=== PATIENT | female | born 1950 | race Caucasian/White ===

== ENCOUNTER 2017-10-24 12:36 | Day surgery (SDC) | payer MEDICARE, OTHER ==
[~2017-10-24 12:36] MED LIST: Buffered Lidocaine 0.9% SYRIN* 5 ML/SYR SYRINGE INTRADERM ONE
[2017-10-24] MEDS ORDERED: Midazolam* 1 MG/ML 2 ML VIAL (2 MG) ONE ×3 (13:27→14:01)
[2017-10-24] MEDS ORDERED: fentaNYL* 50 MCG/ML 2 ML VIAL (100 MCG VIAL) ONE ×2 (13:27→14:01)
[2017-10-24] MEDS ORDERED: Ketorolac INJ* 30 MG/ML 1 ML VIAL ONE (13:40)
[2017-10-24] MEDS ORDERED: Naloxone* 0.4 MG/ML 1 ML VIAL IV PRN (14:04)
[2017-10-24 15:09] VITALS: BP 138/84
[2017-10-24] MEDS ORDERED: Tetracaine 0.5% OPTH.SOL 4 ML* 1 DROP BTL ONE (15:12)
[2017-10-24] MEDS ORDERED: Tropicamide 1% OPTH.SOL* BTL ONE (15:12)
[2017-10-24] MEDS ORDERED: Cyclopentolate 1% OPTH.SOL* 2 ML BTL ONE (15:12)
[2017-10-24] MEDS ORDERED: Phenylephrine 2.5% OPTH.SOL* 2 ML BTL ONE (15:12)
[2017-10-24] MEDS ORDERED: Neomycin/Polymy/Dex OPHTH.OIN* 3.5 GM ONE (15:12)
[2017-10-24] MEDS ORDERED: Ketorolac 0.5% OPHTH (NF) 0.5 % 5 ML BTL ONE (15:12)
[2017-10-24] MEDS ORDERED: Lidocaine 1%* 5 ML VIAL ONE (15:12)
--- NOTE | 2017-10-24 22:24 | OP ---
OPERATIVE REPORT: DATE OF OPERATION: 10/24/17 - [facility] DATE OF : 46 SURGEON: Dr. Dillan Amanda. RESPIRATORY PRACTITIONER: None. ANESTHESIA: Topical with intravenous sedation. PRE-OP DIAGNOSIS: Cataract, right eye. POST-OP DIAGNOSIS: Cataract, right eye. OPERATIVE PROCEDURE: Phacoemulsification and cataract extraction with posterior chamber intraocular lens implant, right eye. COMPLICATIONS: None. BLOOD LOSS: None. OPERATIVE FINDINGS: The patient was brought to the operating room and received a small amount of intravenous sedation. A drop of tetracaine was placed in her right eye. She was prepped and draped in the usual sterile fashion for ophthalmic surgery and attention was directed to the right eye where a speculum was placed. A paracentesis was created at the 11 o'clock position and 0.1 cc of 1 percent preservative-free lidocaine was injected into the anterior chamber followed by DisCoVisc. The eye was digitally stabilized while a 2.75 mm keratome was used to create a triplanar clear corneal incision at the 9 o'clock position. A continuous curvilinear capsulorrhexis was created with a cystotome and Utrata forceps. BSS on a cannula was used to hydrodissect the lens from the capsule. Phacoemulsification was performed in a gfytji-[id number] technique to create four fragments which were removed. Residual cortical material was removed with irrigation and aspiration. DisCoVisc was used to inflate the capsular bag and an AUOOTO 15.5 diopter lens was folded and inserted into the capsular bag. DisCoVisc was removed using irrigation and aspiration. BSS on a cannula was used to hydrate the corneal stroma and seal the wound. At the end of the case the pupil was round and the lens was centered. The eye was of normal pressure and the wound was water tight. The speculum was removed and topical Maxitrol ointment was placed on the surface of the eye. The eye was closed, patched and shielded and the patient was sent to the recovery room in stable condition with post operative instructions and follow-up appointment given. [id number]/CPS #: [id number] DIAMOND
== END 2017-10-24 14:26 | disposition home or self-care (01) ==
LOC: OREAST 12:36
PROVIDERS: ATTEND Ophthalmology
DX: H25.11 Age-related nuclear cataract, right eye (principal); I10 Essential (primary) hypertension; F41.1 Generalized anxiety disorder; K21.9 Gastro-esophageal reflux disease without esophagitis; M54.5 Low back pain; K58.0 Irritable bowel syndrome with diarrhea
CPT/HCPCS: A9270-GY; J1885; J2250; J3010; V2632

== ENCOUNTER 2018-11-24 09:22 | Emergency (ER) | payer MEDICARE ==
--- OUTSIDE RECORDS SUMMARY | 2018-11-24 09:28 | XMS REPORT | Continuity of Care Document ---
:1950 External Reference #:[id number] Author Care Team Providers Name Role Phone Uday Morris MD - Family Medicine Care Team Information Marriage And Family Counselor Problems Description No Information Available Social History Type Date Description Comments Sex Unknown Tobacco Use Start: Unknown Patient has never smoked Smoking Status Reviewed: 10/30/18 Patient has never smoked Allergies, Adverse Reactions, Alerts Active Allergies Reaction Severity Comments Date Hydrochlorothiazide leg cramps 09/19/2018 Levofloxacin 09/19/2018 Sulfa Antibiotics 10/22/2018 Penicillin 10/22/2018 Fluoxetine 10/30/2018 Medications Active Medications SIG Qnty Indications Ordering Provider Date Omeprazole take 1 capsule by 30caps Jaclyn 10/30/2018 20mg mouth daily. take MD Abbea Capsules DR 30-60 minutes before a meal. Suprep Bowel Prep Kit as directed 1units Jaclyn 10/30/2018 MD Abeba 17.5-3.13-1.6GM/177ML Solution Ondansetron take one tablet 30tabs R13.19 Uday Morris, 06/07/2018 4mg Tablets by mouth four MD Dispers times a day as needed for nausea Lorazepam 1 twice a day as 60tabs Uday Morris, 12/19/2017 0.5mg Tablets needed anxiety dt MD Loaiza XT take 1 capsule 90caps Uday Morris, 09/11/2014 180mg Caps ER daily MD 24HR Hydrocodone-Acetamino 1 by mouth four 60tabs M25.559 Uday Morris, 04/24 phen times a day as MD 5-325mg Tablets needed pain Ambien 1 by mouth every 30tabs Cha Barkley, 08/22/2005 10mg Tablets night at bedtime MD as needed sleep Lisinopril 1 by mouth every 90tabs I10 ArturoUday, 08/26/2004 40mg Tablets day MD History Medications Nitrofurantoin Monohyd 1 by mouth twice a 14caps N39.0 ArturoUday Amarilis, 11/2018 - Macro day x 7 days for MD 10/30/2018 100mg Capsules urinary tract Fluoxetine HCL 1 by mouth every 30caps F32.9 ArturoValeriowilton Olmos, 09/11/2018 - 20mg day For Depression 10/30/2018 Capsules Immunizations Description No Information Available Vital Signs Date Vital Result Comment 10/30/2018 10:20am Height 69 inches 5'9" Weight 166.00 lb BP Systolic 164 mmHg BP Diastolic 98 mmHg Heart Rate 117 /min BMI (Body Mass Index) 24.5 kg/m2 Results Test Date Facility Test Result H/L Range Note Lab Results 09/18/2018 N2N/CCD Import Gamma gt <pending> 5-85 Lab Results 09/11/2018 N2N/CCD Import Appearance clear Color brown Glucose, Urine (Fma/CMC/CTX) 100mg High Bilirubin Icto neg Ketones 15mg SP Grav 1.025 1 Blood trace-lysed PH 5.5 1 Protein Ssa 1+ Urobil 1.0 1 Nitrite negative Leukocytes (Fma/CMC/Centrex) negative Hyaline 4-6 /Lpf Granular - /Lpf WBC (Fma,Centrex) 3-5 RBC 0-1 Mucus (Fma/CBC/Centrex) sm amt /Lpf Epith few /Lpf Bacteria 1+ /Hpf Amorphous (Fma/CMC/Centrex) - /Lpf Crystals, Fluid (Fma/CMC/CTX) - Z#Comments yeast Comprehensive Metabolic Prof 09/11/2018 N2N/CCD Import Sodium 138 mEq/L 134-149 Potassium 3.8 mEq/L 3.6-5.5 Chloride 99 mEq/L 94-112 Carbon Dioxide 27 mEq/L 21-32 Glucose 113 mg/dL High 70-105 1 BUN 9 mg/dL 6-26 Creatinine 0.9 mg/dL 0.6-1.4 BUN/Creat Ratio 10.0 CALC 8-36 Calcium 9.3 mg/dL 8.6-10.2 Total Protein 8.6 g/dL High 6.4-8.3 2 Albumin 4.4 g/dL 3.8-5.5 Globulin 4.2 g/dL 2-4.8 A/G Ratio 1.0 CALC 0.6-2.3 Alk. Phosphatase 179 U/L High 30-110 Alt (SGPT) 31 U/L 7-35 Ast (Sgot) 52 U/L High 5-34 Total Bilirubin 3.3 mg/dL High 0.2-1.3 GFR Non- >60 ml/min/1.73m^ GFR >60 ml/min/1.73m^ Lab Results 09/11/2018 N2N/CCD Import WBC 5.6 10^3/uL 4-10 RBC 3.70 10^6/uL Low 3.93-6 3 HGB 12.6 g/dL 12-17 HCT 38 % 35-50 MCV 102.2 fL High 80-95 4 MCH 34.1 pg High 25.6-32.2 5 MCHC 33.3 g/dL 32.2-36 RDW-CV 14.0 % 11.6-14.4 PLT 243 10^3/uL 163-400 MPV 9.8 fL 9.4-12.4 Rob# 2.77 10^3/uL 1.56-6.13 Lymph# 2.23 10^3/uL 1.18-3.74 [place]# 0.43 10^3/uL 0.24-0.82 Eos # 0.1 10^3/uL 0-0.5 Baso # 0.01 10^3/uL 0.01-0.08 Rob% 49.9 % 34-70 Lymph % 40.2 % 20-52 [place]% 7.7 % 5-12 Eos% 2.0 % 0.7-7 Baso% 0.2 % 0.1-1.2 Total Bilirubin 3.3 mg/dL High 0.2-1.3 Direct Bilirubn 1.0 mg/dL High 0-0.6 Indirect Bilirubin 2.30 mg/dL High 0.1-1 Lab Results 09/11/2018 N2N/CCD Import Total Bilirubin 3.3 mg/dL High 0.2- 1.3 Direct Bilirubn 1.0 mg/dL High 0-0.6 Indirect Bilirubin 2.30 mg/dL High 0.1-1 Lab Results 09/11/2018 N2N/CCD Import C-Reactive <1 mg/L 0-10 6, 7 Protein, Quant Lab Results 08/19/2018 N2N/CCD Import Cologuard Cancelled - Orde 8 <See Note> 1 RESULTS VERIFIED BY REPEAT ANALYSIS 2 RESULTS VERIFIED BY REPEAT ANALYSIS 3 consistent w/ previous results 4 RESULTS VERIFIED BY REPEAT ANALYSIS 5 consistent w/ previous results 6 1 gold top sst tube sent 7 Please note reference interval change 8 Cancelled - Order This order has because it has exceeded 365 days from the initial order. Please contact the laboratory to reorder this test if clinically indicated. Test Type: Composite algorithmic analysis of stool DNA-biomarkers with hemoglobin immunoassay. Quantitative values of individual biomarkers are not reportable and are not associated with individual biomarker result reference ranges. Precautions and Limitations: Cologuard is intended for colorectal cancer screening of adults of either sex, 50 years or older, who are at typical average-risk for colorectal cancer. A negative C ologuard test result does not guarantee the absence of colorectal cancer or advanced adenoma (pre-cancer). Patients with a negative Cologuard test result should be advised to continue participating in a colorectal cancer screening program. Cologuard may produce a positive result , even though a colonoscopy may not find colorectal cancer or precancerous polyps. The performance of Cologuard has been esta blished in a cross sectional study (i.e., single point in time). Performance has not been evaluated in adults who have been previously tested with Cologuard or in patients less than 50 years of age. Col oguard has been approved for use by the [place] FDA. Cologuard performance data in a 10,000 patient pivotal study using colonoscopy as the reference method can be accessed at the following location: [email or web address]. Additional description of the Cologuard test process, warnings and precautions can be found at www.cologuardtest.com. Rx Only. Procedures Description No Information Available Medical Devices Description No Information Available Encounters Description No Information Available Assessments Date Code Description Provider 10/30/2018 R19.4 Change in bowel habit Jaclyn Us MD 10/30/2018 R10.9 Unspecified abdominal pain Jaclyn Us MD 10/30/2018 R13.10 Dysphagia, unspecified Jaclyn Us MD 10/30/2018 R11.0 Nausea Jaclyn Us MD 10/30/2018 R63.4 Abnormal weight loss Jaclyn Us MD 10/30/2018 R94.5 Abnormal results of liver function studies Jaclyn Booker MD 10/30/2018 R93.3 Abnormal findings on diagnostic imaging of Jaclyn Booker MD other parts of digestive tract Plan of Treatment Future Appointment(s):11/29/2018 12:00 pm - [facility] at [facility]/30/2018 - Jaclyn Us, MDR19.4 Change in bowel xusriU98.9 Unspecified abdominal painR13.10 Dysphagia, krvlyxgcjzqM61.0 UonjwiB69.4 Abnormal weight lossR94.5 Abnormal results of liver function kadnqviE35.3 Abnormal findings on diagnostic imaging of other parts of digestive tract Functional Status Description No Information Available Mental Status Description No Information Available Referrals Description No Information Available
--- OUTSIDE RECORDS SUMMARY | 2018-11-24 09:28 | XMS REPORT | Continuity of Care Document ---
:1950 External Reference #:[id number] Author Name Jaclyn Us MD Address [address] [place] [address] Care Team Providers Name Role Phone Uday Morris MD - Family Medicine Care Team Information Internal Wholesaler [phone] Problems Description No Information Available Social History [...] Provider Date Omeprazole take 1 capsule by 30capkaylene Anaya 10/30/2018 20mg mouth daily. take MD Abeba Capsules DR 30-60 minutes before a meal. [...] pain Ambien 1 by mouth every 30tabs FilippoCha, 08/22/2005 10mg Tablets night at bedtime as needed sleep Lisinopril 1 by mouth every 90tabs I10 Uday Morris, 08/26/2004 40mg Tablets day MD History Medications Nitrofurantoin Monohyd 1 by mouth twice a 14caps N39.0 Uday Morris, 11/2018 - Macro day x 7 days for MD 10/30/2018 100mg Capsules urinary tract Fluoxetine HCL 1 by mouth every 30caps F32.9 Uday Morris, 09/11/2018 - 20mg day For Depression 10/30/2018 [...] 2.77 10^3/uL 1.56-6.13 Lymph# 2.23 10^3/uL 1.18-3.74 [place]# 0.43 10^3/uL 0.24-0.82 Eos # 0.1 10^3/uL 0-0.5 Baso # 0.01 10^3/uL 0.01-0.08 Rob% 49.9 % 34-70 Lymph % 40.2 % 20-52 [place]% 7.7 % 5-12 Eos% 2.0 % 0.7-7 [...] can be accessed at the following location: [email or web address]/results. Additional description of the Cologuard test process, [...] 12:00 pm - [facility] - Jaclyn Us, MDR19.4 Change in bowel bmifhN93.9 Unspecified abdominal painR13.10 Dysphagia, eseohnlqkhsL25.0 GxpuzyY11.4 Abnormal weight lossR94.5 Abnormal results of liver function zpgpgjxJ82.3 Abnormal findings on diagnostic imaging of other parts of digestive tract Functional Status Description No Information Available Mental Status Description No Information Available Referrals Description No Information Available
[2018-11-24 10:02] VITALS: BP 156/85
--- NOTE | 2018-11-24 10:32 | UC ---
Upper Extremity HPI - HPI Summary HPI Summary: Patient is a 68yo female presenting with right shoulder and scapula pain x5 days. Rates pain 4-5/10. Describes it as a dull ache until certain movements cause sharp pains. Patient is somewhat poor historian, having trouble recalling details of the event and of her own personal health problems. Patient states she took 2 valium on Monday before her 9am MRI for a bowel issue and then went home where she had a drink to relieve stress. She states she fell between the bed and a table that day around 5pm. She does not recall how she fell exactly. She needed help from two people to get up because her legs were too weak. Says she also bruised her coccyx and her head. She denies any headache, n/v, burred vision, numbness, or tingling. She denies neck pain or decreased ROM of neck. Denies any anticoagulant therapy. Patient says falling, leg weakness, her tremor , and trouble remembering are all normal things for her. She is concerned today mostly for her arm because it is the only thing that has not started to feel better. She has been taking ibuprofen throughout the week without much pain relief. - History of Current Complaint Chief Complaint: UCTrauma Stated Complaint: R ARM INJ Time Seen by Provider: 11/24/18 09:28 Hx Obtained From: Patient Onset/Duration: Sudden Onset, Lasting Days Severity Initially: Moderate Severity Currently: Moderate Pain Intensity: 4 Pain Scale Used: 0-10 Numeric Character: Sharp, Dull Aggravating Factor(s): Movement, Lifting, Abduction Alleviating Factor(s): Rest Associated Signs And Symptoms: Positive: Bruising, Weakness. Negative: Numbness /Tingling Related History: Dominant Hand Right - Allergies/Home Medications Allergies/Adverse Reactions: Allergies Allergy/AdvReac Type Severity Reaction Status Date / Time Penicillins Allergy Rash Verified 11/24/18 09:56 SULFA DRUGS Allergy Rash Uncoded 11/24/18 09:56 PMH/Surg Hx/FS Hx/Imm Hx - Surgical History Surgical History: Yes Surgery Procedure, Year, and Place: 1966-tonsillectomy. gallbladder removed 1996[place] [place] 2 YEARS AGO- LEFT EYE CATARACT REMOVED, NOW FATOU AND Rt EYE MACULAR HOLE FILLED WITH GAS BUBBLE - Family History Known Family History: Positive: Unknown, Non-Contributory - Social History Alcohol Use: Weekly Alcohol Amount: 2-3 DRINKS Substance Use Type: None Smoking Status (MU): Never Smoked Tobacco Have You Smoked in the Last Year: No Review of Systems All Other Systems Reviewed And Are Negative: No Constitutional: Positive: Negative Skin: Positive: Bruising - right posterior shoulder and back. left side of head. Eyes: Negative: Blurred Vision, Diplopia, Photophobia Respiratory: Negative: Shortness Of Breath Cardiovascular: Positive: Negative. Negative: Chest Pain Gastrointestinal: Positive: Negative Motor: Positive: Decreased ROM Neurovascular: Negative: Decreased Sensation Musculoskeletal: Positive: Decreased ROM, Myalgia Neurological: Negative: Headache, Paresthesia, Numbness Physical Exam Triage Information Reviewed: Yes Appearance: Well-Appearing, Well-Nourished, Other: - Patient appears frail overall. Vital Signs: Initial Vital Signs Temp 99.3 F 11/24/18 09:56 Pulse 96 11/24/18 09:56 Resp 18 11/24/18 09:56 BP 156/85 11/24/18 09:56 Pulse Ox 97 11/24/18 09:56 Vital Signs Reviewed: Yes Eye Exam: Normal - PERRLA Eyes: Positive: Conjunctiva Clear ENT: Negative: Nasal drainage Neck: Positive: Supple, No Lymphadenopathy, Tenderness @ - midline to palpation Cardiovascular: Positive: Pulses Normal, Brisk Capillary Refill Musculoskeletal: Positive: Strength Intact, No Edema, ROM Limited @ - abduction and overhead arm raise Neurological: Positive: Alert, Other: - sensation of RUE intact Skin: Positive: Other - areas of ecchymosis along right mid/upper back that appear to be healing. area of ecchymosis on back left side of head that also appear to be healing. Diagnostics - Radiology right shoulder Radiology Interpretation Completed By: Radiologist Summary of Radiographic Findings: IMPRESSION: NO EVIDENCE FOR FRACTURE. right scapula Radiology Interpretation Completed By: Radiologist Summary of Radiographic Findings: IMPRESSION: NO EVIDENCE FOR FRACTURE. cervical spine Radiology Interpretation Completed By: Radiologist Summary of Radiographic Findings: FINDINGS: C1-C7 are visualized. There is straightening of the cervical spine with loss of the normal cervical lordosis. No prevertebral soft tissue swelling or fracture is seen. There is moderate to severe degenerative disc disease at the C3-C4, C4-C5, C5-C6 and C6-C7 levels. IMPRESSION: 1. LIMITED STUDY, NO FRACTURE IS SEEN. 2. 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 Upper Extremity Course/Dx - Course Course Of Treatment: Patient was also seen and examined by Dr. Briggs. There is low concern for any brain bleed, including a subdural. Discussed normal neuro findings with patient who also has little concern. Negative shoulder, scapula, and cervial spine xrays also discussed with the patient. She was directed to wear sling, rest, and use ice and heat for treatment of shoulder sprain. She may continue to take ibuprofen as directed for pain relief. Light exercises were discussed and outlined in the packet provided to her to prevent shoulder from stiffening. Patient instructed to follow up with her orthopedic doctor if pain persists or worsens. Patient also instructed to go to the emergency room if she experiences severe headache, nausea, vomiting, or vision changes. Patient voiced understanding and agreed with treatment plan. - Differential Dx/Diagnosis Provider Diagnosis: Shoulder sprain, Contusion of head Discharge ED - Sign-Out/Discharge Documenting (check all that apply): Patient Departure All imaging exams completed and their final reports reviewed: Yes - Discharge Plan Condition: Stable Disposition: HOME Patient Education Materials: Shoulder Sprain (ED), Scalp Contusion in Adults ( ED), Early Postoperative or Post Injury Shoulder Exercises (ED) Referrals: Uday Morris MD [Primary Care Provider] - Ana M Dorman MD [Medical Doctor] - Additional Instructions: Wear sling, rest, ice, heat for treatment of your shoulder sprain. You may continue to take ibuprofen as directed for pain relief. Be sure to do light exercises as discussed and outlined in the packet provided to you. Follow up with your orthopedic doctor as listed below if pain persists or worsens. The over the counter pain medications should help the pain from the bruise on your head as well. Go to the emergency room if you experience severe headache, nausea , vomiting, or vision changes. - Billing Disposition and Condition Condition: STABLE Disposition: Home
== END 2018-11-24 11:40 | disposition home or self-care (01) ==
LOC: UCEAST 09:22
DX: S43.401A Unspecified sprain of right shoulder joint, initial encounter (principal); S00.93XA Contusion of unspecified part of head, initial encounter; W18.30XA Fall on same level, unspecified, initial encounter; Y92.013 Bedroom of single-family (private) house as the place of occurrence of the external cause; Z88.2 Allergy status to sulfonamides
CPT/HCPCS: 72050; 99212; G0463

== ENCOUNTER 2019-04-01 09:05 | Inpatient (IN) | payer MEDICARE ==
[2019-04-01] MEDS ORDERED: NS 0.9% 1000 ML** 1,000 ML IV ONE ×2 (09:12→10:14)
[2019-04-01] MEDS ORDERED: Piperacillin/Tazobac ADVAN(*) 3.375 GM in NS 0.9% 100 ML* 100 ML IVPB ONE ×2 (09:21→15:18)
--- NOTE | 2019-04-01 09:21 | ED ---
Complex/Multi-Sys Presentation - HPI Summary HPI Summary: This patient is a 69 year old F brought to ED via EMS with a chief complaint of bilateral subscapular pain, AMS, urinary frequency since [employer]. Patient was found on the toilet and stated she felt cold. She had a fever at 101.2 F. Patient reports shakiness, shortness of breath, sneezing, general body aches, intermittent headache and nausea. Patient denies difficulty urinating, chest pain, abdominal pain, vomiting, and diarrhea. She last ate on 03/28/18 and she denies any recent trauma or falls. The patient rates the pain 7/10 in severity. Symptoms aggravated by nothing. Symptoms alleviated by nothing. - History Of Current Complaint Time Seen by Provider: 04/01/19 09:11 Hx Obtained From: Patient Onset/Duration: Gradual Onset, Still Present Timing: Constant Severity Currently: Moderate Severity Initially: Moderate Location: Pain At: - Subscapular Aggravating Factor(s): Nothing Alleviating Factor(s): Nothing Associated Signs And Symptoms: Positive: Headache, SOB, Nausea, Back Pain, Fever. Negative: Chest Pain, Vomiting, Diarrhea, Abdominal Pain, Recent Trauma - Allergies/Home Medications Allergies/Adverse Reactions: Allergies Allergy/AdvReac Type Severity Reaction Status Date / Time Penicillins Allergy Rash Verified 04/01/19 09:19 SULFA DRUGS Allergy Rash Uncoded 11/24/18 09:56 Home Medications: Home Medications ARIPiprazole TAB* [Abilify 2 MG TAB*] 2 - 4 mg PO BEDTIME 04/01/19 [History Confirmed 04/01/19] Bupropion XL* [Wellbutrin XL *] 150 - 300 mg PO DAILY 04/01/19 [History Confirmed 04/01/19] Ondansetron TAB* [Zofran 4 MG Tab*] 4 mg PO QID PRN 04/01/19 [History Confirmed 04/01/19] PMH/Surg Hx/FS Hx/Imm Hx Endocrine/Hematology History: Denies: Hx Diabetes Cardiovascular History: Reports: Hx Hypertension - ON MEDICATION FOR Denies: Hx Congestive Heart Failure, Hx Pacemaker/ICD, Other Cardiovascular Problems/Disorders GI History: Reports: Hx Gastroesophageal Reflux Disease - PRN MEDICATION FOR, Hx Hiatal Hernia, Hx Irritable Bowel - NOT DIAGNOSED-CHRONIC DIARRHEA AND CONSTIPATION Comment Only: Other GI Disorders - hiatal hernia History: Reports: Hx Kidney Stones - ONE TIME 2002, Other Problems/ Disorders - kidney stone Denies: Hx Dialysis, Hx Renal Disease Musculoskeletal History: Reports: Hx Arthritis - LOWER BACK, Other Musculoskeletal History - OCC RIGHT HIP PAIN THAT RADIATED TO THE RIGHT KNEE Sensory History: Reports: Hx Cataracts - FATOU, Hx Contacts or Glasses - GLASSES Denies: Hx Hearing Aid Opthamlomology History: Reports: Hx Cataracts - FATOU, Hx Contacts or Glasses - GLASSES Psychiatric History: Reports: Hx Anxiety - HX OF, Hx Depression - HX OF Denies: Hx Panic Disorder - Surgical History Surgery Procedure, Year, and Place: 1966-tonsillectomy. gallbladder removed 1996-[facility] [place]. 2 YEARS AGO- LEFT EYE CATARACT REMOVED, NOW FATOU AND Rt EYE MACULAR HOLE FILLED WITH GAS BUBBLE Hx Anesthesia Reactions: No - Family History Known Family History: Negative: Hypertension, Diabetes - Social History Alcohol Use: Weekly Alcohol Amount: 2-3 DRINKS Hx Substance Use: No Substance Use Type: Reports: None Hx Tobacco Use: No Smoking Status (MU): Never Smoked Tobacco Have You Smoked in the Last Year: No Review of Systems Positive: Fever, Chills Negative: Chest Pain Respiratory: Other - Sneezing Positive: Shortness Of Breath Positive: Nausea. Negative: Abdominal Pain, Vomiting, Diarrhea Positive: frequency Musculoskeletal: Negative - General body aches, Other - Bilateral subscapular pain Neurological: Other - AMS, shakiness Positive: Headache All Other Systems Reviewed And Are Negative: Yes Physical Exam - Summary Physical Exam Summary: Constitutional: Well-developed, Well-nourished, Alert. (-) Distressed Skin: Mottled. HENT: Normocephalic; Atraumatic Eyes: Conjunctiva normal Neck: Musculoskeletal ROM normal neck. (-) JVD, (-) Stridor, (-) Tracheal deviation Cardio: Tachycardic, no murmurs. Pulmonary/Chest wall: Effort normal. (-) Respiratory distress, (-) Wheezes, (-) Rales Abd: Soft, (-) tenderness, (-) Distension, (-) Guarding, (-) Rebound Musculoskeletal: (-) Edema Lymph: (-) Cervical adenopathy Neuro: Alert, Oriented x3, No focal deficits. Psych: Mood and affect Normal Triage Information Reviewed: Yes Vital Signs On Initial Exam: Initial Vitals Temp Pulse Resp BP Pulse Ox 101.2 F 154 25 143/97 0 04/01/19 09:06 04/01/19 09:06 04/01/19 09:06 04/01/19 09:06 04/01/19 09:06 Vital Signs Reviewed: Yes Procedures - Sedation Patient Received Moderate/Deep Sedation with Procedure: No Diagnostics - Laboratory Result Diagrams: 04/01/19 09:34 04/01/19 09:34 Lab Statement: Any lab studies that have been ordered have been reviewed, and results considered in the medical decision making process. - Radiology CXR Radiology Interpretation Completed By: Radiologist Summary of Radiographic Findings: HIATAL HERNIA. NO ACTIVE CARDIOPULMONARY DISEASE. Dr. Vargas has reviewed this radiology report. - CT C/A/P CT Interpretation Completed By: Radiologist Summary of CT Findings: 1. AGAIN NOTED IS BILIARY DILATATION EXTENDING TO THE LEVEL OF THE AMPULLA, SLIGHTLY PROGRESSED COMPARED TO SEPTEMBER 14, 2018. 2. HIATAL HERNIA. 3. ATHEROSCLEROSIS. 4. TRACE RIGHT PLEURAL EFFUSION. Dr. Vargas has reviewed this radiology report. - EKG 920 Cardiac Rate: Tachycardia - 138 BPM EKG Rhythm: Sinus Tachycardia Summary of EKG Findings: An EKG at 920 revealed sinus tachycardia at 138 BPM, no ischemic changes. Dr. Vargas has reviewed and interpreted this EKG. Re-Evaluation - Re-Evaluation First Eval Re-Evaluation Time: 11:33 Comment: Patient reports upper and lower back pain upon attempting to get up to use the commode. Patient reports falling on 03/28/19. She denies abdominal pain. Second Eval Re-Evaluation Time: 13:08 Comment: Discussed results with patient. Patient will be admitted to [facility] with dx of febrile illness, SIRS, and fall. Patient understands and agrees with this plan. Complex Multi-Symp Course/Dx Course Of Treatment: This patient is a 69 year old F brought to ED via EMS with a chief complaint of bilateral subscapular pain, AMS, urinary frequency since [employer]. In the ED course, patient received fluids, Zosyn, and Tylenol. An EKG at 920 revealed sinus tachycardia at 138 BPM, no ischemic changes. CXR revealed: HIATAL HERNIA. NO ACTIVE CARDIOPULMONARY DISEASE. Blood work revealed RBC 3.11, Hgb 10.6, Hct 31, MCV 200, MCH 34, lymphocytes 0.6, sodium 132, chloride 98, anion gap 12, BUN 27, creatinine 1.42, lactic acid 2.9, total bilirubin 1.60, albumin 3.1, globulin 4.7, albumin/globulin ratio 0.7. Influenza A/B both negative. UA revealed 1+ protein, 1+ blood, 2+ WBC, 1+ bacteria, present squamous epithelial cells, present hyaline casts. CT C/A/P revealed: 1. AGAIN NOTED IS BILIARY DILATATION EXTENDING TO THE LEVEL OF THE AMPULLA, SLIGHTLY PROGRESSED COMPARED TO SEPTEMBER 14, 2018. 2. HIATAL HERNIA. 3. ATHEROSCLEROSIS. 4. TRACE RIGHT PLEURAL EFFUSION. Discussed results with patient. Patient will be admitted to [facility] with dx of febrile illness, SIRS, and fall. Patient understands and agrees with this plan. Discussed patient case with Dr. Adams, hospitalist, who accepted the patient for admission to [facility]. - Diagnoses Provider Diagnoses: SIRS (systemic inflammatory response syndrome), Febrile illness, Fall - Physician Notifications Discussed Care Of Patient With: Radha Adams Time Discussed With Above Provider: 13:12 Instructed by Provider To: Admit As Observation - Discussed patient case with Dr. Adams, hospitalist, who accepted the patient for admission to [facility]. Discharge ED - Sign-Out/Discharge Documenting (check all that apply): Patient Departure - Admit - Discharge Plan Condition: Fair Disposition: ADMITTED TO [facility] - Billing Disposition and Condition Condition: FAIR Disposition: Admitted to [facility] - Attestation Statements Document Initiated by Dominick: Yes Documenting Scribe: Shay Lang Provider For Whom Scribe is Documenting (Include Credential): Curt Vargas DO Scribe Attestation: IShay scribed for Curt Vargas DO on 04/01/19 at 1902. Scribe Documentation Reviewed: Yes Provider Attestation: The documentation as recorded by the Shay milner accurately reflects the service I personally performed and the decisions made by me, Curt Vargas DO Status of Scribabigail Document: Viewed
[2019-04-01] MEDS ORDERED: Acetaminophen ADULT LIQ* 650 MG/20.3 ML UDC PO ONE (09:41)
[2019-04-01 09:51] LABS: Hematocrit 31 % (35-47); Hemoglobin 10.6 g/dL (12.0-16.0); Mean Corpuscular HGB Conc 34 g/dL (31-36); Mean Corpuscular Hemoglobin 34 pg (27-31); Mean Corpuscular Volume 100 fL (80-97); Mean Platelet Volume 8.5 fL (7.4-10.4); Platelet Count 176 10^3/uL (150-450); Red Blood Count 3.11 10^6 /uL (3.70-4.87); Red Cell Distribution Width 15 % (10-15); White Blood Count 7.2 10^3/uL (3.5-10.8)
[2019-04-01 09:54] LABS: ABS Lymphocytes 0.6 10^3/ul (1.0-4.8); ABS Monocytes 0.2 10^3/ul (0-0.8); ABS Neutrophils 6.3 10^3/ul (1.5-7.7); Eosinophil % 0.4 %; Lymphocyte % 8.9 %; Nucleated Red Blood Cells % 0.1
[2019-04-01 10:05] LABS: Troponin I 0.02 ng/mL (<0.03)
[2019-04-01 10:06] LABS: Activated Partial Thrombo Time 26.7 seconds (26.0-38.0)
[2019-04-01 10:08] LABS: Influenza A Molecular NEGATIVE (Negative); Influenza B Molecular NEGATIVE (Negative)
[2019-04-01 10:10] LABS: Albumin 3.1 g/dL (3.2-5.2); Albumin/Globulin Ratio 0.7 (1-3); Calcium 9.3 mg/dL (8.6-10.3); EGFR African American 44.1 (>60); EGFR Non-African American 36.5 (>60); Globulin 4.7 g/dL (2-4); Potassium 3.7 mmol/L (3.5-5.0); Total Bilirubin 1.6 mg/dL (0.2-1.0); Total Protein 7.8 g/dL (6.4-8.9)
[2019-04-01] MEDS ORDERED: Iodixanol* (CONTRAST) 320 MG/ML 100 ML SDV IV ONE (12:02)
[2019-04-01 12:19] LABS: Urine Appearance Cloudy; Urine Bilirubin Negative (Negative); Urine Blood 1+ (Negative); Urine Color Amber; Urine Glucose Negative (Negative); Urine Ketones Negative (Negative); Urine Nitrite Negative (Negative); Urine Protein 1+(30 mg/dL) (Negative); Urine Specific Gravity 1.025 (1.010-1.030); Urine Urobilinogen Negative (Negative)
[2019-04-01 12:37] LABS: Urine Bacteria 1+ (Absent); Urine Red Blood Cell Absent (Absent); Urine Squamous Epithelial Cell Present (Absent); Urine White Blood Cell 2+(11-20/hpf) (Absent)
[2019-04-01 14:32] LABS: Troponin I 0.04 ng/mL (<0.03)
[2019-04-01] MEDS ORDERED: Ondansetron INJ* 2 MG/ML VIAL IV PRN (14:52)
[2019-04-01] MEDS ORDERED: Enoxaparin(*) 40 MG/0.4 ML SYR SUBCUT SCH (15:00)
[2019-04-01] MEDS: ZOSYN 3.375 GM Q8H per EXTENDED INFUSION IVPB SCH ×2 (15:44)
[2019-04-01] MEDS: NS 0.9% 1000 ML** 1,000 ML IV SCH (15:51)
[2019-04-01] MEDS ORDERED: Zosyn per Pharmacy* NOTE FOLLOW UP SCH (16:00)
[2019-04-01 16:35] LABS: Troponin I 0.03 ng/mL (<0.03)
--- NOTE | 2019-04-01 17:51 | PN ---
Hospitalist Progress Note Date of Service: 04/01/19 HOSPITALIST ADDENDUM Prelim blood cultures show Strep x 2 BC. She's also c/o left knee pain now. Left knee xray ordered, as well as ID and Ortho consults. Check echocardiogram. Continue Zosyn.
[2019-04-01] MEDS: HYDROcodone/ACETAMIN 5-325 MG* 1 TAB PO PRN ×2 (17:54→21:46)
[2019-04-01] MEDS ORDERED: Thiamine INJ* 100 MG/ML 2 ML VIAL IM ONE (18:08)
[2019-04-01 18:11] LABS: C Reactive Protein 399.08 mg/L (<8.01)
--- NOTE | 2019-04-01 18:15 | ADMNOTE ---
Subjective Date of Service: 04/01/19 Interval History: This is an admission H+P for , a 69yo F w/ PMHx significant for HTN, anxiety, OA. She was brought in this morning to the ED with c/o bilateral scapular pain, urinary frequency, and AMS. She states that she has not been feeling well since last Monday after she went out shopping. She is unaware if she has been around any ill persons. She states she came home and felt like she was having "flu-like" symptoms which she describes as constant shaking. Monday morning she woke up and "couldn't move" d/t pain which she seems to be having a great difficulty describing quality and location, continues to say that she was "constantly shaking". In addition to this she was feeling feverish and having generalized body aches. She does admit to falling last Monday, states that she tripped over a bucket in her hallway. And that she was not able to get up on her own but needed help from her roommate to get up due to weakness. She denies hitting her head or losing consciousness but this fall was not witnessed. She does however admit to multiple falls over the past few months to which she states she has hit her head in the past and also sometimes "blacks out" soon after she begins to fall. States that she has not eaten since 03/28/19 but has been able to take in water and gatorade. Denies any N/V/D. Denies any SOB or CP at this time. Denies any pain at this time including back/scapular pain. C/o general weakness. During her time in the ED she received 2L of IVF, one dose of zosyn, and one dose of tylenol. She has been consistently tachycardic, febrile on arrival, and leukocytosis is noted. Home Medications: lisinopril 40mg PO QAM diltiazem HCl 180mg PO DAILY Hydrocodone/Acetaminophen 5/325mg 1 tab PO QID PRN Lorazepam 0.5mg PO BID PRN Zolpidem 10mg tab PO BEDTIME PRN Ondansetron 4mg tab PO QID PRN Aripiprazole 2-4mg PO BEDTIME - pt states she has not taken since last Buproprion XL 150mg PO DAILY - pt states she only takes 1 tab Family History: Findings - Father - at age 80, hx "triple bypass", COPD. Mother - at age 85, hx of pancreatic cancer. Brother - in his 50s, hx of [place] Social History: Findings - Daily etoh. Not a tobacco smoker. No illicit drug use. Lives at home with a roommate. Past Medical History: Findings - HTN, GERD, hiatal hernia, IBS, kidney stones in 2002, lower back arthritis, DDD, cataracts, anxiety, depression. Past surgical hx: tonsillectomy in 1966, gallbladder removal in 1996, L eye cataract removal 2 years ago Review of Systems - Measurements Intake and Output: Intake and Output Last 24 Hours 03/30/19 03/31/19 04/01/19 04/02/19 06:59 06:59 06:59 06:59 Intake Total 1100 Balance 1100 Weight 170 lb 4.8 oz Intake: IV Fluids 1100 - Review of Systems Constitutional Symptoms: Positive: Weakness, Fever - chills, see HPI HEENT: Positive: Normal Eyes: Negative: Change in Vision Pulmonary: Positive: Normal Cardiology: Positive: Normal Gastroenterology: Positive: Normal Genital - Urinary: Positive: Other - urinary frequency Musculoskeletal: Positive: Other - see HPI Neurology: Positive: Normal Objective Active Medications: Acetaminophen (Tylenol Tab*) 650 mg PO Q4H PRN PRN Reason: PAIN - MILD Hydrocodone Bitart/Acetaminophen (Lane 5-325 Tab*) 1 tab PO QID PRN PRN Reason: PAIN - MILD Last Admin: 04/01/19 17:54 Dose: 1 tab Diltiazem HCl (Cardizem Cd Cap*) 180 mg PO DAILY [facility] Enoxaparin Sodium (Lovenox(*)) 40 mg SUBCUT Q24H [facility] Last Admin: 04/01/19 15:44 Dose: 40 mg Sodium Chloride (Ns 0.9% 1000 Ml) 1,000 mls @ 75 mls/hr IV PER RATE [facility] Last Admin: 04/01/19 15:51 Dose: 75 mls/hr Piperacillin Sod/Tazobactam (Sod 3.375 gm/ Sodium Chloride) 100 mls @ 25 mls/ hr IVPB Q8H [facility] Last Admin: 04/01/19 15:44 Dose: 25 mls/hr Melatonin (Melatonin) 6 mg PO BEDTIME PRN PRN Reason: SLEEP Ondansetron HCl (Zofran Inj*) 4 mg IV Q4H PRN PRN Reason: NAUSEA/VOMITING Pharmacy Consult (Zosyn Per Pharmacy*) 1 note FOLLOW UP .ZOSYN PER PHARMACY [facility] Vital Signs - 8 hr 04/01/19 04/01/19 04/01/19 10:00 11:00 11:28 Temperature 98.2 F Pulse Rate 130 116 Respiratory 22 23 Rate Blood Pressure (mmHg) O2 Sat by Pulse 96 92 Oximetry 04/01/19 04/01/19 04/01/19 12:01 12:11 12:41 Temperature Pulse Rate 115 112 106 Respiratory 24 17 Rate Blood Pressure 112/73 103/66 (mmHg) O2 Sat by Pulse 62 93 93 Oximetry 04/01/19 04/01/19 04/01/19 13:00 13:11 13:41 Temperature Pulse Rate 110 105 104 Respiratory 17 18 19 Rate Blood Pressure 108/73 119/78 (mmHg) O2 Sat by Pulse 94 95 90 Oximetry 04/01/19 04/01/19 04/01/19 14:00 14:11 14:41 Temperature Pulse Rate Respiratory 27 23 19 Rate Blood Pressure 118/79 121/78 (mmHg) O2 Sat by Pulse Oximetry 04/01/19 04/01/19 04/01/19 15:04 15:22 17:54 Temperature 99.2 F 98.2 F Pulse Rate 109 108 Respiratory 19 20 20 Rate Blood Pressure 121/78 119/72 (mmHg) O2 Sat by Pulse 95 99 Oximetry Oxygen Devices in Use Now: None Appearance: Appears to be in NAD, able to comfortably lay in bed during exam Eyes: PERRLA Neck: NL Appearance and Movements; NL JVP Respiratory: Symmetrical Chest Expansion and Respiratory Effort, Clear to Auscultation Cardiovascular: - - Tachycardic, S1 S2 present, no murmur Abdominal: - - BS hypoactive X4, tympanic sounds heard with percussion, soft but mildly distended, no pain with deep palpation, no organomegaly Extremities: - - ROM and strength WNL and equal to BUE. ROM and strength to WNL RLE. LLE exhibits weakness, slight limit of ROM to L knee, very mild swelling to L knee, no erythema. Skin: No Rash or Ulcers Neurological: Alert and Oriented x 3 - responses are slightly delayed at times. Speech is normal. Affect is flat. Seems hard for her to focus and answer questions concisely. Result Diagrams: 04/02/19 06:34 04/02/19 06:34 Additional Lab and Data: Troponin 0.02 @ 0934, 0.04 @ 1313, and 0.03 @ 1605 Laboratory Tests 04/01/19 04/01/19 04/01/19 09:34 09:34 09:34 WBC 7.2 RBC 3.11 L Hgb 10.6 L Hct 31 L MCV 100 H MCH 34 H INR (Anticoag Therapy) 1.00 APTT 26.7 Sodium 132 L Potassium 3.7 Chloride 98 L Carbon Dioxide 22 Anion Gap 12 H BUN 27 H Creatinine 1.42 H Glucose 99 Lactic Acid Calcium 9.3 Total Bilirubin 1.60 H C-Reactive Protein 399.08 H Albumin 3.1 L Globulin 4.7 H Albumin/Globulin Ratio 0.7 L Urine Color Urine Appearance Urine pH Ur Specific [place] Urine Protein Urine Ketones Urine Blood Urine Nitrate Urine Bilirubin Urine Urobilinogen Ur Leukocyte Esterase Urine WBC (Auto) Urine RBC (Auto) Ur Squamous Epith Cells Urine Bacteria Hyaline Casts Urine Glucose 04/01/19 04/01/19 09:34 12:05 WBC RBC Hgb Hct MCV MCH INR (Anticoag Therapy) APTT Sodium Potassium Chloride Carbon Dioxide Anion Gap BUN Creatinine Glucose Lactic Acid 2.9 H* Calcium Total Bilirubin C-Reactive Protein Albumin Globulin Albumin/Globulin Ratio Urine Color Janna Urine Appearance Cloudy Urine pH 5.0 Ur Specific [place] 1.025 Urine Protein 1+(30 mg/dl) A Urine Ketones Negative Urine Blood 1+ A Urine Nitrate Negative Urine Bilirubin Negative Urine Urobilinogen Negative Ur Leukocyte Esterase Negative Urine WBC (Auto) 2+(11-20/hpf) A Urine RBC (Auto) Absent Ur Squamous Epith Cells Present A Urine Bacteria 1+ A Hyaline Casts Present A Urine Glucose Negative Microbiology and Other Data: Microbiology 04/01/19 09:37 Aerobic Blood Culture - Preliminary Blood Venous Anaerobic Blood Culture - Preliminary Diagnostic Imaging: CT of chest/abdomen/pelvis shows biliary dilitation extending to the area of the ampulla, which is slightly progressed from a study done in September 2018. Findings also include hiatal hernia and artherosclerosis. As well as a trace R pleural effusion. Chest XRay shows hiatal hernia but no active cardiopulmonary disease. L knee XRay shows no fracture. Small joint effusion noted. Mild nonfocal soft tissue edema. EKG Data: Original EKG from this morning shows sinus tachycardia with a rate of 138. A second EKG due to an increased troponin level done at 1608 shows sinus tachycardia as well with a rate of 104. Assess/Plan/Problems-Billing Assessment: is a 69 yo female who presents today with c/o fever, shaking, chills , and reports of AMS. PMHx significant for HTN, anxiety, OA. She is meeting sepsis criteria, infection source of unknown origin at this time. Her labs reveal macrocytic anemia, hyponatremia, and KARLA. She did admit to nursing staff that she is an alcohol drinker of approximately 6+oz of bourbon daily. - Patient Problems (1) Sepsis Comment: Pt met sepsis criteria on admission with tachycardia, fever, and leukocytosis. CRP of 399.08. She received antibiotics and 2L of IV fluid while in the ED, she will continue to receive zosyn and IVF while on the floor. At this time the origin of her infection is not yet known. Blood cultures have returned positive for gram positive cocci resembling strep which zosyn should provide adequate coverage for. A TTE has also been ordered to assess for any abnormalities which may be contributing to sepsis. There was a trace R pleural effusion noted on CT scan. No active cardiopulmonary disease noted on chest XRay. She had been noted to have significant L knee pain per nursing staff after admission to the floor, an XRay was ordered and orthopedic surgeon was consulted as this may be a potential contributing source of infection. ID has also been consulted. Differential dx at this time includes sepsis secondary to; endocarditis, infectious arthritis, or other unspecified source. (2) Altered mental status Current Visit: Yes Status: Acute Code(s): R41.82 - ALTERED MENTAL STATUS, UNSPECIFIED SNOMED Code(s): 588366024 Comment: - Presented with AMS - Likely multifactorial: septic encephalopathy, alcohol withdrawal - Will check head CT d/t recent fall and bacteremia (3) KARLA (acute kidney injury) Current Visit: Yes Status: Acute Code(s): N17.9 - ACUTE KIDNEY FAILURE, UNSPECIFIED SNOMED Code(s): 77280387 Comment: - Creatinine elevated on admission, now trending down - Secondary to sepsis - Continue IVF (4) Alcohol abuse Current Visit: Yes Status: Acute Code(s): F10.10 - ALCOHOL ABUSE, UNCOMPLICATED SNOMED Code(s): 46447149 Comment: - WAM per protocol (5) Hyponatremia Current Visit: Yes Status: Acute Code(s): E87.1 - HYPO-OSMOLALITY AND HYPONATREMIA SNOMED Code(s): 39270206 Comment: continue IVF (6) Essential (primary) hypertension Current Visit: Yes Status: Acute Code(s): I10 - ESSENTIAL (PRIMARY) HYPERTENSION SNOMED Code(s): 80046131 Comment: - Mildly hypertensive - Continue diltiazem (7) DVT prophylaxis Current Visit: Yes Status: Acute Code(s): Z29.9 - ENCOUNTER FOR PROPHYLACTIC MEASURES, UNSPECIFIED SNOMED Code(s): 682261431 Comment: Lovenox daily (8) Full code status Current Visit: Yes Status: Acute Code(s): Z78.9 - OTHER SPECIFIED HEALTH STATUS SNOMED Code(s): 264608963 Comment: Status and Disposition: Transferred to Med/Telemetry unit. Stable for transfer. Points of Discussion: Approximately 90 minutes was spent on the admission of this patient, more than half of that was face to face with the patient. Attending: Radha Adams
--- NOTE | 2019-04-01 18:34 | HP ---
CC: Dr. Morris * HISTORY AND PHYSICAL: DATE OF ADMISSION: 04/01/19 ADDENDUM: The patient was seen and evaluated at bedside and the case was discussed with Iris Huerta NP and Janene Felix NP. Mrs. Cartagena is a 69-year-old female with a past medical history of hypertension, hiatal hernia, nephrolithiasis, who presents to the emergency room with complaints of weakness and fever. The patient is a poor historian and needs to be redirected multiple times during the interview. She states that she was in her usual state of health until 04/03/18 when she started to feel weak, described shaking chills, sneezing, coughing. At that time, she felt, she was coming down with the flu. This was followed by body aches and more weakness. She came to the emergency room for further evaluation. On physical examination, she had an initial temperature of 101.2 and met sepsis criteria with tachycardia and fever. It is unclear what the source of the infection is at this time. She appears to have a viral process. The influenza A and B were negative. Urinalysis showed 1+ blood, 2+ wbc's, but nitrite and LE were negative. Her creatinine is elevated, but I believe this is likely prerenal in the setting of poor oral intake. The patient will be admitted for further evaluation and management. At this time, we will continue IV fluids and she was started on Zosyn empirically. Blood cultures were sent and we will follow results to see if we can pinpoint the source of infection. Another concern is that the patient has had multiple falls at home at least since November 2018 as per her friend at the bedside. We will check further workup including sed rate, CRP, and CPK to see if there is any other inflammatory diseases that could be causing her symptoms. The patient will be admitted to the medical floor, should be continued on Zosyn and we will continue to monitor. As described above, the patient was seen and examined by myself, and the case was reviewed and discussed with Iris Huerta NP and Janene Felix NP. [id number]/CPS #: [id number] MTDD
--- NOTE | 2019-04-01 21:37 | CONS ---
ORTHOPEDIC CONSULTATION NOTE: DATE OF CONSULT: 04/01/19 Thank you for this orthopedic consultation. CHIEF COMPLAINT: Left knee pain. HISTORY OF PRESENT ILLNESS: Ms. Cartagena is a 69-year-old female who was brought to the emergency room this morning with mental status changes, weakness , fatigue and shaking. She initially described flu like symptoms that have been going on for 4 days since last . She reports at the same time, she developed severe left knee pain, 10/10 severe pain in the left knee. Any weightbearing on the left knee made it difficult for her to ambulate and increased her pain. She also has had recent falls. She has had difficulty taking in water and food. The patient was admitted and blood cultures have grown strep initially. She met sepsis criteria on admission with fevers and tachycardia with leukocytosis. I am consulted to evaluate the left knee for sepsis as aseptic joint. PAST MEDICAL HISTORY: Hypertension, GERD, hiatal hernia, IBS, nephrolithiasis, lumbar spine arthritis, degenerative disk disease, cataracts, anxiety, depression. PAST SURGICAL HISTORY: Tonsillectomy, cholecystectomy, cataract excision. HOME MEDICATIONS: 1. [place] 5/325 one tab p.o. q.6 hours p.r.n. for pain. 2. Cardizem 180 mg p.o. daily. 3. Lovenox 40 mg subcutaneous daily. ALLERGIES: PENICILLIN. FAMILY HISTORY: Paternal, heart disease, COPD. Maternal, cancer. SOCIAL HISTORY: The patient lives at home with a roommate. Daily alcohol. No tobacco. No recreational drugs. REVIEW OF SYSTEMS: Positive for left knee pain, recent fevers, chills, fatigue , dizziness, recent falls, generalized body aches, anorexia, or loss of appetite. The patient denies chest pain, shortness of breath, nausea, vomiting. Otherwise the patient reports review of systems is negative or not relevant. PHYSICAL EXAMINATION: Vitals: Temperature 98.4, pulse of 117, blood pressure 129/70. General: The patient is a well-nourished female, in no apparent distress, alert and oriented x3, pleasant mood, appropriate affect. HEENT: Atraumatic, normocephalic. Pupils equal and reactive to light. Chest: Unlabored breathing. Left lower extremity: The patient's skin is intact. No abrasions or open wounds. Large effusion at the knee joint. Tender in the entire region of the knee. 5 to 90 degrees of flexion with severe knee pain. No erythema. Some mild warmth. Distally neurovascularly intact with 5/5 ankle dorsiflexion and plantar flexion strength. Full sensation to light touch in all nerve distributions and 2+ palpable DP pulse. DIAGNOSTIC STUDIES/LAB DATA: Labs show white blood cells 7.2, hematocrit 31, platelets 176. INR 1, PTT 26.7. Troponin mildly elevated at 0.04 and 0.03. Lactic acid 2.9 and now at 0.8. Sodium 132, potassium 3.7, chloride 98, BUN and creatinine 27 and 1.42. Left knee x-ray shows some arthritic changes and a small joint effusion. Chest, abdomen and pelvis CT shows biliary dilatation, hiatal hernia, atherosclerosis and trace right pleural effusion. Chest x-ray shows hiatal hernia, no active cardiopulmonary disease. ASSESSMENT AND PLAN: Ms. Cartagena is a 69-year-old female admitted at [facility], meeting sepsis criteria. She now has likely strep growing in her blood. There is no obvious source of infection. The patient's left knee is swollen and she has been having difficulty weightbearing since her symptoms started. The patient and I discussed that we need to exclude infection in his left knee. We discussed the risks and benefits of aspiration and she agrees to proceed. PROCEDURE NOTE: The patient's nurse, nurse's aide, and I agreed on a preprocedure time-out for left knee aspiration. The patient signs the consent. Preop time-out was taken to correctly identify the patient's side and site. The left knee was sterilely prepped with Betadine. An 18-gauge needle was used to sterilely aspirate 20 cc of cloudy yellow joint fluid from the left knee. I personally walked the knee fluid to the laboratory. I ordered cell count, gram stain, crystals, Lyme, microbiology with aerobic and anaerobic mycobacterial and fungal cultures. We will await results from the left knee joint fluid. She is currently on IV Zosyn. Orthopedics to follow the culture results. The patient and I did discuss that if she has any indication of infection, we will plan to perform I and D of the left knee tomorrow likely orthoscopically. [id number]/[facility] #: [id number] [facility]
[2019-04-01] MEDS: Melatonin 3 MG TAB PO PRN (21:47)
[2019-04-02] MEDS: LORazepam TAB(*) 1 MG PO SCH ×3 (00:15→09:46)
[2019-04-02] MEDS: ZOSYN 3.375 GM Q8H per EXTENDED INFUSION IVPB SCH ×4 (00:21→09:50)
[2019-04-02] MEDS ORDERED: Diazepam TAB(*) 5 MG PO ONE (04:10)
[2019-04-02] MEDS: NS 0.9% 1000 ML** 1,000 ML IV SCH ×3 (04:31→22:00)
[2019-04-02] MEDS ORDERED: Morphine 4 MG/ML VIAL (1 ml) 4 MG/ML VIAL IV ONE (05:39)
[2019-04-02] MEDS ORDERED: Morphine INJ* 4 MG/ML 1 ML SYRINGE (NEW SYRINGE VERSION) IV ONE (06:00)
[2019-04-02] MEDS ORDERED: LORazepam TAB(*) 1 MG PO ONE (06:00)
[2019-04-02] MEDS ORDERED: Morphine INJ* 2 MG/ML 1 ML SYRINGE (TWO MG - NEW SYRINGE VERSION) IV ONE (06:00)
--- NOTE | 2019-04-02 06:10 | PN ---
Hospitalist Progress Note Date of Service: 04/02/19 ON-CALL MD NOTE: Patient having withdrawal, is screaming. Came to assess the patient, she is protecting her airway, is confused having tremors, and agitation. one dose of valium was given I had initially ordered morphine X one dose- as RN thought perhaps pain related - Later d/c'ed. will continue the [facility] protocol.
[2019-04-02 07:00] LABS: Hematocrit 29 % (35-47); Hemoglobin 9.9 g/dL (12.0-16.0); Mean Corpuscular HGB Conc 35 g/dL (31-36); Mean Corpuscular Hemoglobin 35 pg (27-31); Mean Corpuscular Volume 100 fL (80-97); Mean Platelet Volume 8.7 fL (7.4-10.4); Platelet Count 203 10^3/uL (150-450); Red Blood Count 2.84 10^6 /uL (3.70-4.87); Red Cell Distribution Width 15 % (10-15)
[2019-04-02 07:10] LABS: BUN/Creatinine Ratio 21.4 (8-20); C Reactive Protein 410.57 mg/L (<8.01); Calcium 8.7 mg/dL (8.6-10.3); EGFR African American 63.9 (>60); EGFR Non-African American 52.8 (>60)
[2019-04-02] MEDS ORDERED: Potassium Chlor TAB* 20 MEQ TAB.ER PO ONE (07:25)
[2019-04-02 08:35] LABS: ABS Eosinophils 0.1 10^3/ul (0-0.6); ABS Lymphocytes 0.7 10^3/ul (1.0-4.8); ABS Monocytes 0.8 10^3/ul (0-0.8); ABS Neutrophils 8.3 10^3/ul (1.5-7.7); Eosinophil % 1.2 %; Lymphocyte % 6.8 %; Nucleated Red Blood Cells % 0.1
--- NOTE | 2019-04-02 09:19 | ECHO ---
*[facility]* [place] [address] Fax #: [phone] Transthoracic Echocardiogram Patient: Jennifer Cartagena : 1950 Study Date: 04/02/2019 Age: 69 Gender: F HR: 122 bpm Height: 65 in /165.1 cm BSA: 1.85 m^2 Weight: 169.6 lb /77.1 kg BMI: 28.3 kg/m^2 *Gas Compressor Operator: * Yakelin Wilder *Referring Physician: * Radha KrishnaReading Physician: * Omero Martinez MD Indications: Bacteremia. History: Dementia Fever. Risk factors: Hypertension. Conclusions Summary: - Left ventricle: Systolic function is normal. The estimated ejection fraction is 55-60%. Wall motion is normal; there are no regional wall motion abnormalities. - Mitral valve: There is no significant regurgitation. - Aortic valve: There is no evidence of stenosis. - Pulmonary arteries: Systolic pressure can not be accurately estimated. - Study data: No prior study is available for comparison. Study data: Transthoracic echocardiogram. Procedure: Transthoracic echocardiography was performed. Image quality was good. Complete 2D, spectral Doppler, and color flow Doppler. Location: Bedside. Patient status: Inpatient. Patient room number: 450-2. No prior study is available for comparison. Findings Left ventricle: The cavity size is normal. Wall thickness is at the upper limits of normal. Systolic function is normal. The estimated ejection fraction is 55-60%. Wall motion is normal; there are no regional wall motion abnormalities. Left ventricular diastolic function parameters are normal. Right ventricle: The cavity size is normal. Systolic function is normal. Left atrium: The atrium is normal in size. Atrial septum: No defect or patent foramen ovale is identified. Mitral valve: The valve is structurally normal. There is no evidence of stenosis. There is no significant regurgitation. Aortic valve: The valve is trileaflet. The leaflets are normal thickness. There is no evidence of stenosis. There is no significant regurgitation. Tricuspid valve: The valve is structurally normal. There is no evidence of stenosis. There is no significant regurgitation. Pulmonic valve: The valve is structurally normal. There is no evidence of stenosis. There is trace regurgitation. Aorta: The aortic root appears normal. The aortic arch appears normal. Pericardium: There is no significant pericardial effusion. Pulmonary arteries: Systolic pressure can not be accurately estimated. Systemic veins: Inferior vena cava: The vessel is normal in size. There is (>= 50%) respiratory change in the IVC dimension. Pulmonary veins: The Pulmonary veins appear normal. Measurements Left ventricle Value Ref Right atrium Value Ref ISABEL, LAX 3.8 cm 3.8 - SI dim, ES 5.3 cm 3.4 - 5.3 5.2 ML dim, ES, A4C 2.8 cm 2.6 - 4.4 ESD, LAX 2.8 cm 2.2 - SI dim, ES, A4C 5.3 cm 3.4 - 5.3 3.5 FS, LAX 27 % 27 - 45 Aortic valve Value Ref PW, ED, LAX (H) 1.2 cm 0.6 - Peak v, S 1.85 m/sec --------- 0.9 VTI, S 27.3 cm --------- FS 27 % 27 - 45 Mean grad, S 6.0 mm Hg --------- Mid-wall FS 10 % -------- Peak grad, S 14.0 mm Hg --------- PW, ED (H) 1.2 cm 0.6 - JOE, VTI 2.73 cm^2 --------- 0.9 JOE, Vmax 1.85 cm^2 --------- PW/ID, ED 0.3 -------- Qs 4 L/min -------- Mitral valve Value Ref E', lat juancarlos, TDI 12.1 cm/sec >=10.0 Peak E 0.96 m/sec --- ------ E/e', lat juancarlos, TDI 8 -------- Peak A 1.36 m/sec ------ --- E', med juancarlos, TDI 11.1 cm/sec >=7.0 Decel time 81 ms --- ------ E/e', med juancarlos, TDI 9 -------- Peak grad, D 3.7 mm Hg ------ --- E', avg, TDI 11.6 cm/sec -------- Peak E/A ratio 0.7 ------ --- E/e', avg, TDI 8 <=14 Pulmonic valve Value Ref LVOT Value Ref Peak v, S 0.69 m/sec --------- Diam, S 2.00 cm -------- Peak grad, S 2.0 mm Hg --------- Area 3.1 cm^2 -------- Peak katerine, S 1.09 m/sec -------- Aortic root Value Ref Mean grad, S 3 mm Hg -------- Root diam 3.5 cm <4.0 SV 74 ml -------- Ascending aorta Value Ref Ventricular septum Value Ref AAo AP diam, S 3.5 cm --------- IVS, ED (H) 1.1 cm 0.6 - 0.9 Aortic arch Value Ref Arch diam 3.3 cm --------- Right ventricle Value Ref ISABEL, LAX 2.4 cm -------- Decending aorta Value Ref ISABEL minor ax, A4C 3.2 cm 1.9 - [place] katerine 0.82 m/sec --------- mid 3.5 Inferior vena cava Value Ref Left atrium Value Ref Diam 2.3 cm --------- ML dim, A4C 3.9 cm -------- SI dim, A4C 5.6 cm -------- Vol/bsa, ES, 1-p 38 ml/m^2 11 - 40 A4C Vol/bsa, ES, A/L 31 ml/m^2 16 - 34 Legend: (L) and (H) torri values outside specified reference range. Prepared and electronically signed by Omero Martinez MD 04/02/2019 09:18
[2019-04-02] MEDS: Diltiazem CD CAP* 180 MG PO SCH (09:47)
[2019-04-02] MEDS: HYDROcodone/ACETAMIN 5-325 MG* 1 TAB PO PRN (09:48)
[2019-04-02 09:51] LABS: Erythrocyte Sed Rate 113 mm/Hr (0-29)
[2019-04-02 09:52] LABS: Body Fluid Source Synovial Fluid
[2019-04-02 09:54] LABS: Body Fluid Mono 15 %; Body Fluid Other Cells 2
[2019-04-02] MEDS: Folic Acid TAB* 1 MG PO SCH (09:59)
[2019-04-02] MEDS: Thiamine TAB* 100 MG TAB PO SCH (09:59)
[2019-04-02] MEDS: Multivitamins/Minerals TAB PO SCH (09:59)
--- NOTE | 2019-04-02 13:04 | PN ---
Progress Note - Progress Note Date of Service: 04/02/19 SOAP: Subjective: []Patient seen and examined at bedside. She does not communicate with me today but groans and pulls away from exam. Objective: []Gen: very drowsy, abusable to spoken voice, mildly combative to exam LLE: knee edematous, no erythema, pulls away from exam, groans in pain with any flexion Assessment: [] septic left knee Plan: []Plan for L knee I&D in OR today with Dr Dorman
[2019-04-02] MEDS: KCL 20 MEQ/100 ML IVPREMIX* 20 MEQ/100 ML BAG IV SCH ×2 (13:24→20:41)
[2019-04-02] MEDS ORDERED: Famotidine IV* 10 MG/ML 2 ML (20 mg) IV ONE (13:24)
--- NOTE | 2019-04-02 13:35 | CONS ---
CONSULTATION REPORT: DATE OF CONSULT: 04/02/19 PRIMARY CARE PROVIDER: Dr. Uday Morris. PROVIDER REQUESTING CONSULTATION: Dr. Radha Paul. CONSULTING SERVICE: Infectious Disease. PROVIDER: Naheed Lockwood NP. ATTENDING PROVIDER: Dr. Cain Tariq* (DICTATED BY NAHEED LOCKWOOD NP). REASON FOR CONSULT: Group B strep bacteremia. IMPRESSION: 1. Group B strep bacteremia. Four out of four blood culture bottles positive on admission. Suspect this is secondary to a left septic knee. She has been receiving Zosyn. Last temperature was 101.2 this morning. No leukocytosis. ESR , CRP significantly elevated. Urine culture with no growth. The patient has no vegetation seen on transthoracic echocardiogram. Per her friend at bedside, she doesn't have any prosthetic material such as artificial joints or pacemaker present. 2. Left septic [place] knee. S/P aspiration. Cell count from aspiration with white blood cell count 82,678. Pt with group B strep bacteremia, suspect this is the pathogen. Febrile this AM, temperature was 101.2. No leukocytosis. There is edema and an effusion noted to the left knee. 3. Encephalopathy. Differential diagnosis includes: meningitis, brain abscess , metabolic, infection, and alcohol withdrawal. The patient is on the [facility] protocol for alcohol withdraw. 4. Acute kidney injury. This was present on admission. Her creatinine is improving with fluids. RECOMMENDATIONS/PLAN: Discontinue Zosyn. Start Ceftriaxone 2 mg IV daily. The patient will need to have a washout of her infected knee per orthopedic surgery , planned for later today. The patient will need a prolonged course of antibiotics in the setting of a [place] septic knee. Recommend obtaining a brain CT as strep can cause meningitis and brain abscesses. If she continues to have concern for possible meningitis, will need to have a lumbar puncture. Will need to obtain a transesophageal echogardiogram during her stay. HISTORY OF PRESENT ILLNESS: Ms. Cartagena is a 69-year-old female with past medical history significant for hypertension, hiatal hernia, nephrolithiasis, anxiety, degenerative disk disease, IBS, chronic low back pain, who is difficult to obtain thorough history from due to her confusion, but she states that she developed right shoulder pain approximately 2 days prior to her admission. Additionally, she has been having some flu-like symptoms described as constant shaking. She was having general body aches and feeling feverish. She had a fall last Monday. Her roommate needed to help get her up due to weakness. She reportedly had not been eating or drinking well. She denied any known trauma to the right leg. Due to her continued symptoms, she presented to the emergency room for further evaluation. While in the emergency room, she received IV fluids, Zosyn. She was noted to be tachycardic and febrile with a fever of 101.2 on arrival. She had no leukocytosis. She was noted to have a significantly elevated CRP of 399.08 and noted to have an acute kidney injury. She had blood cultures drawn. Urinalysis positive for blood, negative for nitrites, negative for leukocyte esterase, squamous epithelial cells present, bacteria present. She was referred to the hospitalist for admission. During her hospitalization, she has continued to have no leukocytosis. Her CRP has trended up slightly overnight. She is noted to be hypokalemic this morning. She has orders for potassium replacement. She had a chest, abdomen and pelvis CT while in the emergency room due to complaints of abdominal bloating for at least a day per her roommate at bedside. She is noted to have biliary dilation, atherosclerosis, trace right pleural effusion. She had a right knee x-ray showing a small joint effusion, nonfocal soft tissue edema. She was seen in consultation by Dr. Dorman, who performed joint aspiration. Fluid white blood cell count 82,678. Her blood cultures returned this morning with 4/4 bottles positive for group B strep. She had a transthoracic echocardiogram showing no significant findings, no vegetation. The patient continues to be confused. There has been a concern for alcohol withdrawal. The patient reports pain in her right shoulder x2 days, She describes this as scapular pain. PAST MEDICAL HISTORY: 1. Hypertension. 2. Hiatal hernia. 3. Nephrolithiasis. 4. Anxiety. 5. Degenerative disk disease. 6. IBS. 7. Chronic low back pain. PAST SURGICAL HISTORY: 1. Status post tonsillectomy. 2. Status post cholecystectomy. 3. Status post left cataract extraction. MEDICATIONS: Home medications: 1. Lisinopril 40 mg by mouth daily. 2. [place] 5/325 one tablet by mouth 4 times daily as needed for pain. 3. Diltiazem 180 mg by mouth daily. 4. Lorazepam 0.5 mg by mouth twice daily as needed for anxiety. 5. Zofran 4 mg by mouth 4 times daily as needed for nausea. 6. Ambien 10 mg by mouth daily at bedtime as needed for sleep. 7. Abilify 2 to 4 mg by mouth at bedtime. 8. Wellbutrin XL 150 to 300 mg by mouth daily. Hospital medications: 1. Acetaminophen 650 mg by mouth every 4 hours as needed for fever or pain. 2. Diltiazem 180 mg by mouth daily. 3. Lovenox 40 mg subcutaneous daily. 4. Folic acid 1 mg by mouth daily. 5. [place] 5/325 one tablet by mouth 4 times daily as needed for pain. 6. Lorazepam per [facility] protocol. 7. Melatonin 6 mg by mouth at bedtime as needed for sleep. 8. Multivitamin 1 tablet by mouth daily. 9. Zofran 4 mg IV every 4 hours as needed for nausea. 10. Zosyn 3.375 g IV every 8 hours. 11. Normal saline at 75 mL intravenously an hour. 12. Thiamine 100 mg by mouth daily. ALLERGIES: PENICILLIN, SULFA caused rash. FAMILY HISTORY: Denies family history of recurrent or resistant infections. Father passed at 80 with a history of COPD. Brother passed at age 50 from an [place]. No family history of diabetes. Mother passed at age 85 from pancreatic cancer. SOCIAL HISTORY: She drinks alcohol daily. Denies tobacco or recreational drug use. REVIEW OF SYSTEMS: I performed a 10-point review of systems. All the pertinent positives and negatives are mentioned in the history of present illness. The remaining review of systems are negative. She denies any recent travel. PHYSICAL EXAM: Vital Signs: Temperature 99.6, heart rate 129, respiratory rate 20, O2 sat 97% on room air, blood pressure 150/83. General Appearance: The patient is drowsy, appears to be in no acute distress, lying in bed. Head: Normocephalic, atraumatic. EENT: Extraocular movements are intact. No subconjunctival hemorrhage. Mucous membranes are dry. Neck: Supple. No lymphadenopathy. No nuchal rigidity. Neurological: She is alert and oriented to person and place. Cardiovascular: Regular rate and rhythm. S1 and S2 present. No murmurs, rubs, or gallops heard. Respiratory: No accessory muscle use. The lungs are clear to auscultation. Abdomen: Bowel sounds are present. Abdomen is soft, nontender, slightly distended. Extremities: No lower extremity edema with the exception of edema to the left knee. Musculoskeletal: No clubbing or cyanosis noted. The patient has weakness to the left lower extremity, she is unable to pick this up off the bed, but is able to slightly bend the left knee. She is able to move the right lower extremity without difficulty. There is edema to the left knee, no pain with palpation, and effusion noted. Able to move left knee with passive range of motion with some pain. Negative log roll bilateral hips. No effusion or edema to the right knee. Right shoulder with slightly limited range of motion due to pain. There is no effusion noted, no pain with palpation, or effusion noted in the right shoulder. Left shoulder is benign. No tenderness with palpation of the neck, back, or spine. Psychological: Calm and cooperative. Skin: No rashes or abnormalities seen. DIAGNOSTIC STUDIES/LAB DATA: Sodium 134, potassium 3.0, chloride 103, CO2 21, BUN 22, creatinine 1.03, glucose 67. White blood cell count 10, hemoglobin 9.9 , hematocrit 29, platelet count 203. ESR 113, CRP 399.08. Influenza A and B negative. Please see impression and recommendations outlined above. Recommendations have been discussed with ROSIE Bell and Mickie Tobar NP. Thank you for asking us to see Ms. Cartagena in consultation. The case has been reviewed with my attending Dr. Cain Tariq, who agrees with the plan of care. Reviewed by NAHEED LOCKWOOD, NATALY 04/04/19 [id number]/[facility] #: [id number] [facility]
--- NOTE | 2019-04-02 13:43 | PN ---
Subjective Date of Service: 04/02/19 Interval History: Ms. Cartagena is not feeling well today. She is very confused and on exam, her main concern is getting out of bed and leaving the hospital. Knee pain is only present with movement and not significant tender to the touch. Denies CP or SOB. Nursing reports restlessness and consistently scoring on WAM. Family History: Unchanged from Admission Social History: Unchanged from Admission Past Medical History: Unchanged from Admission Objective Active Medications: Acetaminophen (Tylenol Tab*) 650 mg PO Q4H PRN PAIN - MILD Hydrocodone Bitart/Acetaminophen ([place] 5-325 Tab*) 1 tab PO QID PRN PAIN - MILD Diltiazem HCl (Cardizem Cd Cap*) 180 mg PO DAILY [facility] Enoxaparin Sodium (Lovenox(*)) 40 mg SUBCUT Q24H [facility] Folic Acid (Folvite Tab*) 1 mg PO DAILY [facility] Sodium Chloride (Ns 0.9% 1000 Ml) 1,000 mls @ 75 mls/hr IV PER RATE [facility] Ceftriaxone Sodium 2 gm/ (Sodium Chloride) 100 mls @ 200 mls/hr IVPB Q24H [facility] Lorazepam (Ativan Tab(*)) 0 - 6 mg PO .PER [facility] PROTOCOL EFREM; Protocol Melatonin (Melatonin) 6 mg PO BEDTIME PRN SLEEP Multivitamins/Minerals (Theragran/Minerals Tab*) 1 tab PO DAILY [facility] Ondansetron HCl (Zofran Inj*) 4 mg IV Q4H PRN NAUSEA/VOMITING Thiamine HCl (Vitamin B-1 Tab*) 100 mg PO DAILY [facility] Vital Signs - 8 hr 04/02/19 04/02/19 04/02/19 06:06 06:34 07:14 Temperature 101.2 F Pulse Rate 125 Respiratory 20 20 20 Rate Blood Pressure 154/85 (mmHg) O2 Sat by Pulse 99 Oximetry 04/02/19 04/02/19 04/02/19 09:16 09:46 09:47 Temperature 99.6 F Pulse Rate 129 Respiratory 20 20 20 Rate Blood Pressure 150/83 (mmHg) O2 Sat by Pulse 97 Oximetry Oxygen Devices in Use Now: None Appearance: Elderly female sitting in bed in NAD Ears/Nose/Mouth/Throat: Mucous Membranes Moist Neck: NL Appearance and Movements; NL JVP, Trachea Midline Respiratory: Symmetrical Chest Expansion and Respiratory Effort, Clear to Auscultation Cardiovascular: NL Sounds; No Murmurs; No JVD, RRR Abdominal: NL Sounds; No Tenderness; No Distention Neurological: - - Oriented to self and place, restless Lines/Tubes/Other Access: Clean, Dry and Intact Peripheral IV Result Diagrams: 04/02/19 06:34 04/02/19 06:34 Assess/Plan/Problems-Billing Assessment: is a 69 yo F with PMH of HTN, anxiety, IBS, chronic back pain; who presented to the ED with c/o fever, shaking, chills, and reports of AMS, found to be meeting sepsis criteria with source later determined to be bacteremia - Patient Problems (1) Bacteremia Code(s): R78.81 - BACTEREMIA Comment: - Meeting sepsis criteria on admission - 06/14 BC bottles growing group B Strep - TTE unremarkable for vegetations - Appreciate ID consult; recommends ceftriaxone and joint washout per Ortho - Continue ceftriaxone per ID (2) Septic joint of left knee joint Code(s): M00.9 - PYOGENIC ARTHRITIS, UNSPECIFIED Comment: - Reported left knee pain on admission - Xray showing small joint effusion, no evidence of fracture - 20mL of cloudy fluid aspirated from joint yesterday; elevated WBC with cultures pending, but presumed to be Strep - Appreciate Ortho consult; plan for washout today - Continue ceftriaxone (3) Altered mental status Code(s): R41.82 - ALTERED MENTAL STATUS, UNSPECIFIED Comment: - Presented with AMS - Likely multifactorial: septic encephalopathy, alcohol withdrawal - Will check head CT d/t recent fall and bacteremia (4) Severe sepsis Code(s): A41.9 - SEPSIS, UNSPECIFIED ORGANISM; R65.20 - SEVERE SEPSIS WITHOUT SEPTIC SHOCK Comment: - Met criteria on admission with lactic acidosis, fever, tachycardia, tachypnea ; source is bacteremia - No hypotension - Plan as above (5) Alcohol abuse Code(s): F10.10 - ALCOHOL ABUSE, UNCOMPLICATED Comment: - WAM per protocol (6) KARLA (acute kidney injury) Code(s): N17.9 - ACUTE KIDNEY FAILURE, UNSPECIFIED Comment: - Creatinine elevated on admission, now trending down - Secondary to sepsis - Continue IVF (7) Elevated troponin Code(s): R79.89 - OTHER SPECIFIED ABNORMAL FINDINGS OF BLOOD CHEMISTRY Comment : - Peaked at 0.04 - No EKG changes or c/o CP - Suspect demand ischemia secondary to sepsis (8) Essential (primary) hypertension Code(s): I10 - ESSENTIAL (PRIMARY) HYPERTENSION Comment: - Mildly hypertensive - Continue diltiazem (9) Chronic back pain Code(s): M54.9 - DORSALGIA, UNSPECIFIED; G89.29 - OTHER CHRONIC PAIN Comment: - Continue [place] (10) Depression Code(s): F32.9 - MAJOR DEPRESSIVE DISORDER, SINGLE EPISODE, UNSPECIFIED Comment: - Hold Abilify and bupropion (11) DVT prophylaxis Code(s): Z29.9 - ENCOUNTER FOR PROPHYLACTIC MEASURES, UNSPECIFIED Comment: - Hold Lovenox pending washout today (12) Full code status Code(s): Z78.9 - OTHER SPECIFIED HEALTH STATUS Comment: Status and Disposition: Inpatient. Anticipate d/c home vs [facility] when medically stable, timeframe TBD by clinical course. Attending: Beto Goodrich
[2019-04-02] MEDS ORDERED: cefTRIAXone(*) 2 GM in NS 0.9% 100 ML* 100 ML IVPB SCH (16:00)
[2019-04-02] MEDS ORDERED: methylPREDNISolone ACETATE 80* 80 MG/ML 1 ML VIAL ONE (16:44)
[2019-04-02] MEDS ORDERED: EPINEPHRINE 1 MG/ML 1 ML VIAL ONE (16:44)
[2019-04-02] MEDS ORDERED: Bupivacaine 0.5%* 50 ML MDV VIAL ONE (16:45)
[2019-04-02] MEDS ORDERED: KETAMINE HCL* 50 MG/ML 10 ML VIAL ONE (16:48)
[2019-04-02] MEDS ORDERED: Midazolam* 1 MG/ML 5 ML VIAL (5 MG) ONE (16:48)
[2019-04-02] MEDS ORDERED: cefTRIAXone(*) 2 GM ADDV.VIAL IVPB ONE (16:52)
[2019-04-02 17:12] LABS: Activated Partial Thrombo Time 24.1 seconds (26.0-38.0); INR 1.04 (0.82-1.09)
[2019-04-02 17:16] LABS: Albumin 2.5 g/dL (3.2-5.2); Albumin/Globulin Ratio 0.7 (1-3); BUN/Creatinine Ratio 22.7 (8-20); Calcium 8.5 mg/dL (8.6-10.3); EGFR African American 76.6 (>60); EGFR Non-African American 63.3 (>60); Globulin 3.5 g/dL (2-4); Potassium 3.9 mmol/L (3.5-5.0); Total Bilirubin 0.9 mg/dL (0.2-1.0)
[2019-04-02] MEDS ORDERED: Morphine INJ* 2 MG/ML 1 ML SYRINGE (TWO MG - NEW SYRINGE VERSION) IV PRN (17:36)
[2019-04-02] MEDS ORDERED: oxyCODONE TAB* 5 MG TAB PO PRN (17:36)
[2019-04-02 18:18] LABS: Body Fluid Source Cerebral Spinal
[2019-04-02] MEDS ORDERED: Naloxone* 0.4 MG/ML 1 ML VIAL IV PRN (18:27)
[2019-04-02] MEDS ORDERED: fentaNYL* 50 MCG/ML 2 ML VIAL (100 MCG VIAL) ONE (18:34)
[2019-04-02] MEDS: fentaNYL* 50 MCG/ML 2 ML VIAL (100 MCG VIAL) IV PRN ×2 (18:35→18:57)
[2019-04-02 18:43] LABS: CSF Glucose 36 mg/dL (40-70)
[2019-04-02 19:29] LABS: Body Fluid Mono 50 %
--- NOTE | 2019-04-02 23:54 | OP ---
DATE OF OPERATION: 04/02/19 - ROOM #435 DATE OF : 46 ATTENDING SURGEON: Ana M Dorman MD ANESTHESIOLOGIST: Dr. Murray. ANESTHESIA: Spinal. PRE-OP DIAGNOSIS: Septic arthritis to the left knee. POST-OP DIAGNOSIS: Septic arthritis to the left knee. OPERATIVE PROCEDURE: Left knee arthroscopic irrigation and debridement, presumed infection with partial lateral meniscectomy. COMPLICATIONS: None. ESTIMATED BLOOD LOSS: Less than 25 cc. SPECIMEN: Significant amount of joint fluid was collected and multiple cultures swabs for microbiology cultures. BRIEF HISTORY/INDICATIONS: Ms. Cartagena is a 69-year-old female, who has developed 4 days of fevers, chills, fatigue, and malaise where she presented to [facility] with the presentation of sepsis on 04/01/19. Her blood cultures did grow strep and she began to have experiencing left knee pain. I was consulted on 04/01/19 to evaluate her left knee. I did aspirate the knee and did feel due to the white blood cell count of 80,000 indicates the knee was severely infected. I discussed the cell count and clinical findings suggesting infection with the patient and her healthcare proxy. They both wished to proceed with an arthroscopic irrigation and debridement of the left knee joint and this was my best medical recommendation. Informed consent was obtained from the patient and her healthcare proxy. They understood the risks of surgery included but were not limited bleeding, continued infection, need for further surgery, need for further washout, failure of bacteria to grow, intraoperative complications, anesthesia, stroke, heart attack, blood clot, and . She wished to proceed. Her healthcare proxy wished to proceed. INTRAOPERATIVE FINDINGS: Intraoperatively, there was cloudy yellow joint fluid. There was a large displaced parrot beak type tear of the lateral meniscus. There was significant amount of chronic appearing arthritic changes in the lateral compartment. DESCRIPTION OF PROCEDURE: Ms. Cartagena was identified in the preanesthesia unit. Her left lower extremity was marked as the correct operative site. The patient was confused and her healthcare proxy signed the consent form. The patient was brought to the operating room and placed under anesthesia. Left lower extremity was prepped and draped in the usual sterile fashion. Preop timeout was made to correctly identify the patient, side, and site. Appropriate perioperative antibiotics were held until cultures were obtained. A standard anterolateral portal incision was made with a 10 blade and carried down to the capsule. Immediately, there was cloudy yellow joint fluid. This was collected with culture swabs. The antibiotic was then given. Trocar was introduced. As soon as the light and water sources were turned on, there was immediate visualization of the suprapatellar pouch. There was some grade 2 and 3 Outerbridge cartilage changes in the patellofemoral compartment. The joint fluid was cloudy, but no gross purulence. Medial gutter had no loose body or plica. Medial compartment had some inflammatory tissue along the anterior joint line. No obvious meniscal tear, minimal degenerative changes to it. ACL and PCL appeared to be intact. The knee was placed in a [id number]-el-[id number] position. There was a large parrot-beak type tear of the lateral meniscus involving the white-red zone. There were grade 3 and 4 Outerbridge cartilage changes along the lateral joint line. Lateral gutter had no loose body or plica. Under direct visualization, a medial portal incision was made. Shaver and radiofrequency ablation wand was used to irrigate the joints further and as well as debride some anterior inflammatory tissue. There was no obvious purulence or necrotic tissue. No acute appearing cartilage damage. The knee was placed in a [id number] position. The displaced parrot-beak type tear in the lateral meniscus was carefully excised using a shaver and straight biter. The joint was copiously irrigated with 9 L of sterile saline. All instruments were removed. Incisions were closed with 3-0 nylon. Sterile Xeroform, 4x4s, and Webril were used to cover the incision. OG wrap and cold pack were placed over this. The patient's anesthesia was reversed without difficulty. She was taken to the PACU in stable condition. Intended weightbearing will be weightbearing as tolerated. Intended DVT prophylaxis will be per hospitalist wishes. I will follow the patient. She may require further wash out. We will continue to monitor the culture for correct antibiotic treatment. [id number]/[facility] #: [id number] [facility] HOSPITALSabas
[2019-04-03] MEDS: LORazepam TAB(*) 1 MG PO SCH ×3 (04:26→19:06)
[2019-04-03] MEDS: Folic Acid TAB* 1 MG PO SCH (08:07)
[2019-04-03] MEDS: Thiamine TAB* 100 MG TAB PO SCH (08:07)
[2019-04-03] MEDS: Multivitamins/Minerals TAB PO SCH (08:07)
[2019-04-03] MEDS: Diltiazem CD CAP* 180 MG PO SCH (08:07)
[2019-04-03 08:22] LABS: Hematocrit 26 % (35-47); Hemoglobin 9.1 g/dL (12.0-16.0); Mean Corpuscular HGB Conc 34 g/dL (31-36); Mean Corpuscular Hemoglobin 34 pg (27-31); Mean Corpuscular Volume 99 fL (80-97); Mean Platelet Volume 8.2 fL (7.4-10.4); Platelet Count 284 10^3/uL (150-450); Red Blood Count 2.66 10^6 /uL (3.70-4.87); Red Cell Distribution Width 15 % (10-15); White Blood Count 11.7 10^3/uL (3.5-10.8)
[2019-04-03 08:38] LABS: BUN/Creatinine Ratio 16.7 (8-20); Calcium 8.9 mg/dL (8.6-10.3); EGFR African American 88.1 (>60); EGFR Non-African American 72.8 (>60); Potassium 3.2 mmol/L (3.5-5.0)
[2019-04-03 08:51] LABS: ABS Lymphocytes 1.2 10^3/ul (1.0-4.8); ABS Monocytes 0.9 10^3/ul (0-0.8); ABS Neutrophils 9.6 10^3/ul (1.5-7.7); Eosinophil % 0.3 %
[2019-04-03] MEDS ORDERED: Potassium Chlor TAB* 20 MEQ TAB.ER PO ONE (09:06)
[2019-04-03] MEDS ORDERED: KCL 20 MEQ/100 ML IVPREMIX* 20 MEQ/100 ML BAG IV ONE (09:06)
--- NOTE | 2019-04-03 09:28 | PN ---
Subjective Date of Service: 04/03/19 Interval History: Ms. Cartagena is awake on my arrival. She reports feeling poor. She feels disoriented and is not sure what is going on and why she is in the hospital. She admits to neck pain. Unable to put chin to chest. Endorses photophobia. Denies CP or SOB. No concerns from nursing. Family History: Unchanged from Admission Social History: Unchanged from Admission Past Medical History: Unchanged from Admission Objective Active Medications: Acetaminophen (Tylenol Tab*) 650 mg PO Q4H PRN PAIN - MILD Hydrocodone Bitart/Acetaminophen ([place] 5-325 Tab*) 1 tab PO QID PRN PAIN - MODERATE Diltiazem HCl (Cardizem Cd Cap*) 180 mg PO DAILY [facility] Enoxaparin Sodium (Lovenox(*)) 40 mg SUBCUT DAILY [facility] Folic Acid (Folvite Tab*) 1 mg PO DAILY [facility] Sodium Chloride (Ns 0.9% 1000 Ml) 1,000 mls @ 75 mls/hr IV PER RATE [facility] Ceftriaxone Sodium 2 gm/ (Sodium Chloride) 100 mls @ 200 mls/hr IVPB Q12H [facility] Potassium Chloride (Potassium Chloride 20 Meq/100 Ml Ivpremix*) 20 meq in 100 mls @ 50 mls/hr IV ONCE ONE Lorazepam (Ativan Tab(*)) 0 - 6 mg PO .PER [facility] PROTOCOL [facility]; Protocol Melatonin (Melatonin) 6 mg PO BEDTIME PRN SLEEP Morphine Sulfate (Morphine Inj (Syringe))*) 1 mg IV Q4H PRN PAIN - MILD Multivitamins/Minerals (Theragran/Minerals Tab*) 1 tab PO DAILY [facility] Ondansetron HCl (Zofran Inj*) 4 mg IV Q4H PRN NAUSEA/VOMITING Oxycodone HCl (Roxycodone Tab*) 5 mg PO Q6H PRN PAIN - SEVERE Thiamine HCl (Vitamin B-1 Tab*) 100 mg PO DAILY [facility] Vital Signs - 8 hr 04/03/19 04/03/19 04/03/19 02:00 04:00 04:26 Temperature 100 F 100 F Pulse Rate 112 111 Respiratory 16 20 20 Rate Blood Pressure 161/85 161/83 (mmHg) O2 Sat by Pulse 99 98 Oximetry 04/03/19 04/03/19 04/03/19 06:00 06:53 07:49 Temperature 100 F Pulse Rate 103 Respiratory 18 18 17 Rate Blood Pressure 159/88 (mmHg) O2 Sat by Pulse 98 Oximetry Oxygen Devices in Use Now: None Appearance: Elderly female lying in bed in NAD Neck: NL Appearance and Movements; NL JVP, Trachea Midline Respiratory: Symmetrical Chest Expansion and Respiratory Effort, Clear to Auscultation Cardiovascular: NL Sounds; No Murmurs; No JVD, RRR Abdominal: - - Soft, diffusely tender Extremities: No Edema Neurological: NL Sensation, - - Oriented to self and place; + Brudzinski sign Lines/Tubes/Other Access: Clean, Dry and Intact Peripheral IV Nutrition: Taking PO's Result Diagrams: 04/03/19 08:15 04/03/19 08:15 Assess/Plan/Problems-Billing Assessment: is a 69 yo F with PMH of HTN, anxiety, IBS, chronic back pain; who presented to the ED with c/o fever, shaking, chills, and reports of AMS, found to be meeting sepsis criteria with source later determined to be bacteremia - Patient Problems (1) Bacteremia Code(s): R78.81 - BACTEREMIA Comment: - Meeting sepsis criteria on admission - 06/14 BC bottles growing group B Strep - TTE unremarkable for vegetations; PHYLLIS today - Appreciate ID consult; recommends ceftriaxone and joint washout per Ortho - Continue ceftriaxone (2) Septic joint of left knee joint Code(s): M00.9 - PYOGENIC ARTHRITIS, UNSPECIFIED Comment: - Reported left knee pain on admission - Xray showing small joint effusion, no evidence of fracture - 20mL of cloudy fluid aspirated from joint yesterday; elevated WBC with cultures pending, but presumed to be Strep - Appreciate Ortho consult; washout 04/02 - Appreciate ID consult; will need at least 4 weeks IV abx for joint infection - Continue ceftriaxone (3) Bacterial meningitis Code(s): G00.9 - BACTERIAL MENINGITIS, UNSPECIFIED Comment: - Suspected; CSF protein and glucose support bacterial meningitis, but there is no white count or growth on culture as of this time - Possible that culture will be negative as she has been on abx for 2 days, but if there is/was meningitis, it would be d/t Strep - No need for isolation - Continue ceftriaxone (change to 2gm q12h for meningitis coverage) (4) Altered mental status Code(s): R41.82 - ALTERED MENTAL STATUS, UNSPECIFIED Comment: - Presented with AMS - Likely multifactorial: septic encephalopathy, alcohol withdrawal, ?meningitis - Will check head CT d/t recent fall and bacteremia (5) Severe sepsis Code(s): A41.9 - SEPSIS, UNSPECIFIED ORGANISM; R65.20 - SEVERE SEPSIS WITHOUT SEPTIC SHOCK Comment: - Met criteria on admission with lactic acidosis, fever, tachycardia, tachypnea ; source is bacteremia - No hypotension - Plan as above (6) Alcohol abuse Code(s): F10.10 - ALCOHOL ABUSE, UNCOMPLICATED Comment: - WAM per protocol (7) KARLA (acute kidney injury) Code(s): N17.9 - ACUTE KIDNEY FAILURE, UNSPECIFIED Comment: - Resolved - Secondary to sepsis (8) Elevated troponin Code(s): R79.89 - OTHER SPECIFIED ABNORMAL FINDINGS OF BLOOD CHEMISTRY Comment : - Peaked at 0.04 - No EKG changes or c/o CP - Suspect demand ischemia secondary to sepsis (9) Essential (primary) hypertension Code(s): I10 - ESSENTIAL (PRIMARY) HYPERTENSION Comment: - Mildly hypertensive - Continue diltiazem (10) Chronic back pain Code(s): M54.9 - DORSALGIA, UNSPECIFIED; G89.29 - OTHER CHRONIC PAIN Comment: - Continue [place] (11) Depression Code(s): F32.9 - MAJOR DEPRESSIVE DISORDER, SINGLE EPISODE, UNSPECIFIED Comment: - Hold Abilify and bupropion (12) DVT prophylaxis Code(s): Z29.9 - ENCOUNTER FOR PROPHYLACTIC MEASURES, UNSPECIFIED Comment: - Lovenox (13) Full code status Code(s): Z78.9 - OTHER SPECIFIED HEALTH STATUS Comment: Status and Disposition: Inpatient. Anticipate d/c home vs [facility] when medically stable, timeframe TBD by clinical course. Attending: Fiorella Santos
--- NOTE | 2019-04-03 09:48 | PN ---
Progress Note - Progress Note Date of Service: 04/03/19 SOAP: Subjective: CC: Left knee infection HPI: Ms. Cartagena is a 69 yo female with PMH significant for HTN, hiatal hernia , nephrolithiasis, anxiety, degenerative disc disease, IBS, and chronic low back pain; presented to the emergency room with flu like symptoms and was found to have a left knee infection. S/P I+D of the left knee last night. Her mentation has improved overnight. She states that she isn't feeling well, but isn't really able to state what doesn't feel well. Denies fever, chills, chest pain, shortness of breath, nausea, vomiting, or diarrhea. She states that she is not passing flatus and is unsure of her last BM. She reports pain in the left leg when touched. She reports neck pain. Objective: Vital Signs 04/03/19 04/03/19 04/03/19 06:00 06:53 07:49 Temperature 100 F Pulse Rate 103 Respiratory 18 18 17 Rate Blood Pressure 159/88 (mmHg) O2 Sat by Pulse 98 Oximetry Physical Exam: General: NAD, laying in bed Neurological: Alert and Oriented to person and place, mild confusion. Positive brudzinskis sign HEENT: Moist MM, no thrush Cardiovascular: Heart rate regular, no murmur Respiratory: Lung sounds clear bilateral Abdominal: Bowel sounds present; ABD soft, slight distended, and non tender MSK: No tenderness with palpation of the neck, back or spine. She is able to turn head left and right, she is unable to tuck her chin to the chest. No tenderness with palpation of the left knee, she has limited ROM of the left due to pain. Full ROM of the right hip and knee Skin: No rash. Surgical dressing to left knee; clean, dry and intact Laboratory Results - last 24 hr 04/01/19 04/01/19 04/02/19 20:30 20:30 06:34 ESR 113 H Fluid Source Synovial fluid Fluid Volume 20.0 Fluid Color Yellow Fluid Appearance Cloudy Fluid WBC 50019 Fluid RBC 4609 Fluid Tot Cell Count 100 Fluid Neutrophils 80 Fluid Lymphocytes 5 Fluid Monocytes 15 Fluid Other Cells 2 Fluid Cell Count Rvw By Fluid Crystals None seen 04/02/19 04/02/19 04/02/19 16:35 16:36 17:41 Sodium 137 Potassium 3.9 Chloride 107 Carbon Dioxide 20 L Anion Gap 10 BUN 20 Creatinine 0.88 Est GFR ( Amer) 76.6 Est GFR (Non-Af Amer) 63.3 BUN/Creatinine Ratio 22.7 H Glucose 91 POC Glucose (mg/dL) 87 Calcium 8.5 L Total Bilirubin 0.90 AST 30 ALT 20 Alkaline Phosphatase 107 H Total Protein 6.0 L Albumin 2.5 L Globulin 3.5 Albumin/Globulin Ratio 0.7 L Fluid Source Cerebral spinal Fluid Volume 3 Fluid Color Yellow Fluid Appearance Clear Fluid WBC 9 Fluid RBC 41 Fluid Tot Cell Count 100 Fluid Neutrophils 42 Fluid Lymphocytes 8 Fluid Monocytes 50 Fluid Other Cells Fluid Cell Count Rvw By Fluid Crystals CSF Cell Count Tube # 4 CSF Glucose CSF Total Protein 04/02/19 04/02/19 04/03/19 17:41 18:27 08:15 WBC 11.7 H RBC 2.66 L Hgb 9.1 L Hct 26 L MCV 99 H MCH 34 H MCHC 34 RDW 15 Plt Count 284 MPV 8.2 Neut % (Auto) 81.7 Lymph % (Auto) 10.0 [place] % (Auto) 7.8 Eos % (Auto) 0.3 Baso % (Auto) 0.2 Absolute Neuts (auto) 9.6 H Absolute Lymphs (auto) 1.2 Absolute Monos (auto) 0.9 H Absolute Eos (auto) 0.0 Absolute Basos (auto) 0.0 Absolute Nucleated RBC 0.0 Nucleated RBC % 0.0 POC Glucose (mg/dL) 64 L CSF Glucose 36 L CSF Total Protein 315 H 04/03/19 08:15 Sodium 138 Potassium 3.2 L Chloride 108 Carbon Dioxide 23 Anion Gap 7 BUN 13 Creatinine 0.78 Est GFR ( Amer) 88.1 Est GFR (Non-Af Amer) 72.8 BUN/Creatinine Ratio 16.7 Glucose 104 H Calcium 8.9 Microbiology 04/01/19 09:37 Aerobic Blood Culture - Final Blood Venous Strep Agalactiae - (Group B) Anaerobic Blood Culture - Final Strep Agalactiae - (Group B) 04/01/19 09:37 Aerobic Blood Culture - Final Blood Venous Strep Agalactiae - (Group B) Anaerobic Blood Culture - Final Strep Agalactiae - (Group B) 04/02/19 17:47 Skin and Soft Tissue MRSA/MSSA (PCR - Final Leg Left Mrsa Negative S.aureus Negative Gram Stain - Final 04/02/19 17:41 CSF Gram Stain (Tube 3) - Final Cerebral Spinal Fluid 04/01/19 20:30 Gram Stain - Final Joint Fluid(Synovial) - Knee Left Body Fluid Culture - Preliminary No Growth Day 1 Skin and Soft Tissue MRSA/MSSA (PCR - Final Mrsa Negative S.aureus Negative 04/01/19 20:30 Anaerobic Culture - Preliminary Body Fluid No Growth Day 1 04/01/19 20:30 Acid Fast Bacilli Smear - Final Body Fluid - Knee Left 04/01/19 12:05 Urine Culture - Final Urine No Growth (<1,000 CFU/mL) Assessment: 1. Group B strep bacteremia. Present in 4/4 bottles at the time of admission. TTE without signs of endocarditis. She denies presence of prosthetic materials. Urine culture with no growth. Low grade fevers, and mild leukocytosis. She does have a septic knee. 2. Septic arthritis of the left saxman knee. S/P washout, POD #1. Preliminary culture results with no growth. low grade fevers and mild leukocytosis. 3. Bacterial meningitis, suspected. S/P LP last night. Glucose low, protein elevated - this supports diagnosis but WBC count is 9. Positive brudzinskis sign , and unable to tuck chin to chest. Preliminary gram stain with no organisms. 4. Encephalopathy. Improving. Plan: Continue Ceftriaxone 2 gm, increase to q12H dosing. Obtain a PHYLLIS to rule out endocarditis. Will repeat blood cultures in the morning. No need for isolation in the setting of possible meningitis. <Ciera Gomes - Last Filed: 04/04/19 08:15> - Progress Note SOAP: Seen and examine with Sarbjit Lockwood NP, agree with full note. Isolation not needed for meningitis due to this organism. <Marciano W[place],Cain Spicer - Last Filed: 04/04/19 10:04>
[2019-04-03] MEDS: cefTRIAXone(*) 2 GM in NS 0.9% 100 ML* 100 ML IVPB SCH ×2 (11:20→22:20)
[2019-04-03] MEDS: Enoxaparin(*) 40 MG/0.4 ML SYR SUBCUT SCH (11:20)
[2019-04-03] MEDS ORDERED: Midazolam* 1 MG/ML 5 ML VIAL (5 MG) ONE (14:08)
[2019-04-03] MEDS ORDERED: Naloxone* 0.4 MG/ML 1 ML VIAL ONE (14:09)
[2019-04-03] MEDS ORDERED: Flumazenil* 0.1 MG/ML 5 ML MDV ONE (14:09)
[2019-04-03] MEDS ORDERED: fentaNYL* 50 MCG/ML 2 ML VIAL (100 MCG VIAL) ONE (14:09)
[2019-04-03] MEDS ORDERED: Lidocaine 2% VISCOUS* 15 ML UDC ONE (14:09)
--- NOTE | 2019-04-03 14:12 | PN ---
Progress Note - Progress Note Date of Service: 04/03/19 SOAP: Subjective: []Pt seen at bedside. She has appropriate conversation with me today. Knee is painful with any movement, she has no other complaints. Objective: []Gen: NAD, laying comfortably in bed LLE: Left knee dressing CDI, thigh soft, minimal PROM at the knee with yelling out in pain. df/pf intact, dp2+, sensation intact to light touch distally. + brudzinskis, - kernigs Assessment: [] Septic arthritis of the left [place] knee. Bacterial meningitis, suspected. Plan: WBAT LLE Appropriate DVT prophy per medicine, currently on lovenox 40 sq qd Continue Ceftriaxone 2 gm, increase to q12H dosing. Obtain a PHYLLIS to rule out endocarditis. Vital Signs Temp 100.1 F 04/03/19 11:35 Pulse 107 04/03/19 11:35 Resp 20 04/03/19 11:35 BP 156/80 04/03/19 11:35 Pulse Ox 97 04/03/19 11:35 Intake & Output 04/02/19 04/03/19 04/03/19 18:59 06:59 18:59 Intake Total 500 1333 0 Output Total 300 200 Balance 500 1033 -200 Intake: IV Fluids 500 1033 D5 LR 500 LR 500 NS (0.9%) 533 Oral 300 0 Output: Urine 300 200 Other: Estimated Void Medium # Voids 3 2 Laboratory Last Values WBC 11.7 10^3/uL (3.5-10.8) H 04/03/19 08:15 RBC 2.66 10^6 /uL (3.70-4.87) L 04/03/19 08:15 Hgb 9.1 g/dL (12.0-16.0) L 04/03/19 08:15 Hct 26 % (35-47) L 04/03/19 08:15 MCV 99 fL (80-97) H 04/03/19 08:15 MCH 34 pg (27-31) H 04/03/19 08:15 MCHC 34 g/dL (31-36) 04/03/19 08:15 RDW 15 % (10-15) 04/03/19 08:15 Plt Count 284 10^3/uL (150-450) 04/03/19 08:15 MPV 8.2 fL (7.4-10.4) 04/03/19 08:15 Neut % (Auto) 81.7 % 04/03/19 08:15 Lymph % (Auto) 10.0 % 04/03/19 08:15 Ogle % (Auto) 7.8 % 04/03/19 08:15 Eos % (Auto) 0.3 % 04/03/19 08:15 Baso % (Auto) 0.2 % 04/03/19 08:15 Absolute Neuts (auto) 9.6 10^3/ul (1.5-7.7) H 04/03/19 08:15 Absolute Lymphs (auto) 1.2 10^3/ul (1.0-4.8) 04/03/19 08:15 Absolute Monos (auto) 0.9 10^3/ul (0-0.8) H 04/03/19 08:15 Absolute Eos (auto) 0.0 10^3/ul (0-0.6) 04/03/19 08:15 Absolute Basos (auto) 0.0 10^3/ul (0-0.2) 04/03/19 08:15 Absolute Nucleated RBC 0.0 10^3/ul 04/03/19 08:15 Nucleated RBC % 0.0 04/03/19 08:15 ESR 113 mm/Hr (0-29) H 04/02/19 06:34 INR (Anticoag Therapy) 1.04 (0.82-1.09) 04/02/19 16:35 APTT 24.1 seconds (26.0-38.0) L 04/02/19 16:35 Sodium 138 mmol/L (135-145) 04/03/19 08:15 Potassium 3.2 mmol/L (3.5-5.0) L 04/03/19 08:15 Chloride 108 mmol/L (101-111) 04/03/19 08:15 Carbon Dioxide 23 mmol/L (22-32) 04/03/19 08:15 Anion Gap 7 mmol/L (2-11) 04/03/19 08:15 BUN 13 mg/dL (6-24) 04/03/19 08:15 Creatinine 0.78 mg/dL (0.51-0.95) 04/03/19 08:15 Est GFR ( Amer) 88.1 (>60) 04/03/19 08:15 Est GFR (Non-Af Amer) 72.8 (>60) 04/03/19 08:15 BUN/Creatinine Ratio 16.7 (8-20) 04/03/19 08:15 Glucose 104 mg/dL (70-100) H 04/03/19 08:15 POC Glucose (mg/dL) 64 mg/dL (70-100) L 04/02/19 18:27 Lactic Acid 0.4 mmol/L (0.5-2.0) L 04/02/19 16:35 Calcium 8.9 mg/dL (8.6-10.3) 04/03/19 08:15 Total Bilirubin 0.90 mg/dL (0.2-1.0) 04/02/19 16:35 AST 30 U/L (13-39) 04/02/19 16:35 ALT 20 U/L (7-52) 04/02/19 16:35 Alkaline Phosphatase 107 U/L (34-104) H 04/02/19 16:35 Total Creatine Kinase 179 U/L (10-223) 04/02/19 06:34 Troponin I 0.03 ng/mL (<0.03) H* 04/01/19 16:05 C-Reactive Protein 410.57 mg/L (<8.01) H 04/02/19 06:34 Total Protein 6.0 g/dL (6.4-8.9) L 04/02/19 16:35 Albumin 2.5 g/dL (3.2-5.2) L 04/02/19 16:35 Globulin 3.5 g/dL (2-4) 04/02/19 16:35 Albumin/Globulin Ratio 0.7 (1-3) L 04/02/19 16:35 Lipase 16 U/L (11.0-82.0) 04/01/19 13:13 Urine Color Janna 04/01/19 12:05 Urine Appearance Cloudy 04/01/19 12:05 Urine pH 5.0 (5-9) 04/01/19 12:05 Ur Specific [place] 1.025 (1.010-1.030) 04/01/19 12:05 Urine Protein 1+(30 mg/dl) (Negative) A 04/01/19 12:05 Urine Ketones Negative (Negative) 04/01/19 12:05 Urine Blood 1+ (Negative) A 04/01/19 12:05 Urine Nitrate Negative (Negative) 04/01/19 12:05 Urine Bilirubin Negative (Negative) 04/01/19 12:05 Urine Urobilinogen Negative (Negative) 04/01/19 12:05 Ur Leukocyte Esterase Negative (Negative) 04/01/19 12:05 Urine WBC (Auto) 2+(11-20/hpf) (Absent) A 04/01/19 12:05 Urine RBC (Auto) Absent (Absent) 04/01/19 12:05 Ur Squamous Epith Cells Present (Absent) A 04/01/19 12:05 Urine Bacteria 1+ (Absent) A 04/01/19 12:05 Hyaline Casts Present (Absent) A 04/01/19 12:05 Urine Glucose Negative (Negative) 04/01/19 12:05 Fluid Source Cerebral spinal 04/02/19 17:41 Fluid Volume 3 mL 04/02/19 17:41 Fluid Color Yellow 04/02/19 17:41 Fluid Appearance Clear 04/02/19 17:41 Fluid WBC 9 /mcL 04/02/19 17:41 Fluid RBC 41 /mcL 04/02/19 17:41 Fluid Tot Cell Count 100 04/02/19 17:41 Fluid Neutrophils 42 % 04/02/19 17:41 Fluid Lymphocytes 8 % 04/02/19 17:41 Fluid Monocytes 50 % 04/02/19 17:41 Fluid Other Cells 2 04/01/19 20:30 Fluid Cell Count Rvw By 04/02/19 17:41 Fluid Crystals None seen (None Seen) 04/01/19 20:30 CSF Cell Count Tube # 4 04/02/19 17:41 CSF Glucose 36 mg/dL (40-70) L 04/02/19 17:41 CSF Total Protein 315 mg/dL (15-45) H 04/02/19 17:41 Influenza A (Rapid) Negative (Negative) 04/01/19 09:21 Influenza B (Rapid) Negative (Negative) 04/01/19 09:21 Microbiology 04/02/19 17:47 Anaerobic Culture - Preliminary Wound No Growth Day 1 04/02/19 17:47 Skin and Soft Tissue MRSA/MSSA (PCR - Final Leg Left Mrsa Negative S.aureus Negative Gram Stain - Final Wound Culture - Preliminary No Growth Day 1 04/02/19 17:41 CSF Gram Stain (Tube 3) - Final Cerebral Spinal Fluid CSF Culture - Preliminary No Growth Day 1 04/01/19 20:30 Gram Stain - Final Joint Fluid(Synovial) - Knee Left Body Fluid Culture - Preliminary No Growth Day 2 Skin and Soft Tissue MRSA/MSSA (PCR - Final Mrsa Negative S.aureus Negative 04/01/19 20:30 Anaerobic Culture - Preliminary Body Fluid No Growth Day 2 04/01/19 09:37 Aerobic Blood Culture - Final Blood Venous Strep Agalactiae - (Group B) Anaerobic Blood Culture - Final Strep Agalactiae - (Group B) 04/01/19 09:37 Aerobic Blood Culture - Final Blood Venous Strep Agalactiae - (Group B) Anaerobic Blood Culture - Final Strep Agalactiae - (Group B) 04/01/19 20:30 Acid Fast Bacilli Smear - Final Body Fluid - Knee Left 04/01/19 12:05 Urine Culture - Final Urine No Growth (<1,000 CFU/mL)
--- NOTE | 2019-04-03 15:08 | OP ---
Operative Report - Blank - Operative Report Date of Operation: 04/03/19 - r/o endocarditis. Note: PHYLLIS: No vegetations, full note to follow. ventricular function is hyperdyanamic.
[2019-04-03] MEDS: NS 0.9% 1000 ML** 1,000 ML IV SCH (16:53)
--- NOTE | 2019-04-03 19:12 | TEE ---
*[facility]* [place] [address] Fax #: [phone] Transesophageal Echocardiogram Patient: Jennifer Cartagena : 1950 Study Date: 04/03/2019 Age: 69 Gender: F HR: 105 bpm Height: 25.6 in /65 cm BSA: 1.32 m^2 Weight: 170 lb /77.3 kg BMI: 182.9 kg/m^2 *Instrument Assembler: * Yakelin Wilder *Referring Physician: * Mickie Tobar *Reading Physician: * Prema Vidales MD Indications: Bacteremia. History: Fever. Bacteremia. Risk factors: Hypertension. Conclusions Summary: - Left ventricle: Systolic function is hyperdynamic. The estimated ejection fraction is 60-65%. Systolic function is improved from the study of 04/01/2019. - Right ventricle: Systolic function is normal. - Atrial septum: The atrial septum appears aneurysmal. There is no evidence of a bxiyn-xy-vudb atrial level shunt based on color Doppler evaluation. - Mitral valve: There is no evidence c/w a vegetation. Small structure on image 9 on the anterior leaflet prolapsing into atria c/w focal prolapse. There is trace regurgitation. - Aortic valve: The valve is structurally normal. The valve is trileaflet. - No vegetations noted on aortic, tricuspid or pulmonic valves. Study data: Diagnostic Transesophageal Echocardiogram Consent: The risks and benefits of the procedure, including alternatives were discussed with the patient and/or their health care surgical device sales representative and written informed consent was obtained. Procedure: Initial setup: The patient was brought to the laboratory in the fasting state.Intravenous access was obtained. Surface ECG leads, heart rate, heart rhythm, blood pressure measurements, pulse oximetric signals, and mainstream end-tidal CO2 tracings were monitored throughout the procedure. Supplemental oxygen. Oxygen was administered by nasal cannula throughout the procedure. Sedation. Moderate sedation was administered by nursing staff. History and physical as well as labs were reviewed. An oral bite block was inserted for protection of oral dentition. The patient was placed in the left lateral decubitus position for endocarditis evaluation. Topical anesthesia was obtained using viscous lidocaine. A transesophageal probe was inserted by the attending sugar cane farm manager. without difficultyTransesophageal echocardiography was performed, The study was technically difficult,as a result of poor patient compliance. image quality was good, and all standard views were attempted within the limitations of patient tolerance and safety. Multiple 2D, color flow Doppler and spectral Doppler images were obtained. The transesophageal probe was removed. Location: Procedure room. Patient status: Inpatient. Patient room number: 435-01. Study completion: The patient tolerated the procedure well. There were no complications. Administered medications: Midazolam. Fentanyl, 75mcg. Findings Left ventricle: The cavity size is normal. Systolic function is hyperdynamic. The estimated ejection fraction is 60-65%. Systolic function is improved from the study of 04/01/2019. Right ventricle: The cavity size is normal. Systolic function is normal. Ventricular septum: The ventricular septum is normal. Left atrium: The atrium is normal in size. The appendage is of normal size. Emptying velocity is normal. There is no evidence of a thrombus in the atrial cavity or appendage. No spontaneous echo contrast is observed. Right atrium: The atrium is normal in size. There is no evidence of a thrombus in the atrial cavity or appendage. Atrial septum: The atrial septum appears aneurysmal. There is no evidence of a lshxj-bt-fqzv atrial level shunt based on color Doppler evaluation, unable to do a bubble study due to IV issues. Mitral valve: The valve is structurally normal. There is no evidence c/w a vegetation. Small structure on image 9 on the anterior leaflet prolapsing into atria c/w focal prolapse. There is no evidence of stenosis. There is trace regurgitation. Aortic valve: The valve is structurally normal. The valve is trileaflet. Cusp separation is normal. There is no evidence of a vegetation. There is no evidence of stenosis. There is no significant regurgitation. Tricuspid valve: The valve is structurally normal. There is no evidence of a vegetation. There is no significant regurgitation. Pulmonic valve: The valve appears structurally normal. There is no evidence of a vegetation. There is no regurgitation. Aorta: The aortic root appears normal. The aortic arch appears normal. The ascending aorta appears normal. Pericardium: There is no significant pericardial effusion. Pulmonary arteries: The main pulmonary artery is normal-sized. Pulmonary veins: The Pulmonary veins appear normal. Measurements Ascending aorta Value AAo prox diam 39.8 cm AAo prox diam/bsa 30.3 cm/m^2 Mid-AAo AP diam, ED 4.0 cm Legend: (L) and (H) torri values outside specified reference range. Prepared and electronically signed by Prema Vidales MD 04/03/2019 19:11
[2019-04-03] MEDS ORDERED: NS 0.9% 250 ML* 250 ML IV ONE (19:59)
[2019-04-03] MEDS ORDERED: Senna TAB 8.6 mg* TAB PO PRN (19:59)
[2019-04-03] MEDS ORDERED: Polyethylene Glycol 3350* 17 GM PACKET PO PRN (19:59)
--- NOTE | 2019-04-03 19:59 | PN ---
Hospitalist Progress Note Date of Service: 04/03/19 ON-CALL MD NOTE: 8:14 PM, 04/03/19 Was called by the RN because she was concerned about patient's overall condition. Came to evaluate patient at bedside. She was resting, lying in bed, asleep, not in distress Arousable, following some commands Abdomen: normoactive bowel sounds, abdomen is distended, non-tender- no rigidity or guarding. She is admitted here for sepsis, on antibiotics, and she is on the alcohol withdrawal protocol. Vital Signs Temp Pulse Resp BP Pulse Ox 101.3 F 107 28 156/83 100 04/03/19 19:32 04/03/19 19:32 04/03/19 19:41 04/03/19 19:32 04/03/19 19:41 Impression/plan: She is tachycardic, having fever, and tachypneic, multifactorial- due to sepsis and alcohol withdrawal. Continue antibiotics: Rocephin Continue ativan PRN withdrawal. Abdominal distention: unknown when last BM was- per RN no documented BM since admission, will start bowel regimen, no signs/features of acute abdomen, if distention continues to worsen- RN to inform us and at that time we can consider imaging Fever/tachycardia: will give small bolus. 3:13AM: no Bowel movement yet, has abdominal distention, but no findings suggestive of acute abdomen. Will order an abdominal xray.
[2019-04-03] MEDS: Magnesium Hydroxide LIQ* 30 ML UDC PO SCH (23:44)
[2019-04-03] MEDS: Docusate CAP* 100 MG PO SCH (23:44)
[2019-04-04] MEDS: Acetaminophen TAB* 325 MG PO PRN ×3 (00:28→19:55)
[2019-04-04] MEDS: LORazepam TAB(*) 1 MG PO SCH ×2 (01:27→03:26)
[2019-04-04] MEDS: NS 0.9% 1000 ML** 1,000 ML IV SCH (04:49)
[2019-04-04 05:46] LABS: ABS Lymphocytes 1.4 10^3/ul (1.0-4.8); ABS Monocytes 1.1 10^3/ul (0-0.8); ABS Neutrophils 8.8 10^3/ul (1.5-7.7); Eosinophil % 0.3 %; Hematocrit 27 % (35-47); Hemoglobin 8.9 g/dL (12.0-16.0); Lymphocyte % 12.3 %; Mean Corpuscular HGB Conc 34 g/dL (31-36); Mean Corpuscular Hemoglobin 33 pg (27-31); Mean Corpuscular Volume 100 fL (80-97); Mean Platelet Volume 8.1 fL (7.4-10.4); Nucleated Red Blood Cells % 0.1; Platelet Count 348 10^3/uL (150-450); Red Blood Count 2.68 10^6 /uL (3.70-4.87); Red Cell Distribution Width 15 % (10-15); White Blood Count 11.4 10^3/uL (3.5-10.8)
[2019-04-04 06:05] LABS: Anion Gap 9 mmol/L (2-11); BUN/Creatinine Ratio 14.7 (8-20); Blood Urea Nitrogen 11 mg/dL (6-24); CO2 Carbon Dioxide 23 mmol/L (22-32); Calcium 8.7 mg/dL (8.6-10.3); Chloride 109 mmol/L (101-111); EGFR African American 92.2 (>60); EGFR Non-African American 76.2 (>60); Glucose 95 mg/dL (70-100); Magnesium 1.5 mg/dL (1.9-2.7); Phosphorus 3.5 mg/dL (2.5-5.0); Potassium 3.2 mmol/L (3.5-5.0); Sodium 141 mmol/L (135-145)
[2019-04-04] MEDS ORDERED: Magnesium Sulfate 2 GM IV* 2 GM/50 ML BAG IVPB ONE (06:55)
[2019-04-04] MEDS ORDERED: Potassium Chlor TAB* 20 MEQ TAB.ER PO ONE (06:55)
[2019-04-04] MEDS: Diltiazem CD CAP* 180 MG PO SCH (09:42)
[2019-04-04] MEDS: Thiamine TAB* 100 MG TAB PO SCH (09:42)
[2019-04-04] MEDS: KCL 20 MEQ/100 ML IVPREMIX* 20 MEQ/100 ML BAG IV SCH ×2 (09:42→12:15)
[2019-04-04] MEDS: Multivitamins/Minerals TAB PO SCH (09:42)
[2019-04-04] MEDS: Docusate CAP* 100 MG PO SCH ×2 (09:43→19:56)
[2019-04-04] MEDS: Folic Acid TAB* 1 MG PO SCH (09:43)
[2019-04-04] MEDS: Magnesium Hydroxide LIQ* 30 ML UDC PO SCH ×2 (09:43→19:56)
[2019-04-04] MEDS: cefTRIAXone(*) 2 GM in NS 0.9% 100 ML* 100 ML IVPB SCH ×2 (09:48→20:12)
--- NOTE | 2019-04-04 10:44 | PN ---
Subjective Date of Service: 04/04/19 Interval History: Ms. Cartagena is feeling poor today. She is seen speaking on the phone on my arrival, asking for someone to bring her clothes. She c/o pain in bilat fingers , but she still has active ROM. No neck, back, abdominal pain. Denies CP, SOB, headache. No concerns from nursing. Family History: Unchanged from Admission Social History: Unchanged from Admission Past Medical History: Unchanged from Admission Objective Active Medications: Acetaminophen (Tylenol Tab*) 650 mg PO Q4H PRN PAIN - MILD Hydrocodone Bitart/Acetaminophen (Delphi 5-325 Tab*) 1 tab PO QID PRN PAIN - MODERATE Diltiazem HCl (Cardizem Cd Cap*) 180 mg PO DAILY EFREM Docusate Sodium (Colace Cap*) 100 mg PO BID EFREM Enoxaparin Sodium (Lovenox(*)) 40 mg SUBCUT DAILY EFREM Folic Acid (Folvite Tab*) 1 mg PO DAILY EFREM Sodium Chloride (Ns 0.9% 1000 Ml) 1,000 mls @ 75 mls/hr IV PER RATE EFREM Ceftriaxone Sodium 2 gm/ (Sodium Chloride) 100 mls @ 200 mls/hr IVPB Q12H EFREM Potassium Chloride (Potassium Chloride 20 Meq/100 Ml Ivpremix*) 20 meq in 100 mls @ 50 mls/hr IV Q2H EFREM Magnesium Sulfate (Magnesium Sulf 4 Gm/100 Ml Iv*) 4,000 mg in 100 mls @ 33.333 mls/hr IVPB ONCE ONE Lorazepam (Ativan Tab(*)) 0 - 6 mg PO .PER [facility] PROTOCOL EFREM; Protocol Magnesium Hydroxide (Milk Of Avni Liq*) 30 ml PO BID EFREM Melatonin (Melatonin) 6 mg PO BEDTIME PRN SLEEP Morphine Sulfate (Morphine Inj (Syringe))*) 1 mg IV Q4H PRN PAIN - MILD Multivitamins/Minerals (Theragran/Minerals Tab*) 1 tab PO DAILY EFREM Ondansetron HCl (Zofran Inj*) 4 mg IV Q4H PRN NAUSEA/VOMITING Oxycodone HCl (Roxycodone Tab*) 5 mg PO Q6H PRN PAIN - SEVERE Polyethylene Glycol/Electrolytes (Miralax*) 17 gm PO DAILY PRN CONSTIPATION Senna (Senokot 8.6 Mg Tab*) 1 tab PO BEDTIME PRN CONSTIPATION Thiamine HCl (Vitamin B-1 Tab*) 100 mg PO DAILY EFREM Vital Signs - 8 hr 04/04/19 04/04/19 04/04/19 03:13 03:23 03:26 Temperature 98.9 F Pulse Rate 93 Respiratory 18 24 20 Rate Blood Pressure 151/79 (mmHg) O2 Sat by Pulse 98 Oximetry 04/04/19 04/04/19 04/04/19 05:23 08:00 09:00 Temperature 98.2 F 98.5 F Pulse Rate 84 87 Respiratory 18 24 Rate Blood Pressure 155/87 148/84 (mmHg) O2 Sat by Pulse 97 99 99 Oximetry Oxygen Devices in Use Now: None Appearance: Elderly female sitting in chair in NAD Ears/Nose/Mouth/Throat: Mucous Membranes Moist Neck: NL Appearance and Movements; NL JVP, Trachea Midline Respiratory: Symmetrical Chest Expansion and Respiratory Effort, Clear to Auscultation Cardiovascular: NL Sounds; No Murmurs; No JVD, RRR Abdominal: - - Nontender, mildly distended, +BS Extremities: No Edema Neurological: - - Oriented to self and place Lines/Tubes/Other Access: Clean, Dry and Intact Peripheral IV Nutrition: Taking PO's Result Diagrams: 04/04/19 05:28 04/04/19 05:28 Assess/Plan/Problems-Billing Assessment: is a 69 yo F with PMH of HTN, anxiety, IBS, chronic back pain; who presented to the ED with c/o fever, shaking, chills, and reports of AMS, found to be meeting sepsis criteria with source later determined to be bacteremia - Patient Problems (1) Bacteremia Code(s): R78.81 - BACTEREMIA Comment: - Meeting sepsis criteria on admission - 06/14 BC bottles growing group B Strep - PHYLLIS unremarkable for vegetations - Appreciate ID consult; recommends ceftriaxone and joint washout per Ortho - Continue ceftriaxone (2) Septic joint of left knee joint Code(s): M00.9 - PYOGENIC ARTHRITIS, UNSPECIFIED Comment: - Reported left knee pain on admission - Xray showing small joint effusion, no evidence of fracture - 20mL of cloudy fluid aspirated from joint; elevated WBC with cultures pending , but presumed to be Strep - Appreciate Ortho consult; washout 04/02 - Appreciate ID consult; will need at least 4 weeks IV abx for joint infection - Continue ceftriaxone (3) Bacterial meningitis Code(s): G00.9 - BACTERIAL MENINGITIS, UNSPECIFIED Comment: - Suspected; CSF protein and glucose support bacterial meningitis, but there is no white count or growth on culture as of this time - Possible that culture will be negative as she has been on abx for 2 days, but if there is/was meningitis, it would be d/t Strep - No need for isolation - Continue ceftriaxone (meningitis dosing) (4) Altered mental status Code(s): R41.82 - ALTERED MENTAL STATUS, UNSPECIFIED Comment: - Presented with AMS - Likely multifactorial: septic encephalopathy, alcohol withdrawal, ?meningitis - Will check head CT d/t recent fall and bacteremia (5) Abdominal distension Code(s): R14.0 - ABDOMINAL DISTENSION (GASEOUS) Comment: - Questionable distension with intermittent tenderness to palpation - BM this morning and tolerating PO intake - Xray this morning showing air-fluid levels consistent with paralytic ileus - Spoke with Surgery who recommends downgrading to clears and monitoring for symptoms - Clear liquids and will advance as tolerated (6) Anemia Code(s): D64.9 - ANEMIA, UNSPECIFIED Comment: - Macrocytic; some of this is certainly attributable to dilution - Normal B12 and folate - Stool occult pending (7) Severe sepsis Code(s): A41.9 - SEPSIS, UNSPECIFIED ORGANISM; R65.20 - SEVERE SEPSIS WITHOUT SEPTIC SHOCK Comment: - Resolved - Met criteria on admission with lactic acidosis, fever, tachycardia, tachypnea ; source is bacteremia - No hypotension (8) Alcohol abuse Code(s): F10.10 - ALCOHOL ABUSE, UNCOMPLICATED Comment: - WAM per protocol (9) KARLA (acute kidney injury) Code(s): N17.9 - ACUTE KIDNEY FAILURE, UNSPECIFIED Comment: - Resolved - Secondary to sepsis (10) Elevated troponin Code(s): R79.89 - OTHER SPECIFIED ABNORMAL FINDINGS OF BLOOD CHEMISTRY Comment : - Peaked at 0.04 - No EKG changes or c/o CP - Suspect demand ischemia secondary to sepsis (11) Essential (primary) hypertension Code(s): I10 - ESSENTIAL (PRIMARY) HYPERTENSION Comment: - Mildly hypertensive - Continue diltiazem (12) Chronic back pain Code(s): M54.9 - DORSALGIA, UNSPECIFIED; G89.29 - OTHER CHRONIC PAIN Comment: - Continue Delphi (13) Depression Code(s): F32.9 - MAJOR DEPRESSIVE DISORDER, SINGLE EPISODE, UNSPECIFIED Comment: - Hold Abilify and bupropion (14) DVT prophylaxis Code(s): Z29.9 - ENCOUNTER FOR PROPHYLACTIC MEASURES, UNSPECIFIED Comment: - Lovenox (15) Full code status Code(s): Z78.9 - OTHER SPECIFIED HEALTH STATUS Comment: Status and Disposition: Inpatient. Anticipate d/c home vs [facility] when medically stable, timeframe TBD by clinical course. Attending: Luc Romeo
[2019-04-04] MEDS: Enoxaparin(*) 40 MG/0.4 ML SYR SUBCUT SCH (10:51)
--- NOTE | 2019-04-04 10:57 | PN ---
Progress Note - Progress Note Date of Service: 04/04/19 SOAP: Subjective: CC: bacteremia HPI: 69 year old woman with encephalopathy and bacteremia, septic arthritis left knee s/p I&D, bacterial meningitis. Feels more alert and less confused. Appetite decreased. No fever, rash, or diarrhea. Objective: Vital Signs Temp 36.9 C 04/04/19 09:00 Pulse 87 04/04/19 09:00 Resp 24 04/04/19 09:00 BP 148/84 04/04/19 09:00 Pulse Ox 99 04/04/19 09:00 Intake & Output 04/03/19 04/04/19 04/04/19 18:59 06:59 18:59 Intake Total 1150 0 120 Output Total 200 0 Balance 950 0 120 Intake: IV Fluids 1150 NS (0.9%) 1000 Oral 0 0 120 Output: Urine 200 0 Other: # Bowel Movements 1 Estimated Stool Amount Medium # Voids 2 Gen:awake, no distress Neuro: Ox3, slow speech, strength 5/5 bi/tri/wf/we quad/ta/gastroc BL Neck: no rigidity HEENT: no thrush Heart:RRR no murmur Lungs:CTA BL Abd:+BS NTND soft Skin: no rash MSK: no spine tenderness Laboratory Results - last 24 hr 04/02/19 04/04/19 04/04/19 17:41 05:28 05:28 WBC 11.4 H RBC 2.68 L Hgb 8.9 L Hct 27 L MCV 100 H MCH 33 H MCHC 34 RDW 15 Plt Count 348 MPV 8.1 Neut % (Auto) 77.5 Lymph % (Auto) 12.3 [place] % (Auto) 9.5 Eos % (Auto) 0.3 Baso % (Auto) 0.4 Absolute Neuts (auto) 8.8 H Absolute Lymphs (auto) 1.4 Absolute Monos (auto) 1.1 H Absolute Eos (auto) 0.0 Absolute Basos (auto) 0.0 Absolute Nucleated RBC 0.0 Nucleated RBC % 0.1 Sodium 141 Potassium 3.2 L Chloride 109 Carbon Dioxide 23 Anion Gap 9 BUN 11 Creatinine 0.75 Est GFR ( Amer) 92.2 Est GFR (Non-Af Amer) 76.2 BUN/Creatinine Ratio 14.7 Glucose 95 Calcium 8.7 Phosphorus 3.5 Magnesium 1.5 L Fluid Cell Count Rvw By Assessment: 1. Grp B Strep bacteremia, septic arthritis left knee, meningitis 2. abnormal PHYLLIS< focal mitral regurg ?infectious endocarditis 3. ETOH abuse 4. PCN allergy Plan: 1. continue Ceftriaxone 2 gm IV Q12hrs, will discuss PHYLLIS findings with Dr Vidales 25 minutes floor time >25% face to face in counseling regarding treatment and prognosis with patient and partner
[2019-04-04] MEDS ORDERED: Magnesium Sulf 4 GM/100 ML IV* 4,000 MG/100 ML BAG IVPB ONE (11:00)
[2019-04-04 12:00] LABS: Folate > 20.00 ng/mL (>3.99)
--- NOTE | 2019-04-04 13:38 | PN ---
Progress Note - Progress Note Date of Service: 04/04/19 SOAP: Subjective: [] Pt seen and examined at bedside. She got out of bed with staff and tolerated some weight bearing on left knee. Able to tolerate sitting in a chair. Denies feeling of fever or chills. Knee pain is improving Objective: []Gen: NAD, laying comfortably in bed. Communicating appropriately with me today LLE: Left knee dressing changed, incision is CDI, thigh soft, 5-45 PROM at the knee, endpoints limited by pain. df/pf intact, dp2+, sensation intact to light touch distally. Assessment: [] Septic arthritis of the left [place] knee. Bacterial meningitis, suspected. Plan: WBAT LLE Appropriate DVT prophy per medicine, currently on lovenox 40 sq qd Continue Iv abx per ID - ceftriaxone Vital Signs Temp 97.6 F 04/04/19 11:00 Pulse 93 04/04/19 11:00 Resp 19 04/04/19 11:00 BP 153/92 04/04/19 11:00 Pulse Ox 100 04/04/19 11:00 Intake & Output 04/03/19 04/04/19 04/04/19 18:59 06:59 18:59 Intake Total 1150 0 120 Output Total 200 0 Balance 950 0 120 Intake: IV Fluids 1150 NS (0.9%) 1000 Oral 0 0 120 Output: Urine 200 0 Other: # Bowel Movements 1 Estimated Stool Amount Large # Voids 2 Laboratory Last Values WBC 11.4 10^3/uL (3.5-10.8) H 04/04/19 05:28 RBC 2.68 10^6 /uL (3.70-4.87) L 04/04/19 05:28 Hgb 8.9 g/dL (12.0-16.0) L 04/04/19 05:28 Hct 27 % (35-47) L 04/04/19 05:28 MCV 100 fL (80-97) H 04/04/19 05:28 MCH 33 pg (27-31) H 04/04/19 05:28 MCHC 34 g/dL (31-36) 04/04/19 05:28 RDW 15 % (10-15) 04/04/19 05:28 Plt Count 348 10^3/uL (150-450) 04/04/19 05:28 MPV 8.1 fL (7.4-10.4) 04/04/19 05:28 Neut % (Auto) 77.5 % 04/04/19 05:28 Lymph % (Auto) 12.3 % 04/04/19 05:28 [place] % (Auto) 9.5 % 04/04/19 05:28 Eos % (Auto) 0.3 % 04/04/19 05:28 Baso % (Auto) 0.4 % 04/04/19 05:28 Absolute Neuts (auto) 8.8 10^3/ul (1.5-7.7) H 04/04/19 05:28 Absolute Lymphs (auto) 1.4 10^3/ul (1.0-4.8) 04/04/19 05:28 Absolute Monos (auto) 1.1 10^3/ul (0-0.8) H 04/04/19 05:28 Absolute Eos (auto) 0.0 10^3/ul (0-0.6) 04/04/19 05:28 Absolute Basos (auto) 0.0 10^3/ul (0-0.2) 04/04/19 05:28 Absolute Nucleated RBC 0.0 10^3/ul 04/04/19 05:28 Nucleated RBC % 0.1 04/04/19 05:28 ESR 113 mm/Hr (0-29) H 04/02/19 06:34 INR (Anticoag Therapy) 1.04 (0.82-1.09) 04/02/19 16:35 APTT 24.1 seconds (26.0-38.0) L 04/02/19 16:35 Sodium 141 mmol/L (135-145) 04/04/19 05:28 Potassium 3.2 mmol/L (3.5-5.0) L 04/04/19 05:28 Chloride 109 mmol/L (101-111) 04/04/19 05:28 Carbon Dioxide 23 mmol/L (22-32) 04/04/19 05:28 Anion Gap 9 mmol/L (2-11) 04/04/19 05:28 BUN 11 mg/dL (6-24) 04/04/19 05:28 Creatinine 0.75 mg/dL (0.51-0.95) 04/04/19 05:28 Est GFR ( Amer) 92.2 (>60) 04/04/19 05:28 Est GFR (Non-Af Amer) 76.2 (>60) 04/04/19 05:28 BUN/Creatinine Ratio 14.7 (8-20) 04/04/19 05:28 Glucose 95 mg/dL (70-100) 04/04/19 05:28 POC Glucose (mg/dL) 64 mg/dL (70-100) L 04/02/19 18:27 Lactic Acid 0.4 mmol/L (0.5-2.0) L 04/02/19 16:35 Calcium 8.7 mg/dL (8.6-10.3) 04/04/19 05:28 Phosphorus 3.5 mg/dL (2.5-5.0) 04/04/19 05:28 Magnesium 1.5 mg/dL (1.9-2.7) L 04/04/19 05:28 Total Bilirubin 0.90 mg/dL (0.2-1.0) 04/02/19 16:35 AST 30 U/L (13-39) 04/02/19 16:35 ALT 20 U/L (7-52) 04/02/19 16:35 Alkaline Phosphatase 107 U/L (34-104) H 04/02/19 16:35 Total Creatine Kinase 179 U/L (10-223) 04/02/19 06:34 Troponin I 0.03 ng/mL (<0.03) H* 04/01/19 16:05 C-Reactive Protein 410.57 mg/L (<8.01) H 04/02/19 06:34 Total Protein 6.0 g/dL (6.4-8.9) L 04/02/19 16:35 Albumin 2.5 g/dL (3.2-5.2) L 04/02/19 16:35 Globulin 3.5 g/dL (2-4) 04/02/19 16:35 Albumin/Globulin Ratio 0.7 (1-3) L 04/02/19 16:35 Lipase 16 U/L (11.0-82.0) 04/01/19 13:13 Vitamin B12 584 pg/mL (180-914) 04/04/19 05:28 Folate > 20.00 ng/mL (>3.99) 04/04/19 05:28 Urine Color Janna 04/01/19 12:05 Urine Appearance Cloudy 04/01/19 12:05 Urine pH 5.0 (5-9) 04/01/19 12:05 Ur Specific [place] 1.025 (1.010-1.030) 04/01/19 12:05 Urine Protein 1+(30 mg/dl) (Negative) A 04/01/19 12:05 Urine Ketones Negative (Negative) 04/01/19 12:05 Urine Blood 1+ (Negative) A 04/01/19 12:05 Urine Nitrate Negative (Negative) 04/01/19 12:05 Urine Bilirubin Negative (Negative) 04/01/19 12:05 Urine Urobilinogen Negative (Negative) 04/01/19 12:05 Ur Leukocyte Esterase Negative (Negative) 04/01/19 12:05 Urine WBC (Auto) 2+(11-20/hpf) (Absent) A 04/01/19 12:05 Urine RBC (Auto) Absent (Absent) 04/01/19 12:05 Ur Squamous Epith Cells Present (Absent) A 04/01/19 12:05 Urine Bacteria 1+ (Absent) A 04/01/19 12:05 Hyaline Casts Present (Absent) A 04/01/19 12:05 Urine Glucose Negative (Negative) 04/01/19 12:05 Fluid Source Cerebral spinal 04/02/19 17:41 Fluid Volume 3 mL 04/02/19 17:41 Fluid Color Yellow 04/02/19 17:41 Fluid Appearance Clear 04/02/19 17:41 Fluid WBC 9 /mcL 04/02/19 17:41 Fluid RBC 41 /mcL 04/02/19 17:41 Fluid Tot Cell Count 100 04/02/19 17:41 Fluid Neutrophils 42 % 04/02/19 17:41 Fluid Lymphocytes 8 % 04/02/19 17:41 Fluid Monocytes 50 % 04/02/19 17:41 Fluid Other Cells 2 04/01/19 20:30 Fluid Cell Count Rvw By 04/02/19 17:41 Fluid Crystals None seen (None Seen) 04/01/19 20:30 CSF Cell Count Tube # 4 04/02/19 17:41 CSF Glucose 36 mg/dL (40-70) L 04/02/19 17:41 CSF Total Protein 315 mg/dL (15-45) H 04/02/19 17:41 Influenza A (Rapid) Negative (Negative) 04/01/19 09:21 Influenza B (Rapid) Negative (Negative) 04/01/19 09:21
[2019-04-04 17:25] LABS: HSV 1 PCR, CSF Negative (Negative); HSV 2 PCR, CSF Negative (Negative)
[2019-04-04 22:48] LABS: B. garinii/B. afzellii PCR Negative (Negative); Lyme Disease Source SYNOVIAL FLUID
[2019-04-05] MEDS: Acetaminophen TAB* 325 MG PO PRN (00:46)
[2019-04-05] MEDS: Melatonin 3 MG TAB PO PRN (00:47)
[2019-04-05] MEDS: LORazepam TAB(*) 1 MG PO SCH ×3 (01:16→07:54)
[2019-04-05 05:56] LABS: ABS Eosinophils 0.1 10^3/ul (0-0.6); ABS Lymphocytes 1.3 10^3/ul (1.0-4.8); ABS Monocytes 0.8 10^3/ul (0-0.8); ABS Neutrophils 8.7 10^3/ul (1.5-7.7); Hematocrit 27 % (35-47); Hemoglobin 8.9 g/dL (12.0-16.0); Lymphocyte % 11.6 %; Mean Corpuscular HGB Conc 33 g/dL (31-36); Mean Corpuscular Hemoglobin 34 pg (27-31); Mean Corpuscular Volume 102 fL (80-97); Mean Platelet Volume 7.9 fL (7.4-10.4); Platelet Count 473 10^3/uL (150-450); Red Blood Count 2.63 10^6 /uL (3.70-4.87); Red Cell Distribution Width 15 % (10-15); White Blood Count 10.8 10^3/uL (3.5-10.8)
[2019-04-05 06:13] LABS: BUN/Creatinine Ratio 15.4 (8-20); Calcium 8.7 mg/dL (8.6-10.3); EGFR African American 108.7 (>60); EGFR Non-African American 89.9 (>60); Potassium 3.8 mmol/L (3.5-5.0)
[2019-04-05 08:33] LABS: TSH (Thyroid Stimulating Horm) 0.74 mcIU/mL (0.34-5.60)
--- NOTE | 2019-04-05 09:35 | PN ---
Subjective Date of Service: 04/05/19 Interval History: Patient tells me this morning she is feeling poorly. She is tearful and explains she feels unwell because "They put me in the basement when I first got here because that's where the only private rooms are." She additionally goes on to tell me there are multiple shacks around the hospital which are "nice chicken coops." Her partner is at bedside with concerns about her ability to go home. Family History: Unchanged from Admission Social History: Unchanged from Admission Past Medical History: Unchanged from Admission Objective Active Medications: Acetaminophen (Tylenol Tab*) 650 mg PO Q4H PRN PRN Reason: PAIN - MILD Last Admin: 04/05/19 00:46 Dose: 650 mg Aripiprazole (Abilify Tab*) 2 mg PO BEDTIME [facility] Bupropion HCl (Bupropion Xl*) 300 mg PO DAILY [facility] Diltiazem HCl (Cardizem Cd Cap*) 180 mg PO DAILY [facility] Last Admin: 04/04/19 09:42 Dose: 180 mg Docusate Sodium (Colace Cap*) 100 mg PO BID [facility] Last Admin: 04/04/19 19:56 Dose: Not Given Enoxaparin Sodium (Lovenox(*)) 40 mg SUBCUT DAILY [facility] Last Admin: 04/04/19 10:51 Dose: 40 mg Folic Acid (Folvite Tab*) 1 mg PO DAILY [facility] Last Admin: 04/04/19 09:43 Dose: 1 mg Ceftriaxone Sodium 2 gm/ (Sodium Chloride) 100 mls @ 200 mls/hr IVPB Q12H [facility] Last Admin: 04/04/19 20:12 Dose: 200 mls/hr Ketorolac Tromethamine (Toradol Inj*) 30 mg IV PUSH Q6H PRN PRN Reason: PAIN - MODERATE Stop: 04/10/19 07:47 Lisinopril (Prinivil Tab*) 40 mg PO QAM [facility] Magnesium Hydroxide (Milk Of Magnesia Liq*) 30 ml PO BID [facility] Last Admin: 04/04/19 19:56 Dose: Not Given Melatonin (Melatonin) 6 mg PO BEDTIME PRN PRN Reason: SLEEP Last Admin: 04/05/19 00:47 Dose: 6 mg Multivitamins/Minerals (Theragran/Minerals Tab*) 1 tab PO DAILY [facility] Last Admin: 04/04/19 09:42 Dose: 1 tab Ondansetron HCl (Zofran Inj*) 4 mg IV Q4H PRN PRN Reason: NAUSEA/VOMITING Polyethylene Glycol/Electrolytes (Miralax*) 17 gm PO DAILY PRN PRN Reason: CONSTIPATION Senna (Senokot 8.6 Mg Tab*) 1 tab PO BEDTIME PRN PRN Reason: CONSTIPATION Thiamine HCl (Vitamin B-1 Tab*) 100 mg PO DAILY [facility] Last Admin: 04/04/19 09:42 Dose: 100 mg Vital Signs - 8 hr 04/05/19 04/05/19 04/05/19 02:03 03:16 03:43 Temperature 98.3 F Pulse Rate 86 Respiratory 20 18 Rate Blood Pressure 151/88 146/79 (mmHg) O2 Sat by Pulse 99 Oximetry 04/05/19 04/05/19 04/05/19 04:17 05:06 06:58 Temperature 97.9 F 97.9 F Pulse Rate 57 96 Respiratory 20 18 16 Rate Blood Pressure 148/83 165/87 (mmHg) O2 Sat by Pulse 97 97 Oximetry 04/05/19 04/05/19 07:00 07:54 Temperature Pulse Rate Respiratory 16 20 Rate Blood Pressure (mmHg) O2 Sat by Pulse Oximetry Oxygen Devices in Use Now: None Appearance: Elderly white female, sitting in chair, appearing comfortable and in NAD Eyes: No Scleral Icterus, - - PERRL Ears/Nose/Mouth/Throat: Mucous Membranes Moist Neck: Trachea Midline Respiratory: Symmetrical Chest Expansion and Respiratory Effort, Clear to Auscultation Cardiovascular: NL Sounds; No Murmurs; No JVD, RRR Abdominal: - - abd soft, nontender, nondistended Extremities: No Edema, No Clubbing, Cyanosis, - - left knee in OG wrap without surrounding edema or erythema Skin: No Rash or Ulcers Neurological: NL Muscle Strength and Tone, - - patient is alert and oriented to self and time but not location Result Diagrams: 04/05/19 05:22 04/05/19 05:22 Additional Lab and Data: Troponin 0.02 @ 0934, 0.04 @ 1313, and 0.03 @ 1605 Laboratory Tests 04/01/19 04/01/19 04/01/19 09:34 09:34 09:34 WBC 7.2 RBC 3.11 L Hgb 10.6 L Hct 31 L MCV 100 H MCH 34 H INR (Anticoag Therapy) 1.00 APTT 26.7 Sodium 132 L Potassium 3.7 Chloride 98 L Carbon Dioxide 22 Anion Gap 12 H BUN 27 H Creatinine 1.42 H Glucose 99 Lactic Acid Calcium 9.3 Total Bilirubin 1.60 H C-Reactive Protein 399.08 H Albumin 3.1 L Globulin 4.7 H Albumin/Globulin Ratio 0.7 L Urine Color Urine Appearance Urine pH Ur Specific [place] Urine Protein Urine Ketones Urine Blood Urine Nitrate Urine Bilirubin Urine Urobilinogen Ur Leukocyte Esterase Urine WBC (Auto) Urine RBC (Auto) Ur Squamous Epith Cells Urine Bacteria Hyaline Casts Urine Glucose 04/01/19 04/01/19 09:34 12:05 WBC RBC Hgb Hct MCV MCH INR (Anticoag Therapy) APTT Sodium Potassium Chloride Carbon Dioxide Anion Gap BUN Creatinine Glucose Lactic Acid 2.9 H* Calcium Total Bilirubin C-Reactive Protein Albumin Globulin Albumin/Globulin Ratio Urine Color Janna Urine Appearance Cloudy Urine pH 5.0 Ur Specific [place] 1.025 Urine Protein 1+(30 mg/dl) A Urine Ketones Negative Urine Blood 1+ A Urine Nitrate Negative Urine Bilirubin Negative Urine Urobilinogen Negative Ur Leukocyte Esterase Negative Urine WBC (Auto) 2+(11-20/hpf) A Urine RBC (Auto) Absent Ur Squamous Epith Cells Present A Urine Bacteria 1+ A Hyaline Casts Present A Urine Glucose Negative Microbiology and Other Data: Microbiology 04/01/19 09:37 Aerobic Blood Culture - Preliminary Blood Venous Anaerobic Blood Culture - Preliminary Diagnostic Imaging: CT of chest/abdomen/pelvis shows biliary dilitation extending to the area of the ampulla, which is slightly progressed from a study done in September 2018. Findings also include hiatal hernia and artherosclerosis. As well as a trace R pleural effusion. Chest XRay shows hiatal hernia but no active cardiopulmonary disease. L knee XRay shows no fracture. Small joint effusion noted. Mild nonfocal soft tissue edema. EKG Data: Original EKG from this morning shows sinus tachycardia with a rate of 138. A second EKG due to an increased troponin level done at 1608 shows sinus tachycardia as well with a rate of 104. Assess/Plan/Problems-Billing Assessment: is a 69 yo F with PMH of HTN, anxiety, IBS, chronic back pain; who presented to the ED with c/o fever, shaking, chills, and reports of AMS, admitted for sepsis. Later found to have bacteremia with source of left knee infection s/p washout 04/02/19. - Patient Problems (1) Bacteremia Current Visit: Yes Status: Acute Code(s): R78.81 - BACTEREMIA SNOMED Code( s): 6952506 Comment: - Meeting sepsis criteria on admission - 06/14 BC bottles growing group B Strep - Appreciate ID consult - Continue ceftriaxone - Source is likely septic left knee - PHYLLIS reviewed by Dr. Vidales and Dr. Tariq who do not believe there is evidence of active vegetation (2) Septic joint of left knee joint Current Visit: Yes Status: Acute Code(s): M00.9 - PYOGENIC ARTHRITIS, UNSPECIFIED SNOMED Code(s): 075716752 Comment: - Reported left knee pain on admission - Xray showing small joint effusion, no evidence of fracture - 20mL of cloudy fluid aspirated from joint; elevated WBC with cultures without growth to date, but presumed to be Strep - Appreciate Ortho consult; s/p washout 04/02 - Appreciate ID consult; will need at least 4 weeks IV abx for joint infection - Continue ceftriaxone (3) Bacterial meningitis Current Visit: Yes Status: Acute Code(s): G00.9 - BACTERIAL MENINGITIS, UNSPECIFIED SNOMED Code(s): 51747168 Comment: - Suspected due to AMS not improving - LP with high CSF protein and low glucose support bacterial meningitis, but there is no white count or growth on culture as of this time - Possible that culture without growth as she had been on abx for 2 days at time of LP - Concern for GBS meningitis specifically - No need for isolation - Continue ceftriaxone (meningitis dosing) (4) Altered mental status Current Visit: Yes Status: Acute Code(s): R41.82 - ALTERED MENTAL STATUS, UNSPECIFIED SNOMED Code(s): 265533850 Comment: - Presented with AMS. Still with delusions today - Likely multifactorial: septic encephalopathy, alcohol withdrawal, possible bacterial meningitis - I suspect there is also a component due to discontinuation of her abilify which is used as a mood stabilizer. Restarting today - At this point the patient has not had an alcoholic drink in >5 days and I will d/c [place] protocol - CT brain without acute abnormality (5) Anemia Current Visit: Yes Status: Acute Code(s): D64.9 - ANEMIA, UNSPECIFIED SNOMED Code(s): 973535038 Comment: - Macrocytic - Likely 2/2 alcohol use - Normal B12 and folate - Stool occult negative (6) Depression Current Visit: Yes Status: Acute Code(s): F32.9 - MAJOR DEPRESSIVE DISORDER , SINGLE EPISODE, UNSPECIFIED SNOMED Code(s): 11942130 Comment: -Restart home Abilify and bupropion (7) Essential (primary) hypertension Current Visit: Yes Status: Acute Code(s): I10 - ESSENTIAL (PRIMARY) HYPERTENSION SNOMED Code(s): 79882782 Comment: - Hypertensive with SBP in 170s - Continue diltiazem - Restart home lisinopril (8) Chronic back pain Current Visit: Yes Status: Acute Code(s): M54.9 - DORSALGIA, UNSPECIFIED; G89.29 - OTHER CHRONIC PAIN SNOMED Code(s): 391570158 Comment: - Continue [place] (9) DVT prophylaxis Current Visit: Yes Status: Acute Code(s): Z29.9 - ENCOUNTER FOR PROPHYLACTIC MEASURES, UNSPECIFIED SNOMED Code(s): 832239210 Comment: - Lovenox (10) Full code status Current Visit: Yes Status: Acute Code(s): Z78.9 - OTHER SPECIFIED HEALTH STATUS SNOMED Code(s): 836643809 Comment: Status and Disposition: Inpatient. Anticipate d/c home vs [facility] when medically stable, timeframe TBD by clinical course.
[2019-04-05] MEDS ORDERED: LORazepam TAB(*) 0.5 MG PO PRN (09:38)
[2019-04-05] MEDS: Ketorolac INJ* 30 MG/ML 1 ML VIAL IV PUSH PRN (09:51)
[2019-04-05] MEDS: cefTRIAXone(*) 2 GM in NS 0.9% 100 ML* 100 ML IVPB SCH ×2 (09:52→20:17)
[2019-04-05] MEDS: Diltiazem CD CAP* 180 MG PO SCH ×2 (09:57→10:06)
[2019-04-05] MEDS: Folic Acid TAB* 1 MG PO SCH ×2 (09:57→10:06)
[2019-04-05] MEDS: Enoxaparin(*) 40 MG/0.4 ML SYR SUBCUT SCH ×2 (09:57→10:07)
[2019-04-05] MEDS: BuPROPion XL* 300 MG TAB.XL PO SCH ×2 (09:57→10:06)
[2019-04-05] MEDS: Multivitamins/Minerals TAB PO SCH ×2 (09:57→10:06)
[2019-04-05] MEDS: Lisinopril TAB* 10 MG PO SCH ×2 (09:57→10:06)
[2019-04-05] MEDS: Thiamine TAB* 100 MG TAB PO SCH ×2 (09:57→10:06)
[2019-04-05] MEDS: Magnesium Hydroxide LIQ* 30 ML UDC PO SCH ×2 (09:58→20:16)
[2019-04-05] MEDS: Docusate CAP* 100 MG PO SCH ×2 (09:58→20:27)
--- NOTE | 2019-04-05 11:01 | PN ---
Progress Note - Progress Note Date of Service: 04/05/19 SOAP: Subjective: CC: Left knee infection HPI: Ms. Cartagena is a 69 yo female with PMH significant for HTN, hiatal hernia , nephrolithiasis, anxiety, degenerative disc disease (lumbar), IBS, and chronic low back pain; presented to the emergency room with flu like symptoms and was found to have a left knee infection, meningitis, and possible endocarditis. S/P I+D of the left knee. Her mentation continues to improve. She states that she isn't feeling well, but isn't really able to further elaborate on this. Denies fever, chills, chest pain, shortness of breath, nausea, vomiting , or diarrhea. She states that she is not passing flatus and is unsure of her last BM. She reports pain in the left leg when touched. She reports neck pain, but states that she has had neck pain for awhile and this is unchanged from her baseline. Reports back pain and thinks that she is in the hospital for back surgery, she states that the pain is the same as it has been for 30 years. Objective: Vital Signs 04/05/19 04/05/19 04/05/19 07:54 09:00 10:06 Temperature 97.7 F Pulse Rate 97 Respiratory 20 20 22 Rate Blood Pressure 153/88 (mmHg) O2 Sat by Pulse 99 Oximetry Physical Exam: General: NAD, laying in bed Neurological: Alert and Oriented x3, mild confusion. Speech is slow but able to hold a conversation HEENT: Moist MM. No nuchal rigidity Cardiovascular: Heart rate regular, no murmur Respiratory: Lung sounds clear bilateral Abdominal: Bowel sounds present; ABD soft, slight distended, and non tender MSK: No tenderness with palpation of the neck, back or spine. She is able to turn head left and right, able to tuck her chin to the chest. No tenderness with palpation of the left knee, full PROM of the left. Full ROM of the right hip and knee and left hip Skin: No rash. Surgical dressing to left knee; clean, dry and intact; no surrounding erythema Laboratory Results - last 24 hr 04/01/19 04/02/19 04/04/19 20:30 17:41 05:28 Vitamin B12 584 Folate > 20.00 B. burgdorferi (PCR) Negative B. mayonii (PCR) Negative B.garinii/B.afzelii PCR Negative CSF HSV I (PCR) Negative CSF Herpes II DNA (PCR) Negative Lyme Specimen Source Synovial fluid 04/05/19 04/05/19 05:22 05:22 WBC 10.8 RBC 2.63 L Hgb 8.9 L Hct 27 L MCV 102 H MCH 34 H MCHC 33 RDW 15 Plt Count 473 H D MPV 7.9 Neut % (Auto) 80.2 Lymph % (Auto) 11.6 [place] % (Auto) 7.0 Eos % (Auto) 1.0 Baso % (Auto) 0.2 Absolute Neuts (auto) 8.7 H Absolute Lymphs (auto) 1.3 Absolute Monos (auto) 0.8 Absolute Eos (auto) 0.1 Absolute Basos (auto) 0.0 Absolute Nucleated RBC 0.0 Nucleated RBC % 0.0 Sodium 140 Potassium 3.8 Chloride 109 Carbon Dioxide 23 Anion Gap 8 BUN 10 Creatinine 0.65 Est GFR ( Amer) 108.7 Est GFR (Non-Af Amer) 89.9 BUN/Creatinine Ratio 15.4 Glucose 108 H Calcium 8.7 TSH 0.74 Microbiology 04/01/19 20:30 Gram Stain - Final Joint Fluid(Synovial) - Knee Left Body Fluid Culture - Final No Growth Day 4 Skin and Soft Tissue MRSA/MSSA (PCR - Final Mrsa Negative S.aureus Negative 04/02/19 17:47 Anaerobic Culture - Preliminary Wound No Growth Day 3 04/02/19 17:47 Skin and Soft Tissue MRSA/MSSA (PCR - Final Leg Left Mrsa Negative S.aureus Negative Gram Stain - Final Wound Culture - Preliminary No Growth Day 3 04/02/19 17:41 CSF Gram Stain (Tube 3) - Final Cerebral Spinal Fluid CSF Culture - Preliminary No Growth Day 3 04/01/19 20:30 Anaerobic Culture - Final Body Fluid No Growth Day 4 04/03/19 20:32 Aerobic Blood Culture - Preliminary Blood Venous No Growth Day 1 Anaerobic Blood Culture - Preliminary No Growth Day 1 04/03/19 17:27 Aerobic Blood Culture - Preliminary Blood Venous No Growth Day 1 Anaerobic Blood Culture - Preliminary No Growth Day 1 04/04/19 12:05 Stool Occult Blood (GHADA) - Final Stool 04/01/19 09:37 Aerobic Blood Culture - Final Blood Venous Strep Agalactiae - (Group B) Anaerobic Blood Culture - Final Strep Agalactiae - (Group B) 04/01/19 09:37 Aerobic Blood Culture - Final Blood Venous Strep Agalactiae - (Group B) Anaerobic Blood Culture - Final Strep Agalactiae - (Group B) 04/01/19 20:30 Acid Fast Bacilli Smear - Final Body Fluid - Knee Left 04/01/19 12:05 Urine Culture - Final Urine No Growth (<1,000 CFU/mL) Assessment: 1. Group B strep bacteremia. Present in 4/4 bottles at the time of admission. TTE without signs of endocarditis. She denies presence of prosthetic materials. Urine culture with no growth. Afebrile and leukocytosis resolved. Noted to have thrombocytosis (this usually lags behind the improvement of infection). She does have a septic knee and meningitis. Repeat blood cultures with no growth on day 1. PHYLLIS abnormal with focal mitral regurg, discussed with Dr. Vidales and she feels this the mitral valve seen on PHYLLIS is not a vegetation. 2. Septic arthritis of the left [place] knee. S/P washout, POD #2. Cultures with no growth. Afebrile and no leukocytosis. Pain in the knee is improving. 3. Bacterial meningitis. S/P LP, glucose low, protein elevated - this supports diagnosis but WBC count is 9. CSF gram stain with no organisms. HSV negative. Lyme PCR negative. 4. Encephalopathy. Improving. 5. PCN allergy. Plan: Continue Ceftriaxone 2 gm IV q12H dosing. She will need an extended course of IV ABX, likely 4 weeks. No need for isolation in the setting of bacterial meningitis. 25 minutes floor time; > 50% spent with the patient discussing her diagnosis and treatment plan.
--- NOTE | 2019-04-05 12:49 | PN ---
Progress Note - Progress Note Date of Service: 04/05/19 SOAP: Subjective: [Pt seen and examined at bedside. Able to tolerate sitting in a chair. Denies feeling of fever or chills. Knee pain is improving Objective: []Gen: NAD, laying comfortably in bed. LLE: Left knee dressing changed, incision is CDI, thigh soft, 5-90 PROM at the knee, endpoints limited by pain. df/pf intact, dp2+, sensation intact to light touch distally. Vital Signs Temp 97.8 F 04/05/19 11:00 Pulse 95 04/05/19 11:00 Resp 20 04/05/19 11:00 BP 155/86 04/05/19 11:00 Pulse Ox 100 04/05/19 11:00 Intake & Output 04/04/19 04/05/19 04/05/19 18:59 06:59 18:59 Intake Total 751 346 Output Total 200 0 Balance 551 346 Intake: IV Fluids 237 ABX - CEFTRIAXONE 25 Potassium Chloride 20 meq 212 IVPB 271 109 ABX - CEFTRIAXONE 100 109 Magnesium sulfate 27 Potassium Chloride 20 meq 144 Oral 480 0 Output: Urine 200 0 Other: # Bowel Movements 1 Estimated Stool Amount Large # Voids 1 Assessment: [] Septic arthritis of the left lower [place] knee. Plan: WBAT LLE Appropriate DVT prophy per medicine, currently on lovenox 40 sq qd Continue Iv abx per ID Will continue to follow
[2019-04-05] MEDS: ARIPiprazole TAB* 2 MG PO SCH (20:17)
[2019-04-05] MEDS: hydrALAZINE IV* 20 MG/ML VIAL IV SLOW PU PRN (20:59)
[2019-04-06] MEDS: Ketorolac INJ* 30 MG/ML 1 ML VIAL IV PUSH PRN (00:56)
[2019-04-06] MEDS: Lisinopril TAB* 10 MG PO SCH (07:47)
[2019-04-06] MEDS: Enoxaparin(*) 40 MG/0.4 ML SYR SUBCUT SCH (07:48)
[2019-04-06] MEDS: Folic Acid TAB* 1 MG PO SCH (07:48)
[2019-04-06] MEDS: Diltiazem CD CAP* 180 MG PO SCH (07:48)
[2019-04-06] MEDS: BuPROPion XL* 300 MG TAB.XL PO SCH (07:48)
[2019-04-06] MEDS: Magnesium Hydroxide LIQ* 30 ML UDC PO SCH ×2 (07:48→20:38)
[2019-04-06] MEDS: Docusate CAP* 100 MG PO SCH ×3 (07:48→20:38)
[2019-04-06] MEDS: Thiamine TAB* 100 MG TAB PO SCH (07:48)
[2019-04-06] MEDS: Multivitamins/Minerals TAB PO SCH (07:48)
[2019-04-06] MEDS: cefTRIAXone(*) 2 GM in NS 0.9% 100 ML* 100 ML IVPB SCH ×2 (08:21→20:19)
[2019-04-06 09:48] LABS: ABS Eosinophils 0.1 10^3/ul (0-0.6); ABS Lymphocytes 1.6 10^3/ul (1.0-4.8); ABS Monocytes 0.7 10^3/ul (0-0.8); ABS Neutrophils 9.1 10^3/ul (1.5-7.7); Eosinophil % 0.7 %; Hematocrit 26 % (35-47); Hemoglobin 8.9 g/dL (12.0-16.0); Mean Corpuscular HGB Conc 34 g/dL (31-36); Mean Corpuscular Hemoglobin 33 pg (27-31); Mean Corpuscular Volume 99 fL (80-97); Mean Platelet Volume 7.6 fL (7.4-10.4); Platelet Count 591 10^3/uL (150-450); Red Blood Count 2.65 10^6 /uL (3.70-4.87); Red Cell Distribution Width 15 % (10-15); White Blood Count 11.5 10^3/uL (3.5-10.8)
--- NOTE | 2019-04-06 12:03 | PN ---
Subjective Date of Service: 04/06/19 Interval History: Patient does mention something bizarre along the lines of "the big dogs are trying to make their money today" without further explanation. She otherwise has little complaints aside from left knee pain. She is overall comfortable. She answers questions more appropriately today. Is able to give me detailed history about her previous eye surgeries, when and where they occurred. She denies chest pain, difficulty breathing, abd pain, symptomatic fever/chills. Family History: Unchanged from Admission Social History: Unchanged from Admission Past Medical History: Unchanged from Admission Objective Active Medications: Acetaminophen (Tylenol Tab*) 650 mg PO Q4H PRN PRN Reason: PAIN - MILD Last Admin: 04/05/19 00:46 Dose: 650 mg Aripiprazole (Abilify Tab*) 2 mg PO BEDTIME [facility] Last Admin: 04/05/19 20:17 Dose: 2 mg Bupropion HCl (Bupropion Xl*) 300 mg PO DAILY [facility] Last Admin: 04/06/19 07:48 Dose: 300 mg Diltiazem HCl (Cardizem Cd Cap*) 180 mg PO DAILY [facility] Last Admin: 04/06/19 07:48 Dose: 180 mg Docusate Sodium (Colace Cap*) 100 mg PO BID [facility] Last Admin: 04/06/19 07:51 Dose: Not Given Enoxaparin Sodium (Lovenox(*)) 40 mg SUBCUT DAILY [facility] Last Admin: 04/06/19 07:48 Dose: 40 mg Folic Acid (Folvite Tab*) 1 mg PO DAILY [facility] Last Admin: 04/06/19 07:48 Dose: 1 mg Heparin Sodium (Porcine) (Heparin Flush Picc/Ml/Cvc(*)) 1 - 3 ml FLUSH 0600, 1800 [facility]; Protocol Last Admin: 04/06/19 05:15 Dose: 1 ml Hydralazine HCl (Apresoline Iv*) 5 mg IV SLOW PU Q6H PRN PRN Reason: SYSTOLIC BP GREATER THAN: Last Admin: 04/05/19 20:59 Dose: 5 mg Ceftriaxone Sodium 2 gm/ (Sodium Chloride) 100 mls @ 200 mls/hr IVPB Q12H [facility] Last Admin: 04/06/19 08:21 Dose: 200 mls/hr Ketorolac Tromethamine (Toradol Inj*) 30 mg IV PUSH Q6H PRN PRN Reason: PAIN - MODERATE Stop: 04/10/19 07:47 Last Admin: 04/06/19 00:56 Dose: 30 mg Lisinopril (Prinivil Tab*) 40 mg PO QAM [facility] Last Admin: 04/06/19 07:47 Dose: 40 mg Lorazepam (Ativan Tab(*)) 0.5 mg PO Q4H PRN PRN Reason: Anxiety/agitation Last Admin: 04/05/19 12:57 Dose: 0.5 mg Magnesium Hydroxide (Milk Of Magnesia Liq*) 30 ml PO BID [facility] Last Admin: 04/06/19 07:48 Dose: 30 ml Melatonin (Melatonin) 6 mg PO BEDTIME PRN PRN Reason: SLEEP Last Admin: 04/05/19 00:47 Dose: 6 mg Multivitamins/Minerals (Theragran/Minerals Tab*) 1 tab PO DAILY [facility] Last Admin: 04/06/19 07:48 Dose: 1 tab Ondansetron HCl (Zofran Inj*) 4 mg IV Q4H PRN PRN Reason: NAUSEA/VOMITING Polyethylene Glycol/Electrolytes (Miralax*) 17 gm PO DAILY PRN PRN Reason: CONSTIPATION Senna (Senokot 8.6 Mg Tab*) 1 tab PO BEDTIME PRN PRN Reason: CONSTIPATION Thiamine HCl (Vitamin B-1 Tab*) 100 mg PO DAILY [facility] Last Admin: 04/06/19 07:48 Dose: 100 mg Vital Signs - 8 hr 04/06/19 04/06/19 04/06/19 05:00 07:54 08:00 Temperature 98.2 F 99.2 F Pulse Rate 117 110 Respiratory 18 20 20 Rate Blood Pressure 160/92 160/95 (mmHg) O2 Sat by Pulse 100 100 100 Oximetry 04/06/19 11:53 Temperature 98.6 F Pulse Rate 110 Respiratory 16 Rate Blood Pressure 158/88 (mmHg) O2 Sat by Pulse 97 Oximetry Oxygen Devices in Use Now: None Appearance: Elderly white female, laying in bed, appearing comfortable and in NAD Eyes: No Scleral Icterus, - - PERRL, no nystagmus Ears/Nose/Mouth/Throat: Mucous Membranes Moist Neck: Trachea Midline Respiratory: Symmetrical Chest Expansion and Respiratory Effort, Clear to Auscultation Cardiovascular: NL Sounds; No Murmurs; No JVD, RRR Abdominal: - - abd Extremities: No Edema, No Clubbing, Cyanosis, - - left knee in brace which is clean and dry, no streaking or surrounding erythema Skin: No Rash or Ulcers Neurological: Alert and Oriented x 3, NL Muscle Strength and Tone, - - negative straight leg raise bilaterally Result Diagrams: 04/06/19 09:24 04/05/19 05:22 Additional Lab and Data: Troponin 0.02 @ 0934, 0.04 @ 1313, and 0.03 @ 1605 Laboratory Tests 04/01/19 04/01/19 04/01/19 09:34 09:34 09:34 WBC 7.2 RBC 3.11 L Hgb 10.6 L Hct 31 L MCV 100 H MCH 34 H INR (Anticoag Therapy) 1.00 APTT 26.7 Sodium 132 L Potassium 3.7 Chloride 98 L Carbon Dioxide 22 Anion Gap 12 H BUN 27 H Creatinine 1.42 H Glucose 99 Lactic Acid Calcium 9.3 Total Bilirubin 1.60 H C-Reactive Protein 399.08 H Albumin 3.1 L Globulin 4.7 H Albumin/Globulin Ratio 0.7 L Urine Color Urine Appearance Urine pH Ur Specific [place] Urine Protein Urine Ketones Urine Blood Urine Nitrate Urine Bilirubin Urine Urobilinogen Ur Leukocyte Esterase Urine WBC (Auto) Urine RBC (Auto) Ur Squamous Epith Cells Urine Bacteria Hyaline Casts Urine Glucose 04/01/19 04/01/19 09:34 12:05 WBC RBC Hgb Hct MCV MCH INR (Anticoag Therapy) APTT Sodium Potassium Chloride Carbon Dioxide Anion Gap BUN Creatinine Glucose Lactic Acid 2.9 H* Calcium Total Bilirubin C-Reactive Protein Albumin Globulin Albumin/Globulin Ratio Urine Color Janna Urine Appearance Cloudy Urine pH 5.0 Ur Specific [place] 1.025 Urine Protein 1+(30 mg/dl) A Urine Ketones Negative Urine Blood 1+ A Urine Nitrate Negative Urine Bilirubin Negative Urine Urobilinogen Negative Ur Leukocyte Esterase Negative Urine WBC (Auto) 2+(11-20/hpf) A Urine RBC (Auto) Absent Ur Squamous Epith Cells Present A Urine Bacteria 1+ A Hyaline Casts Present A Urine Glucose Negative Microbiology and Other Data: Microbiology 04/01/19 09:37 Aerobic Blood Culture - Preliminary Blood Venous Anaerobic Blood Culture - Preliminary Diagnostic Imaging: CT of chest/abdomen/pelvis shows biliary dilitation extending to the area of the ampulla, which is slightly progressed from a study done in September 2018. Findings also include hiatal hernia and artherosclerosis. As well as a trace R pleural effusion. Chest XRay shows hiatal hernia but no active cardiopulmonary disease. L knee XRay shows no fracture. Small joint effusion noted. Mild nonfocal soft tissue edema. EKG Data: Original EKG from this morning shows sinus tachycardia with a rate of 138. A second EKG due to an increased troponin level done at 1608 shows sinus tachycardia as well with a rate of 104. Assess/Plan/Problems-Billing Assessment: is a 69 yo F with PMH of HTN, anxiety, IBS, chronic back pain; who presented to the ED with c/o fever, shaking, chills, and reports of AMS, admitted for sepsis. Later found to have bacteremia with source of left knee infection s/p washout 04/02/19. - Patient Problems (1) Bacteremia Current Visit: Yes Status: Acute Code(s): R78.81 - BACTEREMIA SNOMED Code( s): 8272046 Comment: - Meeting sepsis criteria on admission - 06/14 BC bottles growing group B Strep - Appreciate ID consult - Continue ceftriaxone - Source is likely septic left knee - PHYLLIS reviewed by Dr. Vidales and Dr. Tariq who do not believe there is evidence of active vegetation (2) Septic joint of left knee joint Current Visit: Yes Status: Acute Code(s): M00.9 - PYOGENIC ARTHRITIS, UNSPECIFIED SNOMED Code(s): 151019578 Comment: - Reported left knee pain on admission - Xray showing small joint effusion, no evidence of fracture - 20mL of cloudy fluid aspirated from joint; elevated WBC with cultures without growth to date, but presumed to be Strep - Appreciate Ortho consult; s/p washout 04/02 - Appreciate ID consult; will need at least 4 weeks IV abx for joint infection - Continue ceftriaxone (3) Bacterial meningitis Current Visit: Yes Status: Acute Code(s): G00.9 - BACTERIAL MENINGITIS, UNSPECIFIED SNOMED Code(s): 41558416 Comment: - Suspected due to AMS not improving - LP with high CSF protein and low glucose support bacterial meningitis, but there is no white count or growth on culture as of this time - Possible that culture without growth as she had been on abx for 2 days at time of LP - Concern for GBS meningitis specifically - No need for isolation - Continue ceftriaxone (meningitis dosing) (4) Altered mental status Current Visit: Yes Status: Acute Code(s): R41.82 - ALTERED MENTAL STATUS, UNSPECIFIED SNOMED Code(s): 481128647 Comment: - Presented with AMS. Still with delusions today - CT brain without acute abnormality - Likely multifactorial: septic encephalopathy, alcohol withdrawal, possible bacterial meningitis - I suspect there is also a component due to discontinuation of her abilify which is used as a mood stabilizer, which has since been restarted - At this point the patient has not had an alcoholic drink in >5 days and I will d/c [facility] protocol - Do have some concern about possible wernicke's, will treat empirically with IV thiamine - Mental status does appear to be improved today compared to yesterday; patient is more coherent and answering questions more appropriately, but still with bizarre comments (5) Anemia Current Visit: Yes Status: Acute Code(s): D64.9 - ANEMIA, UNSPECIFIED SNOMED Code(s): 793043764 Comment: - Macrocytic - Likely 2/2 alcohol use - Normal B12 and folate - Stool occult negative (6) Depression Current Visit: Yes Status: Acute Code(s): F32.9 - MAJOR DEPRESSIVE DISORDER , SINGLE EPISODE, UNSPECIFIED SNOMED Code(s): 95792267 Comment: -continue home Abilify and bupropion (7) Essential (primary) hypertension Current Visit: Yes Status: Acute Code(s): I10 - ESSENTIAL (PRIMARY) HYPERTENSION SNOMED Code(s): 19797283 Comment: - Hypertensive with SBP in 170s - Continue diltiazem - Restart home lisinopril - prn hydralazine (8) Chronic back pain Current Visit: Yes Status: Acute Code(s): M54.9 - DORSALGIA, UNSPECIFIED; G89.29 - OTHER CHRONIC PAIN SNOMED Code(s): 296386357 Comment: - Continue [place] (9) DVT prophylaxis Current Visit: Yes Status: Acute Code(s): Z29.9 - ENCOUNTER FOR PROPHYLACTIC MEASURES, UNSPECIFIED SNOMED Code(s): 147114451 Comment: - Lovenox (10) Full code status Current Visit: Yes Status: Acute Code(s): Z78.9 - OTHER SPECIFIED HEALTH STATUS SNOMED Code(s): 599043190 Comment: Status and Disposition: Inpatient. Anticipate d/c to [facility] when medically stable, timeframe TBD by clinical course.
[2019-04-06] MEDS: Acetaminophen TAB* 325 MG PO PRN (13:09)
[2019-04-06] MEDS: Thiamine INJ* 500 MG in NS 0.9% 250 ML* 250 ML IV SCH ×2 (13:35→22:20)
[2019-04-06] MEDS: ARIPiprazole TAB* 2 MG PO SCH (20:24)
[2019-04-06] MEDS ORDERED: NS 0.9% 250 ML* 250 ML ONE (22:15)
[2019-04-07] MEDS: Ketorolac INJ* 30 MG/ML 1 ML VIAL IV PUSH PRN (00:40)
[2019-04-07] MEDS: Melatonin 3 MG TAB PO PRN ×2 (01:02→22:02)
[2019-04-07] MEDS: Docusate CAP* 100 MG PO SCH ×2 (07:46→22:05)
[2019-04-07] MEDS: Enoxaparin(*) 40 MG/0.4 ML SYR SUBCUT SCH (07:46)
[2019-04-07] MEDS: Diltiazem CD CAP* 180 MG PO SCH (07:46)
[2019-04-07] MEDS: Multivitamins/Minerals TAB PO SCH (07:46)
[2019-04-07] MEDS: Lisinopril TAB* 10 MG PO SCH (07:46)
[2019-04-07] MEDS: cefTRIAXone(*) 2 GM in NS 0.9% 100 ML* 100 ML IVPB SCH ×2 (07:46→22:04)
[2019-04-07] MEDS: Magnesium Hydroxide LIQ* 30 ML UDC PO SCH ×2 (07:46→22:05)
[2019-04-07] MEDS: Folic Acid TAB* 1 MG PO SCH (07:46)
[2019-04-07] MEDS: BuPROPion XL* 300 MG TAB.XL PO SCH (07:49)
[2019-04-07] MEDS: Thiamine INJ* 500 MG in NS 0.9% 250 ML* 250 ML IV SCH ×3 (08:56→22:10)
--- NOTE | 2019-04-07 09:06 | PN ---
Progress Note - Progress Note Date of Service: 04/07/19 SOAP: Subjective: POD #5 Left knee arthroscopic I&D. Doing well. States that she is unable to bear weight on left leg due to pain, but able to move with less pain. Denies recent f/c. Denies CP/SOB or calf pain. Objective: Vital Signs: Temp Pulse Resp BP Pulse Ox 97.9 F 102 16 151/81 100 04/07/19 07:45 04/07/19 07:45 04/07/19 07:45 04/07/19 07:45 04/07/19 08:00 Gen: A&Ox3, NAD at rest laying in bed LLE: Incisions C/D/I with sutures in place. No erythema or warmth, no drainage. Mild joint effusion but no TTP. Able to passively flex knee to 90 deg and fully extend with no pain. +f/e at ankle and MTPs. N/V intact. Labs: Laboratory Results - last 24 hr 04/06/19 09:24 WBC 11.5 H RBC 2.65 L Hgb 8.9 L Hct 26 L MCV 99 H MCH 33 H MCHC 34 RDW 15 Plt Count 591 H D MPV 7.6 Neut % (Auto) 78.9 Lymph % (Auto) 14.0 [place] % (Auto) 6.2 Eos % (Auto) 0.7 Baso % (Auto) 0.2 Absolute Neuts (auto) 9.1 H Absolute Lymphs (auto) 1.6 Absolute Monos (auto) 0.7 Absolute Eos (auto) 0.1 Absolute Basos (auto) 0.0 Absolute Nucleated RBC 0.0 Nucleated RBC % 0.0 Assessment: POD #5 Left knee arthroscopic I&D, improving Plan: Cont PT, WBAT Cont IV abx per ID Ortho to continue to follow
[2019-04-07] MEDS: Acetaminophen TAB* 325 MG PO PRN ×2 (10:02→22:02)
[2019-04-07] MEDS ORDERED: Diltiazem TAB* 60 MG PO ONE (10:56)
--- NOTE | 2019-04-07 10:57 | PN ---
Subjective Date of Service: 04/07/19 Interval History: Pt feels very weak and tired. Has had tremors for over a year. Also c/o chronic LBP for which she was told that she cannot have surgery Family History: Unchanged from Admission Social History: Unchanged from Admission Past Medical History: Unchanged from Admission Objective Active Medications: Acetaminophen (Tylenol Tab*) 650 mg PO Q4H PRN PRN Reason: PAIN - MILD Last Admin: 04/07/19 10:02 Dose: 650 mg Aripiprazole (Abilify Tab*) 2 mg PO BEDTIME [facility] Last Admin: 04/06/19 20:24 Dose: 2 mg Bupropion HCl (Bupropion Xl*) 300 mg PO DAILY [facility] Last Admin: 04/07/19 07:49 Dose: 300 mg Diltiazem HCl (Cardizem Cd Cap*) 180 mg PO DAILY [facility] Last Admin: 04/07/19 07:46 Dose: 180 mg Docusate Sodium (Colace Cap*) 100 mg PO BID [facility] Last Admin: 04/07/19 07:46 Dose: Not Given Enoxaparin Sodium (Lovenox(*)) 40 mg SUBCUT DAILY [facility] Last Admin: 04/07/19 07:46 Dose: 40 mg Folic Acid (Folvite Tab*) 1 mg PO DAILY [facility] Last Admin: 04/07/19 07:46 Dose: 1 mg Heparin Sodium (Porcine) (Heparin Flush Picc/Ml/Cvc(*)) 1 - 3 ml FLUSH 0600, 1800 [facility]; Protocol Last Admin: 04/07/19 05:52 Dose: 1 ml Hydralazine HCl (Apresoline Iv*) 5 mg IV SLOW PU Q6H PRN PRN Reason: SYSTOLIC BP GREATER THAN: Last Admin: 04/05/19 20:59 Dose: 5 mg Ceftriaxone Sodium 2 gm/ (Sodium Chloride) 100 mls @ 200 mls/hr IVPB Q12H [facility] Last Admin: 04/07/19 07:46 Dose: 200 mls/hr Thiamine HCl 500 mg/ Sodium (Chloride) 255 mls @ 255 mls/hr IV TID [facility] Last Admin: 04/07/19 08:56 Dose: 255 mls/hr Ketorolac Tromethamine (Toradol Inj*) 30 mg IV PUSH Q6H PRN PRN Reason: PAIN - MODERATE Stop: 04/10/19 07:47 Last Admin: 04/07/19 00:40 Dose: 30 mg Lisinopril (Prinivil Tab*) 40 mg PO QAM [facility] Last Admin: 04/07/19 07:46 Dose: 40 mg Lorazepam (Ativan Tab(*)) 0.5 mg PO Q4H PRN PRN Reason: Anxiety/agitation Last Admin: 04/05/19 12:57 Dose: 0.5 mg Magnesium Hydroxide (Milk Of Magnesia Liq*) 30 ml PO BID [facility] Last Admin: 04/07/19 07:46 Dose: 30 ml Melatonin (Melatonin) 6 mg PO BEDTIME PRN PRN Reason: SLEEP Last Admin: 04/07/19 01:02 Dose: 6 mg Multivitamins/Minerals (Theragran/Minerals Tab*) 1 tab PO DAILY [facility] Last Admin: 04/07/19 07:46 Dose: 1 tab Ondansetron HCl (Zofran Inj*) 4 mg IV Q4H PRN PRN Reason: NAUSEA/VOMITING Polyethylene Glycol/Electrolytes (Miralax*) 17 gm PO DAILY PRN PRN Reason: CONSTIPATION Senna (Senokot 8.6 Mg Tab*) 1 tab PO BEDTIME PRN PRN Reason: CONSTIPATION Vital Signs - 8 hr 04/07/19 04/07/19 04/07/19 03:32 07:00 07:45 Temperature 97.8 F 98.2 F 97.9 F Pulse Rate 100 102 102 Respiratory 20 16 16 Rate Blood Pressure 146/66 151/81 151/81 (mmHg) O2 Sat by Pulse 99 100 100 Oximetry 04/07/19 08:00 Temperature Pulse Rate Respiratory 16 Rate Blood Pressure (mmHg) O2 Sat by Pulse 100 Oximetry Oxygen Devices in Use Now: None Appearance: 69 yo F in nAD, aAOx3 Eyes: No Scleral Icterus, PERRLA Ears/Nose/Mouth/Throat: NL Teeth, Lips, Gums, Mucous Membranes Moist Neck: NL Appearance and Movements; NL JVP, Trachea Midline Respiratory: Symmetrical Chest Expansion and Respiratory Effort, Clear to Auscultation Cardiovascular: NL Sounds; No Murmurs; No JVD, RRR Abdominal: NL Sounds; No Tenderness; No Distention Lymphatic: No Cervical Adenopathy Extremities: No Edema, No Clubbing, Cyanosis Skin: No Rash or Ulcers, No Nodules or Sclerosis Neurological: Alert and Oriented x 3, - - intentional tremor in b/l UE's Result Diagrams: 04/06/19 09:24 04/05/19 05:22 Additional Lab and Data: Troponin 0.02 @ 0934, 0.04 @ 1313, and 0.03 @ 1605 Laboratory Tests 04/01/19 04/01/19 04/01/19 09:34 09:34 09:34 WBC 7.2 RBC 3.11 L Hgb 10.6 L Hct 31 L MCV 100 H MCH 34 H INR (Anticoag Therapy) 1.00 APTT 26.7 Sodium 132 L Potassium 3.7 Chloride 98 L Carbon Dioxide 22 Anion Gap 12 H BUN 27 H Creatinine 1.42 H Glucose 99 Lactic Acid Calcium 9.3 Total Bilirubin 1.60 H C-Reactive Protein 399.08 H Albumin 3.1 L Globulin 4.7 H Albumin/Globulin Ratio 0.7 L Urine Color Urine Appearance Urine pH Ur Specific [place] Urine Protein Urine Ketones Urine Blood Urine Nitrate Urine Bilirubin Urine Urobilinogen Ur Leukocyte Esterase Urine WBC (Auto) Urine RBC (Auto) Ur Squamous Epith Cells Urine Bacteria Hyaline Casts Urine Glucose 04/01/19 04/01/19 09:34 12:05 WBC RBC Hgb Hct MCV MCH INR (Anticoag Therapy) APTT Sodium Potassium Chloride Carbon Dioxide Anion Gap BUN Creatinine Glucose Lactic Acid 2.9 H* Calcium Total Bilirubin C-Reactive Protein Albumin Globulin Albumin/Globulin Ratio Urine Color Janna Urine Appearance Cloudy Urine pH 5.0 Ur Specific [place] 1.025 Urine Protein 1+(30 mg/dl) A Urine Ketones Negative Urine Blood 1+ A Urine Nitrate Negative Urine Bilirubin Negative Urine Urobilinogen Negative Ur Leukocyte Esterase Negative Urine WBC (Auto) 2+(11-20/hpf) A Urine RBC (Auto) Absent Ur Squamous Epith Cells Present A Urine Bacteria 1+ A Hyaline Casts Present A Urine Glucose Negative Microbiology and Other Data: Microbiology 04/01/19 09:37 Aerobic Blood Culture - Preliminary Blood Venous Anaerobic Blood Culture - Preliminary Diagnostic Imaging: CT of chest/abdomen/pelvis shows biliary dilitation extending to the area of the ampulla, which is slightly progressed from a study done in September 2018. Findings also include hiatal hernia and artherosclerosis. As well as a trace R pleural effusion. Chest XRay shows hiatal hernia but no active cardiopulmonary disease. L knee XRay shows no fracture. Small joint effusion noted. Mild nonfocal soft tissue edema. EKG Data: Original EKG from this morning shows sinus tachycardia with a rate of 138. A second EKG due to an increased troponin level done at 1608 shows sinus tachycardia as well with a rate of 104. Assess/Plan/Problems-Billing Assessment: is a 69 yo F with PMH of HTN, anxiety, IBS, chronic back pain; who presented to the ED with c/o fever, shaking, chills, and reports of AMS, admitted for sepsis. Later found to have bacteremia with source of left knee infection s/p washout 04/02/19. - Patient Problems (1) Bacteremia Comment: - Was septic at admission - 06/14 BC bottles growing group B Strep - Appreciate ID consult - Continue ceftriaxone - Source is likely septic left knee - PHYLLIS reviewed by Dr. Vidales and Dr. Tariq who do not believe there is evidence of active vegetation (2) Altered mental status Comment: - Presented with AMS with delusions that resolved today - CT brain without acute abnormality - Likely multifactorial: septic encephalopathy, alcohol withdrawal, possible bacterial meningitis - I suspect there is also a component due to discontinuation of her abilify which is used as a mood stabilizer, which has since been restarted - At this point the patient has not had an alcoholic drink in >5 days and [facility] protocol was discontinued 04/06 - possible wernicke's- cont to treat empirically with IV thiamine - Mental status does appear to be improved today compared to yesterday (3) Anemia Comment: - Macrocytic - Likely 2/2 alcohol use - Normal B12 and folate - Stool occult negative (4) Bacterial meningitis Comment: - Suspected due to AMS not improving - LP with high CSF protein and low glucose support bacterial meningitis, but there is no white count or growth on culture as of this time - Possible that culture without growth as she had been on abx for 2 days at time of LP - Concern for GBS meningitis specifically - No need for isolation - Continue ceftriaxone (meningitis dosing) (5) Chronic back pain Current Visit: Yes Status: Acute Comment: - Continue [place] (6) Depression Comment: -continue home Abilify and bupropion (7) Essential (primary) hypertension Comment: - Hypertensive with SBP in 170s - Continue diltiazem-increasing dose to 240 mg - Restart home lisinopril - prn hydralazine (8) Septic joint of left knee joint Comment: - Reported left knee pain on admission - Xray showed small joint effusion, no evidence of fracture - 20mL of cloudy fluid aspirated from joint; elevated WBC with cultures without growth to date, but presumed to be Strep - Appreciate Ortho consult; s/p washout 04/02 - Appreciate ID consult; will need at least 4 weeks IV abx for joint infection - Continue ceftriaxone (9) DVT prophylaxis Comment: - Lovenox Status and Disposition: Inpatient. Anticipate d/c to [facility] when medically stable, timeframe TBD by clinical course.
[2019-04-07] MEDS: ARIPiprazole TAB* 2 MG PO SCH (22:10)
[2019-04-08] MEDS: hydrALAZINE IV* 20 MG/ML VIAL IV SLOW PU PRN (04:56)
[2019-04-08] MEDS: Acetaminophen TAB* 325 MG PO PRN ×3 (04:57→23:36)
[2019-04-08 07:49] LABS: ABS Basophils 0.1 10^3/ul (0-0.2); ABS Eosinophils 0.1 10^3/ul (0-0.6); ABS Lymphocytes 1.6 10^3/ul (1.0-4.8); ABS Monocytes 0.6 10^3/ul (0-0.8); ABS Neutrophils 8.2 10^3/ul (1.5-7.7); Eosinophil % 0.6 %; Hematocrit 27 % (35-47); Hemoglobin 9.5 g/dL (12.0-16.0); Lymphocyte % 14.8 %; Mean Corpuscular HGB Conc 35 g/dL (31-36); Mean Corpuscular Hemoglobin 34 pg (27-31); Mean Corpuscular Volume 97 fL (80-97); Mean Platelet Volume 7.3 fL (7.4-10.4); Platelet Count 748 10^3/uL (150-450); Red Blood Count 2.79 10^6 /uL (3.70-4.87); Red Cell Distribution Width 15 % (10-15); White Blood Count 10.5 10^3/uL (3.5-10.8)
[2019-04-08 08:02] LABS: BUN/Creatinine Ratio 9.2 (8-20); Calcium 8.4 mg/dL (8.6-10.3); EGFR African American 90.8 (>60); Magnesium 1.7 mg/dL (1.9-2.7); Potassium 3.7 mmol/L (3.5-5.0)
[2019-04-08] MEDS ORDERED: LORazepam INJ* 2 MG/ML 1 ML VIAL ONE (08:37)
[2019-04-08] MEDS ORDERED: Lorazepam PYXIS KEY PRN (09:08)
[2019-04-08] MEDS ORDERED: LORazepam INJ* 2 MG/ML 1 ML VIAL IV PUSH PRN (09:08)
[2019-04-08] MEDS ORDERED: Magnesium Sulfate 1 GM IV* 1 GM/100 ML BAG IV ONE (09:11)
[2019-04-08] MEDS ORDERED: levETIRAcetam 1000MG IVPREMIX* 1,000 MG/100 ML BAG IVPB ONE (09:30)
[2019-04-08] MEDS: Diltiazem CD CAP* 240 MG PO SCH (09:33)
[2019-04-08] MEDS: BuPROPion XL* 300 MG TAB.XL PO SCH (09:33)
[2019-04-08] MEDS: Docusate CAP* 100 MG PO SCH ×2 (09:33→22:29)
[2019-04-08] MEDS: Multivitamins/Minerals TAB PO SCH (09:33)
[2019-04-08] MEDS: Magnesium Hydroxide LIQ* 30 ML UDC PO SCH ×2 (09:33→22:29)
[2019-04-08] MEDS: Magnesium Oxide TAB* 400 MG PO SCH (09:33)
[2019-04-08] MEDS: Folic Acid TAB* 1 MG PO SCH (09:33)
[2019-04-08] MEDS: Lisinopril TAB* 10 MG PO SCH (09:33)
--- NOTE | 2019-04-08 09:34 | PN ---
Subjective Date of Service: 04/08/19 Interval History: When I walked to pt's room she stated that she feels better, but looked tremulous, within seconds she started having generalized tonic clonic seizure. eyes rolled back.. stopped after approx 30- sec, then appeared to tense back in and 2 mg IV Ativan was administered. CAT was called. Pt is being transferred to ICU. she appeared to have possibly aspirated on her own sputum and developed mild hypoxemia moved all extremities after the seizure, but still nonverbal Family History: Unchanged from Admission Social History: Unchanged from Admission Past Medical History: Unchanged from Admission Objective Active Medications: Acetaminophen (Tylenol Tab*) 650 mg PO Q4H PRN PRN Reason: PAIN - MILD Last Admin: 04/08/19 04:57 Dose: 650 mg Aripiprazole (Abilify Tab*) 2 mg PO BEDTIME [facility] Last Admin: 04/07/19 22:10 Dose: 2 mg Bupropion HCl (Bupropion Xl*) 300 mg PO DAILY [facility] Last Admin: 04/07/19 07:49 Dose: 300 mg Diltiazem HCl (Cardizem Cd Cap*) 240 mg PO DAILY [facility] Docusate Sodium (Colace Cap*) 100 mg PO BID [facility] Last Admin: 04/07/19 22:05 Dose: Not Given Enoxaparin Sodium (Lovenox(*)) 40 mg SUBCUT DAILY [facility] Last Admin: 04/07/19 07:46 Dose: 40 mg Folic Acid (Folvite Tab*) 1 mg PO DAILY [facility] Last Admin: 04/07/19 07:46 Dose: 1 mg Heparin Sodium (Porcine) (Heparin Flush Picc/Ml/Cvc(*)) 1 - 3 ml FLUSH 0600, 1800 [facility]; Protocol Last Admin: 04/08/19 07:30 Dose: 1 ml Hydralazine HCl (Apresoline Iv*) 5 mg IV SLOW PU Q6H PRN PRN Reason: SYSTOLIC BP GREATER THAN: Last Admin: 04/08/19 04:56 Dose: 5 mg Ceftriaxone Sodium 2 gm/ (Sodium Chloride) 100 mls @ 200 mls/hr IVPB Q12H [facility] Last Admin: 04/07/19 22:04 Dose: 200 mls/hr Thiamine HCl 500 mg/ Sodium (Chloride) 255 mls @ 255 mls/hr IV TID [facility] Last Admin: 04/07/19 22:10 Dose: 255 mls/hr Levetiracetam (Keppra Iv Premix*) 1,000 mg in 100 mls @ 400 mls/hr IVPB Q12H [facility] Stop: 04/08/19 21:44 Magnesium Sulfate/Dextrose (Magnesium Sulfate 1 Gm Iv*) 1 gm in 100 mls @ 200 mls/hr IV ONCE ONE Stop: 04/08/19 09:40 Lisinopril (Prinivil Tab*) 40 mg PO QAM [facility] Last Admin: 04/07/19 07:46 Dose: 40 mg Lorazepam (Ativan Inj*) 1 mg IV PUSH Q1H PRN PRN Reason: seizure Magnesium Hydroxide (Milk Of Magnsusan Liq*) 30 ml PO BID [facility] Last Admin: 04/07/19 22:05 Dose: Not Given Magnesium Oxide (Magox 400 Tab*) 800 mg PO DAILY [facility] Miscellaneous (Ativan Pyxis [place]) 1 ea N/A .ATIVAN IV [place] PRN PRN Reason: PYXIS [place] Multivitamins/Minerals (Theragran/Minerals Tab*) 1 tab PO DAILY [facility] Last Admin: 04/07/19 07:46 Dose: 1 tab Ondansetron HCl (Zofran Inj*) 4 mg IV Q4H PRN PRN Reason: NAUSEA/VOMITING Polyethylene Glycol/Electrolytes (Miralax*) 17 gm PO DAILY PRN PRN Reason: CONSTIPATION Senna (Senokot 8.6 Mg Tab*) 1 tab PO BEDTIME PRN PRN Reason: CONSTIPATION Vital Signs - 8 hr 04/08/19 04/08/19 04/08/19 04:20 04:30 07:57 Temperature 99.4 F 99.3 F Pulse Rate 105 116 Respiratory 19 20 Rate Blood Pressure 172/71 168/78 162/98 (mmHg) O2 Sat by Pulse 95 97 Oximetry 04/08/19 04/08/19 04/08/19 08:32 08:33 08:43 Temperature Pulse Rate 130 Respiratory Rate Blood Pressure 164/100 192/112 225/131 (mmHg) O2 Sat by Pulse 97 Oximetry 04/08/19 08:46 Temperature Pulse Rate Respiratory 24 Rate Blood Pressure (mmHg) O2 Sat by Pulse Oximetry Oxygen Devices in Use Now: None Appearance: 69 yo F, postictal, noverbal Eyes: No Scleral Icterus, PERRLA Ears/Nose/Mouth/Throat: NL Teeth, Lips, Gums, Mucous Membranes Moist Neck: NL Appearance and Movements; NL JVP, Trachea Midline Respiratory: - - rhonchi b/l upper lungs Cardiovascular: NL Sounds; No Murmurs; No JVD, RRR Abdominal: NL Sounds; No Tenderness; No Distention, No Hepatosplenomegaly Lymphatic: No Cervical Adenopathy Extremities: No Edema, No Clubbing, Cyanosis, - - left knee in post op dressings Skin: No Nodules or Sclerosis Neurological: NL Muscle Strength and Tone, - - nonverbal, postictal Result Diagrams: 04/08/19 07:26 04/08/19 07:26 Additional Lab and Data: Troponin 0.02 @ 0934, 0.04 @ 1313, and 0.03 @ 1605 Laboratory Tests 04/01/19 04/01/19 04/01/19 09:34 09:34 09:34 WBC 7.2 RBC 3.11 L Hgb 10.6 L Hct 31 L MCV 100 H MCH 34 H INR (Anticoag Therapy) 1.00 APTT 26.7 Sodium 132 L Potassium 3.7 Chloride 98 L Carbon Dioxide 22 Anion Gap 12 H BUN 27 H Creatinine 1.42 H Glucose 99 Lactic Acid Calcium 9.3 Total Bilirubin 1.60 H C-Reactive Protein 399.08 H Albumin 3.1 L Globulin 4.7 H Albumin/Globulin Ratio 0.7 L Urine Color Urine Appearance Urine pH Ur Specific [place] Urine Protein Urine Ketones Urine Blood Urine Nitrate Urine Bilirubin Urine Urobilinogen Ur Leukocyte Esterase Urine WBC (Auto) Urine RBC (Auto) Ur Squamous Epith Cells Urine Bacteria Hyaline Casts Urine Glucose 04/01/19 04/01/19 09:34 12:05 WBC RBC Hgb Hct MCV MCH INR (Anticoag Therapy) APTT Sodium Potassium Chloride Carbon Dioxide Anion Gap BUN Creatinine Glucose Lactic Acid 2.9 H* Calcium Total Bilirubin C-Reactive Protein Albumin Globulin Albumin/Globulin Ratio Urine Color Janna Urine Appearance Cloudy Urine pH 5.0 Ur Specific [place] 1.025 Urine Protein 1+(30 mg/dl) A Urine Ketones Negative Urine Blood 1+ A Urine Nitrate Negative Urine Bilirubin Negative Urine Urobilinogen Negative Ur Leukocyte Esterase Negative Urine WBC (Auto) 2+(11-20/hpf) A Urine RBC (Auto) Absent Ur Squamous Epith Cells Present A Urine Bacteria 1+ A Hyaline Casts Present A Urine Glucose Negative Microbiology and Other Data: Microbiology 04/01/19 09:37 Aerobic Blood Culture - Preliminary Blood Venous Anaerobic Blood Culture - Preliminary EKG Data: Original EKG from this morning shows sinus tachycardia with a rate of 138. A second EKG due to an increased troponin level done at 1608 shows sinus tachycardia as well with a rate of 104. Assess/Plan/Problems-Billing Assessment: is a 69 yo F with PMH of HTN, anxiety, IBS, chronic back pain; who presented to the ED with c/o fever, shaking, chills, and reports of AMS, admitted for sepsis. Later found to have bacteremia with source of left knee infection s/p washout 04/02/19. - Patient Problems (1) Seizure Comment: New onset today. D/w Dr. Osborn who will see pt in consult Transfer to ICU, EEG, CT brain pending. Will tx with Keppra 2000 mg once as d/w . Likely mulifactorial: it appears that although pt was placed on Ativan prn, she may have not been asking for it and has not gotten any since 04/05/19. I suspect she had used it at home on a BID basis. Also pt has h/o ETOH abuse and new dx of meningitis (2) Bacteremia Comment: - Was septic at admission - 06/14 BC bottles growing group B Strep - Appreciate ID consult - Continue ceftriaxone - Source is likely septic left knee - PHYLLIS reviewed by Dr. Vidales and Dr. Tariq who do not believe there is evidence of active vegetation -has had back pain in the past 2 days-d/w ID, possily will need MRI L spine (3) Altered mental status Comment: - Presented with AMS with delusions that resolved 04/07/19 - CT brain without acute abnormality - Likely multifactorial: septic encephalopathy, alcohol withdrawal, possible bacterial meningitis - I suspect there is also a component due to discontinuation of her abilify which is used as a mood stabilizer, which has since been restarted - At this point the patient has not had an alcoholic drink in >5 days and WAM protocol was discontinued 04/06 - possible wernicke's- cont to treat empirically with IV thiamine (4) Anemia Comment: - Macrocytic - Likely 2/2 alcohol use - Normal B12 and folate - Stool occult negative (5) Bacterial meningitis Comment: - Suspected due to AMS not improving - LP with high CSF protein and low glucose support bacterial meningitis, but there is no white count or growth on culture as of this time - Possible that culture without growth as she had been on abx for 2 days at time of LP - Concern for GBS meningitis specifically - No need for isolation - Continue ceftriaxone (meningitis dosing) (6) Chronic back pain Comment: - Continue [place], ? need for MRI to r/o infection (7) Depression Comment: -continue home Abilify and bupropion (8) Essential (primary) hypertension Comment: - Hypertensive post seizure - Continue diltiazem-increased dose to 240 mg - lisinopril - prn hydralazine (9) Septic joint of left knee joint Comment: - Reported left knee pain on admission - Xray showed small joint effusion, no evidence of fracture - 20mL of cloudy fluid aspirated from joint; elevated WBC with cultures without growth to date, but presumed to be Strep - Appreciate Ortho consult; s/p washout 04/02 - Appreciate ID consult; will need at least 4 weeks IV abx for joint infection - Continue ceftriaxone (10) DVT prophylaxis Comment: - Lovenox Status and Disposition: Inpatient. transfer to ICU for new onset seizure
[2019-04-08] MEDS: levETIRAcetam 1000MG IVPREMIX* 1,000 MG/100 ML BAG IVPB SCH ×2 (09:38→22:32)
[2019-04-08] MEDS: cefTRIAXone(*) 2 GM in NS 0.9% 100 ML* 100 ML IVPB SCH ×2 (09:42→22:29)
[2019-04-08] MEDS: Thiamine INJ* 500 MG in NS 0.9% 250 ML* 250 ML IV SCH ×3 (10:24→22:29)
[2019-04-08] MEDS: Enoxaparin(*) 40 MG/0.4 ML SYR SUBCUT SCH (11:08)
--- NOTE | 2019-04-08 11:28 | PN ---
Progress Note - Progress Note Date of Service: 04/08/19 Note: S: Went to patient room this morning today, she had a likely seizure this morning and was transferred to the ICU. I saw her again this afternoon and she reports feeling comfortable with improved knee pain. No CP, SOB, dizziness, nausea O: L knee dressing CDI, able to f/e knee actively 0-30, passively 0-90 without any pain. NVI distally. A: POD #6 Left knee arthroscopic I&D, improving P: Cont PT, WBAT Cont IV abx per ID Ortho to continue to follow while in house, change dressing every other day Vital Signs Temp 98.2 F 04/08/19 12:00 Pulse 108 04/08/19 13:30 Resp 25 04/08/19 13:30 BP 160/99 04/08/19 13:30 Pulse Ox 98 04/08/19 13:30 Intake & Output 04/07/19 04/08/19 04/08/19 18:59 06:59 18:59 Intake Total 1210 505.4 0 Output Total 0 Balance 1210 505.4 0 Intake: IV Fluids 260 45.4 ABX - CEFTRIAXONE 15 NS (0.9%) 15.4 Thiamine 260 15 IVPB 25 460 ABX - CEFTRIAXONE 205 Thiamine 25 255 Oral 925 0 0 Output: Urine 0 Other: Estimated Void Large Date of Last Bowel 1 Movement # Bowel Movements 2 Estimated Stool Amount Small Medium # Voids 2 1 Laboratory Last Values WBC 10.5 10^3/uL (3.5-10.8) 04/08/19 07:26 RBC 2.79 10^6 /uL (3.70-4.87) L 04/08/19 07:26 Hgb 9.5 g/dL (12.0-16.0) L 04/08/19 07:26 Hct 27 % (35-47) L 04/08/19 07:26 MCV 97 fL (80-97) 04/08/19 07:26 MCH 34 pg (27-31) H 04/08/19 07:26 MCHC 35 g/dL (31-36) 04/08/19 07:26 RDW 15 % (10-15) 04/08/19 07:26 Plt Count 748 10^3/uL (150-450) H D 04/08/19 07:26 MPV 7.3 fL (7.4-10.4) L 04/08/19 07:26 Neut % (Auto) 78.0 % 04/08/19 07:26 Lymph % (Auto) 14.8 % 04/08/19 07:26 [place] % (Auto) 5.9 % 04/08/19 07:26 Eos % (Auto) 0.6 % 04/08/19 07:26 Baso % (Auto) 0.7 % 04/08/19 07:26 Absolute Neuts (auto) 8.2 10^3/ul (1.5-7.7) H 04/08/19 07:26 Absolute Lymphs (auto) 1.6 10^3/ul (1.0-4.8) 04/08/19 07:26 Absolute Monos (auto) 0.6 10^3/ul (0-0.8) 04/08/19 07: Absolute Eos (auto) 0.1 10^3/ul (0-0.6) 04/08/19 07: Absolute Basos (auto) 0.1 10^3/ul (0-0.2) 04/08/19 07:26 Absolute Nucleated RBC 0.0 10^3/ul 04/08/19 07: Nucleated RBC % 0.0 04/08/19 07:26 ESR 113 mm/Hr (0-29) H 04/02/19 06:34 INR (Anticoag Therapy) 1.04 (0.82-1.09) 04/02/19 16:35 APTT 24.1 seconds (26.0-38.0) L 04/02/19 16:35 Sodium 138 mmol/L (135-145) 04/08/19 07:26 Potassium 3.7 mmol/L (3.5-5.0) 04/08/19 07:26 Chloride 104 mmol/L (101-111) 04/08/19 07:26 Carbon Dioxide 25 mmol/L (22-32) 04/08/19 07:26 Anion Gap 9 mmol/L (2-11) 04/08/19 07:26 BUN 7 mg/dL (6-24) 04/08/19 07:26 Creatinine 0.76 mg/dL (0.51-0.95) 04/08/19 07:26 Est GFR ( Amer) 90.8 (>60) 04/08/19 07:26 Est GFR (Non-Af Amer) 75.0 (>60) 04/08/19 07:26 BUN/Creatinine Ratio 9.2 (8-20) 04/08/19 07:26 Glucose 97 mg/dL (70-100) 04/08/19 07:26 POC Glucose (mg/dL) 64 mg/dL (70-100) L 04/02/19 18:27 Lactic Acid 0.4 mmol/L (0.5-2.0) L 04/02/19 16:35 Calcium 8.4 mg/dL (8.6-10.3) L 04/08/19 07:26 Phosphorus 3.5 mg/dL (2.5-5.0) 04/04/19 05:28 Magnesium 1.7 mg/dL (1.9-2.7) L 04/08/19 07:26 Total Bilirubin 0.90 mg/dL (0.2-1.0) 04/02/19 16:35 AST 30 U/L (13-39) 04/02/19 16:35 ALT 20 U/L (7-52) 04/02/19 16:35 Alkaline Phosphatase 107 U/L (34-104) H 04/02/19 16:35 Total Creatine Kinase 179 U/L (10-223) 04/02/19 06:34 Troponin I 0.03 ng/mL (<0.03) H* 04/01/19 16:05 C-Reactive Protein 410.57 mg/L (<8.01) H 04/02/19 06:34 Total Protein 6.0 g/dL (6.4-8.9) L 04/02/19 16:35 Albumin 2.5 g/dL (3.2-5.2) L 04/02/19 16:35 Globulin 3.5 g/dL (2-4) 04/02/19 16:35 Albumin/Globulin Ratio 0.7 (1-3) L 04/02/19 16:35 Lipase 16 U/L (11.0-82.0) 04/01/19 13:13 Vitamin B12 584 pg/mL (180-914) 04/04/19 05:28 Folate > 20.00 ng/mL (>3.99) 04/04/19 05:28 TSH 0.74 mcIU/mL (0.34-5.60) 04/05/19 05:22 Urine Color Janna 04/01/19 12:05 Urine Appearance Cloudy 04/01/19 12:05 Urine pH 5.0 (5-9) 04/01/19 12:05 Ur Specific [place] 1.025 (1.010-1.030) 04/01/19 12:05 Urine Protein 1+(30 mg/dl) (Negative) A 04/01/19 12:05 Urine Ketones Negative (Negative) 04/01/19 12:05 Urine Blood 1+ (Negative) A 04/01/19 12:05 Urine Nitrate Negative (Negative) 04/01/19 12:05 Urine Bilirubin Negative (Negative) 04/01/19 12:05 Urine Urobilinogen Negative (Negative) 04/01/19 12:05 Ur Leukocyte Esterase Negative (Negative) 04/01/19 12:05 Urine WBC (Auto) 2+(11-20/hpf) (Absent) A 04/01/19 12:05 Urine RBC (Auto) Absent (Absent) 04/01/19 12:05 Ur Squamous Epith Cells Present (Absent) A 04/01/19 12:05 Urine Bacteria 1+ (Absent) A 04/01/19 12:05 Hyaline Casts Present (Absent) A 04/01/19 12:05 Urine Glucose Negative (Negative) 04/01/19 12:05 Fluid Source Cerebral spinal 04/02/19 17:41 Fluid Volume 3 mL 04/02/19 17:41 Fluid Color Yellow 04/02/19 17:41 Fluid Appearance Clear 04/02/19 17:41 Fluid WBC 9 /mcL 04/02/19 17:41 Fluid RBC 41 /mcL 04/02/19 17:41 Fluid Tot Cell Count 100 04/02/19 17:41 Fluid Neutrophils 42 % 04/02/19 17:41 Fluid Lymphocytes 8 % 04/02/19 17:41 Fluid Monocytes 50 % 04/02/19 17:41 Fluid Other Cells 2 04/01/19 20:30 Fluid Cell Count Rvw By 04/02/19 17:41 Fluid Crystals None seen (None Seen) 04/01/19 20:30 B. burgdorferi (PCR) Negative (Negative) 04/01/19 20:30 B. mayonii (PCR) Negative (Negative) 04/01/19 20:30 B.garinii/B.afzelii PCR Negative (Negative) 04/01/19 20:30 CSF Cell Count Tube # 4 04/02/19 17:41 CSF Glucose 36 mg/dL (40-70) L 04/02/19 17:41 CSF Total Protein 315 mg/dL (15-45) H 04/02/19 17:41 CSF HSV I (PCR) Negative (Negative) 04/02/19 17:41 CSF Herpes II DNA (PCR) Negative (Negative) 04/02/19 17:41 Lyme Specimen Source Synovial fluid 04/01/19 20:30 Influenza A (Rapid) Negative (Negative) 04/01/19 09:21 Influenza B (Rapid) Negative (Negative) 04/01/19 09:21
--- NOTE | 2019-04-08 13:57 | PN ---
Progress Note - Progress Note Date of Service: 04/08/19 SOAP: Subjective: CC: Left knee infection HPI: Ms. Cartagena is a 69 yo female with PMH significant for HTN, hiatal hernia , nephrolithiasis, anxiety, degenerative disc disease (lumbar), IBS, and chronic low back pain; presented to the emergency room with flu like symptoms and was found to have a left knee infection, and meningitis. S/P I+D of the left knee. Her mentation continues to improve, she had a seizure this morning. Denies fever, chills, chest pain, shortness of breath, nausea, vomiting, or diarrhea. Pain in the left leg continues to improve. She reports neck pain, but states that she has had neck pain for awhile and this is unchanged from her baseline. Reports back pain, she states that the pain is the same as it has been for 30 years. When asked where the back pain is located she says her low back pain, but points to her sacrum. Objective: Vital Signs - 8 hr 04/08/19 04/08/19 04/08/19 12:00 12:15 12:30 Temperature 98.2 F Pulse Rate 106 109 106 Respiratory 27 29 23 Rate Blood Pressure 144/89 152/100 144/107 (mmHg) O2 Sat by Pulse 100 99 100 Oximetry 04/08/19 13:30 Temperature Pulse Rate 108 Respiratory 25 Rate Blood Pressure 160/99 (mmHg) O2 Sat by Pulse 98 Oximetry Physical Exam: General: NAD, laying in bed Neurological: Alert and Oriented to person; confused HEENT: Moist MM Cardiovascular: Heart rate regular Respiratory: Lung sounds clear Abdominal: Bowel sounds present; ABD soft, non tender and slightly distended MSK: No tenderness with palpation of neck, back and spine. Able to flex and extend the left knee, reports some discomfort with full flexion. No edema or effusion to the left knee. Skin: No rash. DSG to the left knee clean, dry and intact Laboratory Results - last 24 hr 04/08/19 04/08/19 07:26 07:26 WBC 10.5 RBC 2.79 L Hgb 9.5 L Hct 27 L MCV 97 MCH 34 H MCHC 35 RDW 15 Plt Count 748 H D MPV 7.3 L Neut % (Auto) 78.0 Lymph % (Auto) 14.8 [place] % (Auto) 5.9 Eos % (Auto) 0.6 Baso % (Auto) 0.7 Absolute Neuts (auto) 8.2 H Absolute Lymphs (auto) 1.6 Absolute Monos (auto) 0.6 Absolute Eos (auto) 0.1 Absolute Basos (auto) 0.1 Absolute Nucleated RBC 0.0 Nucleated RBC % 0.0 Sodium 138 Potassium 3.7 Chloride 104 Carbon Dioxide 25 Anion Gap 9 BUN 7 Creatinine 0.76 Est GFR ( Amer) 90.8 Est GFR (Non-Af Amer) 75.0 BUN/Creatinine Ratio 9.2 Glucose 97 Calcium 8.4 L Magnesium 1.7 L Microbiology 04/01/19 20:30 Fungal Culture - Preliminary Misc Source (See Comment) - Knee Left No Growth Week 1 04/03/19 20:32 Aerobic Blood Culture - Preliminary Blood Venous No Growth Day 4 Anaerobic Blood Culture - Preliminary No Growth Day 4 04/03/19 17:27 Aerobic Blood Culture - Preliminary Blood Venous No Growth Day 4 Anaerobic Blood Culture - Preliminary No Growth Day 4 04/02/19 17:47 Anaerobic Culture - Final Wound No Growth Day 4 04/02/19 17:47 Skin and Soft Tissue MRSA/MSSA (PCR - Final Leg Left Mrsa Negative S.aureus Negative Gram Stain - Final Wound Culture - Final No Growth Day 4 04/02/19 17:41 CSF Gram Stain (Tube 3) - Final Cerebral Spinal Fluid CSF Culture - Final No Growth Day 4 04/01/19 20:30 Gram Stain - Final Joint Fluid(Synovial) - Knee Left Body Fluid Culture - Final No Growth Day 4 Skin and Soft Tissue MRSA/MSSA (PCR - Final Mrsa Negative S.aureus Negative 04/01/19 20:30 Anaerobic Culture - Final Body Fluid No Growth Day 4 04/04/19 12:05 Stool Occult Blood (GHADA) - Final Stool 04/01/19 09:37 Aerobic Blood Culture - Final Blood Venous Strep Agalactiae - (Group B) Anaerobic Blood Culture - Final Strep Agalactiae - (Group B) 04/01/19 09:37 Aerobic Blood Culture - Final Blood Venous Strep Agalactiae - (Group B) Anaerobic Blood Culture - Final Strep Agalactiae - (Group B) 04/01/19 20:30 Acid Fast Bacilli Smear - Final Body Fluid - Knee Left 04/01/19 12:05 Urine Culture - Final Urine No Growth (<1,000 CFU/mL) Assessment: 1. Group B strep bacteremia. Present in 4/4 bottles at the time of admission. TTE/PHYLLIS without signs of endocarditis. She denies presence of prosthetic materials. Urine culture with no growth. Afebrile and leukocytosis resolved. Noted to have thrombocytosis (this usually lags behind the improvement of infection). She does have a septic knee and meningitis. Repeat blood cultures with no growth on day 4. 2. Septic arthritis of the left nikolai knee. S/P washout, POD #5. Cultures with no growth. Afebrile and no leukocytosis. Pain in the knee is improving. 3. Bacterial meningitis. S/P LP; glucose low, protein elevated - this supports diagnosis but WBC count is 9. CSF gram stain with no organisms. HSV negative. Lyme PCR negative. 4. Seizure. With a witnessed tonic-clonic seizure this AM. Differential DX: ETOH withdrawal, benzo withdrawal, brain infection, medication, or combination 5. Back pain. Pt states that this is at her baseline. No tenderness with palpation. No neurological deficits. Differential DX: Chronic DDD, epidural abscess, osteodisitis. 6. Encephalopathy. Improving. 7. PCN allergy. Tolerating Ceftriaxone without difficulty. Plan: Continue Ceftriaxone 2 gm IV q12H dosing. She will need an extended course of IV ABX, day 09/07. No need for isolation in the setting of bacterial meningitis. Will get brain MRI with and without contrast, thoracic and lumbar spine and pelvis. Will check CRP in the AM with other routine labs. Discussed with Dr. Fernandez and Mary Lou Bowen, HANH.
[2019-04-08] MEDS ORDERED: NS 0.9% 1000 ML** 1,000 ML IV SCH (15:00)
[2019-04-08] MEDS ORDERED: LORazepam TAB(*) 0.5 MG PO ONE (15:00)
--- NOTE | 2019-04-08 15:11 | PN ---
Progress Note - Progress Note Date of Service: 04/08/19 Note: 69F with known medical history of HTN and depression, although history is limited, presents initially on 04/01/19 feeling unwell, weak. She was diagnosed with a septic left knee and bacterial meningitis. She underwent an I&D of her left knee. Prior to that, an LP was done that showed low glucose and increased protein. WBC and RBC WNL. She was and continues to be on ceftriaxone for meningitis. On 04/08/19, during a physical assessment, she was experiencing her baseline tremors but then suddenly started having a generalized seizure. This lasted ~30 seconds. She was given Ativan. SBP in 200[address] seizure[address] CT brain completed and negative for acute changes. She was admitted to ICU. Upon assessment, patient is post-ictal, words are incomprehensible, she is unable to track and unable to follow commands. Moves all extremities spontaneously. She was loaded with Keppra and started 1G BID. EEG ordered. Upon review of chart, patient was on abilify, wellbutrin, and ativan at home and the first 2 had been held for 5 days and restarted on 04/06. She was also treated for alcohol withdrawal. We will control BP with labetalol PRN since she is NPO at this time. Nursing notes some right upper extremity weakness and garbled speech, will r/o stroke as well. MRI brain with and without is pending.
[2019-04-08] MEDS: ARIPiprazole TAB* 2 MG PO SCH (22:29)
--- NOTE | 2019-04-08 22:53 | EEG ---
ELECTROENCEPHALOGRAPHY: DATE OF STUDY: 04/08/19 - ROOM #ICU-07 REFERRING PROVIDER: Dr. Fernandez. LOCATION: She is an outpatient in the intensive care unit. CLINICAL PROBLEM: The patient with a new onset seizures on day of this recording. The patient was being treated for sepsis, initially and subsequently alcohol withdrawal. Current medications consist of Toradol, hydralazine, lorazepam, lisinopril, folic acid, bupropion, Diltiazem, Keppra, ceftriaxone, Abilify, heparin. REPORT: This 19-channel EEG is remarkable for background rhythms consisting of a fairly disorganized mixed theta and beta rhythms. There may be a very low abundant alpha rhythm in the occipital derivations at perhaps 8 cycles per second. There is fairly abundant beta activity. The patient has "full body tremor" at one point without appreciable change in background rhythms. The patient reaches for items in the air at other points of recording again without appreciable change in background rhythms. The patient picks at the bed and tries to take her oxygen off. There are no sleep stages. There are no focal or epileptiform discharges. CLINICAL IMPRESSION: Abnormal EEG due to slowing and disorganization of background rhythms as well as increased beta activity. The study is compatible with diffuse cerebral dysfunction as well as possible benzodiazepine drug effect. There are no focal or epileptiform discharges including during what appeared to be visual hallucinations and whole body tremors. [id number]/CPS #: [id number] MTDD
[2019-04-09 04:44] LABS: ABS Basophils 0.1 10^3/ul (0-0.2); ABS Eosinophils 0.1 10^3/ul (0-0.6); ABS Lymphocytes 1.5 10^3/ul (1.0-4.8); ABS Monocytes 0.7 10^3/ul (0-0.8); ABS Neutrophils 7.7 10^3/ul (1.5-7.7); Hematocrit 25 % (35-47); Hemoglobin 8.2 g/dL (12.0-16.0); Lymphocyte % 14.9 %; Mean Corpuscular HGB Conc 33 g/dL (31-36); Mean Corpuscular Hemoglobin 33 pg (27-31); Mean Corpuscular Volume 100 fL (80-97); Mean Platelet Volume 7.2 fL (7.4-10.4); Platelet Count 653 10^3/uL (150-450); Red Blood Count 2.46 10^6 /uL (3.70-4.87); Red Cell Distribution Width 15 % (10-15); White Blood Count 10.2 10^3/uL (3.5-10.8)
[2019-04-09 05:00] LABS: BUN/Creatinine Ratio 7.4 (8-20); C Reactive Protein 104.69 mg/L (<8.01); Calcium 8.2 mg/dL (8.6-10.3); EGFR African American 103.2 (>60); EGFR Non-African American 85.3 (>60); Potassium 3.6 mmol/L (3.5-5.0)
[2019-04-09] MEDS: cefTRIAXone(*) 2 GM in NS 0.9% 100 ML* 100 ML IVPB SCH (08:37)
[2019-04-09] MEDS: Magnesium Hydroxide LIQ* 30 ML UDC PO SCH (09:13)
[2019-04-09] MEDS: Enoxaparin(*) 40 MG/0.4 ML SYR SUBCUT SCH (09:13)
[2019-04-09] MEDS: Diltiazem CD CAP* 240 MG PO SCH (09:13)
[2019-04-09] MEDS: Magnesium Oxide TAB* 400 MG PO SCH (09:13)
[2019-04-09] MEDS: Lisinopril TAB* 10 MG PO SCH (09:14)
[2019-04-09] MEDS: Multivitamins/Minerals TAB PO SCH (09:14)
[2019-04-09] MEDS: Folic Acid TAB* 1 MG PO SCH (09:14)
[2019-04-09] MEDS: Docusate CAP* 100 MG PO SCH ×2 (09:14→20:55)
[2019-04-09] MEDS: Thiamine INJ* 500 MG in NS 0.9% 250 ML* 250 ML IV SCH ×3 (09:27→20:59)
[2019-04-09] MEDS ORDERED: LORazepam TAB(*) 0.5 MG PO STA (09:33)
[2019-04-09] MEDS: levETIRAcetam TAB* 500 MG PO SCH ×2 (09:39→20:55)
--- NOTE | 2019-04-09 10:08 | PN ---
Progress Note - Progress Note Date of Service: 04/09/19 SOAP: Subjective: []Pt seen at bedside. She reports no fever, chills. Right knee pain is improving. Yesterday MRI revealed epidural abscess, discitis. Objective: []Gen: NAD, nontoxic appearing LLE: L knee dressing CDI, able to f/e knee actively 0-30, passively 0-90 without any pain. NVI distally. Calves supple and nontender No erythema or tendnerness and able to f/e bl mtps, ankles, knees, hips, mcps, wrists, elbows and shoulders Assessment: []POD #7 Left knee arthroscopic I&D, improving Plan: []Cont PT, WBAT Cont IV abx per ID Ortho to continue to follow while in house, change dressing every other day Neurosurg will see in consult. Will have MRI w contrast today Vital Signs Temp 100.9 F 04/09/19 07:50 Pulse 115 04/09/19 09:44 Resp 28 04/09/19 09:44 BP 162/95 04/09/19 09:44 Pulse Ox 100 04/09/19 09:44 Intake & Output 04/08/19 04/09/19 04/09/19 18:59 06:59 18:59 Intake Total 660 647 Output Total 335 Balance 660 312 Weight 178 lb 12.718 oz Intake: IV Fluids 113 110 NS (0.9%) 113 110 IVPB 547 537 ABX - CEFTRIAXONE 95 Magnesium sulfate 105 NS (0.9%) 107 Thiamine 442 335 Oral 0 Output: Urine 335 Horton 0 Other: Estimated Void Medium Large Date of Last Bowel 1 04/09/2019 Movement # Bowel Movements 1 1 Estimated Stool Amount Small Small # Voids 1 1 Laboratory Last Values WBC 10.2 10^3/uL (3.5-10.8) 04/09/19 04:35 RBC 2.46 10^6 /uL (3.70-4.87) L 04/09/19 04:35 Hgb 8.2 g/dL (12.0-16.0) L 04/09/19 04:35 Hct 25 % (35-47) L 04/09/19 04:35 MCV 100 fL (80-97) H 04/09/19 04:35 MCH 33 pg (27-31) H 04/09/19 04:35 MCHC 33 g/dL (31-36) 04/09/19 04:35 RDW 15 % (10-15) 04/09/19 04:35 Plt Count 653 10^3/uL (150-450) H D 04/09/19 04:35 MPV 7.2 fL (7.4-10.4) L 04/09/19 04:35 Neut % (Auto) 76.2 % 04/09/19 04:35 Lymph % (Auto) 14.9 % 04/09/19 04:35 Traverse % (Auto) 6.9 % 04/09/19 04:35 Eos % (Auto) 1.0 % 04/09/19 04:35 Baso % (Auto) 1.0 % 04/09/19 04:35 Absolute Neuts (auto) 7.7 10^3/ul (1.5-7.7) 04/09/19 04:35 Absolute Lymphs (auto) 1.5 10^3/ul (1.0-4.8) 04/09/19 04:35 Absolute Monos (auto) 0.7 10^3/ul (0-0.8) 04/09/19 04:35 Absolute Eos (auto) 0.1 10^3/ul (0-0.6) 04/09/19 04:35 Absolute Basos (auto) 0.1 10^3/ul (0-0.2) 04/09/19 04:35 Absolute Nucleated RBC 0.0 10^3/ul 04/09/19 04:35 Nucleated RBC % 0.0 04/09/19 04:35 ESR 113 mm/Hr (0-29) H 04/02/19 06:34 INR (Anticoag Therapy) 1.04 (0.82-1.09) 04/02/19 16:35 APTT 24.1 seconds (26.0-38.0) L 04/02/19 16:35 Sodium 137 mmol/L (135-145) 04/09/19 04:35 Potassium 3.6 mmol/L (3.5-5.0) 04/09/19 04:35 Chloride 104 mmol/L (101-111) 04/09/19 04:35 Carbon Dioxide 24 mmol/L (22-32) 04/09/19 04:35 Anion Gap 9 mmol/L (2-11) 04/09/19 04:35 BUN 5 mg/dL (6-24) L 04/09/19 04:35 Creatinine 0.68 mg/dL (0.51-0.95) 04/09/19 04:35 Est GFR ( Amer) 103.2 (>60) 04/09/19 04:35 Est GFR (Non-Af Amer) 85.3 (>60) 04/09/19 04:35 BUN/Creatinine Ratio 7.4 (8-20) L 04/09/19 04:35 Glucose 71 mg/dL (70-100) 04/09/19 04:35 POC Glucose (mg/dL) 64 mg/dL (70-100) L 04/02/19 18:27 Lactic Acid 0.4 mmol/L (0.5-2.0) L 04/02/19 16:35 Calcium 8.2 mg/dL (8.6-10.3) L 04/09/19 04:35 Phosphorus 3.5 mg/dL (2.5-5.0) 04/04/19 05:28 Magnesium 1.7 mg/dL (1.9-2.7) L 04/08/19 07:26 Total Bilirubin 0.90 mg/dL (0.2-1.0) 04/02/19 16:35 AST 30 U/L (13-39) 04/02/19 16:35 ALT 20 U/L (7-52) 04/02/19 16:35 Alkaline Phosphatase 107 U/L (34-104) H 04/02/19 16:35 Total Creatine Kinase 179 U/L (10-223) 04/02/19 06:34 Troponin I 0.03 ng/mL (<0.03) H* 04/01/19 16:05 C-Reactive Protein 104.69 mg/L (<8.01) H 04/09/19 04:35 Total Protein 6.0 g/dL (6.4-8.9) L 04/02/19 16:35 Albumin 2.5 g/dL (3.2-5.2) L 04/02/19 16:35 Globulin 3.5 g/dL (2-4) 04/02/19 16:35 Albumin/Globulin Ratio 0.7 (1-3) L 04/02/19 16:35 Lipase 16 U/L (11.0-82.0) 04/01/19 13:13 Vitamin B12 584 pg/mL (180-914) 04/04/19 05:28 Folate > 20.00 ng/mL (>3.99) 04/04/19 05:28 TSH 0.74 mcIU/mL (0.34-5.60) 04/05/19 05:22 Urine Color Janna 04/01/19 12:05 Urine Appearance Cloudy 04/01/19 12:05 Urine pH 5.0 (5-9) 04/01/19 12:05 Ur Specific [place] 1.025 (1.010-1.030) 04/01/19 12:05 Urine Protein 1+(30 mg/dl) (Negative) A 04/01/19 12:05 Urine Ketones Negative (Negative) 04/01/19 12:05 Urine Blood 1+ (Negative) A 04/01/19 12:05 Urine Nitrate Negative (Negative) 04/01/19 12:05 Urine Bilirubin Negative (Negative) 04/01/19 12:05 Urine Urobilinogen Negative (Negative) 04/01/19 12:05 Ur Leukocyte Esterase Negative (Negative) 04/01/19 12:05 Urine WBC (Auto) 2+(11-20/hpf) (Absent) A 04/01/19 12:05 Urine RBC (Auto) Absent (Absent) 04/01/19 12:05 Ur Squamous Epith Cells Present (Absent) A 04/01/19 12:05 Urine Bacteria 1+ (Absent) A 04/01/19 12:05 Hyaline Casts Present (Absent) A 04/01/19 12:05 Urine Glucose Negative (Negative) 04/01/19 12:05 Fluid Source Cerebral spinal 04/02/19 17:41 Fluid Volume 3 mL 04/02/19 17:41 Fluid Color Yellow 04/02/19 17:41 Fluid Appearance Clear 04/02/19 17:41 Fluid WBC 9 /mcL 04/02/19 17:41 Fluid RBC 41 /mcL 04/02/19 17:41 Fluid Tot Cell Count 100 04/02/19 17:41 Fluid Neutrophils 42 % 04/02/19 17:41 Fluid Lymphocytes 8 % 04/02/19 17:41 Fluid Monocytes 50 % 04/02/19 17:41 Fluid Other Cells 2 04/01/19 20:30 Fluid Cell Count Rvw By 04/02/19 17:41 Fluid Crystals None seen (None Seen) 04/01/19 20:30 B. burgdorferi (PCR) Negative (Negative) 04/01/19 20:30 B. mayonii (PCR) Negative (Negative) 04/01/19 20:30 B.garinii/B.afzelii PCR Negative (Negative) 04/01/19 20:30 CSF Cell Count Tube # 4 04/02/19 17:41 CSF Glucose 36 mg/dL (40-70) L 04/02/19 17:41 CSF Total Protein 315 mg/dL (15-45) H 04/02/19 17:41 CSF HSV I (PCR) Negative (Negative) 04/02/19 17:41 CSF Herpes II DNA (PCR) Negative (Negative) 04/02/19 17:41 Lyme Specimen Source Synovial fluid 04/01/19 20:30 Influenza A (Rapid) Negative (Negative) 04/01/19 09:21 Influenza B (Rapid) Negative (Negative) 04/01/19 09:21
--- NOTE | 2019-04-09 10:47 | PN ---
Progress Note - Progress Note Date of Service: 04/09/19 SOAP: Subjective: CC: Left knee infection HPI: Ms. Cartagena is a 69 yo female with PMH significant for HTN, hiatal hernia , nephrolithiasis, anxiety, degenerative disc disease (lumbar), IBS, and chronic low back pain; presented to the emergency room with flu like symptoms and was found to have a left knee infection, and meningitis. S/P I+D of the left knee. Her mentation continues to improve, no further seizure activity. Denies fever, chills, chest pain, shortness of breath, nausea, vomiting, or diarrhea. Pain in the left leg continues to improve. She reports neck pain, but states that she has had neck pain for awhile and this is unchanged from her baseline. Reports back pain, she states that the pain is at baseline except near the sacral area that is new. Objective: Vital Signs 04/09/19 04/09/19 04/09/19 07:00 07:01 07:50 Temperature 100.9 F Pulse Rate 117 Respiratory 27 25 Rate Blood Pressure 167/134 (mmHg) O2 Sat by Pulse 97 Oximetry 04/09/19 04/09/19 09:44 10:00 Temperature Pulse Rate 115 Respiratory 28 23 Rate Blood Pressure 162/95 171/102 (mmHg) O2 Sat by Pulse 100 Oximetry Physical Exam: General: NAD, laying in bed Neurological: Alert and Oriented to person; confused HEENT: Moist MM Cardiovascular: Heart rate regular Respiratory: Lung sounds clear Abdominal: Bowel sounds present; ABD soft, non tender and slightly distended MSK: No tenderness with palpation of neck, back and spine. Able to flex and extend the left knee, reports some discomfort with full flexion. No edema or effusion to the left knee. Skin: No rash. DSG to the left knee clean, dry and intact Laboratory Results - last 24 hr 04/09/19 04/09/19 04:35 04:35 WBC 10.2 RBC 2.46 L Hgb 8.2 L Hct 25 L MCV 100 H MCH 33 H MCHC 33 RDW 15 Plt Count 653 H D MPV 7.2 L Neut % (Auto) 76.2 Lymph % (Auto) 14.9 Frontier % (Auto) 6.9 Eos % (Auto) 1.0 Baso % (Auto) 1.0 Absolute Neuts (auto) 7.7 Absolute Lymphs (auto) 1.5 Absolute Monos (auto) 0.7 Absolute Eos (auto) 0.1 Absolute Basos (auto) 0.1 Absolute Nucleated RBC 0.0 Nucleated RBC % 0.0 Sodium 137 Potassium 3.6 Chloride 104 Carbon Dioxide 24 Anion Gap 9 BUN 5 L Creatinine 0.68 Est GFR ( Amer) 103.2 Est GFR (Non-Af Amer) 85.3 BUN/Creatinine Ratio 7.4 L Glucose 71 Calcium 8.2 L C-Reactive Protein 104.69 H Microbiology 04/03/19 20:32 Aerobic Blood Culture - Final Blood Venous No Growth Day 5 Anaerobic Blood Culture - Final No Growth Day 5 04/03/19 17:27 Aerobic Blood Culture - Final Blood Venous No Growth Day 5 Anaerobic Blood Culture - Final No Growth Day 5 04/01/19 20:30 Fungal Culture - Preliminary Misc Source (See Comment) - Knee Left No Growth Week 1 04/02/19 17:47 Anaerobic Culture - Final Wound No Growth Day 4 04/02/19 17:47 Skin and Soft Tissue MRSA/MSSA (PCR - Final Leg Left Mrsa Negative S.aureus Negative Gram Stain - Final Wound Culture - Final No Growth Day 4 04/02/19 17:41 CSF Gram Stain (Tube 3) - Final Cerebral Spinal Fluid CSF Culture - Final No Growth Day 4 04/01/19 20:30 Gram Stain - Final Joint Fluid(Synovial) - Knee Left Body Fluid Culture - Final No Growth Day 4 Skin and Soft Tissue MRSA/MSSA (PCR - Final Mrsa Negative S.aureus Negative 04/01/19 20:30 Anaerobic Culture - Final Body Fluid No Growth Day 4 04/04/19 12:05 Stool Occult Blood (GHADA) - Final Stool 04/01/19 09:37 Aerobic Blood Culture - Final Blood Venous Strep Agalactiae - (Group B) Anaerobic Blood Culture - Final Strep Agalactiae - (Group B) 04/01/19 09:37 Aerobic Blood Culture - Final Blood Venous Strep Agalactiae - (Group B) Anaerobic Blood Culture - Final Strep Agalactiae - (Group B) 04/01/19 20:30 Acid Fast Bacilli Smear - Final Body Fluid - Knee Left 04/01/19 12:05 Urine Culture - Final Urine No Growth (<1,000 CFU/mL) Assessment: 1. Group B strep bacteremia. Present in 4/4 bottles at the time of admission. TTE/PHYLLIS without signs of endocarditis. She denies presence of prosthetic materials. Urine culture with no growth. Afebrile and leukocytosis resolved. Noted to have thrombocytosis. She does have a septic knee, bacterial meningitis , and lumbar osteodiskitis. Repeat blood cultures with no growth on day 4. 2. Septic arthritis of the left [place] knee. S/P washout, POD #5. Cultures with no growth. Afebrile and no leukocytosis. Pain in the knee is improving. 3. Bacterial meningitis. S/P LP; glucose low, protein elevated - this supports diagnosis but WBC count is 9. CSF gram stain with no organisms. HSV negative. Lyme PCR negative. 4. Seizure. With a witnessed tonic-clonic seizure this AM. Differential DX: ETOH withdrawal, benzo withdrawal, brain infection, medication, or combination 5. Back pain. Pt states that this is at her baseline. No tenderness with palpation. No neurological deficits. Differential DX: Chronic DDD, epidural abscess, osteodiskitis. Non contrast MRI with signs of possible epidural phlegmon vs abscess and osteodiskitis. There is also an incidental finding of a sacral fracture. Contrast MRIs pending this morning. 6. Encephalopathy. Improving. 7. PCN allergy. Tolerating Ceftriaxone without difficulty. Plan: Continue Ceftriaxone 2 gm IV, will decrease dosing to daily. She will need an extended course of IV ABX, day in the setting of osteodiskitis. No need for isolation in the setting of bacterial meningitis. Recommend discussing case with Dr. Nolan. Discussed with Dr. Garcia and Mary Lou Bowen, HANH.
[2019-04-09] MEDS ORDERED: Gadoteridol* (CONTRAST) 279.3 MG/ML 10 ML IV ONE (12:13)
--- NOTE | 2019-04-09 12:32 | CONS ---
CC: Dr. Verna Fernandez * NEUROLOGY CONSULTATION: DATE OF CONSULT: 04/09/19 MANAGER REGULATORY: Dr. Miriam Garcia. LOCATION: She is an inpatient, ICU bed 7. CHIEF COMPLAINT: Seizure. HISTORY OF PRESENT ILLNESS: Jennifer Cartagena is a 69-year-old woman who presented to the hospital on 04/01/19 with fever and mental status changes. She was found to have an infected left knee. She had a lumbar puncture, which was abnormal with low glucose, high protein, and 9 white blood cells which were 52% neutrophils and 50% monocytes. She grew group B strep out of multiple blood cultures. Yesterday, she was being evaluated by Dr. Fernandez at the bedside and complained of feeling somewhat better. She then had observed generalized seizure with upward gaze deviation and tonic-clonic generalized movements. This lasted about 30 seconds and she was given 2 mg of lorazepam intravenously. She was transferred to the intensive care unit. I spoke with Dr. Fernandez and recommended giving 2000 mg of levetiracetam, which was done. The patient has not had a seizure since. The patient is a regular alcohol drinker, drinking a couple of vodkas and a couple of glasses of wine per day she says. She was on a p.r.n. lorazepam protocol but had not received any doses apparently for at least a day or 2 prior. She is also on bupropion chronically. PAST MEDICAL HISTORY: Notable for chronic back pain, history of depression, hypertension, nephrolithiasis, irritable bowel syndrome. She has had cataracts out and has a macular hole that was attempted to be repaired. MEDICATIONS: At home consisted of: 1. Wellbutrin XL 300 mg daily. 2. Abilify 2 mg q.h.s. 3. Ambien 10 mg q.h.s. p.r.n. insomnia. 4. Zofran 4 mg p.r.n. nausea. 5. Lorazepam 0.5 mg p.o. b.i.d. p.r.n. anxiety. 6. Pearblossom, which she says she uses very infrequently. 7. Lisinopril 40 mg p.o. daily. Current medications in the hospital include: 1. Ceftriaxone 2 g IV q.12 hours. 2. Abilify 2 mg p.o. q.h.s. 3. Diltiazem XR 240 mg p.o. daily. 4. Lovenox. 5. Folic acid 1 mg p.o. daily. 6. Lorazepam 1 mg IV q.1 hour as needed for seizure. 7. Lisinopril 40 mg p.o. daily. 8. Thiamine 500 mg IV t.i.d. ALLERGIES: She is allergic to SULFA DRUGS and PENICILLIN. REVIEW OF SYSTEMS: Negative or double vision, headaches, numbness, or burning in her feet. She feels her balance is reasonably good. She had 1 head injury about a year ago when she fell in her garage. She thinks she might have been briefly unconscious and she had a head laceration. There is no prior history of seizures. There is no prior history of meningitis. There is no history of heart disease or significant pulmonary disease. PHYSICAL EXAMINATION: She is a slightly overweight woman, lying in her ICU bed. Most recent temperature 100.9 temporally, blood pressure 170/100, heart rate is about 100 and regular. I do not hear any murmurs. Lungs are clear. There are no cervical bruits. Oral mucosa is moist and atraumatic. She has a bandage in left knee. Neurological exam: Pupils react equally from 4 down to 2.5 mm. Funduscopic exam is normal on the left but reveals some hazy margins in the right disc inferonasally. I do not see any hemorrhages or other abnormalities. Eye movements are full without nystagmus. Visual alonzo are full to confrontation. Facial musculature and sensation are symmetric. Speech is notable for very mild lingual dysarthria. On motor exam, she has antigravity and resistive strength in all limbs. She is tremulous with a high-frequency sustention tremor in the hands. There is no asterixis or myoclonus. [id number] maneuver is tremulous. Reflexes are hypoactive in the upper extremities but present, also grade 1 at the right knee and grade 1 at both ankles. Plantar responses are flexor bilaterally. She has poor attention and concentration. She is able to provide reasonably good long-term memory but her short-term memory seems impaired. Language is fluent other than her impaired attention and concentration. DIAGNOSTIC STUDIES/LAB DATA: Laboratory data includes an EEG from yesterday, which reveals generalized slowing but no epileptiform discharges. MRI of the brain revealed some nonspecific white matter changes consistent with small vessel chronic ischemic disease. Other laboratory data is notable for spinal fluid as mentioned in the history of present illness. Chemistry profile today is unremarkable. C-reactive protein today is markedly elevated at 105. CBC today is normal for a white blood cell count down to 10.2, hemoglobin is low at 8.2, MCV is elevated at 100 , platelet count is elevated at 653,000. On 04/04/19, she had a normal vitamin B12 level of 584 and folate greater than 20. IMPRESSION AND PLAN: Impression is that of a seizure, which is probably multifactorial and due to withdrawal from alcohol, withdrawal from benzodiazepines, possibly contribution from bupropion, possibly contribution from meningitis which appears to be coming under control. She was given 2000 mg of Keppra, but I do not think she probably is going to need any long-term anticonvulsant therapy. For now, we will taper her off over the course of a week or so and put a maintenance dose 500 mg twice per day for today. I would anticipate that after a week we could probably stop anticonvulsants unless she has further issues suggestive of recurrent seizures. With her unremarkable EEG and MRI scan, I think she probably is not at long- term risk for seizures. I advised her accordingly. [id number]/[facility] #: [id number] [facility]
--- NOTE | 2019-04-09 14:13 | PN ---
Progress Note - Progress Note Date of Service: 04/09/19 Note: Progress Note -- Critical Care 24 hour events/significant events: ROS: negative except for pertinent positives mentioned above; ROS unable to be obtained secondary to intubated/sedated/unresponsive/respiratory distress/ dementia/mental status change Tele: sinus tachycardia Vitals: Vital Signs 04/08/19 04/08/19 04/08/19 14:00 14:15 14:31 Temperature Pulse Rate Respiratory 29 23 23 Rate Blood Pressure 143/106 163/136 158/94 (mmHg) O2 Sat by Pulse Oximetry 04/08/19 04/08/19 04/08/19 14:45 15:00 15:15 Temperature Pulse Rate 108 109 118 Respiratory 24 26 26 Rate Blood Pressure 162/99 161/108 153/99 (mmHg) O2 Sat by Pulse 100 100 100 Oximetry 04/08/19 04/08/19 04/08/19 15:31 15:46 16:00 Temperature 98.4 F Pulse Rate 109 118 111 Respiratory 26 29 29 Rate Blood Pressure 155/88 171/126 159/90 (mmHg) O2 Sat by Pulse 100 100 100 Oximetry 04/08/19 04/08/19 04/08/19 16:04 16:15 17:00 Temperature Pulse Rate 107 Respiratory 24 30 25 Rate Blood Pressure 154/88 (mmHg) O2 Sat by Pulse 97 Oximetry 04/08/19 04/08/19 04/08/19 18:52 19:00 19:15 Temperature Pulse Rate 118 117 122 Respiratory 27 15 22 Rate Blood Pressure 167/104 152/97 137/123 (mmHg) O2 Sat by Pulse 99 98 100 Oximetry 04/08/19 04/08/19 04/08/19 19:30 19:41 19:45 Temperature 99.3 F Pulse Rate 121 115 Respiratory 22 19 Rate Blood Pressure 169/107 165/92 (mmHg) O2 Sat by Pulse 95 98 Oximetry 04/08/19 04/08/19 04/08/19 20:00 20:15 20:31 Temperature Pulse Rate 114 114 115 Respiratory 28 27 23 Rate Blood Pressure 150/107 149/100 162/93 (mmHg) O2 Sat by Pulse 100 98 95 Oximetry 04/08/19 04/08/19 04/08/19 20:46 21:00 21:30 Temperature Pulse Rate 116 124 112 Respiratory 17 18 26 Rate Blood Pressure 141/74 162/102 157/97 (mmHg) O2 Sat by Pulse 100 96 100 Oximetry 04/08/19 04/08/19 04/08/19 21:46 22:00 22:15 Temperature Pulse Rate 114 110 114 Respiratory 28 21 19 Rate Blood Pressure 178/148 139/92 149/82 (mmHg) O2 Sat by Pulse 100 100 100 Oximetry 04/08/19 04/08/19 04/08/19 22:30 22:45 23:00 Temperature Pulse Rate 117 106 107 Respiratory 18 22 21 Rate Blood Pressure 164/89 150/89 155/97 (mmHg) O2 Sat by Pulse 100 98 100 Oximetry 04/08/19 04/08/19 04/08/19 23:15 23:30 23:36 Temperature 99.8 F Pulse Rate 108 111 Respiratory 26 28 Rate Blood Pressure 155/95 139/93 (mmHg) O2 Sat by Pulse 89 98 Oximetry 04/08/19 04/09/19 04/09/19 23:45 00:00 01:00 Temperature Pulse Rate 112 108 108 Respiratory 21 28 24 Rate Blood Pressure 158/98 142/79 147/87 (mmHg) O2 Sat by Pulse 97 95 96 Oximetry 04/09/19 04/09/19 04/09/19 01:13 02:00 02:46 Temperature 99.3 F Pulse Rate 108 110 Respiratory 30 19 Rate Blood Pressure 158/89 (mmHg) O2 Sat by Pulse 100 100 Oximetry 04/09/19 04/09/19 04/09/19 03:00 04:00 04:01 Temperature Pulse Rate 103 117 Respiratory 32 18 18 Rate Blood Pressure 161/94 158/111 (mmHg) O2 Sat by Pulse 97 92 Oximetry 04/09/19 04/09/19 04/09/19 05:00 05:01 06:00 Temperature Pulse Rate 130 117 Respiratory 21 21 27 Rate Blood Pressure 142/103 177/100 (mmHg) O2 Sat by Pulse 98 97 Oximetry 04/09/19 04/09/19 04/09/19 07:00 07:01 07:50 Temperature 100.9 F Pulse Rate 117 Respiratory 27 25 Rate Blood Pressure 167/134 (mmHg) O2 Sat by Pulse 97 Oximetry 04/09/19 04/09/19 04/09/19 08:00 09:00 09:40 Temperature Pulse Rate 112 124 Respiratory 25 24 30 Rate Blood Pressure 163/93 182/104 (mmHg) O2 Sat by Pulse 97 100 Oximetry 04/09/19 04/09/19 04/09/19 09:44 10:00 12:00 Temperature Pulse Rate 115 Respiratory 28 23 30 Rate Blood Pressure 162/95 171/102 (mmHg) O2 Sat by Pulse 100 Oximetry 04/09/19 04/09/19 04/09/19 12:43 12:46 13:00 Temperature Pulse Rate 108 109 Respiratory 28 30 22 Rate Blood Pressure 136/87 136/87 130/92 (mmHg) O2 Sat by Pulse 100 100 Oximetry Intake and Output Last 24 Hours 04/07/19 04/08/19 04/09/19 04/10/19 06:59 06:59 06:59 06:59 Intake Total 891 1715.4 1307 Output Total 100 0 335 400 Balance 791 1715.4 972 -400 Weight 178 lb 12.718 oz 178 lb 12.718 oz Intake: IV Fluids 100 305.4 223 ABX - CEFTRIAXONE 20 15 NS (0.9%) 15.4 223 Thiamine 80 275 IVPB 477 126 6313 ABX - CEFTRIAXONE 100 205 95 Magnesium sulfate 105 NS (0.9%) 107 Thiamine 266 280 777 Oral 425 925 0 Output: Urine 100 0 335 Horton 0 Liquid Stool 400 Other: Estimated Void Medium Large Date of Last Bowel 04/09/2019 04/09/19 Movement # Bowel Movements 1 2 1 1 Estimated Stool Amount Medium Small Small Medium # Voids 0 2 1 O2: 2L NC Infusions: NS @ 50 Medications: Acetaminophen (Tylenol Tab*) 650 mg PO Q4H PRN PRN Reason: PAIN - MILD Last Admin: 04/08/19 23:36 Dose: 650 mg Aripiprazole (Abilify Tab*) 2 mg PO BEDTIME [facility] Last Admin: 04/08/19 22:29 Dose: 2 mg Diltiazem HCl (Cardizem Cd Cap*) 240 mg PO DAILY [facility] Last Admin: 04/09/19 09:13 Dose: 240 mg Docusate Sodium (Colace Cap*) 100 mg PO BID [facility] Last Admin: 04/09/19 09:14 Dose: 100 mg Enoxaparin Sodium (Lovenox(*)) 40 mg SUBCUT DAILY [facility] Last Admin: 04/09/19 09:13 Dose: 40 mg Folic Acid (Folvite Tab*) 1 mg PO DAILY [facility] Last Admin: 04/09/19 09:14 Dose: 1 mg Heparin Sodium (Porcine) (Heparin Flush Picc/Ml/Cvc(*)) 1 - 3 ml FLUSH 0600, 1800 [facility]; Protocol Last Admin: 04/09/19 05:30 Dose: Not Given Thiamine HCl 500 mg/ Sodium (Chloride) 255 mls @ 255 mls/hr IV TID [facility] Last Admin: 04/09/19 09:27 Dose: 255 mls/hr Ceftriaxone Sodium 2 gm/ (Sodium Chloride) 100 mls @ 200 mls/hr IVPB DAILY [facility] Levetiracetam (Keppra Tab*) 500 mg PO BID [facility] Last Admin: 04/09/19 09:39 Dose: 500 mg Lisinopril (Prinivil Tab*) 40 mg PO QAM [facility] Last Admin: 04/09/19 09:14 Dose: 40 mg Lorazepam (Ativan Inj*) 1 mg IV PUSH Q1H PRN PRN Reason: seizure Magnesium Hydroxide (Milk Of Magnsusan Liq*) 30 ml PO BID [facility] Last Admin: 04/09/19 09:13 Dose: 30 ml Magnesium Oxide (Magox 400 Tab*) 800 mg PO DAILY [facility] Last Admin: 04/09/19 09:13 Dose: 800 mg Megestrol Acetate (Megace Tab*) 80 mg PO QID [facility] Melatonin (Melatonin) 6 mg PO BEDTIME PRN PRN Reason: SLEEP Miscellaneous (Ativan Pyxis Dunham) 1 ea N/A .ATIVAN IV DUNHAM PRN PRN Reason: PYXIS DUNHAM Multivitamins/Minerals (Theragran/Minerals Tab*) 1 tab PO DAILY [facility] Last Admin: 04/09/19 09:14 Dose: 1 tab Ondansetron HCl (Zofran Inj*) 4 mg IV Q4H PRN PRN Reason: NAUSEA/VOMITING Polyethylene Glycol/Electrolytes (Miralax*) 17 gm PO DAILY PRN PRN Reason: CONSTIPATION Senna (Senokot 8.6 Mg Tab*) 1 tab PO BEDTIME PRN PRN Reason: CONSTIPATION Physical Exam: Constitutional: awake, alert, no distress, no diaphoresis. speech is pressured at times Head: normocephalic, atraumatic Eyes: no pallor, no icterus ENT: moist mucous membranes Neck: soft, supple CVS: normal rate, tachycardic at times, regular, no murmur Chest/Resp: bilateral air entry, no rhales, no wheeze, no rhonchi, no acc muscle use Abdomen/GI: soft, nontender, nondistended, BS+ Ext/Msk: warm, pulses+, does have some edema to the LLE, below the knee, nonpitting. Yovani wrap intact to left knee Skin: intact, warm Neuro: awake, alert, orientedx3, moving all extremities, no gross focal deficit Psych: normal affect Labs: Laboratory Results - last 24 hr 04/09/19 04/09/19 04:35 04:35 WBC 10.2 RBC 2.46 L Hgb 8.2 L Hct 25 L MCV 100 H MCH 33 H MCHC 33 RDW 15 Plt Count 653 H D MPV 7.2 L Neut % (Auto) 76.2 Lymph % (Auto) 14.9 [place] % (Auto) 6.9 Eos % (Auto) 1.0 Baso % (Auto) 1.0 Absolute Neuts (auto) 7.7 Absolute Lymphs (auto) 1.5 Absolute Monos (auto) 0.7 Absolute Eos (auto) 0.1 Absolute Basos (auto) 0.1 Absolute Nucleated RBC 0.0 Nucleated RBC % 0.0 Sodium 137 Potassium 3.6 Chloride 104 Carbon Dioxide 24 Anion Gap 9 BUN 5 L Creatinine 0.68 Est GFR ( Amer) 103.2 Est GFR (Non-Af Amer) 85.3 BUN/Creatinine Ratio 7.4 L Glucose 71 Calcium 8.2 L C-Reactive Protein 104.69 H Imaging: See MRI reports from 04/08/19. MRI cervical, thoracic, and lumbar spine with contrast are pending for this AM Assessment: 69F originally presents on 04/01/19 with weakness and fever. Found to have septic left knee joint s/p I&D, as well as bacterial meningitis. Noted to have a generalized seizure on 04/08 that lasted 30 seconds. She was transferred to ICU. She was post ictal for quite some time afterwards. 04/09 she has recovered and is back to baseline neurologically. She underwent MRI of brain , thoracic and lumbar spine and pelvis. These were all completed without contrast. -Bacterial meningitis - Septic left knee - Possible lumbar osteomyelitis and cannot r/o epidural abscess on MRI. - New onset seizures - Loss of appetite - HTN Plan: Neuro- - Seizures: new onset. Could be multi-focal. Benzo withdrawal, etoh withdrawal, usage and abrupt stoppage of abilify and wellbutrin, as well as bacterial meningitis. - EEG was negative for seizure activity - Keppra was reduced to 500mgBID - MRI brain was only completed without contrast and was negative for stroke and negative for obvious brain mass. Would recommend a brain MRI with contrast in the near future to r/o brain mass, even though there is a low suspicion. -Delirium prec; avoid BDZ CVS- - MAP are elevated: 97-120, but SBP 137-267. No medication changes were made. Monitor for hypertension. -Maintain MAP>65 as long as SBP<150 Resp- - Currently on 2LNC and will most likely be able to be weaned off today -Wean Fio2 to keep sat>92% -Aspiration prec, Pulmonary Toilet, IS ID- - Tmax 99.8 over 24hrs - Continue ceftriaxone per ID. They remain on board - MRI of thoracic and lumbar spine completed 04/08. T8-T9 showed possible osetomyelitis. L3-L5 possible osteomyelitis and right anterior epidural collection at L3, L4, concerning for abscess. Obtaining MRI cervical, thoracic, and lumbar spine with contrast to rule these out. Will consult neurosurgery if indicated GI- - According to patient's partner, she does not eat very much at home and that has been going on for a long time. Patient is also not interested in eating here in the hospital since admission. Still start megace 80mg q6hr and reassess appetite. -Nutrition: Encourage PO -GI prophylaxis Renal- -Monitor I/O, replete to keep K>4, Mg>2 -Voiding with some episodes of incontinence Heme- - Lovenox for DVT prophylaxis. Endo-Maintain BG<200, insulin protocol as needed Musculsk- pressure ulcer prophylaxis.OOB. PT Wounds- Surgical incisions left knee, wrapped with yovani wrap Nutrition- Encourage regular diet, added megace DVT prophylaxis: Lovenox GI prophylaxis: not currently indicated Disposition: Patient requires Critical Care/ICU for respiratory status monitoring after MRI. After patient wakes from Ativan, will transfer to floor Patient clinical status: Stable Code Status: Full Total Critical Care time is 30minutes
[2019-04-09] MEDS: Megestrol TAB* 40 MG PO SCH ×3 (14:52→20:56)
[2019-04-09] MEDS ORDERED: Magnesium Hydroxide LIQ* 30 ML UDC PO PRN (16:00)
--- NOTE | 2019-04-09 19:45 | CONS ---
CONSULTATION NOTE: DATE OF CONSULT: 04/09/19 HISTORY OF PRESENT ILLNESS: The patient is a very pleasant 69-year-old female who has a past medical history significant for hypertension, hiatal hernia, nephrolithiasis, anxiety, degenerative disk disease, IBS, and chronic low back pain, who presented to the emergency room with flu-like symptoms and was diagnosed with a left knee infection, septic arthritis, and bacterial meningitis. The patient had positive cultures for group B streptococcus bacteremia. She had left knee irrigation and debridement by Dr. Dorman and she had a witnessed tonic-clonic seizure. The patient had an MRI of her thoracic and lumbar spine revealing increased STIR signal change at T8-T9, L3-4 and L4-5 with possible suspicion for epidural phlegmon or abscess. The patient was scheduled for repeat MRI of the lumbar spine and thoracic spine with contrast as well as cervical spine with and without contrast. Requested to see the patient by the ICU team. The patient's history was obtained from the patient as well as the patient's chart. The patient is a poor historian. She reports that she has no neck pain, no back pain other than her baseline pain that has been there for many years. She reports that she has weakness of the right shoulder and she reports that this has been going on for 4 months. She had mainly weakness through gross muscle strength as she reports and physical therapy helped her significantly, but now the weakness has recurred. The patient reports that she has some weakness on the left lower extremity that happened after her irrigation and debridement and possibly is antalgic. The patient is not able to ambulate. She was able to ambulate prior to admission as she reports. The patient was reported to be able to stand and pivot per ICU nurse. The patient denies any urinary or GI incontinence. The patient is living with her long-term female partner of the last 40 years. She used to work as an architectural moid middle school teacher. She has no children. PAST MEDICAL HISTORY: Hypertension, GERD, hiatal hernia, IBS, nephrolithiasis, lumbar spine arthritis, degenerative disk disease, cataracts, anxiety, depression. PAST SURGICAL HISTORY: Tonsillectomy, cholecystectomy, cataract excision, and recent left knee I and D. HOME MEDICATIONS: The patient was on: 1. Maskell. 2. Cardizem. 3. Lovenox. ALLERGIES: PENICILLIN. FAMILY HISTORY: Heart disease, COPD, cancer. SOCIAL HISTORY: Tobacco, negative. Alcohol, positive daily. No recreational drugs. PHYSICAL EXAM: The patient is not in acute distress. She is awake, alert, and oriented x2 to 3. Her pupils are equal and reactive. Cranial nerves II through XII are grossly intact. Motor 4-5/5 in all extremities with exception of the right deltoid, which is 1-2/5 and this is chronic as the patient reports. The patient does have some antalgic weakness on the left lower extremity 4/5. Sensory grossly intact to light touch. Position intact. Deep tendon reflexes +1 bilaterally. No clonus. No Babinski. Florinda's negative. Straight leg raise negative in the supine position. The patient has no tenderness to palpation of the thoracic or lumbar spine. She has free range of motion in the cervical spine. DIAGNOSTIC STUDIES: The patient had an MRI of the brain that did not reveal any acute intracranial abnormality. The patient had an MRI of the cervical spine revealing degenerative disk disease with C4-5 increased STIR signal changes suspicious for either chronic degenerative disk disease with endplate changes versus diskitis/osteomyelitis. No evidence of abscess. There is evidence of stenosis at the C4-5 level. Unfortunately, imaging is very degraded by motion artifact. The patient had an MRI of the thoracic spine with and without contrast revealing again increased STIR signal changes at T8 and T9 at the anterior endplate possibly reflecting degenerative disk disease versus suspicion for diskitis/osteomyelitis. The patient had also MRI of the lumbar spine revealing degenerative disk disease with L3-4 and L4-5 increased disk signal changes with what seems to be anterior epidural enhancement that may represent venous encroachment versus epidural phlegmon. There is moderate stenosis at L3-4 and L4-5. Unfortunately , again imaging is degraded by motion artifact. The patient also has increased signal at the sacrum suspicious for sacral fracture. ASSESSMENT: The patient is a very pleasant 69-year-old female with history of alcohol use, depression, hypertension, nephrolithiasis, irritable bowel syndrome , who was admitted with septic left knee arthritis, status post I and D and bacterial meningitis, who is on Rocephin. PLAN: The patient at this point has multiple medical issues. Based on the MRI , the suspicion for diskitis/osteomyelitis in several levels versus degenerative disk disease. At this point, there is no clear evidence of epidural abscess or spinal cord compression. There is no evidence of destruction of the vertebral bodies or severe stenosis. I think that given her comorbidities, conservative treatment will be the best option. We would recommend a cervical [place] J collar and TLSO brace for comfort and continuation of antibiotics. If needed, a CT-guided biopsy may be helpful in confirming the diagnosis. We discussed with the patient also regarding her imaging findings and the possible need for surgical intervention in the future in terms of decompressive laminectomy versus an arthrodesis if she develops spinal instability. The patient at this point would not like to consider surgical intervention even if it is an option. We will recommend obtaining CT scan of the cervical, thoracic and lumbar spine as a baseline and repeating MRI imaging in 2 days with consideration for conscious sedation in order to avoid any motion artifact and to obtain a better quality image. Thank you for allowing us to participate in the care of this patient. Please do not hesitate to contact our office in case if you have any further questions or concerns regarding the care of this patient. [id number]/CPS #: [id number] DIAMOND
[2019-04-09] MEDS: Acetaminophen TAB* 325 MG PO PRN (20:55)
[2019-04-09] MEDS: Zolpidem TAB* 5 MG PO PRN (20:56)
[2019-04-09] MEDS: ARIPiprazole TAB* 2 MG PO SCH (20:56)
[2019-04-09] MEDS ORDERED: Melatonin 3 MG TAB PO PRN (21:00)
[2019-04-09] MEDS ORDERED: LORazepam INJ* 2 MG/ML 1 ML VIAL IV PUSH ONE (23:15)
[2019-04-10] MEDS ORDERED: Haloperidol INJ IV/IM* 5 MG/ML AMP IV SLOW PU ONE (02:05)
[2019-04-10] MEDS: cefTRIAXone(*) 2 GM in NS 0.9% 100 ML* 100 ML IVPB SCH (08:55)
[2019-04-10] MEDS: Lisinopril TAB* 10 MG PO SCH (08:55)
[2019-04-10] MEDS: Diltiazem CD CAP* 240 MG PO SCH (08:55)
[2019-04-10] MEDS: Multivitamins/Minerals TAB PO SCH (08:55)
[2019-04-10] MEDS: Magnesium Oxide TAB* 400 MG PO SCH (08:58)
[2019-04-10] MEDS: levETIRAcetam TAB* 500 MG PO SCH ×2 (08:58→22:07)
[2019-04-10] MEDS: Docusate CAP* 100 MG PO SCH ×2 (08:59→22:08)
[2019-04-10] MEDS: Folic Acid TAB* 1 MG PO SCH (08:59)
[2019-04-10] MEDS: Megestrol TAB* 40 MG PO SCH ×4 (09:00→22:07)
[2019-04-10] MEDS: Enoxaparin(*) 40 MG/0.4 ML SYR SUBCUT SCH (09:00)
[2019-04-10] MEDS: Thiamine INJ* 500 MG in NS 0.9% 250 ML* 250 ML IV SCH (10:35)
--- NOTE | 2019-04-10 10:46 | PN ---
Progress Note - Progress Note Date of Service: 04/10/19 SOAP: Subjective: CC: Left knee infection HPI: Ms. Cartagena is a 69 yo female with PMH significant for HTN, hiatal hernia , nephrolithiasis, anxiety, degenerative disc disease (lumbar), IBS, and chronic low back pain; presented to the emergency room with flu like symptoms and was found to have a left knee infection, and meningitis. S/P I+D of the left knee. Reporting back pain and was found to have osteodiskitis. Her mentation continues to improve, no further seizure activity. Denies fever, chills, chest pain, shortness of breath, nausea, vomiting, or diarrhea. Pain in the left leg continues to improve. Objective: Vital Signs - 8 hr 04/10/19 04/10/19 07:53 08:00 Temperature 98.8 F Pulse Rate 115 Respiratory 18 22 Rate Blood Pressure 131/84 (mmHg) O2 Sat by Pulse 97 Oximetry Physical Exam: General: NAD, laying in bed Neurological: Alert and Oriented to person; confused HEENT: Moist MM Cardiovascular: Heart rate regular Respiratory: Lung sounds clear Abdominal: Bowel sounds present; ABD soft, non tender and slightly distended MSK: No tenderness with palpation of neck, back and spine. Able to flex and extend the left knee, reports some discomfort with full flexion. No edema or effusion to the left knee. Skin: No rash. 2 small incisions to the left knee well approximated with small amount of surrounding eythema Laboratory Last Values WBC 10.2 10^3/uL (3.5-10.8) 04/09/19 04:35 RBC 2.46 10^6 /uL (3.70-4.87) L 04/09/19 04:35 Hgb 8.2 g/dL (12.0-16.0) L 04/09/19 04:35 Hct 25 % (35-47) L 04/09/19 04:35 MCV 100 fL (80-97) H 04/09/19 04:35 MCH 33 pg (27-31) H 04/09/19 04:35 MCHC 33 g/dL (31-36) 04/09/19 04:35 RDW 15 % (10-15) 04/09/19 04:35 Plt Count 653 10^3/uL (150-450) H D 04/09/19 04:35 MPV 7.2 fL (7.4-10.4) L 04/09/19 04:35 Neut % (Auto) 76.2 % 04/09/19 04:35 Lymph % (Auto) 14.9 % 04/09/19 04:35 [place] % (Auto) 6.9 % 04/09/19 04:35 Eos % (Auto) 1.0 % 04/09/19 04:35 Baso % (Auto) 1.0 % 04/09/19 04:35 Absolute Neuts (auto) 7.7 10^3/ul (1.5-7.7) 04/09/19 04:35 Absolute Lymphs (auto) 1.5 10^3/ul (1.0-4.8) 04/09/19 04:35 Absolute Monos (auto) 0.7 10^3/ul (0-0.8) 04/09/19 04:35 Absolute Eos (auto) 0.1 10^3/ul (0-0.6) 04/09/19 04:35 Absolute Basos (auto) 0.1 10^3/ul (0-0.2) 04/09/19 04:35 Absolute Nucleated RBC 0.0 10^3/ul 04/09/19 04:35 Nucleated RBC % 0.0 04/09/19 04:35 ESR 113 mm/Hr (0-29) H 04/02/19 06:34 INR (Anticoag Therapy) 1.04 (0.82-1.09) 04/02/19 16:35 APTT 24.1 seconds (26.0-38.0) L 04/02/19 16:35 Sodium 137 mmol/L (135-145) 04/09/19 04:35 Potassium 3.6 mmol/L (3.5-5.0) 04/09/19 04:35 Chloride 104 mmol/L (101-111) 04/09/19 04:35 Carbon Dioxide 24 mmol/L (22-32) 04/09/19 04:35 Anion Gap 9 mmol/L (2-11) 04/09/19 04:35 BUN 5 mg/dL (6-24) L 04/09/19 04:35 Creatinine 0.68 mg/dL (0.51-0.95) 04/09/19 04:35 Est GFR ( Amer) 103.2 (>60) 04/09/19 04:35 Est GFR (Non-Af Amer) 85.3 (>60) 04/09/19 04:35 BUN/Creatinine Ratio 7.4 (8-20) L 04/09/19 04:35 Glucose 71 mg/dL (70-100) 04/09/19 04:35 POC Glucose (mg/dL) 64 mg/dL (70-100) L 04/02/19 18:27 Lactic Acid 0.4 mmol/L (0.5-2.0) L 04/02/19 16:35 Calcium 8.2 mg/dL (8.6-10.3) L 04/09/19 04:35 Phosphorus 3.5 mg/dL (2.5-5.0) 04/04/19 05:28 Magnesium 1.7 mg/dL (1.9-2.7) L 04/08/19 07:26 Total Bilirubin 0.90 mg/dL (0.2-1.0) 04/02/19 16:35 AST 30 U/L (13-39) 04/02/19 16:35 ALT 20 U/L (7-52) 04/02/19 16:35 Alkaline Phosphatase 107 U/L (34-104) H 04/02/19 16:35 Total Creatine Kinase 179 U/L (10-223) 04/02/19 06:34 Troponin I 0.03 ng/mL (<0.03) H* 04/01/19 16:05 C-Reactive Protein 104.69 mg/L (<8.01) H 04/09/19 04:35 Total Protein 6.0 g/dL (6.4-8.9) L 04/02/19 16:35 Albumin 2.5 g/dL (3.2-5.2) L 04/02/19 16:35 Globulin 3.5 g/dL (2-4) 04/02/19 16:35 Albumin/Globulin Ratio 0.7 (1-3) L 04/02/19 16:35 Lipase 16 U/L (11.0-82.0) 04/01/19 13:13 Vitamin B12 584 pg/mL (180-914) 04/04/19 05:28 Folate > 20.00 ng/mL (>3.99) 04/04/19 05:28 TSH 0.74 mcIU/mL (0.34-5.60) 04/05/19 05:22 Urine Color Janna 04/01/19 12:05 Urine Appearance Cloudy 04/01/19 12:05 Urine pH 5.0 (5-9) 04/01/19 12:05 Ur Specific [place] 1.025 (1.010-1.030) 04/01/19 12:05 Urine Protein 1+(30 mg/dl) (Negative) A 04/01/19 12:05 Urine Ketones Negative (Negative) 04/01/19 12:05 Urine Blood 1+ (Negative) A 04/01/19 12:05 Urine Nitrate Negative (Negative) 04/01/19 12:05 Urine Bilirubin Negative (Negative) 04/01/19 12:05 Urine Urobilinogen Negative (Negative) 04/01/19 12:05 Ur Leukocyte Esterase Negative (Negative) 04/01/19 12:05 Urine WBC (Auto) 2+(11-20/hpf) (Absent) A 04/01/19 12:05 Urine RBC (Auto) Absent (Absent) 04/01/19 12:05 Ur Squamous Epith Cells Present (Absent) A 04/01/19 12:05 Urine Bacteria 1+ (Absent) A 04/01/19 12:05 Hyaline Casts Present (Absent) A 04/01/19 12:05 Urine Glucose Negative (Negative) 04/01/19 12:05 Fluid Source Cerebral spinal 04/02/19 17:41 Fluid Volume 3 mL 04/02/19 17:41 Fluid Color Yellow 04/02/19 17:41 Fluid Appearance Clear 04/02/19 17:41 Fluid WBC 9 /mcL 04/02/19 17:41 Fluid RBC 41 /mcL 04/02/19 17:41 Fluid Tot Cell Count 100 04/02/19 17:41 Fluid Neutrophils 42 % 04/02/19 17:41 Fluid Lymphocytes 8 % 04/02/19 17:41 Fluid Monocytes 50 % 04/02/19 17:41 Fluid Other Cells 2 04/01/19 20:30 Fluid Cell Count Rvw By 04/02/19 17:41 Fluid Crystals None seen (None Seen) 04/01/19 20:30 B. burgdorferi (PCR) Negative (Negative) 04/01/19 20:30 B. mayonii (PCR) Negative (Negative) 04/01/19 20:30 B.garinii/B.afzelii PCR Negative (Negative) 04/01/19 20:30 CSF Cell Count Tube # 4 04/02/19 17:41 CSF Glucose 36 mg/dL (40-70) L 04/02/19 17:41 CSF Total Protein 315 mg/dL (15-45) H 04/02/19 17:41 CSF HSV I (PCR) Negative (Negative) 04/02/19 17:41 CSF Herpes II DNA (PCR) Negative (Negative) 04/02/19 17:41 Lyme Specimen Source Synovial fluid 04/01/19 20:30 Influenza A (Rapid) Negative (Negative) 04/01/19 09:21 Influenza B (Rapid) Negative (Negative) 04/01/19 09:21 Microbiology 04/03/19 20:32 Aerobic Blood Culture - Final Blood Venous No Growth Day 5 Anaerobic Blood Culture - Final No Growth Day 5 04/03/19 17:27 Aerobic Blood Culture - Final Blood Venous No Growth Day 5 Anaerobic Blood Culture - Final No Growth Day 5 04/01/19 20:30 Fungal Culture - Preliminary Misc Source (See Comment) - Knee Left No Growth Week 1 04/02/19 17:47 Anaerobic Culture - Final Wound No Growth Day 4 04/02/19 17:47 Skin and Soft Tissue MRSA/MSSA (PCR - Final Leg Left Mrsa Negative S.aureus Negative Gram Stain - Final Wound Culture - Final No Growth Day 4 04/02/19 17:41 CSF Gram Stain (Tube 3) - Final Cerebral Spinal Fluid CSF Culture - Final No Growth Day 4 04/01/19 20:30 Gram Stain - Final Joint Fluid(Synovial) - Knee Left Body Fluid Culture - Final No Growth Day 4 Skin and Soft Tissue MRSA/MSSA (PCR - Final Mrsa Negative S.aureus Negative 04/01/19 20:30 Anaerobic Culture - Final Body Fluid No Growth Day 4 04/04/19 12:05 Stool Occult Blood (GHADA) - Final Stool 04/01/19 09:37 Aerobic Blood Culture - Final Blood Venous Strep Agalactiae - (Group B) Anaerobic Blood Culture - Final Strep Agalactiae - (Group B) 04/01/19 09:37 Aerobic Blood Culture - Final Blood Venous Strep Agalactiae - (Group B) Anaerobic Blood Culture - Final Strep Agalactiae - (Group B) 04/01/19 20:30 Acid Fast Bacilli Smear - Final Body Fluid - Knee Left 04/01/19 12:05 Urine Culture - Final Urine No Growth (<1,000 CFU/mL) Assessment: 1. Septic arthritis of the left [place] knee. S/P washout, POD #6. Cultures with no growth. Afebrile and no leukocytosis. Pain in the knee continues to improve. She is able to ambulate with a walker. 2. Lumbar (L3-5) osteodiskitis. No tenderness with palpation. No neurological deficits. Non contrast MRI - abnormally increased T2 signal in the intervertebral discs with adjacent endplate edema at the L3-L4 and L4-L5 level. Contrast MRI with nonspecific vertebral body enhancement centered at L3-4 and L4 -5 and ventral epidural enhancement extending from L2-3 and L5-S1, could represent venous engorgement or phlegmon. 3. Group B strep bacteremia. Present in 4/4 bottles at the time of admission. TTE/PHYLLIS without signs of endocarditis. She denies presence of prosthetic materials. Urine culture with no growth. She does have a septic knee, bacterial meningitis, and lumbar osteodiskitis. Repeat blood cultures with no growth on day 4. 4. Bacterial meningitis. S/P LP; glucose low, protein elevated - this supports diagnosis but WBC count is 9. CSF gram stain with no organisms. HSV negative. Lyme PCR negative. 5. Seizure. With a witnessed tonic-clonic seizure 2 days ago. Differential DX: ETOH withdrawal, benzo withdrawal, brain infection, medication, or combination. No further seizures 6. Encephalopathy. Improving. Suspect multifactorial - Infection, menigitis and ETOH withdrawal. 7. PCN allergy. Tolerating Ceftriaxone without difficulty. Plan: Continue Ceftriaxone 2 gm IV daily, day 7/42-56. Has a PICC line in place. Weekly labs while on IV ABX: CBC, CMP, and CRP. Followup with ID outpatient. Discussed with Dr. Fernandez.
--- NOTE | 2019-04-10 11:07 | PN ---
Subjective Date of Service: 04/10/19 Interval History: pt feels much better. apparently was uncooperative and confused at night, but now AAOx3 talking freely with her partner. Refused to wear c spine collar. Now is interested in TLSO brace Diana note that pt's foot was twitching when pt fell asleep-reassure that it's likely benign. pt c/o NO back pain right now, but gets lumbar pain when moving Family History: Unchanged from Admission Social History: Unchanged from Admission Past Medical History: Unchanged from Admission Objective Active Medications: Acetaminophen (Tylenol Tab*) 650 mg PO Q4H PRN PRN Reason: PAIN - MILD Last Admin: 04/09/19 20:55 Dose: 650 mg Aripiprazole (Abilify Tab*) 2 mg PO BEDTIME [facility] Last Admin: 04/09/19 20:56 Dose: 2 mg Diltiazem HCl (Cardizem Cd Cap*) 240 mg PO DAILY [facility] Last Admin: 04/10/19 08:55 Dose: 240 mg Docusate Sodium (Colace Cap*) 100 mg PO BID [facility] Last Admin: 04/10/19 08:59 Dose: Not Given Enoxaparin Sodium (Lovenox(*)) 40 mg SUBCUT DAILY [facility] Last Admin: 04/10/19 09:00 Dose: 40 mg Folic Acid (Folvite Tab*) 1 mg PO DAILY [facility] Last Admin: 04/10/19 08:59 Dose: 1 mg Heparin Sodium (Porcine) (Heparin Flush Picc/Ml/Cvc(*)) 1 - 3 ml FLUSH 0600, 1800 [facility]; Protocol Last Admin: 04/10/19 07:00 Dose: Not Given Ceftriaxone Sodium 2 gm/ (Sodium Chloride) 100 mls @ 200 mls/hr IVPB DAILY [facility] Last Admin: 04/10/19 08:55 Dose: 200 mls/hr Levetiracetam (Keppra Tab*) 500 mg PO BID [facility] Last Admin: 04/10/19 08:58 Dose: 500 mg Lisinopril (Prinivil Tab*) 40 mg PO QAM [facility] Last Admin: 04/10/19 08:55 Dose: 40 mg Lorazepam (Ativan Inj*) 1 mg IV PUSH Q1H PRN PRN Reason: seizure Magnesium Hydroxide (Milk Of Magnesia Liq*) 30 ml PO BID PRN PRN Reason: CONSTIPATION Magnesium Oxide (Magox 400 Tab*) 800 mg PO DAILY [facility] Last Admin: 04/10/19 08:58 Dose: 800 mg Megestrol Acetate (Megace Tab*) 80 mg PO QID [facility] Last Admin: 04/10/19 09:00 Dose: Not Given Melatonin (Melatonin) 6 mg PO BEDTIME PRN PRN Reason: SLEEP Miscellaneous (Ativan Pyxis [place]) 1 ea N/A .ATIVAN IV DUNHAM PRN PRN Reason: PYXIS DUNHAM Multivitamins/Minerals (Theragran/Minerals Tab*) 1 tab PO DAILY [facility] Last Admin: 04/10/19 08:55 Dose: 1 tab Ondansetron HCl (Zofran Inj*) 4 mg IV Q4H PRN PRN Reason: NAUSEA/VOMITING Polyethylene Glycol/Electrolytes (Miralax*) 17 gm PO DAILY PRN PRN Reason: CONSTIPATION Senna (Senokot 8.6 Mg Tab*) 1 tab PO BEDTIME PRN PRN Reason: CONSTIPATION Thiamine HCl (Vitamin B-1 Tab*) 100 mg PO DAILY [facility] Zolpidem Tartrate (Ambien Tab*) 5 mg PO BEDTIME PRN PRN Reason: INSOMNIA Last Admin: 04/09/19 20:56 Dose: 5 mg Vital Signs - 8 hr 04/10/19 04/10/19 07:53 08:00 Temperature 98.8 F Pulse Rate 115 Respiratory 18 22 Rate Blood Pressure 131/84 (mmHg) O2 Sat by Pulse 97 Oximetry Oxygen Devices in Use Now: None Appearance: 69 yo f in nAD, aAOx3 Eyes: No Scleral Icterus, PERRLA Ears/Nose/Mouth/Throat: NL Teeth, Lips, Gums, Mucous Membranes Moist Neck: NL Appearance and Movements; NL JVP, Trachea Midline Respiratory: Symmetrical Chest Expansion and Respiratory Effort, Clear to Auscultation Cardiovascular: NL Sounds; No Murmurs; No JVD, RRR Abdominal: NL Sounds; No Tenderness; No Distention, No Hepatosplenomegaly Lymphatic: No Cervical Adenopathy Extremities: - - mild left knee edema-post op incisions sutured, no dehiscence Skin: No Nodules or Sclerosis, - - ghanshyam on chest from tele stickers Neurological: Alert and Oriented x 3, NL Muscle Strength and Tone, - - mildly limited ROM in post op knee Result Diagrams: 04/09/19 04:35 04/09/19 04:35 Additional Lab and Data: Troponin 0.02 @ 0934, 0.04 @ 1313, and 0.03 @ 1605 Laboratory Tests 04/01/19 04/01/19 04/01/19 09:34 09:34 09:34 WBC 7.2 RBC 3.11 L Hgb 10.6 L Hct 31 L MCV 100 H MCH 34 H INR (Anticoag Therapy) 1.00 APTT 26.7 Sodium 132 L Potassium 3.7 Chloride 98 L Carbon Dioxide 22 Anion Gap 12 H BUN 27 H Creatinine 1.42 H Glucose 99 Lactic Acid Calcium 9.3 Total Bilirubin 1.60 H C-Reactive Protein 399.08 H Albumin 3.1 L Globulin 4.7 H Albumin/Globulin Ratio 0.7 L Urine Color Urine Appearance Urine pH Ur Specific [place] Urine Protein Urine Ketones Urine Blood Urine Nitrate Urine Bilirubin Urine Urobilinogen Ur Leukocyte Esterase Urine WBC (Auto) Urine RBC (Auto) Ur Squamous Epith Cells Urine Bacteria Hyaline Casts Urine Glucose 04/01/19 04/01/19 09:34 12:05 WBC RBC Hgb Hct MCV MCH INR (Anticoag Therapy) APTT Sodium Potassium Chloride Carbon Dioxide Anion Gap BUN Creatinine Glucose Lactic Acid 2.9 H* Calcium Total Bilirubin C-Reactive Protein Albumin Globulin Albumin/Globulin Ratio Urine Color Janna Urine Appearance Cloudy Urine pH 5.0 Ur Specific [place] 1.025 Urine Protein 1+(30 mg/dl) A Urine Ketones Negative Urine Blood 1+ A Urine Nitrate Negative Urine Bilirubin Negative Urine Urobilinogen Negative Ur Leukocyte Esterase Negative Urine WBC (Auto) 2+(11-20/hpf) A Urine RBC (Auto) Absent Ur Squamous Epith Cells Present A Urine Bacteria 1+ A Hyaline Casts Present A Urine Glucose Negative Microbiology and Other Data: Microbiology 04/01/19 09:37 Aerobic Blood Culture - Preliminary Blood Venous Anaerobic Blood Culture - Preliminary EKG Data: Original EKG from this morning shows sinus tachycardia with a rate of 138. A second EKG due to an increased troponin level done at 1608 shows sinus tachycardia as well with a rate of 104. Assess/Plan/Problems-Billing Assessment: is a 69 yo F with PMH of HTN, anxiety, IBS, chronic back pain; who presented to the ED with c/o fever, shaking, chills, and reports of AMS, admitted for sepsis. Later found to have bacteremia with source of left knee infection s/p washout 04/02/19. - Patient Problems (1) Bacteremia Comment: Strep groub B bacteremia and sepsis at admission with septic left knee , lumbar discitis, pss cervical discitis and bacterial meningitis - Source is likely septic left knee - PHYLLIS reviewed by Dr. Vidales and Dr. Tariq who do not believe there is evidence of active vegetation cont Ceftriaxone, PICC in place (2) Seizure Comment: New onset on 05/09 Likely mulifactorial: it appears that although pt was placed on Ativan prn, she may have not been asking for it and has not gotten any since 04/05/19. I suspect she had used it at home on a BID basis. Also pt has h/o ETOH abuse and new dx of meningitis. now back to neuro baseline, on Kepra 500 mg BID appreciate neuro consult currently off benzodiazepines, Wellbutrin d/c'd due to poss lowering seizure threshold (3) Altered mental status Comment: - Presented with AMS with delusions that resolved 04/07/19 - CT brain without acute abnormality - Likely multifactorial: septic encephalopathy, alcohol withdrawal, possible bacterial meningitis (4) Anemia Comment: - Macrocytic - Likely 2/2 alcohol use - Normal B12 and folate - Stool occult negative (5) Bacterial meningitis Comment: - LP with high CSF protein and low glucose support bacterial meningitis, but there is no white count or growth on culture as of this time - Possible that culture without growth as she had been on abx for 2 days at time of LP - No need for isolation - Continue ceftriaxone (meningitis dosing) (6) Chronic back pain Comment: - Continue [place] prn (7) Depression Comment: -continue home Abilify (8) Essential (primary) hypertension Comment: controled (9) Septic joint of left knee joint Comment: - Appreciate Ortho consult; s/p washout 04/02 (10) Poor appetite Comment: placed on Megace in ICU, will cont (11) Septic discitis of lumbar region Comment: and c region-refuses [place] j collar will order TLSO brace which she agrees to appreciate neurosurgery assistance for repeat CT of spine today (12) DVT prophylaxis Comment: - Lovenox Status and Disposition: Inpatient.
[2019-04-10] MEDS: Acetaminophen TAB* 325 MG PO PRN ×2 (12:18→17:46)
--- NOTE | 2019-04-10 15:43 | PN ---
Progress Note - Progress Note Date of Service: 04/10/19 SOAP: Subjective: []Pt seen and examined at bedside. She feels well today, had a spine CT. Neurosurg consult yesterday, no surgery planned. Objective: []Gen: NAD, nontoxic appearing, talkative and carrying on appropriate conversation. LLE: L knee incisions CDI, able to f/e knee actively 0-70 without any pain. NVI distally. Calves supple and nontender Assessment: []POD #8 Left knee arthroscopic I&D, improving Plan: []Cont PT, WBAT Cont IV abx per ID Ortho to continue to follow while in house, change dressing every other day, can be completed by nursing Vital Signs Temp 98.4 F 04/10/19 11:40 Pulse 122 04/10/19 11:40 Resp 22 04/10/19 11:40 BP 148/89 04/10/19 11:40 Pulse Ox 99 04/10/19 11:40 Intake & Output 04/09/19 04/10/19 04/10/19 18:59 06:59 18:59 Intake Total 494 565.5 730 Output Total 400 Balance 94 565.5 730 Weight 178 lb 12.718 oz Intake: IV Fluids 100 51.5 NS (0.9%) 100 Thiamine 51.5 IVPB 394 514 100 ABX - CEFTRIAXONE 114 Potassium Chloride 20 meq 100 Thiamine 280 514 Oral 0 630 Output: Liquid Stool 400 Other: Estimated Void Medium Date of Last Bowel 04/09/19 Movement # Bowel Movements 1 Estimated Stool Amount Medium # Voids 1 1 Laboratory Last Values WBC 10.2 10^3/uL (3.5-10.8) 04/09/19 04:35 RBC 2.46 10^6 /uL (3.70-4.87) L 04/09/19 04:35 Hgb 8.2 g/dL (12.0-16.0) L 04/09/19 04:35 Hct 25 % (35-47) L 04/09/19 04:35 MCV 100 fL (80-97) H 04/09/19 04:35 MCH 33 pg (27-31) H 04/09/19 04:35 MCHC 33 g/dL (31-36) 04/09/19 04:35 RDW 15 % (10-15) 04/09/19 04:35 Plt Count 653 10^3/uL (150-450) H D 04/09/19 04:35 MPV 7.2 fL (7.4-10.4) L 04/09/19 04:35 Neut % (Auto) 76.2 % 04/09/19 04:35 Lymph % (Auto) 14.9 % 04/09/19 04:35 [place] % (Auto) 6.9 % 04/09/19 04:35 Eos % (Auto) 1.0 % 04/09/19 04:35 Baso % (Auto) 1.0 % 04/09/19 04:35 Absolute Neuts (auto) 7.7 10^3/ul (1.5-7.7) 04/09/19 04:35 Absolute Lymphs (auto) 1.5 10^3/ul (1.0-4.8) 04/09/19 04:35 Absolute Monos (auto) 0.7 10^3/ul (0-0.8) 04/09/19 04:35 Absolute Eos (auto) 0.1 10^3/ul (0-0.6) 04/09/19 04:35 Absolute Basos (auto) 0.1 10^3/ul (0-0.2) 04/09/19 04:35 Absolute Nucleated RBC 0.0 10^3/ul 04/09/19 04:35 Nucleated RBC % 0.0 04/09/19 04:35 ESR 113 mm/Hr (0-29) H 04/02/19 06:34 INR (Anticoag Therapy) 1.04 (0.82-1.09) 04/02/19 16:35 APTT 24.1 seconds (26.0-38.0) L 04/02/19 16:35 Sodium 137 mmol/L (135-145) 04/09/19 04:35 Potassium 3.6 mmol/L (3.5-5.0) 04/09/19 04:35 Chloride 104 mmol/L (101-111) 04/09/19 04:35 Carbon Dioxide 24 mmol/L (22-32) 04/09/19 04:35 Anion Gap 9 mmol/L (2-11) 04/09/19 04:35 BUN 5 mg/dL (6-24) L 04/09/19 04:35 Creatinine 0.68 mg/dL (0.51-0.95) 04/09/19 04:35 Est GFR ( Amer) 103.2 (>60) 04/09/19 04:35 Est GFR (Non-Af Amer) 85.3 (>60) 04/09/19 04:35 BUN/Creatinine Ratio 7.4 (8-20) L 04/09/19 04:35 Glucose 71 mg/dL (70-100) 04/09/19 04:35 POC Glucose (mg/dL) 64 mg/dL (70-100) L 04/02/19 18:27 Lactic Acid 0.4 mmol/L (0.5-2.0) L 04/02/19 16:35 Calcium 8.2 mg/dL (8.6-10.3) L 04/09/19 04:35 Phosphorus 3.5 mg/dL (2.5-5.0) 04/04/19 05:28 Magnesium 1.7 mg/dL (1.9-2.7) L 04/08/19 07:26 Total Bilirubin 0.90 mg/dL (0.2-1.0) 04/02/19 16:35 AST 30 U/L (13-39) 04/02/19 16:35 ALT 20 U/L (7-52) 04/02/19 16:35 Alkaline Phosphatase 107 U/L (34-104) H 04/02/19 16:35 Total Creatine Kinase 179 U/L (10-223) 04/02/19 06:34 Troponin I 0.03 ng/mL (<0.03) H* 04/01/19 16:05 C-Reactive Protein 104.69 mg/L (<8.01) H 04/09/19 04:35 Total Protein 6.0 g/dL (6.4-8.9) L 04/02/19 16:35 Albumin 2.5 g/dL (3.2-5.2) L 04/02/19 16:35 Globulin 3.5 g/dL (2-4) 04/02/19 16:35 Albumin/Globulin Ratio 0.7 (1-3) L 04/02/19 16:35 Lipase 16 U/L (11.0-82.0) 04/01/19 13:13 Vitamin B12 584 pg/mL (180-914) 04/04/19 05:28 Folate > 20.00 ng/mL (>3.99) 04/04/19 05:28 TSH 0.74 mcIU/mL (0.34-5.60) 04/05/19 05:22 Urine Color Janna 04/01/19 12:05 Urine Appearance Cloudy 04/01/19 12:05 Urine pH 5.0 (5-9) 04/01/19 12:05 Ur Specific [place] 1.025 (1.010-1.030) 04/01/19 12:05 Urine Protein 1+(30 mg/dl) (Negative) A 04/01/19 12:05 Urine Ketones Negative (Negative) 04/01/19 12:05 Urine Blood 1+ (Negative) A 04/01/19 12:05 Urine Nitrate Negative (Negative) 04/01/19 12:05 Urine Bilirubin Negative (Negative) 04/01/19 12:05 Urine Urobilinogen Negative (Negative) 04/01/19 12:05 Ur Leukocyte Esterase Negative (Negative) 04/01/19 12:05 Urine WBC (Auto) 2+(11-20/hpf) (Absent) A 04/01/19 12:05 Urine RBC (Auto) Absent (Absent) 04/01/19 12:05 Ur Squamous Epith Cells Present (Absent) A 04/01/19 12:05 Urine Bacteria 1+ (Absent) A 04/01/19 12:05 Hyaline Casts Present (Absent) A 04/01/19 12:05 Urine Glucose Negative (Negative) 04/01/19 12:05 Fluid Source Cerebral spinal 04/02/19 17:41 Fluid Volume 3 mL 04/02/19 17:41 Fluid Color Yellow 04/02/19 17:41 Fluid Appearance Clear 04/02/19 17:41 Fluid WBC 9 /mcL 04/02/19 17:41 Fluid RBC 41 /mcL 04/02/19 17:41 Fluid Tot Cell Count 100 04/02/19 17:41 Fluid Neutrophils 42 % 04/02/19 17:41 Fluid Lymphocytes 8 % 04/02/19 17:41 Fluid Monocytes 50 % 04/02/19 17:41 Fluid Other Cells 2 04/01/19 20:30 Fluid Cell Count Rvw By 01/21/20 17:41 Fluid Crystals None seen (None Seen) 04/01/19 20:30 B. burgdorferi (PCR) Negative (Negative) 04/01/19 20:30 B. mayonii (PCR) Negative (Negative) 04/01/19 20:30 B.garinii/B.afzelii PCR Negative (Negative) 04/01/19 20:30 CSF Cell Count Tube # 4 04/02/19 17:41 CSF Glucose 36 mg/dL (40-70) L 04/02/19 17:41 CSF Total Protein 315 mg/dL (15-45) H 04/02/19 17:41 CSF HSV I (PCR) Negative (Negative) 04/02/19 17:41 CSF Herpes II DNA (PCR) Negative (Negative) 04/02/19 17:41 Lyme Specimen Source Synovial fluid 04/01/19 20:30 Influenza A (Rapid) Negative (Negative) 04/01/19 09:21 Influenza B (Rapid) Negative (Negative) 04/01/19 09:21
--- NOTE | 2019-04-10 21:30 | PN ---
Progress Note - Progress Note Date of Service: 04/10/19 SOAP: Subjective: []No events ON. Ambulated earlier today. No significant back pain with ambulation. Objective: []VSS, AAOx3 NICK, CN II-XII grossly intact. Motor 4-5/5 except Rt Deltoid 2-3/5 (chronic per patient) Sensory grossly intact to light touch Assessment: [] 69 yof septic arthritis, meningitis, possible discitis Plan: [] Monitor VS, Neurochecks. CT revealed DDD without evidence of endplate destruction to support osteomyelitis. Based on clinical presentation and CT/MRI findings, discitis less likely, not definite diagnosis possible at this time. Consider repeat MRI in a few days if back pain is persistent or earlier if new neurological findings. Conservative treatment would be preferable for now. Appreciate IM , ID care. Smitha Hamilton MD
[2019-04-10] MEDS: ARIPiprazole TAB* 2 MG PO SCH (22:07)
[2019-04-10] MEDS: Zolpidem TAB* 5 MG PO PRN (22:07)
[2019-04-11 06:00] LABS: ABS Basophils 0.1 10^3/ul (0-0.2); ABS Eosinophils 0.1 10^3/ul (0-0.6); ABS Lymphocytes 1.7 10^3/ul (1.0-4.8); ABS Monocytes 0.7 10^3/ul (0-0.8); Eosinophil % 1.7 %; Hematocrit 22 % (35-47); Hemoglobin 7.6 g/dL (12.0-16.0); Lymphocyte % 19.5 %; Mean Corpuscular HGB Conc 35 g/dL (31-36); Mean Corpuscular Hemoglobin 34 pg (27-31); Mean Corpuscular Volume 99 fL (80-97); Mean Platelet Volume 7.1 fL (7.4-10.4); Platelet Count 645 10^3/uL (150-450); Red Blood Count 2.22 10^6 /uL (3.70-4.87); Red Cell Distribution Width 15 % (10-15); White Blood Count 8.5 10^3/uL (3.5-10.8)
[2019-04-11 06:18] LABS: BUN/Creatinine Ratio 7.9 (8-20); Calcium 8.2 mg/dL (8.6-10.3); EGFR African American 112.7 (>60); EGFR Non-African American 93.2 (>60); Magnesium 1.6 mg/dL (1.9-2.7); Potassium 3.2 mmol/L (3.5-5.0)
[2019-04-11] MEDS: Magnesium Oxide TAB* 400 MG PO SCH (08:44)
[2019-04-11] MEDS: Acetaminophen TAB* 325 MG PO PRN (08:44)
[2019-04-11] MEDS: Folic Acid TAB* 1 MG PO SCH (08:45)
[2019-04-11] MEDS: Lisinopril TAB* 10 MG PO SCH (08:45)
[2019-04-11] MEDS: Diltiazem CD CAP* 240 MG PO SCH (08:45)
[2019-04-11] MEDS: Docusate CAP* 100 MG PO SCH ×2 (08:46→20:56)
[2019-04-11] MEDS: Multivitamins/Minerals TAB PO SCH (08:47)
[2019-04-11] MEDS: Enoxaparin(*) 40 MG/0.4 ML SYR SUBCUT SCH (08:47)
[2019-04-11] MEDS: levETIRAcetam TAB* 500 MG PO SCH ×2 (08:47→21:08)
[2019-04-11] MEDS: Thiamine TAB* 100 MG TAB PO SCH (08:47)
[2019-04-11] MEDS: Megestrol TAB* 40 MG PO SCH ×4 (08:47→21:09)
[2019-04-11] MEDS: cefTRIAXone(*) 2 GM in NS 0.9% 100 ML* 100 ML IVPB SCH (08:48)
[2019-04-11] MEDS ORDERED: Magnesium Sulfate 2 GM IV* 2 GM/50 ML BAG IVPB ONE (09:00)
[2019-04-11] MEDS ORDERED: Potassium Chlor TAB* 20 MEQ TAB.ER PO ONE (09:02)
--- NOTE | 2019-04-11 09:16 | PN ---
Progress Note - Progress Note Date of Service: 04/11/19 SOAP: Subjective: CC: septic arthritis HPI: 69 year old woman admitted with encephalopathy and bacteremia, septic arthritis left knee s/p I&D, bacterial meningitis. Spine imaging for back pain showed degenerative changes, possible infection. No spine pain, has left lower lateral back pain that comes and goes. Appetite is good, no fever, rash, or diarrhea. Left knee pain improving, no other joints bothering her. Objective: Vital Signs Temp 36.8 C 04/11/19 07:00 Pulse 102 04/11/19 07:00 Resp 20 04/11/19 08:00 BP 129/70 04/11/19 07:00 Pulse Ox 100 04/11/19 07:00 Intake & Output 04/10/19 04/11/19 04/11/19 18:59 06:59 18:59 Intake Total 850 0 Balance 850 0 Intake: IVPB 100 Potassium Chloride 20 meq 100 Oral 750 0 Other: Estimated Void Large # Voids 1 1 Gen:awake, no distress Neuro: alert and oriented x3 Neck: no rigidity HEENT: no thrush Heart:RRR no murmur Lungs:CTA BL Abd:+BS NTND soft Skin: no rash MSK: no spine tenderness Laboratory Results - last 24 hr 04/11/19 04/11/19 05:55 05:55 WBC 8.5 RBC 2.22 L Hgb 7.6 L Hct 22 L MCV 99 H MCH 34 H MCHC 35 RDW 15 Plt Count 645 H MPV 7.1 L Neut % (Auto) 70.1 Lymph % (Auto) 19.5 [place] % (Auto) 8.0 Eos % (Auto) 1.7 Baso % (Auto) 0.7 Absolute Neuts (auto) 6.0 Absolute Lymphs (auto) 1.7 Absolute Monos (auto) 0.7 Absolute Eos (auto) 0.1 Absolute Basos (auto) 0.1 Absolute Nucleated RBC 0.0 Nucleated RBC % 0.0 Sodium 139 Potassium 3.2 L Chloride 105 Carbon Dioxide 29 Anion Gap 5 BUN 5 L Creatinine 0.63 Est GFR ( Amer) 112.7 Est GFR (Non-Af Amer) 93.2 BUN/Creatinine Ratio 7.9 L Glucose 92 Calcium 8.2 L Magnesium 1.6 L Assessment: 1. Grp B Strep bacteremia, septic arthritis left knee, meningitis; possible vertebral osteodiskitis, neurologically intact. PHYLLIS negative. 2. seizure 3. ETOH abuse 4. PCN allergy Plan: 1. continue Ceftriaxone 2 gm IV Q24hrs day - with weekly cbc, cmp, crp 35 minutes floor time >50% face to face in counseling regarding antibiotic and rehab plans, all questions answered
--- NOTE | 2019-04-11 11:55 | PN ---
Progress Note - Progress Note Date of Service: 04/11/19 SOAP: Subjective: []Pt seen and examined at bedside. She has L low back pain which was evaluated this morning by neuro. She considers her left knee to be "one great success" stating is is not painful and range of motion continues to improve. Objective: []]Gen: NAD, nontoxic appearing LLE: L knee incisions CDI, able to f/e knee actively 0-70 without any pain. NVI distally. Calves supple and nontender Assessment: []POD #9 Left knee arthroscopic I&D, improving Plan: []Cont PT, WBAT Cont IV abx per ID Ortho to continue to follow while in house, change dressing every other day, can be completed by nursing
[2019-04-11] MEDS: oxyCODONE TAB* 5 MG TAB PO PRN ×3 (12:23→21:09)
[2019-04-11 12:43] LABS: Total Iron Binding Capacity 206 mcg/dL (250-450); Transferrin 147 mg/dL (203-362)
[2019-04-11 13:00] LABS: Ferritin 233.3 ng/mL (11-307)
--- NOTE | 2019-04-11 13:07 | PN ---
Progress Note - Progress Note Date of Service: 04/11/19 SOAP: Subjective: []No events ON. Ambulated with brace earlier today. No significant back pain with ambulation. Objective: []VSS, AAOx3 NICK, CN II-XII grossly intact. Motor 4-5/5 except Rt Deltoid 2-3/5 (chronic per patient) Sensory grossly intact to light touch FROM C spine. Assessment: []69 yof septic arthritis, meningitis, possible discitis Plan: [] Monitor VS, Neurochecks. Will continue conservative treatment with brace for now. Abx per Dr Granados. Would recommend upright C spine, L spine XR in brace today with Flexion / Extension of cervical spine as baseline. I f no instability or deformity, follow up in office in 2-3 weeks with repeat upright XR of C spine and L spine. Appreciate IM , ID care. Smitha Hamilton MD
--- NOTE | 2019-04-11 14:38 | PN ---
Subjective Date of Service: 04/11/19 Interval History: Pt c/o lumbar pain radiating to left leg posteriorly Family History: Unchanged from Admission Social History: Unchanged from Admission Past Medical History: Unchanged from Admission Objective Active Medications: Acetaminophen (Tylenol Tab*) 650 mg PO Q4H PRN PRN Reason: PAIN - MILD Last Admin: 04/11/19 08:44 Dose: 650 mg Aripiprazole (Abilify Tab*) 2 mg PO BEDTIME [facility] Last Admin: 04/10/19 22:07 Dose: 2 mg Diltiazem HCl (Cardizem Cd Cap*) 240 mg PO DAILY [facility] Last Admin: 04/11/19 08:45 Dose: 240 mg Docusate Sodium (Colace Cap*) 100 mg PO BID [facility] Last Admin: 04/11/19 08:46 Dose: Not Given Enoxaparin Sodium (Lovenox(*)) 40 mg SUBCUT DAILY [facility] Last Admin: 04/11/19 08:47 Dose: 40 mg Folic Acid (Folvite Tab*) 1 mg PO DAILY [facility] Last Admin: 04/11/19 08:45 Dose: 1 mg Heparin Sodium (Porcine) (Heparin Flush Picc/Ml/Cvc(*)) 1 - 3 ml FLUSH 0600, 1800 [facility]; Protocol Last Admin: 04/11/19 05:55 Dose: 1 ml Ceftriaxone Sodium 2 gm/ (Sodium Chloride) 100 mls @ 200 mls/hr IVPB DAILY [facility] Last Admin: 04/11/19 08:48 Dose: 200 mls/hr Levetiracetam (Keppra Tab*) 500 mg PO BID [facility] Last Admin: 04/11/19 08:47 Dose: 500 mg Lisinopril (Prinivil Tab*) 40 mg PO QAM [facility] Last Admin: 04/11/19 08:45 Dose: 40 mg Lorazepam (Ativan Inj*) 1 mg IV PUSH Q1H PRN PRN Reason: seizure Magnesium Hydroxide (Milk Of Magnesia Liq*) 30 ml PO BID PRN PRN Reason: CONSTIPATION Magnesium Oxide (Magox 400 Tab*) 800 mg PO DAILY [facility] Last Admin: 04/11/19 08:44 Dose: 800 mg Megestrol Acetate (Megace Tab*) 80 mg PO QID [facility] Last Admin: 04/11/19 13:10 Dose: 80 mg Melatonin (Melatonin) 6 mg PO BEDTIME PRN PRN Reason: SLEEP Last Admin: 04/10/19 22:07 Dose: 6 mg Miscellaneous (Ativan Pyxis Dunham) 1 ea N/A .ATIVAN IV DUNHAM PRN PRN Reason: PYXIS DUNHAM Multivitamins/Minerals (Theragran/Minerals Tab*) 1 tab PO DAILY [facility] Last Admin: 04/11/19 08:47 Dose: 1 tab Ondansetron HCl (Zofran Inj*) 4 mg IV Q4H PRN PRN Reason: NAUSEA/VOMITING Oxycodone HCl (Roxycodone Tab*) 5 mg PO Q4H PRN PRN Reason: PAIN - SEVERE Last Admin: 04/11/19 12:23 Dose: 5 mg Polyethylene Glycol/Electrolytes (Miralax*) 17 gm PO DAILY PRN PRN Reason: CONSTIPATION Senna (Senokot 8.6 Mg Tab*) 1 tab PO BEDTIME PRN PRN Reason: CONSTIPATION Thiamine HCl (Vitamin B-1 Tab*) 100 mg PO DAILY [facility] Last Admin: 04/11/19 08:47 Dose: 100 mg Zolpidem Tartrate (Ambien Tab*) 5 mg PO BEDTIME PRN PRN Reason: INSOMNIA Last Admin: 04/10/19 22:07 Dose: 5 mg Vital Signs - 8 hr 04/11/19 04/11/19 04/11/19 07:00 08:00 11:00 Temperature 98.2 F 98.3 F Pulse Rate 102 100 Respiratory 20 20 20 Rate Blood Pressure 129/70 119/72 (mmHg) O2 Sat by Pulse 100 96 Oximetry 04/11/19 12:23 Temperature Pulse Rate Respiratory 20 Rate Blood Pressure (mmHg) O2 Sat by Pulse Oximetry Oxygen Devices in Use Now: None Appearance: 69 yo f in nAD, aAOx3 Eyes: No Scleral Icterus, PERRLA Ears/Nose/Mouth/Throat: NL Teeth, Lips, Gums, Mucous Membranes Moist Neck: NL Appearance and Movements; NL JVP, Trachea Midline Respiratory: Symmetrical Chest Expansion and Respiratory Effort, Clear to Auscultation Cardiovascular: NL Sounds; No Murmurs; No JVD, RRR Abdominal: NL Sounds; No Tenderness; No Distention Lymphatic: No Cervical Adenopathy Extremities: No Clubbing, Cyanosis, - - mild left ankle and knee edema Skin: No Nodules or Sclerosis, - - left knee incisions sutured-no dehiscence Neurological: Alert and Oriented x 3, NL Muscle Strength and Tone Result Diagrams: 04/11/19 05:55 04/11/19 05:55 Additional Lab and Data: Troponin 0.02 @ 0934, 0.04 @ 1313, and 0.03 @ 1605 Laboratory Tests 04/01/19 04/01/19 04/01/19 09:34 09:34 09:34 WBC 7.2 RBC 3.11 L Hgb 10.6 L Hct 31 L MCV 100 H MCH 34 H INR (Anticoag Therapy) 1.00 APTT 26.7 Sodium 132 L Potassium 3.7 Chloride 98 L Carbon Dioxide 22 Anion Gap 12 H BUN 27 H Creatinine 1.42 H Glucose 99 Lactic Acid Calcium 9.3 Total Bilirubin 1.60 H C-Reactive Protein 399.08 H Albumin 3.1 L Globulin 4.7 H Albumin/Globulin Ratio 0.7 L Urine Color Urine Appearance Urine pH Ur Specific Herrin Urine Protein Urine Ketones Urine Blood Urine Nitrate Urine Bilirubin Urine Urobilinogen Ur Leukocyte Esterase Urine WBC (Auto) Urine RBC (Auto) Ur Squamous Epith Cells Urine Bacteria Hyaline Casts Urine Glucose 04/01/19 04/01/19 09:34 12:05 WBC RBC Hgb Hct MCV MCH INR (Anticoag Therapy) APTT Sodium Potassium Chloride Carbon Dioxide Anion Gap BUN Creatinine Glucose Lactic Acid 2.9 H* Calcium Total Bilirubin C-Reactive Protein Albumin Globulin Albumin/Globulin Ratio Urine Color Janna Urine Appearance Cloudy Urine pH 5.0 Ur Specific Herrin 1.025 Urine Protein 1+(30 mg/dl) A Urine Ketones Negative Urine Blood 1+ A Urine Nitrate Negative Urine Bilirubin Negative Urine Urobilinogen Negative Ur Leukocyte Esterase Negative Urine WBC (Auto) 2+(11-20/hpf) A Urine RBC (Auto) Absent Ur Squamous Epith Cells Present A Urine Bacteria 1+ A Hyaline Casts Present A Urine Glucose Negative Microbiology and Other Data: Microbiology 04/01/19 09:37 Aerobic Blood Culture - Preliminary Blood Venous Anaerobic Blood Culture - Preliminary Diagnostic Imaging: CT of chest/abdomen/pelvis shows biliary dilitation extending to the area of the ampulla, which is slightly progressed from a study done in September 2018. Findings also include hiatal hernia and artherosclerosis. As well as a trace R pleural effusion. Chest XRay shows hiatal hernia but no active cardiopulmonary disease. L knee XRay shows no fracture. Small joint effusion noted. Mild nonfocal soft tissue edema. EKG Data: Original EKG from this morning shows sinus tachycardia with a rate of 138. A second EKG due to an increased troponin level done at 1608 shows sinus tachycardia as well with a rate of 104. Assess/Plan/Problems-Billing Assessment: is a 69 yo F with PMH of HTN, anxiety, IBS, chronic back pain; who presented to the ED with c/o fever, shaking, chills, and reports of AMS, admitted for sepsis. Later found to have bacteremia with source of left knee infection s/p washout 04/02/19. - Patient Problems (1) Bacteremia Comment: Strep group B bacteremia and sepsis at admission with septic left knee , lumbar discitis, poss cervical discitis and bacterial meningitis - Source is likely septic left knee - PHYLLIS reviewed by Dr. Vidales and Dr. Tariq who do not believe there is evidence of active vegetation cont Ceftriaxone, PICC in place (2) Seizure Comment: New onset on 05/09 Likely mulifactorial: it appears that although pt was placed on Ativan prn, she may have not been asking for it and has not gotten any since 04/05/19. I suspect she had used it at home on a BID basis. Also pt has h/o ETOH abuse and new dx of meningitis. now back to neuro baseline, on Kepra 500 mg BID appreciate neuro consult currently off benzodiazepines, Wellbutrin d/c'd due to poss lowering seizure threshold (3) Altered mental status Comment: - Presented with AMS with delusions that resolved 04/07/19 - CT brain without acute abnormality - Likely multifactorial: septic encephalopathy, alcohol withdrawal, possible bacterial meningitis (4) Anemia Comment: - Macrocytic, with worsening, no acute bleeding noted - Likely 2/2 alcohol use - Normal B12 and folate - Stool occult negative, iron levels pending (5) Bacterial meningitis Comment: - LP with high CSF protein and low glucose support bacterial meningitis, but there is no white count or growth on culture as of this time - Possible that culture without growth as she had been on abx for 2 days at time of LP - No need for isolation - Continue ceftriaxone (meningitis dosing) (6) Chronic back pain Comment: - Continue oxycodone prn (7) Depression Comment: -continue home Abilify (8) Essential (primary) hypertension Comment: controled (9) Septic joint of left knee joint Comment: - Appreciate Ortho consult; s/p washout 04/02 (10) Poor appetite Comment: placed on Megace in ICU, will cont (11) Septic discitis of lumbar region Comment: and c region-refuses Mclean j collar cont TLSO brace appreciate neurosurgery assistance (12) DVT prophylaxis Comment: - Lovenox Status and Disposition: Inpatient.
[2019-04-11] MEDS: ARIPiprazole TAB* 2 MG PO SCH (21:08)
[2019-04-12] MEDS: Acetaminophen TAB* 325 MG PO PRN ×2 (04:08→11:22)
[2019-04-12 06:16] LABS: ABS Eosinophils 0.2 10^3/ul (0-0.6); ABS Lymphocytes 1.9 10^3/ul (1.0-4.8); ABS Monocytes 0.7 10^3/ul (0-0.8); ABS Neutrophils 5.4 10^3/ul (1.5-7.7); Eosinophil % 2.1 %; Hematocrit 23 % (35-47); Hemoglobin 7.8 g/dL (12.0-16.0); Lymphocyte % 23.2 %; Mean Corpuscular HGB Conc 34 g/dL (31-36); Mean Corpuscular Hemoglobin 34 pg (27-31); Mean Corpuscular Volume 99 fL (80-97); Mean Platelet Volume 7.6 fL (7.4-10.4); Platelet Count 691 10^3/uL (150-450); Red Blood Count 2.33 10^6 /uL (3.70-4.87); Red Cell Distribution Width 15 % (10-15); White Blood Count 8.3 10^3/uL (3.5-10.8)
[2019-04-12 06:28] LABS: Calcium 8.4 mg/dL (8.6-10.3); Magnesium 1.8 mg/dL (1.9-2.7); Potassium 3.8 mmol/L (3.5-5.0)
[2019-04-12 06:33] LABS: % Iron Saturation 10 % (15-55); Iron 20 ug/dL (50-212); Total Iron Binding Capacity 206 mcg/dL (250-450); Transferrin 147 mg/dL (203-362)
[2019-04-12 06:34] LABS: BUN/Creatinine Ratio 8.3 (8-20); EGFR African American 96.6 (>60); EGFR Non-African American 79.9 (>60)
[2019-04-12] MEDS: Folic Acid TAB* 1 MG PO SCH (09:02)
[2019-04-12] MEDS: Thiamine TAB* 100 MG TAB PO SCH (09:02)
[2019-04-12] MEDS: Lisinopril TAB* 10 MG PO SCH (09:02)
[2019-04-12] MEDS: oxyCODONE TAB* 5 MG TAB PO PRN ×3 (09:03→20:53)
[2019-04-12] MEDS: Magnesium Oxide TAB* 400 MG PO SCH (09:03)
[2019-04-12] MEDS: Diltiazem CD CAP* 240 MG PO SCH (09:03)
[2019-04-12] MEDS: Multivitamins/Minerals TAB PO SCH (09:04)
[2019-04-12] MEDS: Docusate CAP* 100 MG PO SCH (09:04)
[2019-04-12] MEDS: Ferrous Sulfate TAB* 325 MG PO SCH ×2 (09:04→20:53)
[2019-04-12] MEDS: Megestrol TAB* 40 MG PO SCH ×4 (09:05→20:53)
[2019-04-12] MEDS: Enoxaparin(*) 40 MG/0.4 ML SYR SUBCUT SCH (09:05)
[2019-04-12] MEDS: levETIRAcetam TAB* 500 MG PO SCH ×2 (09:05→20:53)
[2019-04-12] MEDS: cefTRIAXone(*) 2 GM in NS 0.9% 100 ML* 100 ML IVPB SCH (09:07)
--- NOTE | 2019-04-12 11:05 | PN ---
Progress Note - Progress Note Date of Service: 04/12/19 SOAP: Subjective: CC: Left knee infection HPI: Ms. Cartagena is a 69 yo female with PMH significant for HTN, hiatal hernia , nephrolithiasis, anxiety, degenerative disc disease (lumbar), IBS, alcohol abuse, and chronic low back pain; presented to the emergency room with flu like symptoms and was found to have a left knee infection, meningitis, and possible spine infection. Her mentation continues to improve each day, no further seizure activity. Denies fever, chills, chest pain, shortness of breath, nausea , vomiting. Pain in the left leg continues to improve. Reports diarrhea, reports 2-3 loose stools daily. Reports intermittent pain in the back, she reports this as lower left side. Objective: Vital Signs - 8 hr 04/12/19 04/12/19 04/12/19 07:00 08:00 09:03 Temperature 98.3 F Pulse Rate 98 Respiratory 18 20 20 Rate Blood Pressure 122/71 (mmHg) O2 Sat by Pulse 98 Oximetry Physical Exam: General: NAD, laying in bed Neurological: Alert and Oriented to person and place HEENT: Moist MM. No nuchal rigidity Cardiovascular: Heart rate regular Respiratory: Lung sounds clear Abdominal: Bowel sounds present; ABD soft, non tender and slightly distended MSK: No tenderness with palpation of neck, back and spine. Able to flex and extend the left knee. No edema or effusion to the left knee. Full ROM of the neck Skin: No rash. 2 small incisions to the left knee well approximated, no surrounding erythema Laboratory Results - last 24 hr 04/12/19 04/12/19 05:15 05:15 WBC 8.3 RBC 2.33 L Hgb 7.8 L Hct 23 L MCV 99 H MCH 34 H MCHC 34 RDW 15 Plt Count 691 H MPV 7.6 Neut % (Auto) 65.5 Lymph % (Auto) 23.2 [place] % (Auto) 8.7 Eos % (Auto) 2.1 Baso % (Auto) 0.5 Absolute Neuts (auto) 5.4 Absolute Lymphs (auto) 1.9 Absolute Monos (auto) 0.7 Absolute Eos (auto) 0.2 Absolute Basos (auto) 0.0 Absolute Nucleated RBC 0.0 Nucleated RBC % 0.0 Sodium 139 Potassium 3.8 Chloride 106 Carbon Dioxide 29 Anion Gap 4 BUN 6 Creatinine 0.72 Est GFR ( Amer) 96.6 Est GFR (Non-Af Amer) 79.9 BUN/Creatinine Ratio 8.3 Glucose 99 Calcium 8.4 L Magnesium 1.8 L Microbiology 04/03/19 20:32 Aerobic Blood Culture - Final Blood Venous No Growth Day 5 Anaerobic Blood Culture - Final No Growth Day 5 04/03/19 17:27 Aerobic Blood Culture - Final Blood Venous No Growth Day 5 Anaerobic Blood Culture - Final No Growth Day 5 04/01/19 20:30 Fungal Culture - Preliminary Misc Source (See Comment) - Knee Left No Growth Week 1 04/02/19 17:47 Anaerobic Culture - Final Wound No Growth Day 4 04/02/19 17:47 Skin and Soft Tissue MRSA/MSSA (PCR - Final Leg Left Mrsa Negative S.aureus Negative Gram Stain - Final Wound Culture - Final No Growth Day 4 04/02/19 17:41 CSF Gram Stain (Tube 3) - Final Cerebral Spinal Fluid CSF Culture - Final No Growth Day 4 04/01/19 20:30 Gram Stain - Final Joint Fluid(Synovial) - Knee Left Body Fluid Culture - Final No Growth Day 4 Skin and Soft Tissue MRSA/MSSA (PCR - Final Mrsa Negative S.aureus Negative 04/01/19 20:30 Anaerobic Culture - Final Body Fluid No Growth Day 4 04/04/19 12:05 Stool Occult Blood (GHADA) - Final Stool 04/01/19 09:37 Aerobic Blood Culture - Final Blood Venous Strep Agalactiae - (Group B) Anaerobic Blood Culture - Final Strep Agalactiae - (Group B) 04/01/19 09:37 Aerobic Blood Culture - Final Blood Venous Strep Agalactiae - (Group B) Anaerobic Blood Culture - Final Strep Agalactiae - (Group B) 04/01/19 20:30 Acid Fast Bacilli Smear - Final Body Fluid - Knee Left 04/01/19 12:05 Urine Culture - Final Urine No Growth (<1,000 CFU/mL) Assessment: 1. Septic arthritis of the left [place] knee. S/P washout, POD #9. Cultures with no growth. Afebrile and no leukocytosis. Pain in the knee continues to improve. She is able to ambulate with a walker. 2. Possible Lumbar (L3-5) osteodiskitis. No tenderness with palpation. No neurological deficits. Non contrast MRI - abnormally increased T2 signal in the intervertebral discs with adjacent endplate edema at the L3-L4 and L4-L5 level. Contrast MRI with nonspecific vertebral body enhancement centered at L3-4 and L4 -5 and ventral epidural enhancement extending from L2-3 and L5-S1, could represent venous engorgement or phlegmon. 3. Group B strep bacteremia. Present in 4/4 bottles at the time of admission. TTE/PHYLLIS without signs of endocarditis. She denies presence of prosthetic materials. Urine culture with no growth. She does have a septic knee, bacterial meningitis, and lumbar osteodiskitis. Repeat blood cultures with no growth on day 4. 4. Bacterial meningitis. CSF gram stain with no organisms. HSV negative. Lyme PCR negative. 5. PCN allergy. Tolerating Ceftriaxone without difficulty. Plan: Continue Ceftriaxone 2 gm IV daily, day -56. Has a PICC line in place. Weekly labs while on IV ABX: CBC, CMP, and CRP. Followup with ID outpatient. 25 minutes floor time: > 50% spent with Pt and Partner Diana discussing prolonged course of IV ABX.
[2019-04-12] MEDS ORDERED: Docusate CAP* 100 MG PO PRN (11:13)
--- NOTE | 2019-04-12 16:26 | PN ---
Subjective Date of Service: 04/12/19 Interval History: Pt feels well, lower back still hurts when ambulating, but pain is controlled with oxycodone Family History: Unchanged from Admission Social History: Unchanged from Admission Past Medical History: Unchanged from Admission Objective Active Medications: Acetaminophen (Tylenol Tab*) 650 mg PO Q4H PRN PRN Reason: PAIN - MILD Last Admin: 04/12/19 11:22 Dose: 650 mg Aripiprazole (Abilify Tab*) 2 mg PO BEDTIME [facility] Last Admin: 04/11/19 21:08 Dose: 2 mg Diltiazem HCl (Cardizem Cd Cap*) 240 mg PO DAILY [facility] Last Admin: 04/12/19 09:03 Dose: 240 mg Docusate Sodium (Colace Cap*) 100 mg PO BID PRN PRN Reason: CONSTIPATION Enoxaparin Sodium (Lovenox(*)) 40 mg SUBCUT DAILY [facility] Last Admin: 04/12/19 09:05 Dose: 40 mg Ferrous Sulfate (Ferrous Sulfate Tab*) 325 mg PO BID [facility] Last Admin: 04/12/19 09:04 Dose: 325 mg Folic Acid (Folvite Tab*) 1 mg PO DAILY [facility] Last Admin: 04/12/19 09:02 Dose: 1 mg Heparin Sodium (Porcine) (Heparin Flush Picc/Ml/Cvc(*)) 1 - 3 ml FLUSH 0600, 1800 [facility]; Protocol Last Admin: 04/12/19 05:18 Dose: 1 ml Ceftriaxone Sodium 2 gm/ (Sodium Chloride) 100 mls @ 200 mls/hr IVPB DAILY [facility] Last Admin: 04/12/19 09:07 Dose: 200 mls/hr Levetiracetam (Keppra Tab*) 500 mg PO BID [facility] Last Admin: 04/12/19 09:05 Dose: 500 mg Lisinopril (Prinivil Tab*) 40 mg PO QAM [facility] Last Admin: 04/12/19 09:02 Dose: 40 mg Lorazepam (Ativan Inj*) 1 mg IV PUSH Q1H PRN PRN Reason: seizure Magnesium Hydroxide (Milk Of Magnesia Liq*) 30 ml PO BID PRN PRN Reason: CONSTIPATION Magnesium Oxide (Magox 400 Tab*) 800 mg PO DAILY [facility] Last Admin: 04/12/19 09:03 Dose: 800 mg Megestrol Acetate (Megace Tab*) 80 mg PO QID [facility] Last Admin: 04/12/19 14:18 Dose: 80 mg Melatonin (Melatonin) 6 mg PO BEDTIME PRN PRN Reason: SLEEP Last Admin: 04/10/19 22:07 Dose: 6 mg Miscellaneous (Ativan Pyxis [place]) 1 ea N/A .ATIVAN IV DUNHAM PRN PRN Reason: PYXIS DUNHAM Multivitamins/Minerals (Theragran/Minerals Tab*) 1 tab PO DAILY [facility] Last Admin: 04/12/19 09:04 Dose: 1 tab Ondansetron HCl (Zofran Inj*) 4 mg IV Q4H PRN PRN Reason: NAUSEA/VOMITING Oxycodone HCl (Roxycodone Tab*) 5 mg PO Q4H PRN PRN Reason: PAIN - SEVERE Last Admin: 04/12/19 09:03 Dose: 5 mg Polyethylene Glycol/Electrolytes (Miralax*) 17 gm PO DAILY PRN PRN Reason: CONSTIPATION Senna (Senokot 8.6 Mg Tab*) 1 tab PO BEDTIME PRN PRN Reason: CONSTIPATION Thiamine HCl (Vitamin B-1 Tab*) 100 mg PO DAILY [facility] Last Admin: 04/12/19 09:02 Dose: 100 mg Zolpidem Tartrate (Ambien Tab*) 5 mg PO BEDTIME PRN PRN Reason: INSOMNIA Last Admin: 04/10/19 22:07 Dose: 5 mg Vital Signs - 8 hr 04/12/19 04/12/19 04/12/19 09:03 11:37 12:07 Temperature 99.5 F Pulse Rate 100 Respiratory 20 16 20 Rate Blood Pressure 131/68 (mmHg) O2 Sat by Pulse 99 Oximetry 04/12/19 15:00 Temperature 98.3 F Pulse Rate 95 Respiratory 20 Rate Blood Pressure 125/68 (mmHg) O2 Sat by Pulse 96 Oximetry Oxygen Devices in Use Now: None Appearance: 69 yo F in nAD, aAOx3 Eyes: No Scleral Icterus, PERRLA Ears/Nose/Mouth/Throat: NL Teeth, Lips, Gums, Mucous Membranes Moist Neck: NL Appearance and Movements; NL JVP, Trachea Midline Respiratory: Symmetrical Chest Expansion and Respiratory Effort, Clear to Auscultation Cardiovascular: NL Sounds; No Murmurs; No JVD, RRR Abdominal: NL Sounds; No Tenderness; No Distention Lymphatic: No Cervical Adenopathy Extremities: No Clubbing, Cyanosis, - - left knee and calf edema noted Skin: - - left knee-post op sutures in place Neurological: Alert and Oriented x 3, - - has problems with moving L leg due to back pain , but no true motor deficit noted Result Diagrams: 04/12/19 05:15 04/12/19 05:15 Additional Lab and Data: Troponin 0.02 @ 0934, 0.04 @ 1313, and 0.03 @ 1605 Laboratory Tests 04/01/19 04/01/19 04/01/19 09:34 09:34 09:34 WBC 7.2 RBC 3.11 L Hgb 10.6 L Hct 31 L MCV 100 H MCH 34 H INR (Anticoag Therapy) 1.00 APTT 26.7 Sodium 132 L Potassium 3.7 Chloride 98 L Carbon Dioxide 22 Anion Gap 12 H BUN 27 H Creatinine 1.42 H Glucose 99 Lactic Acid Calcium 9.3 Total Bilirubin 1.60 H C-Reactive Protein 399.08 H Albumin 3.1 L Globulin 4.7 H Albumin/Globulin Ratio 0.7 L Urine Color Urine Appearance Urine pH Ur Specific [place] Urine Protein Urine Ketones Urine Blood Urine Nitrate Urine Bilirubin Urine Urobilinogen Ur Leukocyte Esterase Urine WBC (Auto) Urine RBC (Auto) Ur Squamous Epith Cells Urine Bacteria Hyaline Casts Urine Glucose 04/01/19 04/01/19 09:34 12:05 WBC RBC Hgb Hct MCV MCH INR (Anticoag Therapy) APTT Sodium Potassium Chloride Carbon Dioxide Anion Gap BUN Creatinine Glucose Lactic Acid 2.9 H* Calcium Total Bilirubin C-Reactive Protein Albumin Globulin Albumin/Globulin Ratio Urine Color Janna Urine Appearance Cloudy Urine pH 5.0 Ur Specific [place] 1.025 Urine Protein 1+(30 mg/dl) A Urine Ketones Negative Urine Blood 1+ A Urine Nitrate Negative Urine Bilirubin Negative Urine Urobilinogen Negative Ur Leukocyte Esterase Negative Urine WBC (Auto) 2+(11-20/hpf) A Urine RBC (Auto) Absent Ur Squamous Epith Cells Present A Urine Bacteria 1+ A Hyaline Casts Present A Urine Glucose Negative Microbiology and Other Data: Microbiology 04/01/19 09:37 Aerobic Blood Culture - Preliminary Blood Venous Anaerobic Blood Culture - Preliminary EKG Data: Original EKG from this morning shows sinus tachycardia with a rate of 138. A second EKG due to an increased troponin level done at 1608 shows sinus tachycardia as well with a rate of 104. Assess/Plan/Problems-Billing Assessment: is a 69 yo F with PMH of HTN, anxiety, IBS, chronic back pain; who presented to the ED with c/o fever, shaking, chills, and reports of AMS, admitted for sepsis. Later found to have bacteremia with source of left knee infection s/p washout 04/02/19. - Patient Problems (1) Bacteremia Comment: Strep group B bacteremia and sepsis at admission with septic left knee , lumbar discitis, poss cervical discitis and bacterial meningitis - Source is likely septic left knee - PHYLLIS reviewed by Dr. Vidales and Dr. Tariq who do not believe there is evidence of active vegetation cont Ceftriaxone x 4-[address] place. Pt is medically ready for STR (2) Seizure Comment: New onset on 05/09 Likely mulifactorial: it appears that although pt was placed on Ativan prn, she may have not been asking for it and has not gotten any since 04/05/19. I suspect she had used it at home on a BID basis. Also pt has h/o ETOH abuse and new dx of meningitis. now back to neuro baseline, on Kepra 500 mg BID appreciate neuro consult currently off benzodiazepines, Wellbutrin d/c'd due to poss lowering seizure threshold (3) Altered mental status Comment: - Presented with AMS with delusions that resolved 04/07/19 - CT brain without acute abnormality - Likely multifactorial: septic encephalopathy, alcohol withdrawal, possible bacterial meningitis (4) Anemia Comment: - Macrocytic, with worsening, no acute bleeding noted - Likely 2/2 alcohol use - Normal B12 and folate - Stool occult negative, iron levels low-started on ferrous sulfate (5) Bacterial meningitis Comment: - LP with high CSF protein and low glucose support bacterial meningitis, but there is no white count or growth on culture as of this time - Possible that culture without growth as she had been on abx for 2 days at time of LP - No need for isolation - Continue ceftriaxone (meningitis dosing) (6) Chronic back pain Comment: - Continue oxycodone prn (7) Depression Comment: -continue home Abilify (8) Essential (primary) hypertension Comment: controled (9) Septic joint of left knee joint Comment: - Appreciate Ortho consult; s/p washout 04/02 (10) Poor appetite Comment: placed on Megace in ICU, will cont (11) Septic discitis of lumbar region Comment: and c region-refuses [place] j collar cont TLSO brace -f/u X Rays demonstrate no problems with stability appreciate neurosurgery assistance (12) DVT prophylaxis Comment: - Lovenox Status and Disposition: Inpatient.
[2019-04-12] MEDS: ARIPiprazole TAB* 2 MG PO SCH (20:52)
[2019-04-13] MEDS: oxyCODONE TAB* 5 MG TAB PO PRN ×5 (01:54→23:49)
[2019-04-13] MEDS: Acetaminophen TAB* 325 MG PO PRN ×5 (05:50→23:48)
[2019-04-13 06:03] LABS: Hematocrit 25 % (35-47); Hemoglobin 8.3 g/dL (12.0-16.0); Mean Corpuscular HGB Conc 34 g/dL (31-36); Mean Corpuscular Hemoglobin 33 pg (27-31); Mean Corpuscular Volume 99 fL (80-97); Mean Platelet Volume 7.9 fL (7.4-10.4); Platelet Count 762 10^3/uL (150-450); Red Blood Count 2.49 10^6 /uL (3.70-4.87); Red Cell Distribution Width 15 % (10-15); White Blood Count 10.6 10^3/uL (3.5-10.8)
[2019-04-13] MEDS: Lisinopril TAB* 10 MG PO SCH (08:03)
[2019-04-13] MEDS: levETIRAcetam TAB* 500 MG PO SCH ×2 (08:03→20:15)
[2019-04-13] MEDS: Magnesium Oxide TAB* 400 MG PO SCH (08:03)
[2019-04-13] MEDS: Ferrous Sulfate TAB* 325 MG PO SCH ×2 (08:04→20:16)
[2019-04-13] MEDS: Thiamine TAB* 100 MG TAB PO SCH (08:04)
[2019-04-13] MEDS: cefTRIAXone(*) 2 GM in NS 0.9% 100 ML* 100 ML IVPB SCH (08:04)
[2019-04-13] MEDS: Megestrol TAB* 40 MG PO SCH (08:04)
[2019-04-13] MEDS: Enoxaparin(*) 40 MG/0.4 ML SYR SUBCUT SCH (08:04)
[2019-04-13] MEDS: Multivitamins/Minerals TAB PO SCH (08:04)
[2019-04-13] MEDS: Diltiazem CD CAP* 240 MG PO SCH (08:04)
[2019-04-13] MEDS: Folic Acid TAB* 1 MG PO SCH (08:04)
--- NOTE | 2019-04-13 11:11 | PN ---
Subjective Date of Service: 04/13/19 Interval History: Pt is having more pain today than yesterday. She states last evening she started to have increased pain from her L low back to her L knee. She wonders if it may have been from doing Xrays yesterday. She admits to having 3-4 mushy BMs/day. Family History: Unchanged from Admission Social History: Unchanged from Admission Past Medical History: Unchanged from Admission Objective Active Medications: Acetaminophen (Tylenol Tab*) 650 mg PO Q4H PRN PRN Reason: PAIN - MILD Last Admin: 04/13/19 05:50 Dose: 650 mg Aripiprazole (Abilify Tab*) 2 mg PO BEDTIME [facility] Last Admin: 04/12/19 20:52 Dose: 2 mg Diltiazem HCl (Cardizem Cd Cap*) 240 mg PO DAILY [facility] Last Admin: 04/13/19 08:04 Dose: 240 mg Docusate Sodium (Colace Cap*) 100 mg PO BID PRN PRN Reason: CONSTIPATION Enoxaparin Sodium (Lovenox(*)) 40 mg SUBCUT DAILY [facility] Last Admin: 04/13/19 08:04 Dose: 40 mg Ferrous Sulfate (Ferrous Sulfate Tab*) 325 mg PO BID [facility] Last Admin: 04/13/19 08:04 Dose: 325 mg Folic Acid (Folvite Tab*) 1 mg PO DAILY [facility] Last Admin: 04/13/19 08:04 Dose: 1 mg Heparin Sodium (Porcine) (Heparin Flush Picc/Ml/Cvc(*)) 1 - 3 ml FLUSH 0600, 1800 [facility]; Protocol Last Admin: 04/13/19 05:24 Dose: 1 ml Ceftriaxone Sodium 2 gm/ (Sodium Chloride) 100 mls @ 200 mls/hr IVPB DAILY [facility] Last Admin: 04/13/19 08:04 Dose: 200 mls/hr Levetiracetam (Keppra Tab*) 500 mg PO BID [facility] Last Admin: 04/13/19 08:03 Dose: 500 mg Lisinopril (Prinivil Tab*) 40 mg PO QAM [facility] Last Admin: 04/13/19 08:03 Dose: 40 mg Lorazepam (Ativan Inj*) 1 mg IV PUSH Q1H PRN PRN Reason: seizure Magnesium Hydroxide (Milk Of Magnesia Liq*) 30 ml PO BID PRN PRN Reason: CONSTIPATION Magnesium Oxide (Magox 400 Tab*) 800 mg PO DAILY [facility] Last Admin: 04/13/19 08:03 Dose: 800 mg Megestrol Acetate (Megace Tab*) 80 mg PO QID [facility] Last Admin: 04/13/19 08:04 Dose: 80 mg Melatonin (Melatonin) 6 mg PO BEDTIME PRN PRN Reason: SLEEP Last Admin: 04/10/19 22:07 Dose: 6 mg Miscellaneous (Ativan Pyxis [place]) 1 ea N/A .ATIVAN IV DUNHAM PRN PRN Reason: PYXIS DUNHAM Multivitamins/Minerals (Theragran/Minerals Tab*) 1 tab PO DAILY [facility] Last Admin: 04/13/19 08:04 Dose: 1 tab Ondansetron HCl (Zofran Inj*) 4 mg IV Q4H PRN PRN Reason: NAUSEA/VOMITING Oxycodone HCl (Roxycodone Tab*) 5 mg PO Q4H PRN PRN Reason: PAIN - SEVERE Last Admin: 04/13/19 08:04 Dose: 5 mg Polyethylene Glycol/Electrolytes (Miralax*) 17 gm PO DAILY PRN PRN Reason: CONSTIPATION Senna (Senokot 8.6 Mg Tab*) 1 tab PO BEDTIME PRN PRN Reason: CONSTIPATION Thiamine HCl (Vitamin B-1 Tab*) 100 mg PO DAILY [facility] Last Admin: 04/13/19 08:04 Dose: 100 mg Zolpidem Tartrate (Ambien Tab*) 5 mg PO BEDTIME PRN PRN Reason: INSOMNIA Last Admin: 04/10/19 22:07 Dose: 5 mg Vital Signs - 8 hr 04/13/19 04/13/19 04/13/19 04:30 07:00 08:00 Temperature 98.8 F Pulse Rate 100 Respiratory 16 19 18 Rate Blood Pressure 129/72 (mmHg) O2 Sat by Pulse 97 Oximetry 04/13/19 04/13/19 08:04 09:57 Temperature Pulse Rate Respiratory 18 20 Rate Blood Pressure (mmHg) O2 Sat by Pulse Oximetry Oxygen Devices in Use Now: None Appearance: Elderly female sitting up in bed, NAD Eyes: No Scleral Icterus Ears/Nose/Mouth/Throat: Mucous Membranes Moist Respiratory: Symmetrical Chest Expansion and Respiratory Effort, Clear to Auscultation Cardiovascular: NL Sounds; No Murmurs; No JVD, RRR, No Edema Abdominal: NL Sounds; No Tenderness; No Distention Extremities: No Clubbing, Cyanosis Skin: No Nodules or Sclerosis Neurological: Alert and Oriented x 3 Result Diagrams: 04/13/19 05:15 04/12/19 05:15 Additional Lab and Data: Troponin 0.02 @ 0934, 0.04 @ 1313, and 0.03 @ 1605 Laboratory Tests 04/01/19 04/01/19 04/01/19 09:34 09:34 09:34 WBC 7.2 RBC 3.11 L Hgb 10.6 L Hct 31 L MCV 100 H MCH 34 H INR (Anticoag Therapy) 1.00 APTT 26.7 Sodium 132 L Potassium 3.7 Chloride 98 L Carbon Dioxide 22 Anion Gap 12 H BUN 27 H Creatinine 1.42 H Glucose 99 Lactic Acid Calcium 9.3 Total Bilirubin 1.60 H C-Reactive Protein 399.08 H Albumin 3.1 L Globulin 4.7 H Albumin/Globulin Ratio 0.7 L Urine Color Urine Appearance Urine pH Ur Specific [place] Urine Protein Urine Ketones Urine Blood Urine Nitrate Urine Bilirubin Urine Urobilinogen Ur Leukocyte Esterase Urine WBC (Auto) Urine RBC (Auto) Ur Squamous Epith Cells Urine Bacteria Hyaline Casts Urine Glucose 04/01/19 04/01/19 09:34 12:05 WBC RBC Hgb Hct MCV MCH INR (Anticoag Therapy) APTT Sodium Potassium Chloride Carbon Dioxide Anion Gap BUN Creatinine Glucose Lactic Acid 2.9 H* Calcium Total Bilirubin C-Reactive Protein Albumin Globulin Albumin/Globulin Ratio Urine Color Janna Urine Appearance Cloudy Urine pH 5.0 Ur Specific [place] 1.025 Urine Protein 1+(30 mg/dl) A Urine Ketones Negative Urine Blood 1+ A Urine Nitrate Negative Urine Bilirubin Negative Urine Urobilinogen Negative Ur Leukocyte Esterase Negative Urine WBC (Auto) 2+(11-20/hpf) A Urine RBC (Auto) Absent Ur Squamous Epith Cells Present A Urine Bacteria 1+ A Hyaline Casts Present A Urine Glucose Negative Microbiology and Other Data: Microbiology 04/01/19 09:37 Aerobic Blood Culture - Preliminary Blood Venous Anaerobic Blood Culture - Preliminary Diagnostic Imaging: CT of chest/abdomen/pelvis shows biliary dilitation extending to the area of the ampulla, which is slightly progressed from a study done in September 2018. Findings also include hiatal hernia and artherosclerosis. As well as a trace R pleural effusion. Chest XRay shows hiatal hernia but no active cardiopulmonary disease. L knee XRay shows no fracture. Small joint effusion noted. Mild nonfocal soft tissue edema. EKG Data: Original EKG from this morning shows sinus tachycardia with a rate of 138. A second EKG due to an increased troponin level done at 1608 shows sinus tachycardia as well with a rate of 104. Assess/Plan/Problems-Billing Assessment: is a 69 yo F with PMH of HTN, anxiety, IBS, chronic back pain; who presented to the ED with c/o fever, shaking, chills, and reports of AMS, admitted for sepsis. Later found to have bacteremia with source of left knee infection s/p washout 04/02/19. - Patient Problems (1) Bacteremia Current Visit: Yes Status: Acute Code(s): R78.81 - BACTEREMIA SNOMED Code( s): 6515974 Comment: Pt with Strep group B bacteremia and sepsis at admission with septic left knee, lumbar discitis, poss cervical discitis and bacterial meningitis. No evidence of endocarditis. Continue ceftriaxone 2g IV daily, today is D#12/42-56. Pt is medically ready for STR. (2) Septic joint of left knee joint Current Visit: Yes Status: Acute Code(s): M00.9 - PYOGENIC ARTHRITIS, UNSPECIFIED SNOMED Code(s): 454231069 Comment: Pt went to the OR on 04/02 for a washout. She has continued pain. Check CRP. Knee is not red or warm to touch. Continue ceftriaxone as above. Continue oxycodone for pain control. (3) Bacterial meningitis Current Visit: Yes Status: Acute Code(s): G00.9 - BACTERIAL MENINGITIS, UNSPECIFIED SNOMED Code(s): 26062156 Comment: Pt with likely bacterial meningitis on admission. LP was done 2 days after starting Abx and possibly had a partially treated meningitis. Continue ceftriaxone at meningitis dosing. (4) Septic discitis of lumbar region Current Visit: Yes Status: Acute Code(s): M46.46 - DISCITIS, UNSPECIFIED, LUMBAR REGION SNOMED Code(s): 317395875 Comment: Pt with probable lumbar discitis and questionable cervical discitis. Pt is very uncomfortable in the TLSO brace. She has not been wearing the [place] J collar. She does have any evidence of instability in her C or L spine therefore I will not push the patient to wear the braces. (5) Seizure Current Visit: Yes Status: Acute Code(s): R56.9 - UNSPECIFIED CONVULSIONS SNOMED Code(s): 88769561 Comment: Not completely clear why the patient had a seizure. Per Dr. Osborn , possibly secondary to EtOH withdrawal, benzo withdrawal, meningitis and being on welllbutrin. She was started on keppra and the dose has now been decreased to 500mg BID. (6) Anemia Current Visit: Yes Status: Acute Code(s): D64.9 - ANEMIA, UNSPECIFIED SNOMED Code(s): 343767814 Comment: Pt with macrocytic anemia possibly secondary to alcohol use. Iron studies show likely anemia of chronic inflammation. H/H stable. Continue to follow intermittently. (7) Altered mental status Current Visit: Yes Status: Acute Code(s): R41.82 - ALTERED MENTAL STATUS, UNSPECIFIED SNOMED Code(s): 740821732 Comment: On admission pt with AMS likely secondary to EtOH withdrawal, probable bacterial meningitis and septic encephalopathy. Now resolved. (8) KARLA (acute kidney injury) Current Visit: Yes Status: Acute Code(s): N17.9 - ACUTE KIDNEY FAILURE, UNSPECIFIED SNOMED Code(s): 86308948 Comment: On admission pt with creatinine twice above her baseline. Now resolved. (9) Chronic back pain Current Visit: Yes Status: Acute Code(s): M54.9 - DORSALGIA, UNSPECIFIED; G89.29 - OTHER CHRONIC PAIN SNOMED Code(s): 202863553 Comment: Pt with acute on chronic back pain. Continue prn oxycodone. She states her pain is greater today than yesterday. Will repeat CRP tomorrow. Will also add prn toradol IV. (10) Essential (primary) hypertension Current Visit: Yes Status: Acute Code(s): I10 - ESSENTIAL (PRIMARY) HYPERTENSION SNOMED Code(s): 00786826 Comment: BP is under good control. Continue lisinopril 40mg daily. (11) DVT prophylaxis Current Visit: Yes Status: Acute Code(s): Z29.9 - ENCOUNTER FOR PROPHYLACTIC MEASURES, UNSPECIFIED SNOMED Code(s): 435627364 Comment: lovenox (12) Full code status Current Visit: Yes Status: Acute Code(s): Z78.9 - OTHER SPECIFIED HEALTH STATUS SNOMED Code(s): 574867136 Comment: Status and Disposition: Inpatient.
--- NOTE | 2019-04-13 11:22 | PN ---
Progress Note - Progress Note Date of Service: 04/13/19 SOAP: Subjective: Patient seen and examined at bedside. States she has increased pain in her back and knee today. She She denies f/c, CP, SOB. Objective: Gen: NAD, nontoxic appearing LLE: Some difuse soft tissue swelling about the LLE compared to contralateral side. No warmth or erythema. L knee incisions CDI, no erythema or drainage. New dressings were placed with 4x4 and daquan. NVI distally. Calves supple and nontender Assessment: []POD #11 Left knee arthroscopic I&D Plan: []Cont PT, WBAT Cont IV abx per ID Ortho to continue to follow while in house, change dressing every other day, can be completed by nursing Laboratory Last Values WBC 10.6 10^3/uL (3.5-10.8) 04/13/19 05:15 RBC 2.49 10^6 /uL (3.70-4.87) L 04/13/19 05:15 Hgb 8.3 g/dL (12.0-16.0) L 04/13/19 05:15 Hct 25 % (35-47) L 04/13/19 05:15 MCV 99 fL (80-97) H 04/13/19 05:15 MCH 33 pg (27-31) H 04/13/19 05:15 MCHC 34 g/dL (31-36) 04/13/19 05:15 RDW 15 % (10-15) 04/13/19 05:15 Plt Count 762 10^3/uL (150-450) H D 04/13/19 05:15 MPV 7.9 fL (7.4-10.4) 04/13/19 05:15 Neut % (Auto) 65.5 % 04/12/19 05:15 Lymph % (Auto) 23.2 % 04/12/19 05:15 Luna % (Auto) 8.7 % 04/12/19 05:15 Eos % (Auto) 2.1 % 04/12/19 05:15 Baso % (Auto) 0.5 % 04/12/19 05:15 Absolute Neuts (auto) 5.4 10^3/ul (1.5-7.7) 04/12/19 05:15 Absolute Lymphs (auto) 1.9 10^3/ul (1.0-4.8) 04/12/19 05:15 Absolute Monos (auto) 0.7 10^3/ul (0-0.8) 04/12/19 05:15 Absolute Eos (auto) 0.2 10^3/ul (0-0.6) 04/12/19 05:15 Absolute Basos (auto) 0.0 10^3/ul (0-0.2) 04/12/19 05:15 Absolute Nucleated RBC 0.0 10^3/ul 04/12/19 05:15 Nucleated RBC % 0.0 04/12/19 05:15 ESR 113 mm/Hr (0-29) H 04/02/19 06:34 INR (Anticoag Therapy) 1.04 (0.82-1.09) 04/02/19 16:35 APTT 24.1 seconds (26.0-38.0) L 04/02/19 16:35 Sodium 139 mmol/L (135-145) 04/12/19 05:15 Potassium 3.8 mmol/L (3.5-5.0) 04/12/19 05:15 Chloride 106 mmol/L (101-111) 04/12/19 05:15 Carbon Dioxide 29 mmol/L (22-32) 04/12/19 05:15 Anion Gap 4 mmol/L (2-11) 04/12/19 05:15 BUN 6 mg/dL (6-24) 04/12/19 05:15 Creatinine 0.72 mg/dL (0.51-0.95) 04/12/19 05:15 Est GFR ( Amer) 96.6 (>60) 04/12/19 05:15 Est GFR (Non-Af Amer) 79.9 (>60) 04/12/19 05:15 BUN/Creatinine Ratio 8.3 (8-20) 04/12/19 05:15 Glucose 99 mg/dL (70-100) 04/12/19 05:15 POC Glucose (mg/dL) 64 mg/dL (70-100) L 04/02/19 18:27 Lactic Acid 0.4 mmol/L (0.5-2.0) L 04/02/19 16:35 Calcium 8.4 mg/dL (8.6-10.3) L 04/12/19 05:15 Phosphorus 3.5 mg/dL (2.5-5.0) 04/04/19 05:28 Magnesium 1.8 mg/dL (1.9-2.7) L 04/12/19 05:15 Iron 20 ug/dL (50-212) L 04/12/19 05:15 TIBC 206 mcg/dL (250-450) L 04/12/19 05:15 % Saturation 10 % (15-55) L 04/12/19 05:15 Unsat Iron Binding < 191 ug/dL 04/12/19 05:15 Transferrin 147 mg/dL (203-362) L 04/12/19 05:15 Ferritin 233.3 ng/mL (11-307) 04/11/19 12:00 Total Bilirubin 0.90 mg/dL (0.2-1.0) 04/02/19 16:35 AST 30 U/L (13-39) 04/02/19 16:35 ALT 20 U/L (7-52) 04/02/19 16:35 Alkaline Phosphatase 107 U/L (34-104) H 04/02/19 16:35 Total Creatine Kinase 179 U/L (10-223) 04/02/19 06:34 Troponin I 0.03 ng/mL (<0.03) H* 04/01/19 16:05 C-Reactive Protein 104.69 mg/L (<8.01) H 04/09/19 04:35 Total Protein 6.0 g/dL (6.4-8.9) L 04/02/19 16:35 Albumin 2.5 g/dL (3.2-5.2) L 04/02/19 16:35 Globulin 3.5 g/dL (2-4) 04/02/19 16:35 Albumin/Globulin Ratio 0.7 (1-3) L 04/02/19 16:35 Lipase 16 U/L (11.0-82.0) 04/01/19 13:13 Vitamin B12 584 pg/mL (180-914) 04/04/19 05:28 Folate > 20.00 ng/mL (>3.99) 04/04/19 05:28 TSH 0.74 mcIU/mL (0.34-5.60) 04/05/19 05:22 Urine Color Janna 04/01/19 12:05 Urine Appearance Cloudy 04/01/19 12:05 Urine pH 5.0 (5-9) 04/01/19 12:05 Ur Specific [place] 1.025 (1.010-1.030) 04/01/19 12:05 Urine Protein 1+(30 mg/dl) (Negative) A 04/01/19 12:05 Urine Ketones Negative (Negative) 04/01/19 12:05 Urine Blood 1+ (Negative) A 04/01/19 12:05 Urine Nitrate Negative (Negative) 04/01/19 12:05 Urine Bilirubin Negative (Negative) 04/01/19 12:05 Urine Urobilinogen Negative (Negative) 04/01/19 12:05 Ur Leukocyte Esterase Negative (Negative) 04/01/19 12:05 Urine WBC (Auto) 2+(11-20/hpf) (Absent) A 04/01/19 12:05 Urine RBC (Auto) Absent (Absent) 04/01/19 12:05 Ur Squamous Epith Cells Present (Absent) A 04/01/19 12:05 Urine Bacteria 1+ (Absent) A 04/01/19 12:05 Hyaline Casts Present (Absent) A 04/01/19 12:05 Urine Glucose Negative (Negative) 04/01/19 12:05 Fluid Source Cerebral spinal 04/02/19 17:41 Fluid Volume 3 mL 04/02/19 17:41 Fluid Color Yellow 04/02/19 17:41 Fluid Appearance Clear 04/02/19 17:41 Fluid WBC 9 /mcL 04/02/19 17:41 Fluid RBC 41 /mcL 04/02/19 17:41 Fluid Tot Cell Count 100 04/02/19 17:41 Fluid Neutrophils 42 % 04/02/19 17:41 Fluid Lymphocytes 8 % 04/02/19 17:41 Fluid Monocytes 50 % 04/02/19 17:41 Fluid Other Cells 2 04/01/19 20:30 Fluid Cell Count Rvw By 04/02/19 17:41 Fluid Crystals None seen (None Seen) 04/01/19 20:30 B. burgdorferi (PCR) Negative (Negative) 04/01/19 20:30 B. mayonii (PCR) Negative (Negative) 04/01/19 20:30 B.garinii/B.afzelii PCR Negative (Negative) 04/01/19 20:30 CSF Cell Count Tube # 4 04/02/19 17:41 CSF Glucose 36 mg/dL (40-70) L 04/02/19 17:41 CSF Total Protein 315 mg/dL (15-45) H 04/02/19 17:41 CSF HSV I (PCR) Negative (Negative) 04/02/19 17:41 CSF Herpes II DNA (PCR) Negative (Negative) 04/02/19 17:41 Lyme Specimen Source Synovial fluid 04/01/19 20:30 Influenza A (Rapid) Negative (Negative) 04/01/19 09:21 Influenza B (Rapid) Negative (Negative) 04/01/19 09:21 Vital Signs 04/12/19 04/12/19 04/12/19 11:37 12:07 15:00 Temperature 99.5 F 98.3 F Pulse Rate 100 95 Respiratory 16 20 20 Rate Blood Pressure 131/68 125/68 (mmHg) O2 Sat by Pulse 99 96 Oximetry 04/12/19 04/12/19 04/12/19 16:34 18:50 19:49 Temperature 98.9 F Pulse Rate 99 Respiratory 18 16 16 Rate Blood Pressure 130/71 (mmHg) O2 Sat by Pulse 97 Oximetry 04/12/19 04/12/19 04/12/19 19:55 20:53 23:00 Temperature 99.2 F Pulse Rate 112 Respiratory 16 16 19 Rate Blood Pressure 130/67 (mmHg) O2 Sat by Pulse 96 Oximetry 04/13/19 04/13/19 04/13/19 00:26 01:54 03:00 Temperature 97.9 F Pulse Rate 95 Respiratory 18 16 19 Rate Blood Pressure 122/63 (mmHg) O2 Sat by Pulse 95 Oximetry 04/13/19 04/13/19 04/13/19 04:30 07:00 08:00 Temperature 98.8 F Pulse Rate 100 Respiratory 16 19 18 Rate Blood Pressure 129/72 (mmHg) O2 Sat by Pulse 97 Oximetry 04/13/19 04/13/19 08:04 09:57 Temperature Pulse Rate Respiratory 18 20 Rate Blood Pressure (mmHg) O2 Sat by Pulse Oximetry
[2019-04-13] MEDS: ARIPiprazole TAB* 2 MG PO SCH (20:15)
[2019-04-14] MEDS: Ketorolac INJ* 15 MG/ML 1 ML VIAL IV PUSH PRN (03:46)
[2019-04-14] MEDS: cefTRIAXone(*) 2 GM in NS 0.9% 100 ML* 100 ML IVPB SCH (09:51)
[2019-04-14] MEDS: Magnesium Oxide TAB* 400 MG PO SCH (09:56)
[2019-04-14] MEDS: Folic Acid TAB* 1 MG PO SCH (09:56)
[2019-04-14] MEDS: Enoxaparin(*) 40 MG/0.4 ML SYR SUBCUT SCH (09:56)
[2019-04-14] MEDS: Diltiazem CD CAP* 240 MG PO SCH (09:56)
[2019-04-14] MEDS: Lisinopril TAB* 10 MG PO SCH (09:57)
[2019-04-14] MEDS: Thiamine TAB* 100 MG TAB PO SCH (09:57)
[2019-04-14] MEDS: Ferrous Sulfate TAB* 325 MG PO SCH ×2 (09:57→20:21)
[2019-04-14] MEDS: levETIRAcetam TAB* 500 MG PO SCH ×2 (09:57→20:21)
[2019-04-14] MEDS: Multivitamins/Minerals TAB PO SCH (09:57)
[2019-04-14] MEDS: oxyCODONE TAB* 5 MG TAB PO PRN ×2 (10:24→20:21)
--- NOTE | 2019-04-14 16:54 | PN ---
Subjective Date of Service: 04/14/19 Interval History: Pt is feeling about the same today. Today she tells me that since the insertion of her PICC line on 04/11 she has noticed weakness in the R UE. She notes that from the elbow down she is fine, when she tries to flex at the shoulder she can not raise her to 90degrees in front of her. There is no associated pain in the shoulder. The pain in her left low back and L knee is the same. Objective Active Medications: Acetaminophen (Tylenol Tab*) 650 mg PO Q4H PRN PRN Reason: PAIN - MILD Last Admin: 04/13/19 23:48 Dose: 650 mg Aripiprazole (Abilify Tab*) 2 mg PO BEDTIME [facility] Last Admin: 04/13/19 20:15 Dose: 2 mg Diltiazem HCl (Cardizem Cd Cap*) 240 mg PO DAILY [facility] Last Admin: 04/14/19 09:56 Dose: 240 mg Docusate Sodium (Colace Cap*) 100 mg PO BID PRN PRN Reason: CONSTIPATION Enoxaparin Sodium (Lovenox(*)) 40 mg SUBCUT DAILY [facility] Last Admin: 04/14/19 09:56 Dose: 40 mg Ferrous Sulfate (Ferrous Sulfate Tab*) 325 mg PO BID [facility] Last Admin: 04/14/19 09:57 Dose: 325 mg Folic Acid (Folvite Tab*) 1 mg PO DAILY [facility] Last Admin: 04/14/19 09:56 Dose: 1 mg Heparin Sodium (Porcine) (Heparin Flush Picc/Ml/Cvc(*)) 1 - 3 ml FLUSH 0600, 1800 [facility]; Protocol Last Admin: 04/14/19 15:42 Dose: Not Given Ceftriaxone Sodium 2 gm/ (Sodium Chloride) 100 mls @ 200 mls/hr IVPB DAILY [facility] Last Admin: 04/14/19 09:51 Dose: 200 mls/hr Ketorolac Tromethamine (Toradol Inj*) 15 mg IV PUSH Q6H PRN PRN Reason: PAIN - MILD Last Admin: 04/14/19 03:46 Dose: 15 mg Levetiracetam (Keppra Tab*) 500 mg PO BID [facility] Stop: 04/14/19 23:59 Last Admin: 04/14/19 09:57 Dose: 500 mg Lisinopril (Prinivil Tab*) 40 mg PO QAM [facility] Last Admin: 04/14/19 09:57 Dose: 40 mg Magnesium Oxide (Magox 400 Tab*) 800 mg PO DAILY [facility] Last Admin: 04/14/19 09:56 Dose: 800 mg Melatonin (Melatonin) 6 mg PO BEDTIME PRN PRN Reason: SLEEP Last Admin: 04/10/19 22:07 Dose: 6 mg Multivitamins/Minerals (Theragran/Minerals Tab*) 1 tab PO DAILY [facility] Last Admin: 04/14/19 09:57 Dose: 1 tab Oxycodone HCl (Roxycodone Tab*) 5 mg PO Q4H PRN PRN Reason: PAIN - SEVERE Last Admin: 04/14/19 10:24 Dose: 5 mg Polyethylene Glycol/Electrolytes (Miralax*) 17 gm PO DAILY PRN PRN Reason: CONSTIPATION Senna (Senokot 8.6 Mg Tab*) 1 tab PO BEDTIME PRN PRN Reason: CONSTIPATION Thiamine HCl (Vitamin B-1 Tab*) 100 mg PO DAILY [facility] Last Admin: 04/14/19 09:57 Dose: 100 mg Zolpidem Tartrate (Ambien Tab*) 5 mg PO BEDTIME PRN PRN Reason: INSOMNIA Last Admin: 04/10/19 22:07 Dose: 5 mg Vital Signs - 8 hr 04/14/19 04/14/19 04/14/19 10:24 11:09 15:22 Temperature 97.9 F Pulse Rate 101 Respiratory 18 18 18 Rate Blood Pressure 127/82 (mmHg) O2 Sat by Pulse 95 Oximetry 04/14/19 15:36 Temperature 99 F Pulse Rate 95 Respiratory 17 Rate Blood Pressure 119/72 (mmHg) O2 Sat by Pulse 100 Oximetry Oxygen Devices in Use Now: None Appearance: Elderly female sitting up in bed, NAD Eyes: No Scleral Icterus Ears/Nose/Mouth/Throat: Mucous Membranes Moist Respiratory: Symmetrical Chest Expansion and Respiratory Effort, Clear to Auscultation Cardiovascular: NL Sounds; No Murmurs; No JVD, RRR, No Edema Abdominal: NL Sounds; No Tenderness; No Distention Extremities: No Clubbing, Cyanosis Skin: No Nodules or Sclerosis Neurological: Alert and Oriented x 3, - - distal R UE strength is normal. She can not raise her arm to 90degrees in front of herself, she is able to shrug at the shoulder on the R Result Diagrams: 04/13/19 05:15 04/12/19 05:15 Additional Lab and Data: Troponin 0.02 @ 0934, 0.04 @ 1313, and 0.03 @ 1605 Laboratory Tests 04/01/19 04/01/19 04/01/19 09:34 09:34 09:34 WBC 7.2 RBC 3.11 L Hgb 10.6 L Hct 31 L MCV 100 H MCH 34 H INR (Anticoag Therapy) 1.00 APTT 26.7 Sodium 132 L Potassium 3.7 Chloride 98 L Carbon Dioxide 22 Anion Gap 12 H BUN 27 H Creatinine 1.42 H Glucose 99 Lactic Acid Calcium 9.3 Total Bilirubin 1.60 H C-Reactive Protein 399.08 H Albumin 3.1 L Globulin 4.7 H Albumin/Globulin Ratio 0.7 L Urine Color Urine Appearance Urine pH Ur Specific [place] Urine Protein Urine Ketones Urine Blood Urine Nitrate Urine Bilirubin Urine Urobilinogen Ur Leukocyte Esterase Urine WBC (Auto) Urine RBC (Auto) Ur Squamous Epith Cells Urine Bacteria Hyaline Casts Urine Glucose 04/01/19 04/01/19 09:34 12:05 WBC RBC Hgb Hct MCV MCH INR (Anticoag Therapy) APTT Sodium Potassium Chloride Carbon Dioxide Anion Gap BUN Creatinine Glucose Lactic Acid 2.9 H* Calcium Total Bilirubin C-Reactive Protein Albumin Globulin Albumin/Globulin Ratio Urine Color Janna Urine Appearance Cloudy Urine pH 5.0 Ur Specific [place] 1.025 Urine Protein 1+(30 mg/dl) A Urine Ketones Negative Urine Blood 1+ A Urine Nitrate Negative Urine Bilirubin Negative Urine Urobilinogen Negative Ur Leukocyte Esterase Negative Urine WBC (Auto) 2+(11-20/hpf) A Urine RBC (Auto) Absent Ur Squamous Epith Cells Present A Urine Bacteria 1+ A Hyaline Casts Present A Urine Glucose Negative Microbiology and Other Data: Microbiology 04/01/19 09:37 Aerobic Blood Culture - Preliminary Blood Venous Anaerobic Blood Culture - Preliminary Diagnostic Imaging: CT of chest/abdomen/pelvis shows biliary dilitation extending to the area of the ampulla, which is slightly progressed from a study done in September 2018. Findings also include hiatal hernia and artherosclerosis. As well as a trace R pleural effusion. Chest XRay shows hiatal hernia but no active cardiopulmonary disease. L knee XRay shows no fracture. Small joint effusion noted. Mild nonfocal soft tissue edema. EKG Data: Original EKG from this morning shows sinus tachycardia with a rate of 138. A second EKG due to an increased troponin level done at 1608 shows sinus tachycardia as well with a rate of 104. Assess/Plan/Problems-Billing Assessment: is a 69 yo F with PMH of HTN, anxiety, IBS, chronic back pain; who presented to the ED with c/o fever, shaking, chills, and reports of AMS, admitted for sepsis. Later found to have bacteremia with source of left knee infection s/p washout 04/02/19. - Patient Problems (1) Bacteremia Current Visit: Yes Status: Acute Code(s): R78.81 - BACTEREMIA SNOMED Code( s): 3628679 Comment: Pt with Strep group B bacteremia and sepsis at admission with septic left knee, lumbar discitis, poss cervical discitis and bacterial meningitis. No evidence of endocarditis. Continue ceftriaxone 2g IV daily, today is D#[id number]/[id number]. Pt is medically ready for STR. (2) Septic joint of left knee joint Current Visit: Yes Status: Acute Code(s): M00.9 - PYOGENIC ARTHRITIS, UNSPECIFIED SNOMED Code(s): 471776487 Comment: Pt went to the OR on 04/02 for a washout. She has continued pain. Check CRP. Knee is not red or warm to touch. Continue ceftriaxone as above. Continue oxycodone for pain control. (3) Bacterial meningitis Current Visit: Yes Status: Acute Code(s): G00.9 - BACTERIAL MENINGITIS, UNSPECIFIED SNOMED Code(s): 53536040 Comment: Pt with likely bacterial meningitis on admission. LP was done 2 days after starting Abx and possibly had a partially treated meningitis. Continue ceftriaxone at meningitis dosing. (4) Septic discitis of lumbar region Current Visit: Yes Status: Acute Code(s): M46.46 - DISCITIS, UNSPECIFIED, LUMBAR REGION SNOMED Code(s): 215815481 Comment: Pt with probable lumbar discitis and questionable cervical discitis. Pt is very uncomfortable in the TLSO brace. She has not been wearing the [place] collar. She does have any evidence of instability in her C or L spine therefore I will not push the patient to wear the braces. She now c/o R UE weakness, this has been going on for a few days. ? need to re-image C-spine. (5) Seizure Current Visit: Yes Status: Acute Code(s): R56.9 - UNSPECIFIED CONVULSIONS SNOMED Code(s): 04548632 Comment: Not completely clear why the patient had a seizure. Per Dr. Osborn , possibly secondary to EtOH withdrawal, benzo withdrawal, meningitis and being on welllbutrin. She was started on keppra stop keppra after tonight's dose per note from Dr. Osborn as pt has had no further concerns for seizure. (6) Anemia Current Visit: Yes Status: Acute Code(s): D64.9 - ANEMIA, UNSPECIFIED SNOMED Code(s): 747421256 Comment: Pt with macrocytic anemia possibly secondary to alcohol use. Iron studies show likely anemia of chronic inflammation. H/H stable. Continue to follow intermittently. (7) Altered mental status Current Visit: Yes Status: Acute Code(s): R41.82 - ALTERED MENTAL STATUS, UNSPECIFIED SNOMED Code(s): 313148568 Comment: On admission pt with AMS likely secondary to EtOH withdrawal, probable bacterial meningitis and septic encephalopathy. Now resolved. (8) KARLA (acute kidney injury) Current Visit: Yes Status: Acute Code(s): N17.9 - ACUTE KIDNEY FAILURE, UNSPECIFIED SNOMED Code(s): 94768774 Comment: On admission pt with creatinine twice above her baseline. Now resolved. (9) Chronic back pain Current Visit: Yes Status: Acute Code(s): M54.9 - DORSALGIA, UNSPECIFIED; G89.29 - OTHER CHRONIC PAIN SNOMED Code(s): 602232460 Comment: Pt with acute on chronic back pain. Continue prn oxycodone. She states her pain is greater today than yesterday. Continue prn toradol IV. (10) Essential (primary) hypertension Current Visit: Yes Status: Acute Code(s): I10 - ESSENTIAL (PRIMARY) HYPERTENSION SNOMED Code(s): 13548529 Comment: BP is under good control. Continue lisinopril 40mg daily. (11) DVT prophylaxis Current Visit: Yes Status: Acute Code(s): Z29.9 - ENCOUNTER FOR PROPHYLACTIC MEASURES, UNSPECIFIED SNOMED Code(s): 103689444 Comment: lovenox (12) Full code status Current Visit: Yes Status: Acute Code(s): Z78.9 - OTHER SPECIFIED HEALTH STATUS SNOMED Code(s): 024141930 Comment: Status and Disposition: Inpatient.
[2019-04-14] MEDS: ARIPiprazole TAB* 2 MG PO SCH (20:21)
[2019-04-14] MEDS: Zolpidem TAB* 5 MG PO PRN (20:21)
[2019-04-15] MEDS: oxyCODONE TAB* 5 MG TAB PO PRN ×3 (01:43→13:13)
[2019-04-15] MEDS: Acetaminophen TAB* 325 MG PO PRN ×4 (05:02→21:34)
[2019-04-15] MEDS: Ketorolac INJ* 15 MG/ML 1 ML VIAL IV PUSH PRN ×2 (05:02→21:35)
[2019-04-15 07:34] LABS: Hematocrit 23 % (35-47); Hemoglobin 7.7 g/dL (12.0-16.0); Mean Corpuscular HGB Conc 33 g/dL (31-36); Mean Corpuscular Hemoglobin 33 pg (27-31); Mean Corpuscular Volume 99 fL (80-97); Mean Platelet Volume 8.2 fL (7.4-10.4); Platelet Count 695 10^3/uL (150-450); Red Blood Count 2.34 10^6 /uL (3.70-4.87); Red Cell Distribution Width 15 % (10-15); White Blood Count 9.2 10^3/uL (3.5-10.8)
[2019-04-15] MEDS: Enoxaparin(*) 40 MG/0.4 ML SYR SUBCUT SCH (09:03)
[2019-04-15] MEDS: cefTRIAXone(*) 2 GM in NS 0.9% 100 ML* 100 ML IVPB SCH (09:04)
[2019-04-15] MEDS: Diltiazem CD CAP* 240 MG PO SCH (09:04)
[2019-04-15] MEDS: Lisinopril TAB* 10 MG PO SCH (09:05)
[2019-04-15] MEDS: Thiamine TAB* 100 MG TAB PO SCH (09:05)
[2019-04-15] MEDS: Multivitamins/Minerals TAB PO SCH (09:05)
[2019-04-15] MEDS: Ferrous Sulfate TAB* 325 MG PO SCH ×2 (09:05→21:34)
[2019-04-15] MEDS: Folic Acid TAB* 1 MG PO SCH (09:06)
[2019-04-15] MEDS: Magnesium Oxide TAB* 400 MG PO SCH (09:06)
--- NOTE | 2019-04-15 09:32 | PN ---
Progress Note - Progress Note Date of Service: 04/15/19 SOAP: Subjective: CC: Left knee infection, suspected lumbar osteodiskitis, and meningitis HPI: Ms. Cartagena is a 69 yo female with PMH significant for HTN, hiatal hernia , nephrolithiasis, anxiety, degenerative disc disease (lumbar), IBS, alcohol abuse, and chronic low back pain; presented to the emergency room with flu like symptoms and was found to have a left knee infection, meningitis, and possible spine infection. Her mentation continues to improve each day, no further seizure activity. Denies chills, chest pain, shortness of breath, nausea, vomiting. Pain in the left leg continues to improve daily. Reports diarrhea, reports 2-3 loose stools daily. Reports intermittent pain in the back, she reports this as lower left side. Reports fever overnight of 100.0 (last low grade fever was 2/1 in the evening). She doesn't like the back brace, she feels like this is making her pain worse. She is feeling discouraged about still being in the hospital. Objective: Vital Signs 04/15/19 04/15/19 04/15/19 05:54 07:49 08:07 Temperature 97.7 F Pulse Rate 111 Respiratory 16 18 18 Rate Blood Pressure 116/68 (mmHg) O2 Sat by Pulse 99 Oximetry Physical Exam: General: NAD, laying in bed Neurological: Alert and Oriented to person and place HEENT: Moist MM Neck: No nuchal rigidity Cardiovascular: Heart rate regular Respiratory: Lung sounds clear Abdominal: Bowel sounds present; ABD soft, non tender and slightly distended MSK: No tenderness with palpation of neck, back and spine. Able to flex and extend the left knee. No edema or effusion to the left knee. Full ROM of the neck Skin: No rash. DSG to the right knee clean, dry and intact, no surrounding erythema Laboratory Results - last 24 hr 04/15/19 04/15/19 06:04 06:04 WBC 9.2 RBC 2.34 L Hgb 7.7 L Hct 23 L MCV 99 H MCH 33 H MCHC 33 RDW 15 Plt Count 695 H D MPV 8.2 C-Reactive Protein 180.64 H Microbiology 04/03/19 20:32 Aerobic Blood Culture - Final Blood Venous No Growth Day 5 Anaerobic Blood Culture - Final No Growth Day 5 04/03/19 17:27 Aerobic Blood Culture - Final Blood Venous No Growth Day 5 Anaerobic Blood Culture - Final No Growth Day 5 04/01/19 20:30 Fungal Culture - Preliminary Misc Source (See Comment) - Knee Left No Growth Week 1 04/02/19 17:47 Anaerobic Culture - Final Wound No Growth Day 4 04/02/19 17:47 Skin and Soft Tissue MRSA/MSSA (PCR - Final Leg Left Mrsa Negative S.aureus Negative Gram Stain - Final Wound Culture - Final No Growth Day 4 04/02/19 17:41 CSF Gram Stain (Tube 3) - Final Cerebral Spinal Fluid CSF Culture - Final No Growth Day 4 04/01/19 20:30 Gram Stain - Final Joint Fluid(Synovial) - Knee Left Body Fluid Culture - Final No Growth Day 4 Skin and Soft Tissue MRSA/MSSA (PCR - Final Mrsa Negative S.aureus Negative 04/01/19 20:30 Anaerobic Culture - Final Body Fluid No Growth Day 4 04/04/19 12:05 Stool Occult Blood (GHADA) - Final Stool 04/01/19 09:37 Aerobic Blood Culture - Final Blood Venous Strep Agalactiae - (Group B) Anaerobic Blood Culture - Final Strep Agalactiae - (Group B) 04/01/19 09:37 Aerobic Blood Culture - Final Blood Venous Strep Agalactiae - (Group B) Anaerobic Blood Culture - Final Strep Agalactiae - (Group B) 04/01/19 20:30 Acid Fast Bacilli Smear - Final Body Fluid - Knee Left 04/01/19 12:05 Urine Culture - Final Urine No Growth (<1,000 CFU/mL) Assessment: 1. Septic arthritis of the left [place] knee. S/P washout, POD #13. Cultures with no growth. Afebrile and no leukocytosis. Pain in the knee continues to improve. She is able to ambulate with a walker. 2. Lumbar (L3-5) osteodiskitis. No tenderness with palpation. No neurological deficits. Non contrast MRI - abnormally increased T2 signal in the intervertebral discs with adjacent endplate edema at the L3-L4 and L4-L5 level. Contrast MRI with nonspecific vertebral body enhancement centered at L3-4 and L4 -5 and ventral epidural enhancement extending from L2-3 and L5-S1, could represent venous engorgement or phlegmon. 3. Nondisplaced left sacral fracture. Continues to have low left sided back pain. 4. Group B strep bacteremia. Present in 4/4 bottles at the time of admission. TTE/PHYLLIS without signs of endocarditis. Denies presence of prosthetic materials. Urine culture with no growth. She does have a septic knee, bacterial meningitis , and lumbar osteodiskitis. Repeat blood cultures with no growth on day 4. 5. Bacterial meningitis. CSF gram stain with no organisms. HSV negative. Lyme PCR negative. 6. PCN allergy. Tolerating Ceftriaxone without difficulty. Plan: Continue Ceftriaxone 2 gm IV daily, day . Has a PICC line in place. Weekly labs while on IV ABX: CBC, CMP, and CRP. Followup with ID outpatient, I will seen the patient next week at [facility].
--- NOTE | 2019-04-15 09:51 | PN ---
Progress Note - Progress Note Date of Service: 04/15/19 SOAP: Subjective: Patient seen and examined at bedside. She states that her knee feels well today. Complains of back pain with using the back splint. She She denies f/c, CP, SOB. Objective: Gen: NAD, nontoxic appearing LLE: Some difuse soft tissue swelling about the LLE compared to contralateral side. No warmth or erythema. L knee incisions CDI, no erythema or drainage. New dressings were placed with 4x4 and daquan. NVI distally. Calves supple and nontender Vital Signs Temp 97.7 F 04/15/19 08:07 Pulse 111 04/15/19 08:07 Resp 18 04/15/19 08:07 BP 116/68 04/15/19 08:07 Pulse Ox 99 04/15/19 08:07 Intake & Output 04/14/19 04/15/19 04/15/19 18:59 06:59 18:59 Intake Total 358 0 Output Total 400 Balance -42 0 Intake: IV Fluids 10 ABX - CEFTRIAXONE 10 IVPB 108 ABX - CEFTRIAXONE 108 Oral 240 0 Output: Urine 400 Other: Date of Last Bowel 04/14/19 Movement # Bowel Movements 2 Estimated Stool Amount Small # Voids 4 Assessment: []POD #13 Left knee arthroscopic I&D Plan: []Cont PT, WBAT Cont abx per ID Ortho to continue to follow while in house, change dressing every other day, can be completed by nursing
--- NOTE | 2019-04-15 21:20 | PN ---
Subjective Date of Service: 04/15/19 Interval History: patient reports that she is not sleeping well in the hospital. Would like to go to rehab. Denies chest pain or shortness of breath. Denies abd pain n/v/d. Denies fever or chills. Patient reports that she continue to limited ROM to Right arm, Unable to hold arm at 90 degrees or abduct. NO pain or numbness, reports that she did have a sprain to her right arm prior to admission and did Do PT and it improved- reports right worse after starting to use walker and placing pressure that arm. radial and ulnar pulses intact. sensation intact - spoke to orthopedic [facility] - who feels this is likely related to Rotator cuff injury and recommended PT. Family History: Unchanged from Admission Social History: Unchanged from Admission Past Medical History: Unchanged from Admission Objective Active Medications: Acetaminophen (Tylenol Tab*) 650 mg PO Q4H PRN PRN Reason: PAIN - MILD Last Admin: 04/15/19 15:59 Dose: 650 mg Aripiprazole (Abilify Tab*) 2 mg PO BEDTIME [facility] Last Admin: 04/14/19 20:21 Dose: 2 mg Diltiazem HCl (Cardizem Cd Cap*) 240 mg PO DAILY [facility] Last Admin: 04/15/19 09:04 Dose: 240 mg Docusate Sodium (Colace Cap*) 100 mg PO BID PRN PRN Reason: CONSTIPATION Enoxaparin Sodium (Lovenox(*)) 40 mg SUBCUT DAILY [facility] Last Admin: 04/15/19 09:03 Dose: 40 mg Ferrous Sulfate (Ferrous Sulfate Tab*) 325 mg PO BID [facility] Last Admin: 04/15/19 09:05 Dose: 325 mg Folic Acid (Folvite Tab*) 1 mg PO DAILY [facility] Last Admin: 04/15/19 09:06 Dose: 1 mg Heparin Sodium (Porcine) (Heparin Flush Picc/Ml/Cvc(*)) 1 - 3 ml FLUSH 0600, 1800 [facility]; Protocol Last Admin: 04/15/19 17:49 Dose: 1 ml Ceftriaxone Sodium 2 gm/ (Sodium Chloride) 100 mls @ 200 mls/hr IVPB DAILY [facility] Last Admin: 04/15/19 09:04 Dose: 200 mls/hr Ketorolac Tromethamine (Toradol Inj*) 15 mg IV PUSH Q6H PRN PRN Reason: PAIN - MILD Last Admin: 04/15/19 05:02 Dose: 15 mg Lisinopril (Prinivil Tab*) 40 mg PO QAM [facility] Last Admin: 04/15/19 09:05 Dose: 40 mg Magnesium Oxide (Magox 400 Tab*) 800 mg PO DAILY [facility] Last Admin: 04/15/19 09:06 Dose: 800 mg Melatonin (Melatonin) 6 mg PO BEDTIME PRN PRN Reason: SLEEP Last Admin: 04/10/19 22:07 Dose: 6 mg Multivitamins/Minerals (Theragran/Minerals Tab*) 1 tab PO DAILY [facility] Last Admin: 04/15/19 09:05 Dose: 1 tab Oxycodone HCl (Roxycodone Tab*) 5 mg PO Q4H PRN PRN Reason: PAIN - SEVERE Last Admin: 04/15/19 13:13 Dose: 5 mg Polyethylene Glycol/Electrolytes (Miralax*) 17 gm PO DAILY PRN PRN Reason: CONSTIPATION Senna (Senokot 8.6 Mg Tab*) 1 tab PO BEDTIME PRN PRN Reason: CONSTIPATION Thiamine HCl (Vitamin B-1 Tab*) 100 mg PO DAILY [facility] Last Admin: 04/15/19 09:05 Dose: 100 mg Zolpidem Tartrate (Ambien Tab*) 5 mg PO BEDTIME PRN PRN Reason: INSOMNIA Last Admin: 04/14/19 20:21 Dose: 5 mg Vital Signs - 8 hr 04/15/19 04/15/19 04/15/19 13:13 16:04 16:07 Temperature 98.9 F Pulse Rate 103 Respiratory 18 18 20 Rate Blood Pressure 126/63 (mmHg) O2 Sat by Pulse 98 Oximetry 04/15/19 18:32 Temperature 97.3 F Pulse Rate 87 Respiratory 20 Rate Blood Pressure 114/60 (mmHg) O2 Sat by Pulse 100 Oximetry Oxygen Devices in Use Now: None Eyes: No Scleral Icterus Ears/Nose/Mouth/Throat: Clear Oropharnyx, Mucous Membranes Moist Neck: NL Appearance and Movements; NL JVP, Trachea Midline Respiratory: Symmetrical Chest Expansion and Respiratory Effort, Clear to Auscultation Cardiovascular: NL Sounds; No Murmurs; No JVD, No Edema Abdominal: NL Sounds; No Tenderness; No Distention Extremities: No Edema, No Clubbing, Cyanosis Skin: No Rash or Ulcers, - - left knee with dressing dry and intact Neurological: Alert and Oriented x 3 Nutrition: Taking PO's Result Diagrams: 04/16/19 03:53 04/16/19 03:53 Additional Lab and Data: Troponin 0.02 @ 0934, 0.04 @ 1313, and 0.03 @ 1605 Laboratory Tests 04/01/19 04/01/19 04/01/19 09:34 09:34 09:34 WBC 7.2 RBC 3.11 L Hgb 10.6 L Hct 31 L MCV 100 H MCH 34 H INR (Anticoag Therapy) 1.00 APTT 26.7 Sodium 132 L Potassium 3.7 Chloride 98 L Carbon Dioxide 22 Anion Gap 12 H BUN 27 H Creatinine 1.42 H Glucose 99 Lactic Acid Calcium 9.3 Total Bilirubin 1.60 H C-Reactive Protein 399.08 H Albumin 3.1 L Globulin 4.7 H Albumin/Globulin Ratio 0.7 L Urine Color Urine Appearance Urine pH Ur Specific [place] Urine Protein Urine Ketones Urine Blood Urine Nitrate Urine Bilirubin Urine Urobilinogen Ur Leukocyte Esterase Urine WBC (Auto) Urine RBC (Auto) Ur Squamous Epith Cells Urine Bacteria Hyaline Casts Urine Glucose 04/01/19 04/01/19 09:34 12:05 WBC RBC Hgb Hct MCV MCH INR (Anticoag Therapy) APTT Sodium Potassium Chloride Carbon Dioxide Anion Gap BUN Creatinine Glucose Lactic Acid 2.9 H* Calcium Total Bilirubin C-Reactive Protein Albumin Globulin Albumin/Globulin Ratio Urine Color Janna Urine Appearance Cloudy Urine pH 5.0 Ur Specific [place] 1.025 Urine Protein 1+(30 mg/dl) A Urine Ketones Negative Urine Blood 1+ A Urine Nitrate Negative Urine Bilirubin Negative Urine Urobilinogen Negative Ur Leukocyte Esterase Negative Urine WBC (Auto) 2+(11-20/hpf) A Urine RBC (Auto) Absent Ur Squamous Epith Cells Present A Urine Bacteria 1+ A Hyaline Casts Present A Urine Glucose Negative Microbiology and Other Data: Microbiology 04/01/19 09:37 Aerobic Blood Culture - Preliminary Blood Venous Anaerobic Blood Culture - Preliminary Diagnostic Imaging: CT of chest/abdomen/pelvis shows biliary dilitation extending to the area of the ampulla, which is slightly progressed from a study done in September 2018. Findings also include hiatal hernia and artherosclerosis. As well as a trace R pleural effusion. Chest XRay shows hiatal hernia but no active cardiopulmonary disease. L knee XRay shows no fracture. Small joint effusion noted. Mild nonfocal soft tissue edema. EKG Data: Original EKG from this morning shows sinus tachycardia with a rate of 138. A second EKG due to an increased troponin level done at 1608 shows sinus tachycardia as well with a rate of 104. Assess/Plan/Problems-Billing Assessment: is a 69 yo F with PMH of HTN, anxiety, IBS, chronic back pain; who presented to the ED with c/o fever, shaking, chills, and reports of AMS, admitted for sepsis. Later found to have bacteremia with source of left knee infection s/p washout 04/02/19. - Patient Problems (1) Bacteremia Current Visit: Yes Status: Acute Code(s): R78.81 - BACTEREMIA SNOMED Code( s): 3243197 Comment: Pt with Strep group B bacteremia and sepsis at admission with septic left knee, lumbar discitis, poss cervical discitis and bacterial meningitis. No evidence of endocarditis. Continue ceftriaxone 2g IV daily, today is D#14/. -Pt is medically ready for STR. (2) Septic joint of left knee joint Current Visit: Yes Status: Acute Code(s): M00.9 - PYOGENIC ARTHRITIS, UNSPECIFIED SNOMED Code(s): 597689113 Comment: resolving - continue ceftriaxone 2 gm iv daily Pt went to the OR on 04/02 for a washout. She has continued pain. - Knee is not red or warm to touch. Continue ceftriaxone as above. - Continue oxycodone for pain control. (3) KARLA (acute kidney injury) Current Visit: Yes Status: Acute Code(s): N17.9 - ACUTE KIDNEY FAILURE, UNSPECIFIED SNOMED Code(s): 36186344 Comment: On admission pt with creatinine twice above her baseline. Now resolved. (4) Altered mental status Current Visit: Yes Status: Acute Code(s): R41.82 - ALTERED MENTAL STATUS, UNSPECIFIED SNOMED Code(s): 347155503 Comment: On admission pt with AMS likely secondary to EtOH withdrawal, probable bacterial meningitis and septic encephalopathy. Now resolved. (5) Anemia Current Visit: Yes Status: Acute Code(s): D64.9 - ANEMIA, UNSPECIFIED SNOMED Code(s): 091965148 Comment: Pt with macrocytic anemia possibly secondary to alcohol use. Iron studies show likely anemia of chronic inflammation. H/H stable. Continue to follow intermittently. (6) Bacterial meningitis Current Visit: Yes Status: Acute Code(s): G00.9 - BACTERIAL MENINGITIS, UNSPECIFIED SNOMED Code(s): 46502435 Comment: Pt with likely bacterial meningitis on admission. LP was done 2 days after starting Abx and possibly had a partially treated meningitis. Continue ceftriaxone at meningitis dosing. (7) Hyponatremia Current Visit: Yes Status: Acute Code(s): E87.1 - HYPO-OSMOLALITY AND HYPONATREMIA SNOMED Code(s): 37446480 Comment: continue IVF (8) Seizure Current Visit: Yes Status: Acute Code(s): R56.9 - UNSPECIFIED CONVULSIONS SNOMED Code(s): 74083479 Comment: Not completely clear why the patient had a seizure. Per Dr. Osborn , possibly secondary to EtOH withdrawal, benzo withdrawal, meningitis and being on welllbutrin. She was started on keppra stop keppra after tonight's dose per note from Dr. Osborn as pt has had no further concerns for seizure. (9) Septic discitis of lumbar region Current Visit: Yes Status: Acute Code(s): M46.46 - DISCITIS, UNSPECIFIED, LUMBAR REGION SNOMED Code(s): 802775068 Comment: Pt with probable lumbar discitis and questionable cervical discitis. Pt is very uncomfortable in the TLSO brace. -She has not been wearing the [place] J collar. She does have any evidence of instability in her C or L spine therefore I will not push the patient to wear the braces. She now c/o R UE weakness, this has been going on for a few days. ? need to re-image C-spine. (10) DVT prophylaxis Current Visit: Yes Status: Acute Code(s): Z29.9 - ENCOUNTER FOR PROPHYLACTIC MEASURES, UNSPECIFIED SNOMED Code(s): 691779194 Comment: lovenox (11) Full code status Current Visit: Yes Status: Acute Code(s): Z78.9 - OTHER SPECIFIED HEALTH STATUS SNOMED Code(s): 062689951 Comment: Status and Disposition: Inpatient.
[2019-04-15] MEDS: ARIPiprazole TAB* 2 MG PO SCH (21:34)
[2019-04-15] MEDS: Zolpidem TAB* 5 MG PO PRN (21:34)
[2019-04-16] MEDS: Acetaminophen TAB* 325 MG PO PRN ×3 (03:16→13:58)
[2019-04-16] MEDS: oxyCODONE TAB* 5 MG TAB PO PRN ×3 (03:16→15:27)
[2019-04-16 04:05] LABS: Hematocrit 25 % (35-47); Hemoglobin 8.2 g/dL (12.0-16.0); Mean Corpuscular HGB Conc 33 g/dL (31-36); Mean Corpuscular Hemoglobin 33 pg (27-31); Mean Corpuscular Volume 98 fL (80-97); Mean Platelet Volume 7.4 fL (7.4-10.4); Platelet Count 797 10^3/uL (150-450); Red Blood Count 2.52 10^6 /uL (3.70-4.87); Red Cell Distribution Width 15 % (10-15); White Blood Count 8.4 10^3/uL (3.5-10.8)
[2019-04-16 04:30] LABS: BUN/Creatinine Ratio 11.9 (8-20); Calcium 8.7 mg/dL (8.6-10.3); EGFR African American 80.9 (>60); EGFR Non-African American 66.8 (>60); Potassium 3.9 mmol/L (3.5-5.0)
[2019-04-16] MEDS: cefTRIAXone(*) 2 GM in NS 0.9% 100 ML* 100 ML IVPB SCH (10:06)
[2019-04-16] MEDS: Ferrous Sulfate TAB* 325 MG PO SCH (10:07)
[2019-04-16] MEDS: Lisinopril TAB* 10 MG PO SCH (10:07)
[2019-04-16] MEDS: Diltiazem CD CAP* 240 MG PO SCH (10:07)
[2019-04-16] MEDS: Folic Acid TAB* 1 MG PO SCH (10:07)
[2019-04-16] MEDS: Multivitamins/Minerals TAB PO SCH (10:07)
[2019-04-16] MEDS: Magnesium Oxide TAB* 400 MG PO SCH (10:07)
[2019-04-16] MEDS: Thiamine TAB* 100 MG TAB PO SCH (10:07)
[2019-04-16] MEDS: Enoxaparin(*) 40 MG/0.4 ML SYR SUBCUT SCH (10:08)
--- NOTE | 2019-04-16 10:46 | PN ---
Progress Note - Progress Note Date of Service: 04/16/19 SOAP: Subjective: CC: Left knee infection, lumbar osteodiskitis, and meningitis HPI: Ms. Cartagena is a 69 yo female with PMH significant for HTN, hiatal hernia , nephrolithiasis, anxiety, degenerative disc disease (lumbar), IBS, alcohol abuse, and chronic low back pain; presented to the emergency room with flu like symptoms and was found to have a left knee infection, meningitis, and possible spine infection. Denies fever, chills, chest pain, shortness of breath, nausea, vomiting. Reports diarrhea, reports 2-3 loose stools daily. Reports intermittent pain in the back, she reports this as lower left side, states that this is better today. She developed pain in the left ankle overnight with some swelling. She also reports decreased ROM in the right shoulder, she states that she had sprained the shoulder prior to her admission, but feels like the mobility is decreasing. Objective: Vital Signs 04/16/19 04/16/19 04/16/19 07:42 08:00 08:34 Temperature 97 F Pulse Rate 90 Respiratory 20 19 16 Rate Blood Pressure 122/66 (mmHg) O2 Sat by Pulse 99 Oximetry Physical Exam: General: NAD, sitting up in bed Neurological: Alert and Oriented HEENT: Moist MM Neck: No nuchal rigidity, full ROM Cardiovascular: Heart rate regular Respiratory: Lung sounds clear Abdominal: Bowel sounds present; ABD soft, non tender and slightly distended MSK: No tenderness with palpation of neck, back and spine. Able to flex and extend the left knee. No edema or effusion to the left knee. Mild edema to the left ankle, full ROM, no tenderness with palpation. Right shoulder with decreased ROM, able to move arm from elbow down without difficulty. ROM is improved with PROM of the right shoulder Skin: No rash. DSG to the right knee clean, dry and intact, 2 incision sites to the left knee well approximated with sutures intact. no surrounding erythema Laboratory Results - last 24 hr 04/16/19 04/16/19 03:53 03:53 WBC 8.4 RBC 2.52 L Hgb 8.2 L Hct 25 L MCV 98 H MCH 33 H MCHC 33 RDW 15 Plt Count 797 H D MPV 7.4 Sodium 136 Potassium 3.9 Chloride 105 Carbon Dioxide 24 Anion Gap 7 BUN 10 Creatinine 0.84 Est GFR ( Amer) 80.9 Est GFR (Non-Af Amer) 66.8 BUN/Creatinine Ratio 11.9 Glucose 88 Calcium 8.7 Microbiology 04/01/19 20:30 Fungal Culture - Preliminary Misc Source (See Comment) - Knee Left No Growth Week 2 04/03/19 20:32 Aerobic Blood Culture - Final Blood Venous No Growth Day 5 Anaerobic Blood Culture - Final No Growth Day 5 04/03/19 17:27 Aerobic Blood Culture - Final Blood Venous No Growth Day 5 Anaerobic Blood Culture - Final No Growth Day 5 04/02/19 17:47 Anaerobic Culture - Final Wound No Growth Day 4 04/02/19 17:47 Skin and Soft Tissue MRSA/MSSA (PCR - Final Leg Left Mrsa Negative S.aureus Negative Gram Stain - Final Wound Culture - Final No Growth Day 4 04/02/19 17:41 CSF Gram Stain (Tube 3) - Final Cerebral Spinal Fluid CSF Culture - Final No Growth Day 4 04/01/19 20:30 Gram Stain - Final Joint Fluid(Synovial) - Knee Left Body Fluid Culture - Final No Growth Day 4 Skin and Soft Tissue MRSA/MSSA (PCR - Final Mrsa Negative S.aureus Negative 04/01/19 20:30 Anaerobic Culture - Final Body Fluid No Growth Day 4 04/04/19 12:05 Stool Occult Blood (GHADA) - Final Stool 04/01/19 09:37 Aerobic Blood Culture - Final Blood Venous Strep Agalactiae - (Group B) Anaerobic Blood Culture - Final Strep Agalactiae - (Group B) 04/01/19 09:37 Aerobic Blood Culture - Final Blood Venous Strep Agalactiae - (Group B) Anaerobic Blood Culture - Final Strep Agalactiae - (Group B) 04/01/19 20:30 Acid Fast Bacilli Smear - Final Body Fluid - Knee Left 04/01/19 12:05 Urine Culture - Final Urine No Growth (<1,000 CFU/mL) Assessment: 1. Septic arthritis of the left [place] knee. S/P washout, POD #14. Cultures with no growth. Afebrile and no leukocytosis. 2. Lumbar (L3-5) osteodiskitis. No tenderness with palpation. No neurological deficits. Non contrast MRI - abnormally increased T2 signal in the intervertebral discs with adjacent endplate edema at the L3-L4 and L4-L5 level. Contrast MRI with nonspecific vertebral body enhancement centered at L3-4 and L4 -5 and ventral epidural enhancement extending from L2-3 and L5-S1, could represent venous engorgement or phlegmon. 3. Nondisplaced left sacral fracture. Continues to have low left sided back pain , slowly improving. 4. Group B strep bacteremia. Present in 4/4 bottles at the time of admission. TTE/PHYLLIS without signs of endocarditis. Denies presence of prosthetic materials. Urine culture with no growth. She does have a septic knee, bacterial meningitis , and lumbar osteodiskitis. Repeat blood cultures with no growth on day 4. 5. Bacterial meningitis. CSF gram stain with no organisms. HSV negative. Lyme PCR negative. 6. PCN allergy. Tolerating Ceftriaxone without difficulty. 7. Decreased ROM right shoulder. Pt reports an injury a few months ago. Suspect this is a rotator cuff tear. Plan: Continue Ceftriaxone 2 gm IV daily, day 15. Has a PICC line in place. Weekly labs while on IV ABX: CBC, CMP, and CRP. Followup with ID outpatient, 1-2 weeks. Discussed with Claudia Wade NP
[2019-04-16 12:20] VITALS: BP 130/79
--- NOTE | 2019-04-16 12:44 | PN ---
Progress Note - Progress Note Date of Service: 04/16/19 SOAP: Subjective: Patient has only mild complaints of left knee pain. She states yesterday was her first day to walk and this morning she noticed some swelling in her left ankle. Denies any left ankle pain redness or warmth. She also states she has some mild right shoulder pain and weakness which occurred 6 months ago after a fall. Objective: Laboratory Last Values WBC 8.4 10^3/uL (3.5-10.8) 04/16/19 03:53 RBC 2.52 10^6 /uL (3.70-4.87) L 04/16/19 03:53 Hgb 8.2 g/dL (12.0-16.0) L 04/16/19 03:53 Hct 25 % (35-47) L 04/16/19 03:53 MCV 98 fL (80-97) H 04/16/19 03:53 MCH 33 pg (27-31) H 04/16/19 03:53 MCHC 33 g/dL (31-36) 04/16/19 03:53 RDW 15 % (10-15) 04/16/19 03:53 Plt Count 797 10^3/uL (150-450) H D 04/16/19 03:53 MPV 7.4 fL (7.4-10.4) 04/16/19 03:53 Neut % (Auto) 65.5 % 04/12/19 05:15 Lymph % (Auto) 23.2 % 04/12/19 05:15 [place] % (Auto) 8.7 % 04/12/19 05:15 Eos % (Auto) 2.1 % 04/12/19 05:15 Baso % (Auto) 0.5 % 04/12/19 05:15 Absolute Neuts (auto) 5.4 10^3/ul (1.5-7.7) 04/12/19 05:15 Absolute Lymphs (auto) 1.9 10^3/ul (1.0-4.8) 04/12/19 05:15 Absolute Monos (auto) 0.7 10^3/ul (0-0.8) 04/12/19 05:15 Absolute Eos (auto) 0.2 10^3/ul (0-0.6) 04/12/19 05:15 Absolute Basos (auto) 0.0 10^3/ul (0-0.2) 04/12/19 05:15 Absolute Nucleated RBC 0.0 10^3/ul 04/12/19 05:15 Nucleated RBC % 0.0 04/12/19 05:15 ESR 113 mm/Hr (0-29) H 04/02/19 06:34 INR (Anticoag Therapy) 1.04 (0.82-1.09) 04/02/19 16:35 APTT 24.1 seconds (26.0-38.0) L 04/02/19 16:35 Sodium 136 mmol/L (135-145) 04/16/19 03:53 Potassium 3.9 mmol/L (3.5-5.0) 04/16/19 03:53 Chloride 105 mmol/L (101-111) 04/16/19 03:53 Carbon Dioxide 24 mmol/L (22-32) 04/16/19 03:53 Anion Gap 7 mmol/L (2-11) 04/16/19 03:53 BUN 10 mg/dL (6-24) 04/16/19 03:53 Creatinine 0.84 mg/dL (0.51-0.95) 04/16/19 03:53 Est GFR ( Amer) 80.9 (>60) 04/16/19 03:53 Est GFR (Non-Af Amer) 66.8 (>60) 04/16/19 03:53 BUN/Creatinine Ratio 11.9 (8-20) 04/16/19 03:53 Glucose 88 mg/dL (70-100) 04/16/19 03:53 POC Glucose (mg/dL) 64 mg/dL (70-100) L 04/02/19 18:27 Lactic Acid 0.4 mmol/L (0.5-2.0) L 04/02/19 16:35 Calcium 8.7 mg/dL (8.6-10.3) 04/16/19 03:53 Phosphorus 3.5 mg/dL (2.5-5.0) 04/04/19 05:28 Magnesium 1.8 mg/dL (1.9-2.7) L 04/12/19 05:15 Iron 20 ug/dL (50-212) L 04/12/19 05:15 TIBC 206 mcg/dL (250-450) L 04/12/19 05:15 % Saturation 10 % (15-55) L 04/12/19 05:15 Unsat Iron Binding < 191 ug/dL 04/12/19 05:15 Transferrin 147 mg/dL (203-362) L 04/12/19 05:15 Ferritin 233.3 ng/mL (11-307) 04/11/19 12:00 Total Bilirubin 0.90 mg/dL (0.2-1.0) 04/02/19 16:35 AST 30 U/L (13-39) 04/02/19 16:35 ALT 20 U/L (7-52) 04/02/19 16:35 Alkaline Phosphatase 107 U/L (34-104) H 04/02/19 16:35 Total Creatine Kinase 179 U/L (10-223) 04/02/19 06:34 Troponin I 0.03 ng/mL (<0.03) H* 04/01/19 16:05 C-Reactive Protein 180.64 mg/L (<8.01) H 04/15/19 06:04 Total Protein 6.0 g/dL (6.4-8.9) L 04/02/19 16:35 Albumin 2.5 g/dL (3.2-5.2) L 04/02/19 16:35 Globulin 3.5 g/dL (2-4) 04/02/19 16:35 Albumin/Globulin Ratio 0.7 (1-3) L 04/02/19 16:35 Lipase 16 U/L (11.0-82.0) 04/01/19 13:13 Vitamin B12 584 pg/mL (180-914) 04/04/19 05:28 Folate > 20.00 ng/mL (>3.99) 04/04/19 05:28 TSH 0.74 mcIU/mL (0.34-5.60) 04/05/19 05:22 Urine Color Janna 04/01/19 12:05 Urine Appearance Cloudy 04/01/19 12:05 Urine pH 5.0 (5-9) 04/01/19 12:05 Ur Specific [place] 1.025 (1.010-1.030) 04/01/19 12:05 Urine Protein 1+(30 mg/dl) (Negative) A 04/01/19 12:05 Urine Ketones Negative (Negative) 04/01/19 12:05 Urine Blood 1+ (Negative) A 04/01/19 12:05 Urine Nitrate Negative (Negative) 04/01/19 12:05 Urine Bilirubin Negative (Negative) 04/01/19 12:05 Urine Urobilinogen Negative (Negative) 04/01/19 12:05 Ur Leukocyte Esterase Negative (Negative) 04/01/19 12:05 Urine WBC (Auto) 2+(11-20/hpf) (Absent) A 04/01/19 12:05 Urine RBC (Auto) Absent (Absent) 04/01/19 12:05 Ur Squamous Epith Cells Present (Absent) A 04/01/19 12:05 Urine Bacteria 1+ (Absent) A 04/01/19 12:05 Hyaline Casts Present (Absent) A 04/01/19 12:05 Urine Glucose Negative (Negative) 04/01/19 12:05 Fluid Source Cerebral spinal 04/02/19 17:41 Fluid Volume 3 mL 04/02/19 17:41 Fluid Color Yellow 04/02/19 17:41 Fluid Appearance Clear 04/02/19 17:41 Fluid WBC 9 /mcL 04/02/19 17:41 Fluid RBC 41 /mcL 04/02/19 17:41 Fluid Tot Cell Count 100 04/02/19 17:41 Fluid Neutrophils 42 % 04/02/19 17:41 Fluid Lymphocytes 8 % 04/02/19 17:41 Fluid Monocytes 50 % 04/02/19 17:41 Fluid Other Cells 2 04/01/19 20:30 Fluid Cell Count Rvw By 04/02/19 17:41 Fluid Crystals None seen (None Seen) 04/01/19 20:30 B. burgdorferi (PCR) Negative (Negative) 04/01/19 20:30 B. mayonii (PCR) Negative (Negative) 04/01/19 20:30 B.garinii/B.afzelii PCR Negative (Negative) 04/01/19 20:30 CSF Cell Count Tube # 4 04/02/19 17:41 CSF Glucose 36 mg/dL (40-70) L 04/02/19 17:41 CSF Total Protein 315 mg/dL (15-45) H 04/02/19 17:41 CSF HSV I (PCR) Negative (Negative) 04/02/19 17:41 CSF Herpes II DNA (PCR) Negative (Negative) 04/02/19 17:41 Lyme Specimen Source Synovial fluid 04/01/19 20:30 Influenza A (Rapid) Negative (Negative) 04/01/19 09:21 Influenza B (Rapid) Negative (Negative) 04/01/19 09:21 Vital Signs Temp Pulse Resp BP Pulse Ox 98.8 F 110 16 130/79 99 04/16/19 12:20 04/16/19 12:20 04/16/19 12:20 04/16/19 12:20 04/16/19 12:20 PE: Right shoulder has no erythema/warmth on exam, no TTP, no pain with active or passive ROM. Left ankle no erythema/warmth, no TTP, full ROM, 2+ DP pulse, intact sensation, mild swelling. Left knee incisions are healing well. No erythema/warmth. Assessment: s/p left knee I&D Plan: 1) sutures were removed at bedside today and a clean dressing was placed. Patient to F/U with [facility] in 2 weeks. 2) continue PT/OT- WBAT LLE 3) If patient continues to have weakness/pain in right shoulder, Dr. Dorman can f /u as an outpatient for further treatment
--- NOTE | 2019-04-16 17:00 | DS ---
DISCHARGE SUMMARY: DATE OF ADMISSION: 04/01/19 DATE OF DISCHARGE: 04/16/19 PROVIDER: Alejandra Wade NP PRIMARY CARE PROVIDER: Dr. Morris. PRIMARY ORTHOPEDIC: Dr. Dorman. INFECTIOUS DISEASE: Dr. Tariq. ATTENDING PHYSICIAN WHILE IN THE HOSPITAL: Dr. Nancy Hernandez * (dictated by Alejandra Wade NP). PRIMARY DIAGNOSES: 1. Septic left knee joint. 2. Seizure likely related to alcohol withdrawal. 3. Bacterial meningitis. 4. Lumbar diskitis. 5. Altered mental status, resolved. 6. Right arm with limited range of motion likely rotator cuff. 7. Acute kidney injury. 8. Group B Strep bacteremia. 9. Septic left [place] knee. 10. Encephalopathy. 11. Acute kidney injury. SECONDARY DIAGNOSES: 1. Hypertension. 2. Hiatal hernia. 3. Nephrolithiasis. STUDIES COMPLETED DURING THIS HOSPITALIZATION: She had a CT of the abdomen and pelvis on 04/01/19, radiologist's impression: Noted biliary dilation extended to the level of the ampulla, slightly progressed when compared to 09/14/18, hiatal hernia, atherosclerosis and trace right pleural effusion. She had x-ray of the left knee: Small joint effusion, bony density appears decreased throughout. No cortical disruption or suspicious irregularity to suggest fracture. Normal articular alignment and grossly preserved joint space. Mild nonfocal soft tissue edema. She had a transthoracic echocardiogram. Left ventricular systolic function is normal. Estimated ejection fraction is 55% to 60%. Wall motion was normal. There was no regional wall motion abnormalities. Mitral valve, there was no significant regurg. Aortic valve, no evidence of stenosis. Pulmonary artery, systolic pressure could not be accurately estimated. She had a CT of the brain on 04/02/19. Involutional change, stigmata of her probable chronic small vessel ischemic disease without CT evidence of acute intracranial process. She had a transesophageal echocardiogram due to bacteremia, which showed left ventricle systolic function is hyperdynamic, estimated ejection fraction 60% to 65%, systolic function is improved from study on 04/01/19. Right ventricle systolic function is normal. The atrial septum appears aneurysmal. There is no evidence of right to left shunt based on color Doppler evaluation. Mitral valve , there is no evidence consistent with a vegetation of small structure. There is a small structure on image 9 in the anterior leaflet prolapsing into the atria consistent with focal prolapse. There is trace regurgitation. Aortic valve that is structurally normal. No vegetations noted on the aortic, tricuspid, or pulmonic valves. She had an x-ray of the abdomen on 04/04/19, diffuse distention of the colon, air filled levels consistent with paralytic ileus likely a distal colonic obstruction. She had a CT of the brain on 04/08/19 due to seizure like activity. No acute abnormality on CT. Mild chronic small vessel ischemic disease, cerebral volume loss. She had an MRI of the brain on 04/08/19, no acute intracranial abnormalities. She had an MRI of the lumbar spine on 04/08/19, which showed abnormally increased T2 signal in the interval disk with adjacent endplate edema at the L3- L4 and L4-L5 levels, which may represent diskovertebral osteomyelitis at each of these levels. Right anterior epidural collection at L3-L4 measuring 1.3 cm in transverse dimension and 0.6 cm anteriorly posteriorly dimension by a 3.9 cm in the cranial caudal dimension, which may represent epidural abscess or epidural phlegmon that effaces the right lateral recess at the L3-L4 level. L3-L4 moderate stenosis of the thecal sac, severe stenosis of the right lateral recess, mild to moderate stenosis in the left lateral recess and mild left neural foraminal stenosis. L4-L5 moderate stenosis of the thecal sac and mild right neural foraminal stenosis. L5-S1 moderate right foraminal stenosis. Bone marrow edema in the left side of the sacrum, which is secondary to nondisplaced left sacral fracture, which is better visualized on the MRI of the pelvis. Mildly increased T2 signal erector spinae muscle and psoas muscle, which may represent denervation edema, myosis or grade 1 muscle strain. She had an MRI of the pelvis on 04/08/19, radiologist's impression: Abnormal increased T2 signal in the intervertebral disk with adjacent endplate edema at L3- L4 and L4-L5, which may represent diskovertebral osteomyelitis, see further details of an MRI of the lumbar spine on 04/08/19. Nondisplaced fracture involving the left side of the sacrum located lateral to the sacrum foramina with mild associated bone marrow edema. Mildly increased T2 signal in the right basilar atelectasis, bilateral gluteal, bilateral abductor and left anterior thigh muscles, which may represent mild cytosis grade 1 muscle strain denervation edema. She had an MRI of the thoracic spine: Increased T2 signal in the anterior aspect of T8 and T9 invertebral disk with mild adjacent endplate edema, which may represent diskovertebral osteomyelitis. No epidural or paraspinal abscesses in the thoracic spine. No spinal canal stenosis. Neural foraminal stenosis of the spinal cord compression and nerve. Root impingement of the thoracic spine. She had an EEG, which showed abnormal EEG due to slowing and disorganization and background rhythms as well as increased beta activity. The study is compatible with diffuse cerebral dysfunction as well as possible benzodiazepine drug effect. There is no focal or epileptiform discharges including during what appeared to be of visual hallucinations and whole body tremors. She had an MRI of the C-spine on 04/09/19 with and without contrast, 1. Degenerative disk disease and osteoarthritis. 2. There is a bone edema enhancement in C4-C5, which this may reflect exuberant Modic type 1 reactive endplate change in the setting of degenerative disk disease. There is prevertebral soft tissue edema with enhancement, which should be expected for reactive endplate change and raises the possibility of osteomyelitis/diskitis. There is no epidural fluid collections to suggest abscess. There is moderate narrowing of the central canal at C4-C5, C5-C6, C6- C7. There is multilevel neural foraminal narrowing as described. She had an MRI of the lumbar spine. Nonspecific vertebral body enhancement centered at L3- L4, L4-L5 could be reflected of degenerative disk disease, osteomyelitis, diskitis in the correct clinical setting, multilevel spondylosis with known severe spinal canal stenosis at L3-L4, L4-L5. She had a thoracic spine MRI with and without contrast on 04/09/19, no epidural fluid collections to suggest abscess. There is mild enhancement at T8-T9 which most likely represents enhancement in the settings of Modic type 1 reactive endplate changes, though osteomyelitis and diskitis may give a similar appearance. She had an x-ray on 04/12/19 of the cervical spine, osteopenia and degenerative disk disease, osteoarthritis, straightening of the cervical lordosis, minimal extrusion, inflection and extension. Again noted is paravertebral soft tissue swelling. She had an x-ray on 04/12/19 of the lumbar spine, dynamic instability; however, little flexion and extension is achieved, multilevel spondylosis as above. CONSULTATIONS: She was seen in consultation by Dr. Dorman from Orthopedics, who is consulted for aspiration of the right knee. Plan was if infection was found , they would I and D of the left knee arthroscopically. She was seen in consultation by Dr. Tariq from Infectious Disease. He was consulted due to group B Strep bacteremia. Course of treatment was recommended 2 g of ceftriaxone IV daily for treatment of her group B Strep. He recommended obtaining a CT of the brain to rule out brain abscess and meningitis as Strep can cause meningitis and recommended a lumbar puncture and transesophageal echocardiogram. The patient did undergo transesophageal echocardiogram and that showed no vegetation. She did have a CT of the brain that showed no brain abscesses. She also had an MRI of the brain that again showed no abscesses or abnormalities. The patient did have a lumbar puncture that showed no growth. She had a lumbar puncture, which showed a protein of 315 and a glucose of 36 with suspected meningitis. Bacterial source from group B Strep. Dr. Osborn from Neurology was consulted due to seizure activity. The patient did have a seizure that was witnessed by medical staff, which was thought to be multifactorial due to withdrawal from alcohol withdrawal from benzodiazepines and possibly contributing bupropion and underlying meningitis, which we were able to control. She was initially placed on Keppra and then Keppra was discontinued. She was seen in consultation by Neurosurgery, Dr. Hamilton on due to concerns from MRI imaging. He reviewed all of her MRI and CT imaging and the suspicion was diskitis versus osteomyelitis in several levels versus degenerative disk disease. There was no clear evidence of epidural abscess or spinal cord compression. There was no evidence of destruction of vertebral bodies or severe spinal stenosis, then giving her comorbidities, conservative treatment was a best option. He recommended a [place] J collar and a TLSO brace for comfort and continuation of her antibiotics. DISCHARGE MEDICATIONS: Discontinued home medications: 1. Wellbutrin 300 mg p.o. daily. 2. Hydrocodone/acetaminophen 1 tab 4 times a day. 3. Diltiazem 180. 4. Ativan. 5. Lorazepam 0.5 mg b.i.d. 6. Zofran 4 mg 4 times a day p.r.n. 7. Ambien 10 mg at bedtime. Continued home meds: 1. Lisinopril 40 mg p.o. daily. 2. Abilify 2 mg p.o. at bedtime. New medications: 1. Acetaminophen 650 mg p.o. q.4 hours as needed for pain. 2. Ceftriaxone 2 g daily, last dose 04/16/19 ( today). 3. Diltiazem 240 mg p.o. daily. 4. Colace 100 mg p.o. b.i.d. 5. Ferrous sulfate 325 mg p.o. b.i.d. 6. Folic acid 1 mg p.o. daily. 7. Heparin flush for her PICC line. 8. Magnesium oxide 400 mg p.o. daily. 9. Melatonin 6 mg at bedtime. 10. Multivitamin 1 tab p.o. daily. 11. Oxycodone 5 mg p.o. q.4 hours as needed for severe pain. 12. MiraLAX 17 g p.o. daily p.r.n. 13. Senna 8.6 mg 1 tab at bedtime p.r.n. constipation. 14. Thiamine 100 mg p.o. daily. 15. Ambien 5 mg p.o. at bedtime as needed for sleep. ALLERGIES: PENICILLIN and SULFA. HISTORY OF PRESENT ILLNESS AND HOSPITAL COURSE: Ms. Cartagena is a 69-year-old female with past medical history significant for hypertension, anxiety and osteoarthritis, who was brought to the emergency room due to bilateral scapular pain, urinary frequency and altered mental status. It was reported that the patient on her day of admission, 04/01/19 had not been feeling well since the Monday prior to her admission. She felt like she was having flu like symptoms. Due to her constant shaking, fevers, Hospital Medicine was asked to see and evaluate her for admission. During this hospitalization, the patient was found to have Strep B bacteremia, left akhi[place] knee septic joint infection, meningitis, acute kidney injury. She had a seizure likely related to alcohol withdrawal and benzo withdrawal, encephalopathy related to underlying infection. Due to these findings, the patient during this hospitalization underwent an I and D washout of her left knee arthroscopically with Dr. Dorman from Orthopedics. After her I and D, the patient was also seen in consultation by Infectious Disease due to her Strep B bacteremia. At that time, she initially was on Zosyn and transitioned to ceftriaxone 2 g IV daily. She will need 8 weeks of IV antibiotics for treatment of her osteomyelitis, diskitis of the C-spine, T-spine and lumbar spine as well as infected septic joint to her left knee, suspected bacterial meningitis. The patient did have an episode of seizure activity during this hospitalization. She did have an EEG that showed no epileptiform discharges. The patient was initially placed on Keppra, which was weaned and discontinued. She has had no further seizure activity and does not need to continue this medication at this time. At this time, the patient has been working with PT. She will require a further acute PT therapy due to her left septic knee joint washout and back pain from diskitis, osteomyelitis. So recommendations were for short term rehab. The patient will be transitioned to short term rehab at [facility] today. Today on her day of discharge, the patient is stable for discharge. REVIEW OF SYSTEMS: The patient denies any fever or chills. Denies any chest pain or shortness of breath. Denies any nausea, vomiting, diarrhea, or abdominal pain. She denies any urinary frequency, urgency, or pain with urination. The patient does complain of limited range of motion to her right upper extremity. She is neurologically intact to the right upper extremity. Push pull is intact. Handgrips are equal. There is no numbness or tingling, this is likely related to rotator cuff injury. This has been discussed with Orthopedics who is in agreement that this is related to rotator cuff and has recommended physical therapy and outpatient evaluation of her right shoulder injury. PHYSICAL EXAMINATION: General: At this time, Ms. Cartagena is alert and oriented, sitting in a hospital bed. She is in no acute distress. Vital Signs : Blood pressure is 130/79, heart rate is 90, respirations 16, O2 saturation 99 %, temperature was 98.8. HEENT: Head is atraumatic, normocephalic. Eyes: EOMs are intact. Sclerae are anicteric and not pale. Oral mucosa is moist. Neck is supple. She has no C-spine tenderness. No limited range of motion of the neck. Lungs are clear to auscultation bilaterally. No wheezes, rales, or rhonchi. Cardiac: S1, S2. Regular rate and rhythm. No murmurs, rubs, or gallops. Abdomen: Soft and nontender. Bowel sounds are present x4. Back: She does have some lower back tenderness on bilateral sides. There is no redness or swelling. She is able to move all 4 extremities. There is no clubbing or cyanosis. She is stable and walking with a rolling walker. Extremities: She does have a dressing that is dry and intact to her left lower leg. Pedal pulses are +2 bilaterally. There is no clubbing or cyanosis. Right upper extremity, the patient does have strong handgrip. Her radial and ulnar pulses are intact. There is no swelling or edema. She does have a PICC line noted to her right upper arm. She is unable to abduct her right upper arm by a full range of motion of the right lower arm, this is likely related to rotator cuff disease. Neurologic: She is awake, alert, and oriented x3. Speech is clear. Thought process is intact. Skin: She does have a dressing that is dry and intact to her left knee. At this time, Ms. Cartagena is stable for discharge to [facility]. DISCHARGE PLAN: Ms. Cartagena will be discharged to [facility]. Activity, weightbearing as tolerated. She should use a rolling walker. 1. Bacteremia from strep B. The patient is to continue on ceftriaxone 2 g IV daily, she is on day 15 of 56 as of 04/16/19. She should follow up with Dr. Tariq in 1 to 2 weeks. On Monday, she needs a repeat CBC, CMP and CRP with results to Dr. Tariq. 2. Bacterial meningitis. Again, the patient should continue on 2 g of ceftriaxone for a total of 56 days, today is day 14. Should the patient have any increased neurologic dysfunction, she should return to the hospital for further evaluation. 3. Septic left knee joint. The patient did have a washout of the left knee. She should follow up with Dr. Dorman on Monday or Monday to have sutures removed and for reevaluation. Again, she will continue on ceftriaxone 2 g IV for a total of 56 days, today being day 15. 4. Seizure activity. The patient did have a seizure during this hospitalization was likely related to alcohol withdrawal/benzodiazepine withdrawal. The patient was started on Keppra and was weaned and discontinued, she has had no further seizure activity. 5. Lumbar, thoracic and cervical diskitis. The patient again is being treated with ceftriaxone 2 g IV for a Strep B bacteremia is likely the source of her lumbar diskitis. 6. Encephalopathy. The patient did have encephalopathy related to underlying bacteremia from Strep B related to her septic left knee bacterial meningitis. 7. Limited range of motion to her right upper arm. This is likely related to a rotator cuff injury. The case was discussed with Orthopedics, who agreed that this was a rotator cuff injury and recommended that she had PT and followup as an outpatient with Dr. Dietrich for further recommendations. 8. The patient did have acute kidney injury during this hospitalization, was likely related to underlying bacteremia, which her acute kidney injury is resolved. On the day of discharge, her BUN was 10 and her creatinine was 0.84. 9. Anemia. The patient does have chronic anemia. Her H and H has been stable throughout this hospitalization. Her H and H on the day of discharge is 8.2 and 25. She should continue to trend her white count. 10. Thrombocytosis. The patient does have an elevated platelet count. This was likely reactive due to her underlying infection. Her platelet count on the day of discharge was 797. She should have a repeat CBC within a week. FOLLOWUP: The patient should follow up with Dr. Dorman on Monday or Monday to have sutures remove from her left knee and followup on management. She should follow up with Orthopedics in regards to her right upper extremity weakness related to likely rotator cuff injury. She should follow up with Dr. Tariq from Infectious Disease in 1 to 2 weeks. She needs to have weekly CBC, CRP and a CMP with results to Dr. Tariq. Should the patient develop fever, chills, severe uncontrolled back pain, loss of neuro function to her lower extremities or upper extremities, she should return to the emergency room. I have discussed this with my attending, Dr. Nancy Hernandez; she is in agreement with my plan. CONDITION ON DISCHARGE: Improved. DISPOSITION ON DISCHARGE: [facility]. TIME SPENT: Time spent on this discharge was 65 minutes, greater than half the time was spent discussing discharge plans and instructions with the patient and her family. ALEJANDRA LACY, HANH [id number]/[facility] #: [id number] DIAMOND
== END 2019-04-16 16:54 | DRG 853 ==
LOC: ED 09:05 → MEDTELE 13:19 → ICU 04-08 09:12 → MEDTELE 04-09 23:01
PROVIDERS: ADMIT Internal Medicine; ATTEND Internal Medicine
PROC: 0SBD4ZZ Excision of Left Knee Joint, Percutaneous Endoscopic Approach (ICD-10-PCS; principal; 2019-04-02 18:30)
PROC: B24BZZ4 Ultrasonography of Heart with Aorta, Transesophageal (ICD-10-PCS; 2019-04-03)
PROC: 4A00X4Z Measurement of Central Nervous Electrical Activity, External Approach (ICD-10-PCS; 2019-04-08)
DX: A40.1 Sepsis due to streptococcus, group B (principal); G00.2 Streptococcal meningitis; G93.41 Metabolic encephalopathy; N17.9 Acute kidney failure, unspecified; E87.1 Hypo-osmolality and hyponatremia; F10.239 Alcohol dependence with withdrawal, unspecified; G40.89 Other seizures; M00.262 Other streptococcal arthritis, left knee; F13.239 Sedative, hypnotic or anxiolytic dependence with withdrawal, unspecified; K56.7 Ileus, unspecified; I10 Essential (primary) hypertension; E78.5 Hyperlipidemia, unspecified; Y90.9 Presence of alcohol in blood, level not specified; K21.9 Gastro-esophageal reflux disease without esophagitis; K58.9 Irritable bowel syndrome, unspecified; M47.816 Spondylosis without myelopathy or radiculopathy, lumbar region; F41.9 Anxiety disorder, unspecified; F32.9 Major depressive disorder, single episode, unspecified; G89.29 Other chronic pain; R65.20 Severe sepsis without septic shock; R79.89 Other specified abnormal findings of blood chemistry; M17.12 Unilateral primary osteoarthritis, left knee; D64.9 Anemia, unspecified; M46.45 Discitis, unspecified, thoracolumbar region; M46.43 Discitis, unspecified, cervicothoracic region; Z88.0 Allergy status to penicillin; Z88.2 Allergy status to sulfonamides
CPT/HCPCS: 36415; 70450; 70551; 71045; 71260; 72040; 72100; 72125; 72128; 72131; 72146; 72147; 72148; 72149; 72156; 72195; 74019; 74177; 80048; 80053; 81003; 81015; 82272; 82550; 82607; 82728; 82746; 82945; 83540; 83550; 83605; 83690; 83735; 84100; 84157; 84443; 84484; 85025; 85027; 85610; 85652; 85730; 86140; 87040; 87070; 87073; 87077; 87086; 87102; 87116; 87186; 87205; 87206; 87476; 87529; 87640; 87641; 87798; 89051; 89060; 93005; 93306; 93312; 93325; 95816; 99156; 99284; A9270-GY; A9579; C1751; J0360; J0696; J1040; J1630; J1650; J1885; J1953; J2060; J2250; J2270; J2310; J2543; J3010; J3411; J3475; J3480; J3490; Q9967

== ENCOUNTER 2021-08-05 19:52 | Inpatient (IN) ==
[2021-08-05] MEDS ORDERED: NS 0.9% 1000 ml BAG 1,000 ML IV ONE (19:56)
[2021-08-05] MEDS ORDERED: Midazolam 2 mg/2 ml VIAL 1 mg/ml 2 ml VIAL (2 mg) IV SLOW PU ONE (19:58)
[2021-08-05 20:29] LABS: ABS Lymphocytes 0.7 10^3/ul (1.0-4.8); ABS Monocytes 0.3 10^3/ul (0-0.8); ABS Neutrophils 5.2 10^3/ul (1.5-7.7); Eosinophil % 0.1 %; Hematocrit 32 % (35-47); Hemoglobin 10.3 g/dL (12.0-16.0); Lymphocyte % 10.8 %; Mean Corpuscular HGB Conc 32 g/dL (31-36); Mean Corpuscular Hemoglobin 34 pg (27-31); Mean Corpuscular Volume 104 fL (80-97); Mean Platelet Volume 7.8 fL (7.4-10.4); Nucleated Red Blood Cells % 0.1; Platelet Count 158 10^3/uL (150-450); Red Blood Count 3.07 10^6 /uL (3.70-4.87); Red Cell Distribution Width 17 % (10-15); White Blood Count 6.2 10^3/uL (3.5-10.8)
[2021-08-05] MEDS ORDERED: LORazepam 2 mg VIAL 1 ml IV PUSH ONE (20:29)
[2021-08-05] MEDS ORDERED: Lorazepam PYXIS KEY PRN (20:29)
[2021-08-05 20:50] LABS: High Sens Troponin Baseline 13 pg/mL (<15)
[2021-08-05 20:56] LABS: Activated Partial Thrombo Time 25.2 seconds (26.0-38.0)
[2021-08-05 20:59] LABS: ALT 13 U/L (7-52); AST 29 U/L (13-39); Acetaminophen < 15 mcg/mL; Albumin 3.2 g/dL (3.2-5.2); Albumin/Globulin Ratio 0.5 (1-3); Alcohol, S < 13 mg/dL (<13); Alkaline Phosphatase 144 U/L (35-149); Anion Gap 7 mmol/L (2-11); Blood Urea Nitrogen 9 mg/dL (6-24); CO2 Carbon Dioxide 27 mmol/L (22-32); Chloride 99 mmol/L (101-111); Cholesterol 232 mg/dL; Globulin 6.3 g/dL (2-4); Glucose 93 mg/dL (70-100); HDL Cholesterol 80.2 mg/dL; LDL Cholesterol 127 mg/dL; Potassium 3.7 mmol/L (3.5-5.0); Salicylate < 2.50 mg/dL (<30); Sodium 133 mmol/L (135-145); Total Protein 9.5 g/dL (6.4-8.9); Triglycerides 125 mg/dL; eGFR CKD-EPI 60.9 (>60)
[2021-08-05] MEDS ORDERED: Iohexol 350 (CONTRAST) 500 ML MDV IV ONE (21:29)
[2021-08-05 22:08] LABS: High Sensitivity Troponin 1 Hr 11 pg/mL (<15)
[2021-08-05] MEDS ORDERED: Ondansetron 4 mg VIAL 2 MG/ML 2 ml VIAL IV PRN (23:19)
[2021-08-05 23:26] LABS: Urine Appearance Clear; Urine Bilirubin Negative (Negative); Urine Blood 1+ (Negative); Urine Color Yellow; Urine Glucose Negative (Negative); Urine Ketones Negative (Negative); Urine Nitrite Positive (Negative); Urine Protein Negative (Negative); Urine Specific Gravity 1.021 (1.002-1.030); Urine Urobilinogen Negative (Negative)
[2021-08-05 23:28] LABS: Urine Benzodiazepine Screen Presumptive Positive (None Detect); Urine Cannabinoids Screen None Detected (None Detect); Urine Opiates Screen Presumptive Positive (None Detect)
[2021-08-05] MEDS ORDERED: Thiamine 100 MG/ML 2 ml VIAL (200 mg) IM ONE (23:32)
[2021-08-05 23:49] LABS: Urine Bacteria Absent (Absent); Urine Red Blood Cell Absent (Absent); Urine Squamous Epithelial Cell Present (Absent); Urine White Blood Cell Trace(0-5/hpf) (Absent)
[2021-08-06] MEDS ORDERED: Lactated Ringers 1000 ml BAG 1,000 ML IV SCH (01:00)
[2021-08-06] MEDS: Multivitamins/Minerals TAB PO SCH ×2 (01:20→10:01)
[2021-08-06 01:46] LABS: Magnesium 1.4 mg/dL (1.9-2.7); Phosphorus 2.8 mg/dL (2.5-5.0)
[2021-08-06] MEDS ORDERED: Magnesium Sulfate 2 gm BAG 2 GM/50 ML BAG IVPB ONE ×2 (02:01→04:00)
[2021-08-06 02:36] LABS: TSH Ultra Thyroid Stim Horm 0.75 mcIU/mL (0.34-5.60)
[2021-08-06 02:47] LABS: Folate > 20.00 ng/mL (5.90-24.80)
[2021-08-06 02:48] LABS: Vitamin B12 455 pg/mL (180-914)
[2021-08-06 06:41] LABS: ABS Lymphocytes 1.3 10^3/ul (1.0-4.8); ABS Monocytes 0.4 10^3/ul (0-0.8); Eosinophil % 0.9 %; Hematocrit 27 % (35-47); Hemoglobin 9.1 g/dL (12.0-16.0); Lymphocyte % 21.8 %; Mean Corpuscular HGB Conc 33 g/dL (31-36); Mean Corpuscular Hemoglobin 35 pg (27-31); Mean Corpuscular Volume 104 fL (80-97); Mean Platelet Volume 7.9 fL (7.4-10.4); Platelet Count 141 10^3/uL (150-450); Red Blood Count 2.63 10^6 /uL (3.70-4.87); Red Cell Distribution Width 17 % (10-15); White Blood Count 5.7 10^3/uL (3.5-10.8)
[2021-08-06 07:02] LABS: Calcium 8.5 mg/dL (8.6-10.3); Potassium 3.2 mmol/L (3.5-5.0); eGFR CKD-EPI 74.4 (>60)
[2021-08-06] MEDS ORDERED: Lidocaine PATCH 5% PATCH TRANSDERM SCH (09:00)
[2021-08-06 09:18] LABS: Magnesium 2.6 mg/dL (1.9-2.7)
[2021-08-06] MEDS ORDERED: Thiamine 100 MG/ML 2 ml VIAL 500 MG in NS 0.9% 250 ml 250 ML IV SCH (14:00)
[2021-08-06] MEDS ORDERED: Potassium Chlor 20 meq TAB.ER PO ONE (14:37)
[2021-08-06] MEDS ORDERED: cefTRIAXone 1 gm/50 mL D5W 1 GM/50 ML BAG IV SCH (15:30)
[2021-08-06 16:30] VITALS: BP 156/84
== END 2021-08-06 18:08 | disposition home or self-care (01) | DRG 101 ==
LOC: ED 19:52 → EDHOLD 23:19 → SUATTDRO 23:19 → MEDTELE 08-06 01:48
PROVIDERS: ADMIT Internal Medicine; ATTEND Internal Medicine

== ENCOUNTER 2022-09-01 13:52 | Observation (INO) ==
[2022-09-01 14:25] LABS: ABS Lymphocytes 0.5 10^3/uL (1.0-4.8); ABS Monocytes 0.6 10^3/uL (0.0-0.9); Hematocrit 41.9 % (35-45); Hemoglobin 14.2 g/dL (11.5-14.3); Lymphocyte % 5.6 %; Mean Corpuscular Hemoglobin 34.8 pg (27-33); Mean Corpuscular Hgb Conc 33.9 g/dL (31-36); Mean Corpuscular Volume 102.6 fL (80-97); Mean Platelet Volume 7.9 fL (7.5-11.2); Platelet Count 266 10^3/uL (150-450); Red Blood Count 4.08 10^6/uL (3.63-4.92); Red Cell Distribution Width 14.2 % (12-17); White Blood Count 8.1 10^3/uL (3.8-11.8)
[2022-09-01] MEDS ORDERED: Iodixanol (CONTRAST) 320 MG/ML 100 ML SDV IV ONE (14:26)
[2022-09-01 14:35] LABS: Activated Partial Thrombo Time 24.9 seconds (26.0-38.0); INR 0.88 (0.88-1.18)
[2022-09-01 14:43] LABS: ALT 11 U/L (7-52); AST 20 U/L (13-39); Albumin 4.1 g/dL (3.2-5.2); Albumin/Globulin Ratio 1.8 (1-3); Alkaline Phosphatase 99 U/L (35-149); Anion Gap 15 mmol/L (2-16); Blood Urea Nitrogen 16 mg/dL (6-24); CO2 Carbon Dioxide 24 mmol/L (22-32); Chloride 94 mmol/L (101-111); Cholesterol 251 mg/dL; Creatinine, Serum 0.91 mg/dL (0.51-0.95); Globulin 2.3 g/dL (2-4); Glucose 121 mg/dL (70-100); HDL Cholesterol 129.2 mg/dL; LDL Cholesterol 101 mg/dL; Potassium 4.3 mmol/L (3.5-5.0); Sodium 133 mmol/L (135-145); Total Protein 6.4 g/dL (6.4-8.9); Triglycerides 106 mg/dL; eGFR CKD-EPI 66.2 (>60)
[2022-09-01 16:54] LABS: Urine Appearance Clear; Urine Bilirubin Negative (Negative); Urine Blood Negative (Negative); Urine Color Yellow; Urine Glucose Negative (Negative); Urine Ketones 1+ (Negative); Urine Nitrite Negative (Negative); Urine Protein Negative (Negative); Urine Specific Gravity 1.026 (1.002-1.030); Urine Urobilinogen Negative (Negative)
[2022-09-01] MEDS ORDERED: NS 0.9% 1000 ml BAG 1,000 ML IV ONE (17:08)
[2022-09-01] MEDS ORDERED: Thiamine 100 MG/ML 2 ml VIAL (200 mg) IV ONE (17:10)
[2022-09-01] MEDS ORDERED: Thiamine 100 MG/ML 2 ml VIAL 500 MG in NS 0.9% 250 ml 250 ML IV ONE (17:10)
[2022-09-01] MEDS ORDERED: Lactated Ringers 1000 ml BAG 1,000 ML IV ONE (17:10)
[2022-09-01 17:35] LABS: Alcohol, S < 13 mg/dL (<13)
[2022-09-01 17:51] LABS: TSH Ultra Thyroid Stim Horm 0.45 mcIU/mL (0.34-5.60)
[2022-09-01 18:02] LABS: Vitamin B12 > 1450 pg/mL (180-914)
[2022-09-01 18:20] LABS: C Reactive Protein < 1.00 mg/L (<8.01)
[2022-09-01] MEDS: Acetaminophen IV 1 GM/100ML 1,000 MG/100 ML BAG IV SCH (20:19)
[2022-09-01] MEDS ORDERED: Lorazepam PYXIS KEY PRN (21:56)
[2022-09-01] MEDS ORDERED: Enoxaparin 40 MG/0.4 ML SYR SUBCUT SCH (22:00)
[2022-09-01 22:32] LABS: Urine Appearance Clear; Urine Bilirubin Negative (Negative); Urine Blood Negative (Negative); Urine Color Colorless; Urine Glucose Negative (Negative); Urine Ketones 1+ (Negative); Urine Nitrite Negative (Negative); Urine Protein Negative (Negative); Urine Specific Gravity 1.012 (1.002-1.030); Urine Urobilinogen Negative (Negative)
[2022-09-01 22:34] LABS: Urine Bacteria Absent (Absent); Urine Red Blood Cell Absent (Absent); Urine Squamous Epithelial Cell Present (Absent); Urine White Blood Cell Trace(0-5/hpf) (Absent)
[2022-09-01] MEDS: LORazepam 2 mg VIAL 1 ml IV PUSH SCH (23:44)
[2022-09-02] MEDS: Multivitamins/Minerals TAB PO SCH ×2 (00:13→09:42)
[2022-09-02] MEDS: LORazepam 2 mg VIAL 1 ml IV PUSH SCH (03:18)
[2022-09-02] MEDS: Acetaminophen IV 1 GM/100ML 1,000 MG/100 ML BAG IV SCH ×2 (06:31→14:13)
[2022-09-02 06:32] LABS: Hematocrit 36.5 % (35-45); Hemoglobin 12.6 g/dL (11.5-14.3); Mean Corpuscular Hgb Conc 34.5 g/dL (31-36); Mean Corpuscular Volume 101.5 fL (80-97); Mean Platelet Volume 8.2 fL (7.5-11.2); Platelet Count 225 10^3/uL (150-450); Red Blood Count 3.59 10^6/uL (3.63-4.92); Red Cell Distribution Width 14.2 % (12-17); White Blood Count 5.1 10^3/uL (3.8-11.8)
[2022-09-02 06:53] LABS: Calcium 8.5 mg/dL (8.6-10.3); Creatinine, Serum 0.79 mg/dL (0.51-0.95); Magnesium 1.1 mg/dL (1.9-2.7); Potassium 3.4 mmol/L (3.5-5.0); eGFR CKD-EPI 78.4 (>60)
[2022-09-02] MEDS ORDERED: FAMCICLOVIR 250 MG PO SCH (09:00)
[2022-09-02] MEDS ORDERED: Potassium Chloride LIQUID 20 MEQ/15 ML LIQUID PO ONE (09:07)
[2022-09-02] MEDS ORDERED: Magnesium Sulf 4 GM/100 ML IV 4,000 MG/100 ML BAG IVPB ONE (09:48)
[2022-09-02 14:22] VITALS: BP 157/108
[2022-09-05 20:59] LABS: IgG Immunoblot Negative (Negative); IgM Immunoblot Negative (Negative)
== END 2022-09-02 15:00 | disposition home or self-care (01) ==
LOC: ED 13:52 → EDHOLD 13:52
PROVIDERS: ADMIT Internal Medicine; ATTEND Internal Medicine

== ENCOUNTER 2022-09-06 20:59 | Inpatient (IN) ==
[2022-09-06] MEDS ORDERED: LORazepam 2 mg VIAL 1 ml ONE (21:11)
[2022-09-06] MEDS ORDERED: NS 0.9% 1000 ml BAG 1,000 ML IV ONE (21:27)
[2022-09-06] MEDS ORDERED: LORazepam 2 mg VIAL 1 ml IV PUSH ONE (21:27)
[2022-09-06 21:44] LABS: ABS Basophils 0.1 10^3/uL (0.0-0.1); ABS Eosinophils 0.2 10^3/uL (0.0-0.5); ABS Lymphocytes 2.3 10^3/uL (1.0-4.8); ABS Neutrophils 5.4 10^3/uL (1.5-7.6); ABS Nucleated RBC 0.02 10^3/ul; Eosinophil % 1.7 %; Hematocrit 41.6 % (35-45); Hemoglobin 14.1 g/dL (11.5-14.3); Mean Corpuscular Hemoglobin 34.6 pg (27-33); Mean Corpuscular Volume 101.8 fL (80-97); Mean Platelet Volume 8.1 fL (7.5-11.2); Nucleated Red Blood Cells % 0.2 /100 WBC (0.0-0.4); Platelet Count 266 10^3/uL (150-450); Red Blood Count 4.09 10^6/uL (3.63-4.92); Red Cell Distribution Width 14.4 % (12-17); White Blood Count 8.9 10^3/uL (3.8-11.8)
[2022-09-06 22:01] LABS: ALT 10 U/L (7-52); Albumin 4.1 g/dL (3.2-5.2); Albumin/Globulin Ratio 1.6 (1-3); Alkaline Phosphatase 88 U/L (35-149); Blood Urea Nitrogen 14 mg/dL (6-24); CO2 Carbon Dioxide 17 mmol/L (22-32); Calcium 9.8 mg/dL (8.6-10.3); Chloride 98 mmol/L (101-111); Creatinine, Serum 1.07 mg/dL (0.51-0.95); Globulin 2.6 g/dL (2-4); Glucose 113 mg/dL (70-100); Sodium 133 mmol/L (135-145); Total Protein 6.7 g/dL (6.4-8.9); eGFR CKD-EPI 54.5 (>60)
[2022-09-06 22:28] LABS: Urine Appearance Cloudy; Urine Bilirubin Negative (Negative); Urine Blood 1+ (Negative); Urine Color Yellow; Urine Glucose Negative (Negative); Urine Ketones Trace (Negative); Urine Nitrite Negative (Negative); Urine Protein 2+(100 mg/dL) (Negative); Urine Specific Gravity 1.019 (1.002-1.030); Urine Urobilinogen Negative (Negative)
[2022-09-06 22:32] LABS: INR 0.97 (0.88-1.18)
[2022-09-06 22:35] LABS: Urine Bacteria Absent (Absent); Urine Red Blood Cell 2+(6-10/hpf) (Absent); Urine Squamous Epithelial Cell Present (Absent); Urine White Blood Cell 3+(>20/hpf) (Absent)
[2022-09-06 22:49] LABS: Urine Benzodiazepine Screen None Detected (None Detect); Urine Cannabinoids Screen None Detected (None Detect); Urine Opiates Screen Presumptive Positive (None Detect)
[2022-09-06 22:50] LABS: Anion Gap 18 mmol/L (2-16)
[2022-09-06 23:13] LABS: Alcohol, S < 13 mg/dL (<13)
[2022-09-06] MEDS ORDERED: cefTRIAXone 1 gm/50 mL D5W 1 GM/50 ML BAG IV ONE (23:14)
[2022-09-06 23:21] LABS: Magnesium 1.2 mg/dL (1.9-2.7); Potassium Redraw 3.7 mmol/L (3.5-5.0)
[2022-09-06 23:26] LABS: AST Redraw 16 U/L (13-39)
[2022-09-07 00:03] LABS: PCO2 Arterial 35 mmHg (35-45); PO2 Arterial 87 mmHg (80-100)
[2022-09-07] MEDS ORDERED: Lorazepam PYXIS KEY PRN ×3 (01:24→13:27)
[2022-09-07] MEDS ORDERED: LORazepam 2 mg VIAL 1 ml IV PUSH SCH (02:00)
[2022-09-07] MEDS ORDERED: Labetalol IV 5 MG/ML 20 ml VIAL IV PUSH PRN (03:07)
[2022-09-07 06:50] LABS: ABS Eosinophils 0.1 10^3/uL (0.0-0.5); ABS Lymphocytes 0.8 10^3/uL (1.0-4.8); ABS Monocytes 0.5 10^3/uL (0.0-0.9); ABS Neutrophils 5.8 10^3/uL (1.5-7.6); Eosinophil % 0.9 %; Hematocrit 40.6 % (35-45); Hemoglobin 13.9 g/dL (11.5-14.3); Lymphocyte % 10.6 %; Mean Corpuscular Hemoglobin 34.9 pg (27-33); Mean Corpuscular Hgb Conc 34.2 g/dL (31-36); Platelet Count 250 10^3/uL (150-450); Red Blood Count 3.97 10^6/uL (3.63-4.92); Red Cell Distribution Width 14.1 % (12-17); White Blood Count 7.2 10^3/uL (3.8-11.8)
[2022-09-07 06:53] LABS: Calcium 9.3 mg/dL (8.6-10.3); Creatinine, Serum 0.92 mg/dL (0.51-0.95); Potassium 3.7 mmol/L (3.5-5.0); eGFR CKD-EPI 65.3 (>60)
[2022-09-07] MEDS ORDERED: Pneumococcal Vac 23-Polyvalent IM ONE (09:00)
[2022-09-07] MEDS ORDERED: FAMCICLOVIR 250 MG PO SCH (09:00)
[2022-09-07] MEDS: CAPSAICIN 0.1% TOPICAL SCH ×2 (09:21→20:43)
[2022-09-07] MEDS: LENALIDOMIDE 10 MG PO SCH (09:24)
[2022-09-07] MEDS: Enoxaparin 40 MG/0.4 ML SYR SUBCUT SCH (09:26)
[2022-09-07] MEDS ORDERED: Magnesium Sulf 4 GM/100 ML IV 4,000 MG/100 ML BAG IVPB ONE (10:30)
[2022-09-07] MEDS: DULoxetine DR 30 mg CAP PO SCH (11:32)
[2022-09-07] MEDS: DULoxetine DR 20 mg CAP PO SCH (11:32)
[2022-09-07] MEDS ORDERED: LORazepam 2 mg VIAL 1 ml IV PUSH ONE (13:12)
[2022-09-07] MEDS ORDERED: Thiamine 100 MG/ML 2 ml VIAL (200 mg) IV ONE (13:24)
[2022-09-07] MEDS ORDERED: LORazepam 2 mg VIAL 1 ml IM ONE (13:27)
[2022-09-07] MEDS ORDERED: levETIRAcetam IV 1,500 MG in NS 0.9% 100 ml BAG 100 ML IVPB ONE (13:33)
[2022-09-07] MEDS ORDERED: NS 0.9% IVPB SCH (15:30)
[2022-09-07] MEDS ORDERED: ACYCLOVIR IVPB SCH (15:30)
[2022-09-07] MEDS: Acyclovir IV 600 MG in NS 0.9% 100 ml BAG 100 ML IVPB SCH ×2 (17:19→23:32)
[2022-09-07] MEDS ORDERED: levETIRAcetam LIQ 500 MG/5 ML UDC PO ONE (18:34)
[2022-09-07] MEDS: Thiamine 100 MG/ML 2 ml VIAL 100 MG in NS 0.9% 50 ML 50 ML IV SCH (19:29)
[2022-09-07] MEDS ORDERED: Thiamine 100 MG/ML 2 ml VIAL 500 MG in NS 0.9% 250 ml 250 ML IV SCH (21:00)
[2022-09-08 07:06] LABS: Hematocrit 35.2 % (35-45); Hemoglobin 12.1 g/dL (11.5-14.3); Mean Corpuscular Hemoglobin 35.1 pg (27-33); Mean Corpuscular Hgb Conc 34.4 g/dL (31-36); Mean Corpuscular Volume 101.8 fL (80-97); Mean Platelet Volume 7.3 fL (7.5-11.2); Platelet Count 227 10^3/uL (150-450); Red Blood Count 3.46 10^6/uL (3.63-4.92); Red Cell Distribution Width 14.1 % (12-17); White Blood Count 4.2 10^3/uL (3.8-11.8)
[2022-09-08 07:28] LABS: Albumin 3.2 g/dL (3.2-5.2); Albumin/Globulin Ratio 1.9 (1-3); Calcium 8.9 mg/dL (8.6-10.3); Creatinine, Serum 0.99 mg/dL (0.51-0.95); Globulin 1.7 g/dL (2-4); Magnesium 2.2 mg/dL (1.9-2.7); Potassium 3.5 mmol/L (3.5-5.0); Total Bilirubin 0.6 mg/dL (0.2-1.0); Total Protein 4.9 g/dL (6.4-8.9); eGFR CKD-EPI 59.8 (>60)
[2022-09-08] MEDS: DULoxetine DR 20 mg CAP PO SCH (09:29)
[2022-09-08] MEDS: Enoxaparin 40 MG/0.4 ML SYR SUBCUT SCH (09:31)
[2022-09-08] MEDS: DULoxetine DR 30 mg CAP PO SCH (09:31)
[2022-09-08] MEDS: CAPSAICIN 0.1% TOPICAL SCH ×2 (09:32→21:09)
[2022-09-08] MEDS: Acyclovir IV 600 MG in NS 0.9% 100 ml BAG 100 ML IVPB SCH ×3 (09:32→23:45)
[2022-09-08] MEDS: LENALIDOMIDE 10 MG PO SCH (09:33)
[2022-09-08 11:08] LABS: Urine Appearance Cloudy; Urine Bilirubin Negative (Negative); Urine Blood Negative (Negative); Urine Color Straw; Urine Glucose Negative (Negative); Urine Ketones Negative (Negative); Urine Nitrite Negative (Negative); Urine Protein Negative (Negative); Urine Specific Gravity 1.004 (1.002-1.030); Urine Urobilinogen Negative (Negative)
[2022-09-08 11:14] LABS: Urine Bacteria Absent (Absent); Urine Red Blood Cell Absent (Absent); Urine Squamous Epithelial Cell Present (Absent); Urine White Blood Cell 1+(6-10/hpf) (Absent)
[2022-09-08] MEDS: Thiamine 100 MG/ML 2 ml VIAL 100 MG in NS 0.9% 50 ML 50 ML IV SCH (14:15)
[2022-09-08] MEDS: cefTRIAXone 1 gm/50 mL D5W 1 GM/50 ML BAG IV SCH (17:12)
[2022-09-09 07:03] LABS: Hematocrit 34.4 % (35-45); Hemoglobin 11.8 g/dL (11.5-14.3); Mean Corpuscular Hgb Conc 34.3 g/dL (31-36); Mean Corpuscular Volume 101.9 fL (80-97); Platelet Count 233 10^3/uL (150-450); Red Blood Count 3.38 10^6/uL (3.63-4.92); Red Cell Distribution Width 14.5 % (12-17); White Blood Count 3.7 10^3/uL (3.8-11.8)
[2022-09-09 07:16] LABS: Albumin 3.2 g/dL (3.2-5.2); Albumin/Globulin Ratio 1.8 (1-3); Calcium 8.7 mg/dL (8.6-10.3); Creatinine, Serum 1.08 mg/dL (0.51-0.95); Globulin 1.8 g/dL (2-4); Magnesium 1.8 mg/dL (1.9-2.7); Potassium 3.7 mmol/L (3.5-5.0); Total Bilirubin 0.4 mg/dL (0.2-1.0); eGFR CKD-EPI 53.9 (>60)
[2022-09-09] MEDS: Acyclovir IV 600 MG in NS 0.9% 100 ml BAG 100 ML IVPB SCH (09:58)
[2022-09-09] MEDS: Enoxaparin 40 MG/0.4 ML SYR SUBCUT SCH (09:59)
[2022-09-09] MEDS: DULoxetine DR 30 mg CAP PO SCH (09:59)
[2022-09-09] MEDS: DULoxetine DR 20 mg CAP PO SCH (09:59)
[2022-09-09] MEDS: CAPSAICIN 0.1% TOPICAL SCH ×2 (10:00→21:11)
[2022-09-09] MEDS: Thiamine 100 MG/ML 2 ml VIAL 100 MG in NS 0.9% 50 ML 50 ML IV SCH (15:34)
[2022-09-09] MEDS: cefTRIAXone 1 gm/50 mL D5W 1 GM/50 ML BAG IV SCH (16:18)
[2022-09-10 06:28] LABS: Hematocrit 35.8 % (35-45); Hemoglobin 12.1 g/dL (11.5-14.3); Mean Corpuscular Hemoglobin 34.3 pg (27-33); Mean Corpuscular Hgb Conc 33.7 g/dL (31-36); Mean Corpuscular Volume 101.9 fL (80-97); Mean Platelet Volume 7.6 fL (7.5-11.2); Platelet Count 208 10^3/uL (150-450); Red Blood Count 3.52 10^6/uL (3.63-4.92); Red Cell Distribution Width 14.3 % (12-17); White Blood Count 3.4 10^3/uL (3.8-11.8)
[2022-09-10 06:42] LABS: Calcium 8.8 mg/dL (8.6-10.3); Creatinine, Serum 1.23 mg/dL (0.51-0.95); Magnesium 1.6 mg/dL (1.9-2.7); eGFR CKD-EPI 46.1 (>60)
[2022-09-10] MEDS ORDERED: Magnesium Sulfate 2 gm BAG 2 GM/50 ML BAG IVPB ONE (08:42)
[2022-09-10] MEDS: DULoxetine DR 20 mg CAP PO SCH (10:00)
[2022-09-10] MEDS: DULoxetine DR 30 mg CAP PO SCH (10:00)
[2022-09-10] MEDS: Enoxaparin 40 MG/0.4 ML SYR SUBCUT SCH (10:02)
[2022-09-10] MEDS: CAPSAICIN 0.1% TOPICAL SCH ×2 (12:21→21:25)
[2022-09-11 06:33] LABS: Hematocrit 32.4 % (35-45); Hemoglobin 11.2 g/dL (11.5-14.3); Mean Corpuscular Hemoglobin 34.6 pg (27-33); Mean Corpuscular Hgb Conc 34.5 g/dL (31-36); Mean Corpuscular Volume 100.4 fL (80-97); Mean Platelet Volume 7.7 fL (7.5-11.2); Platelet Count 207 10^3/uL (150-450); Red Blood Count 3.23 10^6/uL (3.63-4.92); Red Cell Distribution Width 14.2 % (12-17)
[2022-09-11 06:50] LABS: Calcium 8.6 mg/dL (8.6-10.3); Creatinine, Serum 0.97 mg/dL (0.51-0.95); Magnesium 1.7 mg/dL (1.9-2.7); eGFR CKD-EPI 61.3 (>60)
[2022-09-11] MEDS ORDERED: Magnesium Sulfate IV 3 GM in NS 0.9% 100 ml BAG 100 ML IVPB ONE (07:25)
[2022-09-11] MEDS ORDERED: Magnesium Sulfate IV 2 GM in NS 0.9% 100 ml BAG 100 ML IVPB ONE (07:25)
[2022-09-11] MEDS: CAPSAICIN 0.1% TOPICAL SCH ×2 (08:07→21:07)
[2022-09-11] MEDS: DULoxetine DR 20 mg CAP PO SCH (08:08)
[2022-09-11] MEDS: DULoxetine DR 30 mg CAP PO SCH (08:08)
[2022-09-11] MEDS: Enoxaparin 40 MG/0.4 ML SYR SUBCUT SCH (08:19)
[2022-09-11 11:04] LABS: ABS Eosinophils 0.2 10^3/uL (0.0-0.5); ABS Lymphocytes 0.6 10^3/uL (1.0-4.8); ABS Monocytes 0.4 10^3/uL (0.0-0.9); ABS Neutrophils 1.9 10^3/uL (1.5-7.6); Eosinophil % 5.4 %; Lymphocyte % 18.5 %; Nucleated Red Blood Cells % 0.2 /100 WBC (0.0-0.4)
[2022-09-12 06:47] LABS: ABS Eosinophils 0.2 10^3/uL (0.0-0.5); ABS Lymphocytes 0.9 10^3/uL (1.0-4.8); ABS Monocytes 0.4 10^3/uL (0.0-0.9); ABS Neutrophils 2.2 10^3/uL (1.5-7.6); Eosinophil % 4.2 %; Hematocrit 35.1 % (35-45); Lymphocyte % 23.8 %; Mean Corpuscular Hemoglobin 35.3 pg (27-33); Mean Corpuscular Hgb Conc 34.3 g/dL (31-36); Mean Corpuscular Volume 102.7 fL (80-97); Mean Platelet Volume 8.2 fL (7.5-11.2); Nucleated Red Blood Cells % 0.1 /100 WBC (0.0-0.4); Platelet Count 231 10^3/uL (150-450); Red Blood Count 3.41 10^6/uL (3.63-4.92); Red Cell Distribution Width 14.6 % (12-17); White Blood Count 3.6 10^3/uL (3.8-11.8)
[2022-09-12 07:06] LABS: Calcium 8.6 mg/dL (8.6-10.3); Creatinine, Serum 0.87 mg/dL (0.51-0.95); Magnesium 1.8 mg/dL (1.9-2.7); Potassium 4.1 mmol/L (3.5-5.0); eGFR CKD-EPI 69.9 (>60)
[2022-09-12] MEDS: Magnesium Sulfate 2 gm BAG 2 GM/50 ML BAG IVPB ONE ×2 (09:10→11:35)
[2022-09-12] MEDS: Enoxaparin 40 MG/0.4 ML SYR SUBCUT SCH (09:10)
[2022-09-12] MEDS: DULoxetine DR 20 mg CAP PO SCH (09:11)
[2022-09-12] MEDS: DULoxetine DR 30 mg CAP PO SCH (09:11)
[2022-09-12] MEDS: CAPSAICIN 0.1% TOPICAL SCH (11:33)
[2022-09-12 15:15] VITALS: BP 147/87
== END 2022-09-12 18:15 | disposition home or self-care (01) | DRG 101 ==
LOC: EDHOLD 20:59 → ED 20:59 → SUATTDRO 23:48 → MEDTELE 09-07 02:20 → SUATTDRO 09-07 18:39
PROVIDERS: ADMIT Internal Medicine; ATTEND Internal Medicine

== ENCOUNTER 2023-01-26 15:09 | Inpatient (IN) ==
[2023-01-26] MEDS ORDERED: Ondansetron 4 mg VIAL 2 MG/ML 2 ml VIAL IV ONE ×2 (16:10→17:36)
[2023-01-26] MEDS ORDERED: Lactated Ringers 1000 ml BAG 1,000 ML IV ONE (16:10)
[2023-01-26 16:37] LABS: ABS Lymphocytes 0.4 10^3/uL (1.0-4.8); ABS Monocytes 0.5 10^3/uL (0.0-0.9); ABS Neutrophils 5.3 10^3/uL (1.5-7.6); Eosinophil % 0.4 %; Hematocrit 33.4 % (35-45); Hemoglobin 11.4 g/dL (11.5-14.3); Lymphocyte % 6.9 %; Mean Corpuscular Hemoglobin 35.1 pg (27-33); Mean Corpuscular Hgb Conc 34.1 g/dL (31-36); Mean Corpuscular Volume 102.8 fL (80-97); Mean Platelet Volume 7.5 fL (7.5-11.2); Platelet Count 320 10^3/uL (150-450); Red Blood Count 3.25 10^6/uL (3.63-4.92); Red Cell Distribution Width 13.9 % (12-17); White Blood Count 6.3 10^3/uL (3.8-11.8)
[2023-01-26 16:53] LABS: ALT 10 U/L (7-52); AST 18 U/L (13-39); Albumin 3.9 g/dL (3.2-5.2); Albumin/Globulin Ratio 1.9 (1-3); Alkaline Phosphatase 138 U/L (35-149); Anion Gap 9 mmol/L (2-16); Blood Urea Nitrogen 13 mg/dL (6-24); CO2 Carbon Dioxide 29 mmol/L (22-32); Calcium 8.8 mg/dL (8.6-10.3); Chloride 98 mmol/L (101-111); Creatinine, Serum 0.86 mg/dL (0.51-0.95); Globulin 2.1 g/dL (2-4); Glucose 129 mg/dL (70-100); Sodium 136 mmol/L (135-145); Total Bilirubin 0.3 mg/dL (0.2-1.0); eGFR CKD-EPI 70.8 (>60)
[2023-01-26 17:17] LABS: Alcohol, S < 13 mg/dL (<13)
[2023-01-26] MEDS ORDERED: NIRMATRELVIR/RITONAVIR 1 PAK eGFR > 60 PO ONE (17:37)
[2023-01-26] MEDS: Enoxaparin 40 MG/0.4 ML SYR SUBCUT SCH (23:15)
[2023-01-27 06:58] LABS: ABS Eosinophils 0.1 10^3/uL (0.0-0.5); ABS Lymphocytes 0.4 10^3/uL (1.0-4.8); ABS Monocytes 0.5 10^3/uL (0.0-0.9); ABS Neutrophils 4.3 10^3/uL (1.5-7.6); Eosinophil % 1.7 %; Hematocrit 33.3 % (35-45); Hemoglobin 11.4 g/dL (11.5-14.3); Mean Corpuscular Hemoglobin 35.1 pg (27-33); Mean Corpuscular Hgb Conc 34.3 g/dL (31-36); Mean Corpuscular Volume 102.3 fL (80-97); Mean Platelet Volume 7.6 fL (7.5-11.2); Platelet Count 298 10^3/uL (150-450); Red Blood Count 3.26 10^6/uL (3.63-4.92); Red Cell Distribution Width 13.8 % (12-17); White Blood Count 5.2 10^3/uL (3.8-11.8)
[2023-01-27 07:06] LABS: Calcium 8.7 mg/dL (8.6-10.3); Creatinine, Serum 0.98 mg/dL (0.51-0.95); Potassium 3.8 mmol/L (3.5-5.0); eGFR CKD-EPI 60.6 (>60)
[2023-01-27] MEDS: Multivitamins/Minerals TAB PO SCH (09:05)
[2023-01-27] MEDS: DULoxetine DR 60 mg CAP PO SCH (09:05)
[2023-01-27] MEDS: FAMCICLOVIR 250 MG PO SCH ×3 (09:07→20:46)
[2023-01-27] MEDS: NF:Lenalidomide 10 mg CAP (NF) PO SCH (11:58)
[2023-01-27] MEDS: RITONAVIR PO SCH ×2 (14:25→20:33)
[2023-01-27] MEDS: NIRMATRELVIR PO SCH ×2 (14:25→20:33)
[2023-01-27] MEDS: Enoxaparin 40 MG/0.4 ML SYR SUBCUT SCH (20:25)
[2023-01-27] MEDS ORDERED: LORazepam 2 mg VIAL 1 ml IV PUSH PRN (23:02)
[2023-01-27] MEDS ORDERED: Lorazepam PYXIS KEY PRN (23:02)
[2023-01-28] MEDS: DULoxetine DR 60 mg CAP PO SCH (10:47)
[2023-01-28] MEDS: RITONAVIR PO SCH ×2 (10:48→21:18)
[2023-01-28] MEDS: Multivitamins/Minerals TAB PO SCH (10:48)
[2023-01-28] MEDS: NIRMATRELVIR PO SCH ×2 (10:48→21:18)
[2023-01-28] MEDS: FAMCICLOVIR 250 MG PO SCH ×3 (10:49→21:17)
[2023-01-28] MEDS: NF:Lenalidomide 10 mg CAP (NF) PO SCH (10:50)
[2023-01-28] MEDS ORDERED: Senna TAB 8.6 mg TAB PO PRN (15:37)
[2023-01-28] MEDS: Enoxaparin 40 MG/0.4 ML SYR SUBCUT SCH (21:17)
[2023-01-29] MEDS: Multivitamins/Minerals TAB PO SCH (07:54)
[2023-01-29] MEDS: DULoxetine DR 60 mg CAP PO SCH (07:56)
[2023-01-29] MEDS: FAMCICLOVIR 250 MG PO SCH ×3 (07:58→21:01)
[2023-01-29] MEDS: NIRMATRELVIR PO SCH ×2 (07:59→21:02)
[2023-01-29] MEDS: RITONAVIR PO SCH ×2 (07:59→21:02)
[2023-01-29] MEDS: NF:Lenalidomide 10 mg CAP (NF) PO SCH (08:06)
[2023-01-29 10:48] LABS: Hematocrit 33.7 % (35-45); Hemoglobin 11.6 g/dL (11.5-14.3); Mean Corpuscular Hemoglobin 35.1 pg (27-33); Mean Corpuscular Hgb Conc 34.4 g/dL (31-36); Mean Platelet Volume 7.6 fL (7.5-11.2); Platelet Count 273 10^3/uL (150-450); Red Blood Count 3.31 10^6/uL (3.63-4.92); Red Cell Distribution Width 13.7 % (12-17); White Blood Count 5.3 10^3/uL (3.8-11.8)
[2023-01-29 11:09] LABS: Calcium 8.6 mg/dL (8.6-10.3); Creatinine, Serum 0.97 mg/dL (0.51-0.95); Potassium 3.9 mmol/L (3.5-5.0); eGFR CKD-EPI 61.3 (>60)
[2023-01-29] MEDS ORDERED: Lactated Ringers 1000 ml BAG 1,000 ML IV ONE (11:33)
[2023-01-29] MEDS: Benzocaine/Menthol LOZ MT PRN ×3 (12:01→21:04)
[2023-01-29] MEDS: Enoxaparin 40 MG/0.4 ML SYR SUBCUT SCH (21:02)
[2023-01-30] MEDS: Benzocaine/Menthol LOZ MT PRN ×3 (05:20→15:52)
[2023-01-30] MEDS: DULoxetine DR 60 mg CAP PO SCH (07:43)
[2023-01-30] MEDS: FAMCICLOVIR 250 MG PO SCH ×3 (07:44→22:37)
[2023-01-30] MEDS: Multivitamins/Minerals TAB PO SCH (07:44)
[2023-01-30] MEDS: NIRMATRELVIR PO SCH (07:45)
[2023-01-30] MEDS: RITONAVIR PO SCH (07:45)
[2023-01-30] MEDS: NF:Lenalidomide 10 mg CAP (NF) PO SCH (07:46)
[2023-01-30 08:20] LABS: Calcium 8.4 mg/dL (8.6-10.3); Creatinine, Serum 1.02 mg/dL (0.51-0.95); Potassium 4.1 mmol/L (3.5-5.0); eGFR CKD-EPI 57.7 (>60)
[2023-01-30 09:31] LABS: ABS Eosinophils 0.1 10^3/uL (0.0-0.5); ABS Monocytes 0.4 10^3/uL (0.0-0.9); ABS Neutrophils 1.7 10^3/uL (1.5-7.6); Eosinophil % 3.9 %; Hemoglobin 10.4 g/dL (11.5-14.3); Lymphocyte % 31.1 %; Mean Corpuscular Hemoglobin 35.4 pg (27-33); Mean Corpuscular Hgb Conc 34.8 g/dL (31-36); Mean Corpuscular Volume 101.6 fL (80-97); Mean Platelet Volume 8.1 fL (7.5-11.2); Platelet Count 243 10^3/uL (150-450); Red Blood Count 2.95 10^6/uL (3.63-4.92); Red Cell Distribution Width 13.7 % (12-17); White Blood Count 3.3 10^3/uL (3.8-11.8)
[2023-01-30 10:07] LABS: Urine Appearance Cloudy; Urine Bilirubin Negative (Negative); Urine Blood Negative (Negative); Urine Color Yellow; Urine Glucose Negative (Negative); Urine Ketones Negative (Negative); Urine Nitrite Positive (Negative); Urine Protein Negative (Negative); Urine Specific Gravity 1.006 (1.002-1.030); Urine Urobilinogen Negative (Negative)
[2023-01-30 10:17] LABS: Urine Bacteria 1+ (Absent); Urine Red Blood Cell Trace(0-2/hpf) (Absent); Urine Squamous Epithelial Cell Present (Absent); Urine White Blood Cell 1+(6-10/hpf) (Absent)
[2023-01-30] MEDS: Enoxaparin 40 MG/0.4 ML SYR SUBCUT SCH (22:37)
[2023-01-30] MEDS: cefTRIAXone 1 gm/50 mL D5W 1 GM/50 ML BAG IV SCH (22:37)
[2023-01-31] MEDS: NIRMATRELVIR PO SCH ×3 (00:06→20:10)
[2023-01-31] MEDS: RITONAVIR PO SCH ×3 (00:06→20:10)
[2023-01-31 08:04] LABS: Calcium 8.7 mg/dL (8.6-10.3); Creatinine, Serum 0.93 mg/dL (0.51-0.95); Magnesium 1.6 mg/dL (1.9-2.7); Potassium 4.3 mmol/L (3.5-5.0); eGFR CKD-EPI 64.5 (>60)
[2023-01-31 08:06] LABS: ABS Eosinophils 0.1 10^3/uL (0.0-0.5); ABS Lymphocytes 1.1 10^3/uL (1.0-4.8); ABS Monocytes 0.4 10^3/uL (0.0-0.9); Eosinophil % 2.6 %; Hematocrit 30.7 % (35-45); Hemoglobin 10.6 g/dL (11.5-14.3); Lymphocyte % 19.5 %; Mean Corpuscular Hemoglobin 35.1 pg (27-33); Mean Corpuscular Hgb Conc 34.6 g/dL (31-36); Mean Corpuscular Volume 101.4 fL (80-97); Mean Platelet Volume 7.8 fL (7.5-11.2); Nucleated Red Blood Cells % 0.1 %/100WBC (0.0-0.8); Platelet Count 256 10^3/uL (150-450); Red Blood Count 3.03 10^6/uL (3.63-4.92); Red Cell Distribution Width 13.8 % (12-17); White Blood Count 5.7 10^3/uL (3.8-11.8)
[2023-01-31] MEDS: Multivitamins/Minerals TAB PO SCH (11:55)
[2023-01-31] MEDS: DULoxetine DR 60 mg CAP PO SCH (11:55)
[2023-01-31] MEDS: FAMCICLOVIR 250 MG PO SCH ×3 (11:56→20:31)
[2023-01-31] MEDS: NF:Lenalidomide 10 mg CAP (NF) PO SCH (11:59)
[2023-01-31] MEDS: cefTRIAXone 1 gm/50 mL D5W 1 GM/50 ML BAG IV SCH (20:20)
[2023-01-31] MEDS: Enoxaparin 40 MG/0.4 ML SYR SUBCUT SCH (23:03)
[2023-02-01] MEDS ORDERED: Magnesium Sulfate 2 gm BAG 2 GM/50 ML BAG IVPB ONE (08:04)
[2023-02-01] MEDS: DULoxetine DR 60 mg CAP PO SCH (11:00)
[2023-02-01] MEDS: Multivitamins/Minerals TAB PO SCH (11:01)
[2023-02-01] MEDS: NF:Lenalidomide 10 mg CAP (NF) PO SCH (11:02)
[2023-02-01] MEDS: RITONAVIR PO SCH (11:03)
[2023-02-01] MEDS: NIRMATRELVIR PO SCH (11:03)
[2023-02-01] MEDS: FAMCICLOVIR 250 MG PO SCH ×3 (11:10→20:11)
[2023-02-01] MEDS: cefTRIAXone 1 gm/50 mL D5W 1 GM/50 ML BAG IV SCH (17:56)
[2023-02-01] MEDS: Enoxaparin 40 MG/0.4 ML SYR SUBCUT SCH (20:30)
[2023-02-02 06:40] LABS: ABS Eosinophils 0.2 10^3/uL (0.0-0.5); ABS Lymphocytes 0.8 10^3/uL (1.0-4.8); ABS Monocytes 0.3 10^3/uL (0.0-0.9); ABS Neutrophils 1.9 10^3/uL (1.5-7.6); Eosinophil % 6.4 %; Hematocrit 29.6 % (35-45); Hemoglobin 10.2 g/dL (11.5-14.3); Lymphocyte % 24.3 %; Mean Corpuscular Hemoglobin 34.7 pg (27-33); Mean Corpuscular Hgb Conc 34.4 g/dL (31-36); Mean Corpuscular Volume 100.9 fL (80-97); Mean Platelet Volume 7.2 fL (7.5-11.2); Nucleated Red Blood Cells % 0.1 %/100WBC (0.0-0.8); Platelet Count 247 10^3/uL (150-450); Red Blood Count 2.93 10^6/uL (3.63-4.92); Red Cell Distribution Width 13.6 % (12-17); White Blood Count 3.2 10^3/uL (3.8-11.8)
[2023-02-02 07:02] LABS: Calcium 8.6 mg/dL (8.6-10.3); Creatinine, Serum 0.91 mg/dL (0.51-0.95); Magnesium 1.9 mg/dL (1.9-2.7); eGFR CKD-EPI 66.2 (>60)
[2023-02-02] MEDS: DULoxetine DR 60 mg CAP PO SCH (11:28)
[2023-02-02] MEDS: NF:Lenalidomide 10 mg CAP (NF) PO SCH (11:30)
[2023-02-02] MEDS: FAMCICLOVIR 250 MG PO SCH ×3 (11:30→21:11)
[2023-02-02] MEDS: Multivitamins/Minerals TAB PO SCH (11:30)
[2023-02-02] MEDS: cefTRIAXone 1 gm/50 mL D5W 1 GM/50 ML BAG IV SCH (18:57)
[2023-02-02] MEDS: Enoxaparin 40 MG/0.4 ML SYR SUBCUT SCH (21:12)
[2023-02-03 06:40] LABS: ABS Eosinophils 0.2 10^3/uL (0.0-0.5); ABS Lymphocytes 0.9 10^3/uL (1.0-4.8); ABS Monocytes 0.3 10^3/uL (0.0-0.9); ABS Neutrophils 1.3 10^3/uL (1.5-7.6); ABS Nucleated RBC 0.01 10^3/ul; Eosinophil % 7.3 %; Hematocrit 32.4 % (35-45); Hemoglobin 10.9 g/dL (11.5-14.3); Lymphocyte % 34.2 %; Mean Corpuscular Hgb Conc 33.6 g/dL (31-36); Mean Corpuscular Volume 101.2 fL (80-97); Mean Platelet Volume 7.3 fL (7.5-11.2); Nucleated Red Blood Cells % 0.2 %/100WBC (0.0-0.8); Platelet Count 318 10^3/uL (150-450); Red Cell Distribution Width 13.6 % (12-17); White Blood Count 2.8 10^3/uL (3.8-11.8)
[2023-02-03 06:57] LABS: Creatinine, Serum 0.88 mg/dL (0.51-0.95); Potassium 4.2 mmol/L (3.5-5.0); eGFR CKD-EPI 68.9 (>60)
[2023-02-03] MEDS: NF:Lenalidomide 10 mg CAP (NF) PO SCH (09:26)
[2023-02-03] MEDS: FAMCICLOVIR 250 MG PO SCH ×3 (09:28→21:44)
[2023-02-03] MEDS: Multivitamins/Minerals TAB PO SCH (09:29)
[2023-02-03] MEDS: DULoxetine DR 60 mg CAP PO SCH (09:29)
[2023-02-03] MEDS: Enoxaparin 40 MG/0.4 ML SYR SUBCUT SCH (21:46)
[2023-02-04] MEDS: FAMCICLOVIR 250 MG PO SCH ×3 (08:59→21:06)
[2023-02-04] MEDS: Multivitamins/Minerals TAB PO SCH (08:59)
[2023-02-04] MEDS: DULoxetine DR 60 mg CAP PO SCH (08:59)
[2023-02-04] MEDS: NF:Lenalidomide 10 mg CAP (NF) PO SCH (09:00)
[2023-02-04] MEDS: Enoxaparin 40 MG/0.4 ML SYR SUBCUT SCH (21:07)
[2023-02-05] MEDS: Multivitamins/Minerals TAB PO SCH (09:14)
[2023-02-05] MEDS: FAMCICLOVIR 250 MG PO SCH ×3 (09:14→21:13)
[2023-02-05] MEDS: DULoxetine DR 60 mg CAP PO SCH (09:15)
[2023-02-05] MEDS: NF:Lenalidomide 10 mg CAP (NF) PO SCH (09:16)
[2023-02-05] MEDS: Enoxaparin 40 MG/0.4 ML SYR SUBCUT SCH (21:13)
[2023-02-06] MEDS: DULoxetine DR 60 mg CAP PO SCH (09:39)
[2023-02-06] MEDS: Multivitamins/Minerals TAB PO SCH (09:40)
[2023-02-06 09:46] VITALS: BP 124/75
[2023-02-06] MEDS: NF:Lenalidomide 10 mg CAP (NF) PO SCH (09:54)
[2023-02-06] MEDS: FAMCICLOVIR 250 MG PO SCH (10:09)
== END 2023-02-06 13:25 | disposition home or self-care (01) | DRG 178 ==
LOC: ED 15:09 → EDHOLD 15:09 → SUATTDRO 21:57 → MEDTELE 01-27 00:15 → SUATTDRO 01-29 11:34
PROVIDERS: ADMIT Internal Medicine; ATTEND Internal Medicine

== ENCOUNTER 2023-02-09 08:03 | Inpatient (IN) ==
[2023-02-09] MEDS ORDERED: Morphine 4 MG/ML VIAL (1 ml) IV ONE ×2 (08:20→09:56)
[2023-02-09 09:10] LABS: ABS Lymphocytes 0.5 10^3/uL (1.0-4.8); ABS Monocytes 0.4 10^3/uL (0.0-0.9); ABS Neutrophils 8.7 10^3/uL (1.5-7.6); Eosinophil % 0.3 %; Hemoglobin 11.1 g/dL (11.5-14.3); Lymphocyte % 4.9 %; Mean Corpuscular Hemoglobin 34.6 pg (27-33); Mean Corpuscular Hgb Conc 34.7 g/dL (31-36); Mean Corpuscular Volume 99.6 fL (80-97); Mean Platelet Volume 6.9 fL (7.5-11.2); Platelet Count 362 10^3/uL (150-450); Red Blood Count 3.21 10^6/uL (3.63-4.92); Red Cell Distribution Width 13.7 % (12-17); White Blood Count 9.7 10^3/uL (3.8-11.8)
[2023-02-09 09:26] LABS: Activated Partial Thrombo Time 27.2 seconds (26.0-38.0); INR 0.85 (0.83-1.13)
[2023-02-09 09:48] LABS: Albumin 4.1 g/dL (3.2-5.2); Albumin/Globulin Ratio 1.8 (1-3); Calcium 9.3 mg/dL (8.6-10.3); Creatinine, Serum 0.85 mg/dL (0.51-0.95); Globulin 2.3 g/dL (2-4); Potassium 4.9 mmol/L (3.5-5.0); Total Bilirubin 0.4 mg/dL (0.2-1.0); Total Protein 6.4 g/dL (6.4-8.9); eGFR CKD-EPI 71.8 (>60)
[2023-02-09] MEDS ORDERED: NS 0.9% 1000 ml BAG 1,000 ML IV ONE (09:57)
[2023-02-09] MEDS ORDERED: Acetaminophen IV 1 GM/100ML 1,000 MG/100 ML BAG IV ONE (10:54)
[2023-02-09] MEDS ORDERED: HYDROmorphone 0.5 MG/0.5 ML SYRINGE IV SLOW PU ONE ×2 (11:10→15:38)
[2023-02-09 11:35] LABS: Magnesium 1.7 mg/dL (1.9-2.7)
[2023-02-09] MEDS ORDERED: Magnesium Sulfate 2 gm BAG 2 GM/50 ML BAG IVPB ONE (11:52)
[2023-02-09] MEDS: Vitamin THERAPEUTIC TAB PO SCH (14:05)
[2023-02-09] MEDS: DULoxetine DR 60 mg CAP PO SCH (14:50)
[2023-02-09] MEDS: HYDROmorphone 0.5 MG/0.5 ML SYRINGE IV SLOW PU PRN ×2 (14:51→23:37)
[2023-02-09] MEDS ORDERED: ceFAZolin 2 GM PREMIX 2 GM/50 ML BAG ONE (15:16)
[2023-02-09] MEDS ORDERED: HYDROmorphone 1 MG/1 ML SYRINGE ONE ×2 (15:37→18:12)
[2023-02-09] MEDS ORDERED: fentaNYL 100 mcg/2 ml 50 MCG/ML VIAL ONE (15:45)
[2023-02-09] MEDS ORDERED: Propofol 10 MG/ML 20 ML BTL ONE (15:45)
[2023-02-09] MEDS ORDERED: Rocuronium 50 mg VIAL 10 mg/ml 5 ml VIAL (50 mg) ONE (15:45)
[2023-02-09] MEDS ORDERED: Lidocaine 2% PF 5 ML VIAL ONE (15:45)
[2023-02-09] MEDS: FAMCICLOVIR 250 MG PO SCH ×2 (16:11→22:11)
[2023-02-09] MEDS ORDERED: HYDROmorphone 0.5 MG/0.5 ML SYRINGE ONE (17:47)
[2023-02-09] MEDS ORDERED: Ondansetron 4 mg VIAL 2 MG/ML 2 ml VIAL IV PRN (18:08)
[2023-02-09] MEDS ORDERED: Naloxone 0.4 mg VIAL 0.4 mg/ml 1 ml VIAL IV PRN (18:08)
[2023-02-09] MEDS ORDERED: fentaNYL 100 mcg/2 ml 50 MCG/ML VIAL IV PRN (18:08)
[2023-02-09] MEDS: HYDROmorphone 1 MG/1 ML SYRINGE IV PRN ×2 (18:15→18:26)
[2023-02-09] MEDS ORDERED: Senna TAB 8.6 mg TAB PO PRN (23:45)
[2023-02-09] MEDS ORDERED: Morphine 2 MG/ML SYRINGE IV PRN (23:45)
[2023-02-09] MEDS ORDERED: Polyethylene Glycol 3350 17 GM PACKET PO PRN (23:45)
[2023-02-10] MEDS: Magnesium Hydroxide LIQ 30 ML UDC PO SCH ×3 (00:07→20:25)
[2023-02-10 00:39] LABS: Hematocrit 24.3 % (35-45); Hemoglobin 8.5 g/dL (11.5-14.3); Mean Platelet Volume 7.2 fL (7.5-11.2); Platelet Count 269 10^3/uL (150-450)
[2023-02-10 00:55] LABS: Albumin 3.4 g/dL (3.2-5.2); Albumin/Globulin Ratio 1.7 (1-3); Calcium 8.4 mg/dL (8.6-10.3); Creatinine, Serum 0.81 mg/dL (0.51-0.95); Potassium 4.8 mmol/L (3.5-5.0); Total Bilirubin 0.4 mg/dL (0.2-1.0); Total Protein 5.4 g/dL (6.4-8.9); eGFR CKD-EPI 76.1 (>60)
[2023-02-10] MEDS: ceFAZolin 1 GM ADVAN 1 GM in NS 0.9% 50 ML 50 ML IVPB SCH ×3 (01:43→17:00)
[2023-02-10 07:48] LABS: ABS Lymphocytes 0.7 10^3/uL (1.0-4.8); ABS Monocytes 0.3 10^3/uL (0.0-0.9); ABS Neutrophils 3.3 10^3/uL (1.5-7.6); Eosinophil % 0.1 %; Hematocrit 23.8 % (35-45); Hemoglobin 8.2 g/dL (11.5-14.3); Lymphocyte % 15.4 %; Mean Corpuscular Hemoglobin 34.6 pg (27-33); Mean Corpuscular Hgb Conc 34.5 g/dL (31-36); Mean Corpuscular Volume 100.3 fL (80-97); Mean Platelet Volume 7.4 fL (7.5-11.2); Platelet Count 242 10^3/uL (150-450); Red Blood Count 2.37 10^6/uL (3.63-4.92); Red Cell Distribution Width 13.7 % (12-17); White Blood Count 4.4 10^3/uL (3.8-11.8)
[2023-02-10 08:11] LABS: Calcium 8.5 mg/dL (8.6-10.3); Creatinine, Serum 1.16 mg/dL (0.51-0.95); Potassium 4.9 mmol/L (3.5-5.0); eGFR CKD-EPI 49.5 (>60)
[2023-02-10] MEDS ORDERED: Influenza vaccine *QUAD* *2023-24* 0.5 ML SYRINGE IM ONE (09:00)
[2023-02-10] MEDS: Vitamin THERAPEUTIC TAB PO SCH (10:15)
[2023-02-10] MEDS: DULoxetine DR 60 mg CAP PO SCH (10:15)
[2023-02-10] MEDS: FAMCICLOVIR 250 MG PO SCH ×3 (10:36→22:12)
[2023-02-10] MEDS: Lactated Ringers 1000 ml BAG 1,000 ML IV SCH ×2 (11:32→21:04)
[2023-02-10] MEDS: Enoxaparin 40 MG/0.4 ML SYR SUBCUT SCH (14:17)
[2023-02-10] MEDS ORDERED: Lactated Ringers 1000 ml BAG 1,000 ML IV ONE (20:03)
[2023-02-11 06:19] LABS: ABS Lymphocytes 0.7 10^3/uL (1.0-4.8); ABS Monocytes 0.4 10^3/uL (0.0-0.9); ABS Nucleated RBC 0.01 10^3/ul; Eosinophil % 0.5 %; Hematocrit 19.9 % (35-45); Hemoglobin 6.9 g/dL (11.5-14.3); Lymphocyte % 14.1 %; Mean Corpuscular Hemoglobin 34.5 pg (27-33); Mean Corpuscular Hgb Conc 34.6 g/dL (31-36); Mean Platelet Volume 7.4 fL (7.5-11.2); Nucleated Red Blood Cells % 0.2 %/100WBC (0.0-0.8); Platelet Count 217 10^3/uL (150-450); Red Blood Count 1.99 10^6/uL (3.63-4.92); Red Cell Distribution Width 13.6 % (12-17); White Blood Count 5.2 10^3/uL (3.8-11.8)
[2023-02-11 06:35] LABS: Calcium 8.3 mg/dL (8.6-10.3); Creatinine, Serum 1.32 mg/dL (0.51-0.95); Magnesium 2.2 mg/dL (1.9-2.7); Potassium 4.6 mmol/L (3.5-5.0); eGFR CKD-EPI 42.4 (>60)
[2023-02-11] MEDS: Lactated Ringers 1000 ml BAG 1,000 ML IV SCH ×3 (07:51→22:05)
[2023-02-11] MEDS: Magnesium Hydroxide LIQ 30 ML UDC PO SCH ×2 (09:14→22:01)
[2023-02-11] MEDS: FAMCICLOVIR 250 MG PO SCH ×3 (09:14→22:07)
[2023-02-11] MEDS: Vitamin THERAPEUTIC TAB PO SCH (09:14)
[2023-02-11] MEDS: DULoxetine DR 60 mg CAP PO SCH (09:14)
[2023-02-11] MEDS ORDERED: Lactulose 30 ml UDC PO ONE (11:42)
[2023-02-11] MEDS: Enoxaparin 40 MG/0.4 ML SYR SUBCUT SCH (12:04)
[2023-02-12] MEDS: Lactated Ringers 1000 ml BAG 1,000 ML IV SCH ×2 (04:38→22:04)
[2023-02-12 07:50] LABS: ABS Eosinophils 0.1 10^3/uL (0.0-0.5); ABS Lymphocytes 0.9 10^3/uL (1.0-4.8); ABS Monocytes 0.3 10^3/uL (0.0-0.9); ABS Neutrophils 2.9 10^3/uL (1.5-7.6); Eosinophil % 1.2 %; Hematocrit 17.9 % (35-45); Hemoglobin 6.3 g/dL (11.5-14.3); Lymphocyte % 20.7 %; Mean Corpuscular Hemoglobin 35.1 pg (27-33); Mean Corpuscular Hgb Conc 35.3 g/dL (31-36); Mean Corpuscular Volume 99.5 fL (80-97); Mean Platelet Volume 7.2 fL (7.5-11.2); Platelet Count 219 10^3/uL (150-450); Red Cell Distribution Width 13.6 % (12-17); White Blood Count 4.1 10^3/uL (3.8-11.8)
[2023-02-12 08:06] LABS: Albumin/Globulin Ratio 1.6 (1-3); Calcium 8.2 mg/dL (8.6-10.3); Creatinine, Serum 0.76 mg/dL (0.51-0.95); Globulin 1.9 g/dL (2-4); Magnesium 1.9 mg/dL (1.9-2.7); Potassium 4.1 mmol/L (3.5-5.0); Total Bilirubin 0.3 mg/dL (0.2-1.0); Total Protein 4.9 g/dL (6.4-8.9); eGFR CKD-EPI 82.2 (>60)
[2023-02-12] MEDS: Vitamin THERAPEUTIC TAB PO SCH (08:16)
[2023-02-12] MEDS: DULoxetine DR 60 mg CAP PO SCH (08:16)
[2023-02-12] MEDS: FAMCICLOVIR 250 MG PO SCH ×3 (08:17→21:58)
[2023-02-12] MEDS: Magnesium Hydroxide LIQ 30 ML UDC PO SCH ×2 (08:24→22:06)
[2023-02-12] MEDS: Enoxaparin 40 MG/0.4 ML SYR SUBCUT SCH (12:18)
[2023-02-12 13:07] LABS: Urine Appearance Clear; Urine Bilirubin Negative (Negative); Urine Blood Negative (Negative); Urine Color Yellow; Urine Glucose Negative (Negative); Urine Ketones Negative (Negative); Urine Nitrite Negative (Negative); Urine Protein Negative (Negative); Urine Specific Gravity 1.015 (1.002-1.030); Urine Urobilinogen Negative (Negative)
[2023-02-13] MEDS: Lactated Ringers 1000 ml BAG 1,000 ML IV SCH (04:49)
[2023-02-13 07:40] LABS: ABS Eosinophils 0.1 10^3/uL (0.0-0.5); ABS Lymphocytes 0.7 10^3/uL (1.0-4.8); ABS Monocytes 0.2 10^3/uL (0.0-0.9); ABS Neutrophils 1.8 10^3/uL (1.5-7.6); Eosinophil % 4.2 %; Hematocrit 21.4 % (35-45); Hemoglobin 7.3 g/dL (11.5-14.3); Lymphocyte % 23.5 %; Mean Corpuscular Hemoglobin 33.9 pg (27-33); Mean Corpuscular Hgb Conc 34.3 g/dL (31-36); Mean Corpuscular Volume 98.8 fL (80-97); Mean Platelet Volume 7.2 fL (7.5-11.2); Nucleated Red Blood Cells % 0.1 %/100WBC (0.0-0.8); Platelet Count 207 10^3/uL (150-450); Red Blood Count 2.16 10^6/uL (3.63-4.92); Red Cell Distribution Width 15.8 % (12-17); White Blood Count 2.8 10^3/uL (3.8-11.8)
[2023-02-13 07:55] LABS: Calcium 7.7 mg/dL (8.6-10.3); Creatinine, Serum 0.95 mg/dL (0.51-0.95); Magnesium 1.7 mg/dL (1.9-2.7); Potassium 4.8 mmol/L (3.5-5.0); eGFR CKD-EPI 62.9 (>60)
[2023-02-13] MEDS: Magnesium Hydroxide LIQ 30 ML UDC PO SCH ×2 (11:28→21:51)
[2023-02-13] MEDS: Vitamin THERAPEUTIC TAB PO SCH (11:37)
[2023-02-13] MEDS: DULoxetine DR 60 mg CAP PO SCH (11:37)
[2023-02-13] MEDS: FAMCICLOVIR 250 MG PO SCH ×3 (11:37→21:45)
[2023-02-13] MEDS: Enoxaparin 40 MG/0.4 ML SYR SUBCUT SCH (11:39)
[2023-02-13] MEDS ORDERED: Magnesium Sulf 4 GM/100 ML IV 4,000 MG/100 ML BAG IVPB ONE (15:36)
[2023-02-13] MEDS: Senna TAB 8.6 mg TAB PO SCH (21:45)
[2023-02-14 06:46] LABS: ABS Eosinophils 0.2 10^3/uL (0.0-0.5); ABS Lymphocytes 0.8 10^3/uL (1.0-4.8); ABS Monocytes 0.3 10^3/uL (0.0-0.9); ABS Neutrophils 1.8 10^3/uL (1.5-7.6); Eosinophil % 7.3 %; Hematocrit 23.7 % (35-45); Hemoglobin 8.4 g/dL (11.5-14.3); Lymphocyte % 24.8 %; Mean Corpuscular Hemoglobin 33.8 pg (27-33); Mean Corpuscular Hgb Conc 35.3 g/dL (31-36); Mean Corpuscular Volume 95.6 fL (80-97); Platelet Count 293 10^3/uL (150-450); Red Blood Count 2.48 10^6/uL (3.63-4.92); White Blood Count 3.1 10^3/uL (3.8-11.8)
[2023-02-14 07:10] LABS: Calcium 8.4 mg/dL (8.6-10.3); Creatinine, Serum 0.82 mg/dL (0.51-0.95); Magnesium 2.2 mg/dL (1.9-2.7); Potassium 4.7 mmol/L (3.5-5.0)
[2023-02-14] MEDS: FAMCICLOVIR 250 MG PO SCH ×3 (09:19→22:59)
[2023-02-14] MEDS: Magnesium Hydroxide LIQ 30 ML UDC PO SCH ×2 (09:19→22:59)
[2023-02-14] MEDS: DULoxetine DR 60 mg CAP PO SCH (09:20)
[2023-02-14] MEDS: Vitamin THERAPEUTIC TAB PO SCH (09:20)
[2023-02-14] MEDS: Polyethylene Glycol 3350 17 GM PACKET PO SCH (09:24)
[2023-02-14] MEDS: Enoxaparin 40 MG/0.4 ML SYR SUBCUT SCH (13:10)
[2023-02-14 17:01] LABS: Rapid COVID-19 Molecular Detected (Undetected)
[2023-02-14] MEDS ORDERED: Metoclopramide 5 MG/ML VIAL (10 mg) IV SLOW PU PRN (18:18)
[2023-02-14] MEDS: Senna TAB 8.6 mg TAB PO SCH (22:59)
[2023-02-15 06:58] LABS: ABS Eosinophils 0.1 10^3/uL (0.0-0.5); ABS Lymphocytes 0.7 10^3/uL (1.0-4.8); ABS Monocytes 0.4 10^3/uL (0.0-0.9); ABS Neutrophils 2.7 10^3/uL (1.5-7.6); Eosinophil % 2.1 %; Hematocrit 22.2 % (35-45); Lymphocyte % 17.1 %; Mean Corpuscular Hgb Conc 36.1 g/dL (31-36); Mean Corpuscular Volume 94.2 fL (80-97); Mean Platelet Volume 6.8 fL (7.5-11.2); Nucleated Red Blood Cells % 0.1 %/100WBC (0.0-0.8); Platelet Count 304 10^3/uL (150-450); Red Blood Count 2.36 10^6/uL (3.63-4.92); Red Cell Distribution Width 14.4 % (12-17); White Blood Count 3.8 10^3/uL (3.8-11.8)
[2023-02-15 07:56] LABS: Blood Urea Nitrogen 14 mg/dL (6-24); CO2 Carbon Dioxide 29 mmol/L (22-32); Calcium 8.3 mg/dL (8.6-10.3); Chloride 97 mmol/L (101-111); Creatinine, Serum 0.81 mg/dL (0.51-0.95); Glucose 113 mg/dL (70-100); Magnesium 1.8 mg/dL (1.9-2.7); Potassium 4.4 mmol/L (3.5-5.0); Sodium 122 mmol/L (135-145); eGFR CKD-EPI 76.1 (>60)
[2023-02-15] MEDS ORDERED: Magnesium Sulfate IV 1GM/100ML 1 GM/100 ML BAG IV ONE (08:13)
[2023-02-15] MEDS: DULoxetine DR 60 mg CAP PO SCH (08:24)
[2023-02-15] MEDS: Magnesium Hydroxide LIQ 30 ML UDC PO SCH ×2 (08:24→21:42)
[2023-02-15] MEDS: Fluticasone NASAL SPRAY 50MCG 16 gm SPRAY BTL BOTH NARES SCH (08:24)
[2023-02-15] MEDS: FAMCICLOVIR 250 MG PO SCH ×3 (08:24→21:43)
[2023-02-15] MEDS: Vitamin THERAPEUTIC TAB PO SCH (08:25)
[2023-02-15] MEDS: Polyethylene Glycol 3350 17 GM PACKET PO SCH (08:25)
[2023-02-15 09:49] LABS: Urine Osmo 360 mOsm/kg (150-1150)
[2023-02-15 09:49] LABS: Osmolality Serum 264 mOsm/kg (275-295)
[2023-02-15] MEDS: Enoxaparin 40 MG/0.4 ML SYR SUBCUT SCH (12:22)
[2023-02-15] MEDS ORDERED: Furosemide 40 mg/4 ml IV VIAL IV ONE (16:11)
[2023-02-15] MEDS: Senna TAB 8.6 mg TAB PO SCH (21:43)
[2023-02-16 00:22] LABS: Calcium 8.4 mg/dL (8.6-10.3); Creatinine, Serum 0.88 mg/dL (0.51-0.95); Magnesium 1.8 mg/dL (1.9-2.7); Potassium 4.2 mmol/L (3.5-5.0); eGFR CKD-EPI 68.9 (>60)
[2023-02-16] MEDS ORDERED: Magnesium Sulfate IV 1GM/100ML 1 GM/100 ML BAG IV ONE (05:26)
[2023-02-16] MEDS: FAMCICLOVIR 250 MG PO SCH ×3 (08:16→20:17)
[2023-02-16] MEDS: DULoxetine DR 60 mg CAP PO SCH (08:16)
[2023-02-16] MEDS: Magnesium Hydroxide LIQ 30 ML UDC PO SCH (08:18)
[2023-02-16] MEDS: Vitamin THERAPEUTIC TAB PO SCH (08:18)
[2023-02-16] MEDS: Polyethylene Glycol 3350 17 GM PACKET PO SCH (08:18)
[2023-02-16] MEDS: Fluticasone NASAL SPRAY 50MCG 16 gm SPRAY BTL BOTH NARES SCH (08:18)
[2023-02-16 10:58] LABS: Lambda Free Light Chain, S 2.58 mg/dL
[2023-02-16 12:08] LABS: Immunoglobulin A 4 mg/dL (61 - 356); Immunoglobulin G 319 mg/dL (767 - 1590); Immunoglobulin M <5 mg/dL (37 - 286)
[2023-02-16 12:24] LABS: ABS Eosinophils 0.1 10^3/uL (0.0-0.5); ABS Lymphocytes 0.7 10^3/uL (1.0-4.8); ABS Monocytes 0.5 10^3/uL (0.0-0.9); ABS Neutrophils 2.8 10^3/uL (1.5-7.6); ABS Nucleated RBC 0.01 10^3/ul; Eosinophil % 2.8 %; Hematocrit 24.7 % (35-45); Hemoglobin 8.7 g/dL (11.5-14.3); Lymphocyte % 17.7 %; Mean Corpuscular Hemoglobin 33.8 pg (27-33); Mean Corpuscular Hgb Conc 35.2 g/dL (31-36); Mean Corpuscular Volume 96.2 fL (80-97); Mean Platelet Volume 6.8 fL (7.5-11.2); Nucleated Red Blood Cells % 0.2 %/100WBC (0.0-0.8); Platelet Count 403 10^3/uL (150-450); Red Blood Count 2.57 10^6/uL (3.63-4.92); Red Cell Distribution Width 14.5 % (12-17); White Blood Count 4.2 10^3/uL (3.8-11.8)
[2023-02-16 12:43] LABS: Calcium 8.6 mg/dL (8.6-10.3); Creatinine, Serum 0.89 mg/dL (0.51-0.95); Potassium 4.5 mmol/L (3.5-5.0)
[2023-02-16] MEDS: Enoxaparin 40 MG/0.4 ML SYR SUBCUT SCH (13:39)
[2023-02-16 13:47] LABS: TSH Ultra Thyroid Stim Horm 1.06 mcIU/mL (0.34-5.60)
[2023-02-16] MEDS: Senna TAB 8.6 mg TAB PO SCH (20:19)
[2023-02-17 08:11] LABS: Calcium 8.4 mg/dL (8.6-10.3); Creatinine, Serum 0.77 mg/dL (0.51-0.95); Potassium 4.2 mmol/L (3.5-5.0); eGFR CKD-EPI 80.9 (>60)
[2023-02-17] MEDS: FAMCICLOVIR 250 MG PO SCH ×3 (09:32→20:36)
[2023-02-17] MEDS: Polyethylene Glycol 3350 17 GM PACKET PO SCH (09:33)
[2023-02-17] MEDS: DULoxetine DR 60 mg CAP PO SCH (09:35)
[2023-02-17] MEDS: Vitamin THERAPEUTIC TAB PO SCH (09:35)
[2023-02-17] MEDS: Fluticasone NASAL SPRAY 50MCG 16 gm SPRAY BTL BOTH NARES SCH (11:45)
[2023-02-17 15:09] LABS: Albumin 2.3 g/dL (3.4-4.7); Flag, M-protein Isotype Positive (Negative); Total Protein 4.3 g/dL (6.3 - 7.9)
[2023-02-17] MEDS: Enoxaparin 40 MG/0.4 ML SYR SUBCUT SCH (15:23)
[2023-02-17] MEDS: Senna TAB 8.6 mg TAB PO SCH (22:28)
[2023-02-18] MEDS: Polyethylene Glycol 3350 17 GM PACKET PO SCH (08:34)
[2023-02-18] MEDS: DULoxetine DR 60 mg CAP PO SCH (08:34)
[2023-02-18] MEDS: Vitamin THERAPEUTIC TAB PO SCH (08:34)
[2023-02-18] MEDS: FAMCICLOVIR 250 MG PO SCH ×3 (08:35→20:08)
[2023-02-18 08:39] LABS: ABS Eosinophils 0.2 10^3/uL (0.0-0.5); ABS Lymphocytes 1.2 10^3/uL (1.0-4.8); ABS Monocytes 0.4 10^3/uL (0.0-0.9); ABS Neutrophils 2.8 10^3/uL (1.5-7.6); Eosinophil % 3.9 %; Hematocrit 28.3 % (35-45); Hemoglobin 9.8 g/dL (11.5-14.3); Lymphocyte % 24.8 %; Mean Corpuscular Hemoglobin 33.6 pg (27-33); Mean Corpuscular Hgb Conc 34.8 g/dL (31-36); Mean Corpuscular Volume 96.8 fL (80-97); Mean Platelet Volume 6.8 fL (7.5-11.2); Platelet Count 544 10^3/uL (150-450); Red Blood Count 2.93 10^6/uL (3.63-4.92); Red Cell Distribution Width 14.7 % (12-17); White Blood Count 4.6 10^3/uL (3.8-11.8)
[2023-02-18 08:57] LABS: Creatinine, Serum 0.85 mg/dL (0.51-0.95); Magnesium 1.9 mg/dL (1.9-2.7); Potassium 5.3 mmol/L (3.5-5.0); eGFR CKD-EPI 71.8 (>60)
[2023-02-18 10:30] LABS: Calcium 8.4 mg/dL (8.6-10.3); Creatinine, Serum 0.86 mg/dL (0.51-0.95); Potassium 4.6 mmol/L (3.5-5.0); eGFR CKD-EPI 70.8 (>60)
[2023-02-18] MEDS: Fluticasone NASAL SPRAY 50MCG 16 gm SPRAY BTL BOTH NARES SCH (12:18)
[2023-02-18] MEDS: Enoxaparin 40 MG/0.4 ML SYR SUBCUT SCH (12:18)
[2023-02-18] MEDS: Senna TAB 8.6 mg TAB PO SCH (20:08)
[2023-02-19 08:01] LABS: Calcium 8.4 mg/dL (8.6-10.3); Creatinine, Serum 0.79 mg/dL (0.51-0.95); Potassium 4.3 mmol/L (3.5-5.0); eGFR CKD-EPI 78.4 (>60)
[2023-02-19] MEDS: Vitamin THERAPEUTIC TAB PO SCH (08:55)
[2023-02-19] MEDS: FAMCICLOVIR 250 MG PO SCH ×3 (08:55→19:51)
[2023-02-19] MEDS: DULoxetine DR 60 mg CAP PO SCH (08:55)
[2023-02-19] MEDS: Fluticasone NASAL SPRAY 50MCG 16 gm SPRAY BTL BOTH NARES SCH (08:56)
[2023-02-19] MEDS: Polyethylene Glycol 3350 17 GM PACKET PO SCH (08:56)
[2023-02-19] MEDS: Enoxaparin 40 MG/0.4 ML SYR SUBCUT SCH (13:00)
[2023-02-19] MEDS: Senna TAB 8.6 mg TAB PO SCH (19:53)
[2023-02-20 06:39] LABS: ABS Eosinophils 0.2 10^3/uL (0.0-0.5); ABS Monocytes 0.6 10^3/uL (0.0-0.9); ABS Neutrophils 2.9 10^3/uL (1.5-7.6); Eosinophil % 3.6 %; Hematocrit 22.9 % (35-45); Hemoglobin 8.1 g/dL (11.5-14.3); Lymphocyte % 21.1 %; Mean Corpuscular Hemoglobin 34.1 pg (27-33); Mean Corpuscular Hgb Conc 35.2 g/dL (31-36); Mean Corpuscular Volume 96.9 fL (80-97); Mean Platelet Volume 6.8 fL (7.5-11.2); Nucleated Red Blood Cells % 0.1 %/100WBC (0.0-0.8); Platelet Count 510 10^3/uL (150-450); Red Blood Count 2.36 10^6/uL (3.63-4.92); Red Cell Distribution Width 15.2 % (12-17); White Blood Count 4.6 10^3/uL (3.8-11.8)
[2023-02-20 06:57] LABS: Calcium 8.3 mg/dL (8.6-10.3); Creatinine, Serum 0.7 mg/dL (0.51-0.95); Potassium 4.4 mmol/L (3.5-5.0); eGFR CKD-EPI 90.7 (>60)
[2023-02-20] MEDS: Vitamin THERAPEUTIC TAB PO SCH (08:35)
[2023-02-20] MEDS: FAMCICLOVIR 250 MG PO SCH ×3 (08:37→20:19)
[2023-02-20] MEDS: DULoxetine DR 60 mg CAP PO SCH (08:38)
[2023-02-20] MEDS: Polyethylene Glycol 3350 17 GM PACKET PO SCH (09:12)
[2023-02-20] MEDS: Fluticasone NASAL SPRAY 50MCG 16 gm SPRAY BTL BOTH NARES SCH (09:12)
[2023-02-20] MEDS: Enoxaparin 40 MG/0.4 ML SYR SUBCUT SCH (12:20)
[2023-02-20] MEDS: Senna TAB 8.6 mg TAB PO SCH (20:20)
[2023-02-20] MEDS: Magnesium Hydroxide LIQ 30 ML UDC PO PRN (20:22)
[2023-02-21 05:46] LABS: ABS Eosinophils 0.2 10^3/uL (0.0-0.5); ABS Monocytes 0.5 10^3/uL (0.0-0.9); ABS Neutrophils 1.7 10^3/uL (1.5-7.6); Eosinophil % 5.5 %; Hematocrit 24.3 % (35-45); Hemoglobin 8.5 g/dL (11.5-14.3); Lymphocyte % 28.9 %; Mean Corpuscular Hemoglobin 34.1 pg (27-33); Mean Corpuscular Hgb Conc 34.9 g/dL (31-36); Mean Corpuscular Volume 97.7 fL (80-97); Mean Platelet Volume 6.7 fL (7.5-11.2); Platelet Count 533 10^3/uL (150-450); Red Blood Count 2.49 10^6/uL (3.63-4.92); Red Cell Distribution Width 15.4 % (12-17); White Blood Count 3.4 10^3/uL (3.8-11.8)
[2023-02-21 06:06] LABS: Calcium 8.6 mg/dL (8.6-10.3); Creatinine, Serum 0.79 mg/dL (0.51-0.95); Potassium 4.3 mmol/L (3.5-5.0); eGFR CKD-EPI 78.4 (>60)
[2023-02-21] MEDS: Polyethylene Glycol 3350 17 GM PACKET PO SCH (09:52)
[2023-02-21] MEDS: Vitamin THERAPEUTIC TAB PO SCH (09:55)
[2023-02-21] MEDS: FAMCICLOVIR 250 MG PO SCH ×3 (09:55→20:07)
[2023-02-21] MEDS: Magnesium Hydroxide LIQ 30 ML UDC PO PRN (09:55)
[2023-02-21] MEDS: DULoxetine DR 60 mg CAP PO SCH (09:55)
[2023-02-21] MEDS: Fluticasone NASAL SPRAY 50MCG 16 gm SPRAY BTL BOTH NARES SCH (10:03)
[2023-02-21] MEDS: Enoxaparin 40 MG/0.4 ML SYR SUBCUT SCH (11:50)
[2023-02-21] MEDS: Senna TAB 8.6 mg TAB PO SCH (19:59)
[2023-02-22] MEDS: Polyethylene Glycol 3350 17 GM PACKET PO SCH (08:39)
[2023-02-22] MEDS: DULoxetine DR 60 mg CAP PO SCH (08:39)
[2023-02-22] MEDS: FAMCICLOVIR 250 MG PO SCH ×3 (08:41→20:51)
[2023-02-22] MEDS: Vitamin THERAPEUTIC TAB PO SCH (08:42)
[2023-02-22] MEDS: Fluticasone NASAL SPRAY 50MCG 16 gm SPRAY BTL BOTH NARES SCH (08:43)
[2023-02-22 11:37] LABS: ABS Eosinophils 0.2 10^3/uL (0.0-0.5); ABS Lymphocytes 0.8 10^3/uL (1.0-4.8); ABS Monocytes 0.4 10^3/uL (0.0-0.9); ABS Neutrophils 3.4 10^3/uL (1.5-7.6); Hematocrit 26.2 % (35-45); Hemoglobin 9.3 g/dL (11.5-14.3); Lymphocyte % 17.4 %; Mean Corpuscular Hemoglobin 34.4 pg (27-33); Mean Corpuscular Hgb Conc 35.3 g/dL (31-36); Mean Corpuscular Volume 97.5 fL (80-97); Mean Platelet Volume 6.6 fL (7.5-11.2); Platelet Count 589 10^3/uL (150-450); Red Blood Count 2.69 10^6/uL (3.63-4.92); Red Cell Distribution Width 15.3 % (12-17); White Blood Count 4.8 10^3/uL (3.8-11.8)
[2023-02-22 12:08] LABS: Calcium 9.1 mg/dL (8.6-10.3); Creatinine, Serum 0.84 mg/dL (0.51-0.95); Potassium 4.6 mmol/L (3.5-5.0); eGFR CKD-EPI 72.9 (>60)
[2023-02-22] MEDS: Enoxaparin 40 MG/0.4 ML SYR SUBCUT SCH (13:27)
[2023-02-22] MEDS: Senna TAB 8.6 mg TAB PO SCH (20:51)
[2023-02-23] MEDS: Polyethylene Glycol 3350 17 GM PACKET PO SCH (08:53)
[2023-02-23] MEDS: Vitamin THERAPEUTIC TAB PO SCH (08:55)
[2023-02-23] MEDS: DULoxetine DR 60 mg CAP PO SCH (08:56)
[2023-02-23] MEDS: FAMCICLOVIR 250 MG PO SCH ×3 (08:57→22:07)
[2023-02-23] MEDS: Fluticasone NASAL SPRAY 50MCG 16 gm SPRAY BTL BOTH NARES SCH (14:42)
[2023-02-23] MEDS: Enoxaparin 40 MG/0.4 ML SYR SUBCUT SCH (14:43)
[2023-02-23] MEDS: Magnesium Hydroxide LIQ 30 ML UDC PO PRN (14:44)
[2023-02-23] MEDS: Senna TAB 8.6 mg TAB PO SCH (22:08)
[2023-02-24] MEDS: FAMCICLOVIR 250 MG PO SCH (08:39)
[2023-02-24] MEDS: Polyethylene Glycol 3350 17 GM PACKET PO SCH (08:39)
[2023-02-24] MEDS: Vitamin THERAPEUTIC TAB PO SCH (08:41)
[2023-02-24] MEDS: DULoxetine DR 60 mg CAP PO SCH (08:41)
[2023-02-24 10:09] VITALS: BP 115/70
== END 2023-02-24 11:40 | DRG 481 ==
LOC: EDHOLD 08:03 → ED 08:03 → SUATTDRO 10:30 → EDHOLD 12:04 → SSU 13:24 → SUATTDRO 16:00
PROVIDERS: ADMIT Internal Medicine; ATTEND Student in an Organized Health Care Education/Training Program

== ENCOUNTER 2023-10-16 14:13 | Inpatient (IN) ==
[2023-10-16] MEDS ORDERED: Lorazepam PYXIS KEY PRN (14:16)
[2023-10-16] MEDS ORDERED: LORazepam 2 mg VIAL 1 ml ONE ×2 (14:17→14:47)
[2023-10-16] MEDS: LORazepam 2 mg VIAL 1 ml IV PUSH ONE (14:20)
[2023-10-16] MEDS: LORazepam 2 MG/ML 1 mL Syringe IV ONE (14:45)
[2023-10-16 15:10] LABS: ABS Lymphocytes 1.4 10^3/uL (1.0-4.8); ABS Monocytes 0.3 10^3/uL (0.0-0.9); ABS Neutrophils 7.9 10^3/uL (1.5-7.6); Eosinophil % 0.5 %; Hematocrit 35.4 % (35-45); Hemoglobin 11.7 g/dL (11.5-14.3); Lymphocyte % 14.4 %; Mean Corpuscular Hemoglobin 31.9 pg (27-33); Mean Corpuscular Hgb Conc 33.1 g/dL (31-36); Mean Corpuscular Volume 96.5 fL (80-97); Mean Platelet Volume 7.2 fL (7.5-11.2); Platelet Count 328 10^3/uL (150-450); Red Blood Count 3.67 10^6/uL (3.63-4.92); Red Cell Distribution Width 15.5 % (12-17); White Blood Count 9.7 10^3/uL (3.8-11.8)
[2023-10-16] MEDS: Thiamine 100 MG/ML 2 ml VIAL (200 mg) IM ONE (15:33)
[2023-10-16 15:37] LABS: High Sens Troponin Baseline 13 pg/mL (<15)
[2023-10-16 15:41] LABS: ALT 15 U/L (7-52); AST 22 U/L (13-39); Albumin 3.8 g/dL (3.2-5.2); Albumin/Globulin Ratio 1.5 (1-3); Alcohol, S < 13 mg/dL (<13); Alkaline Phosphatase 173 U/L (35-149); Anion Gap 15 mmol/L (2-16); Blood Urea Nitrogen 10 mg/dL (6-24); CO2 Carbon Dioxide 23 mmol/L (22-32); Calcium 8.9 mg/dL (8.6-10.3); Chloride 100 mmol/L (101-111); Creatinine, Serum 1.08 mg/dL (0.51-0.95); Globulin 2.5 g/dL (2-4); Glucose 167 mg/dL (70-100); Potassium 3.5 mmol/L (3.5-5.0); Sodium 138 mmol/L (135-145); Total Bilirubin 0.7 mg/dL (0.2-1.0); Total Protein 6.3 g/dL (6.4-8.9); eGFR CKD-EPI 53.6 (>60)
[2023-10-16] MEDS: Thiamine 100 MG/ML 2 ml VIAL 100 MG, Folic Acid IV 1 MG, Multiple Vitamin IV ADULT 10 M... IV ONE (15:47)
[2023-10-16 16:28] LABS: Urine Appearance Clear; Urine Bilirubin Negative (Negative); Urine Blood Negative (Negative); Urine Color Light-Yellow; Urine Glucose Negative (Negative); Urine Ketones Negative (Negative); Urine Nitrite Negative (Negative); Urine Protein Trace (Negative); Urine Specific Gravity 1.014 (1.002-1.030); Urine Urobilinogen Negative (Negative)
[2023-10-16 16:46] LABS: High Sensitivity Troponin 1 Hr 23 pg/mL (<15)
[2023-10-16] MEDS: LORazepam 2 mg VIAL 1 ml IV PUSH SCH (17:00)
[2023-10-16] MEDS ORDERED: levETIRAcetam IV 2,000 MG in NS 0.9% 100 ml BAG 100 ML IVPB ONE (17:07)
[2023-10-16] MEDS: Multivitamins/Minerals TAB PO SCH (17:43)
[2023-10-16] MEDS: levETIRAcetam IVPREMIX 1,000 MG/100 ML BAG IVPB SCH (18:31)
[2023-10-16] MEDS: Enoxaparin 40 MG/0.4 ML SYR SUBCUT SCH (21:58)
[2023-10-17 06:23] LABS: ABS Eosinophils 0.1 10^3/uL (0.0-0.5); ABS Lymphocytes 1.1 10^3/uL (1.0-4.8); ABS Monocytes 0.6 10^3/uL (0.0-0.9); ABS Neutrophils 5.3 10^3/uL (1.5-7.6); Eosinophil % 1.3 %; Hematocrit 31.6 % (35-45); Hemoglobin 10.7 g/dL (11.5-14.3); Mean Corpuscular Hemoglobin 32.2 pg (27-33); Mean Corpuscular Hgb Conc 33.8 g/dL (31-36); Mean Corpuscular Volume 95.3 fL (80-97); Platelet Count 280 10^3/uL (150-450); Red Blood Count 3.31 10^6/uL (3.63-4.92); Red Cell Distribution Width 15.1 % (12-17); White Blood Count 7.2 10^3/uL (3.8-11.8)
[2023-10-17 06:59] LABS: Calcium 8.3 mg/dL (8.6-10.3); Creatinine, Serum 0.78 mg/dL (0.51-0.95); Magnesium 1.3 mg/dL (1.9-2.7); Potassium 3.2 mmol/L (3.5-5.0); eGFR CKD-EPI 79.2 (>60)
[2023-10-17] MEDS ORDERED: Lorazepam PYXIS KEY PRN (08:38)
[2023-10-17] MEDS: levETIRAcetam 1000MG IVPREMIX 1,000 MG/100 ML BAG IVPB SCH (11:43)
[2023-10-17] MEDS: DULoxetine DR 60 mg CAP PO SCH (13:25)
[2023-10-17 15:38] LABS: Calcium 8.7 mg/dL (8.6-10.3); Creatinine, Serum 0.85 mg/dL (0.51-0.95); Magnesium 1.4 mg/dL (1.9-2.7); Potassium 3.6 mmol/L (3.5-5.0); eGFR CKD-EPI 71.4 (>60)
[2023-10-17] MEDS: CALCIUM GLUCONATE 1GM/50ML NS 1 GM/50 ML BAG IV ONE (18:18)
[2023-10-17] MEDS: KCL 20 MEQ/100 ML IVPREMIX 20 MEQ/100 ML BAG IV SCH (20:33)
[2023-10-17] MEDS: Magnesium Sulf 4 GM/100 ML IV 4,000 MG/100 ML BAG IVPB ONE (23:01)
[2023-10-18 06:10] LABS: ABS Eosinophils 0.1 10^3/uL (0.0-0.5); ABS Lymphocytes 1.5 10^3/uL (1.0-4.8); ABS Monocytes 0.5 10^3/uL (0.0-0.9); ABS Neutrophils 3.3 10^3/uL (1.5-7.6); Eosinophil % 2.3 %; Hematocrit 29.7 % (35-45); Hemoglobin 9.9 g/dL (11.5-14.3); Lymphocyte % 27.5 %; Mean Corpuscular Hemoglobin 32.1 pg (27-33); Mean Corpuscular Hgb Conc 33.4 g/dL (31-36); Mean Corpuscular Volume 96.2 fL (80-97); Mean Platelet Volume 7.5 fL (7.5-11.2); Platelet Count 260 10^3/uL (150-450); Red Blood Count 3.09 10^6/uL (3.63-4.92); Red Cell Distribution Width 15.6 % (12-17); White Blood Count 5.5 10^3/uL (3.8-11.8)
[2023-10-18 06:52] LABS: Calcium 8.4 mg/dL (8.6-10.3); Creatinine, Serum 0.83 mg/dL (0.51-0.95); Magnesium 2.4 mg/dL (1.9-2.7); Potassium 3.6 mmol/L (3.5-5.0); eGFR CKD-EPI 73.5 (>60)
[2023-10-18] MEDS: KCL 20 MEQ/100 ML IVPREMIX 20 MEQ/100 ML BAG IV SCH (10:46)
[2023-10-18 14:43] LABS: Kappa Free Light Chain 0.46 mg/dL; Lambda Free Light Chain, S 4.73 mg/dL
[2023-10-18 19:29] LABS: Flag, M-protein Isotype Positive (Negative); Immunoglobulin A (IgA), S 2 mg/dL (61 - 356); Immunoglobulin G (IgG), S 1060 mg/dL (767 - 1590); Immunoglobulin M (IgM), S 7 mg/dL (37 - 286); M-protein GL 0.858 g/dL
[2023-10-19 06:13] LABS: ABS Eosinophils 0.2 10^3/uL (0.0-0.5); ABS Lymphocytes 1.3 10^3/uL (1.0-4.8); ABS Monocytes 0.5 10^3/uL (0.0-0.9); ABS Neutrophils 2.7 10^3/uL (1.5-7.6); Eosinophil % 3.3 %; Hematocrit 28.1 % (35-45); Hemoglobin 9.3 g/dL (11.5-14.3); Lymphocyte % 28.2 %; Mean Corpuscular Hemoglobin 31.8 pg (27-33); Mean Corpuscular Hgb Conc 33.2 g/dL (31-36); Mean Platelet Volume 7.4 fL (7.5-11.2); Platelet Count 252 10^3/uL (150-450); Red Blood Count 2.93 10^6/uL (3.63-4.92); Red Cell Distribution Width 15.4 % (12-17); White Blood Count 4.7 10^3/uL (3.8-11.8)
[2023-10-19 06:58] LABS: Calcium 8.1 mg/dL (8.6-10.3); Creatinine, Serum 0.77 mg/dL (0.51-0.95); Magnesium 1.7 mg/dL (1.9-2.7); Potassium 4.2 mmol/L (3.5-5.0); eGFR CKD-EPI 80.4 (>60)
[2023-10-19] MEDS: Magnesium Sulfate 2 gm BAG 2 GM/50 ML BAG IVPB ONE (09:49)
[2023-10-19] MEDS: Magnesium Sulfate IV 1GM/100ML 1 GM/100 ML BAG IV ONE (12:51)
[2023-10-19 13:04] VITALS: BP 149/89
== END 2023-10-19 13:25 | disposition home or self-care (01) | DRG 101 ==
LOC: EDHOLD 14:13 → ED 14:13 → SUATTDRO 16:40 → MEDTELE 21:14 → EDHOLD 21:37 → MED 22:36 → SUATTDRO 10-18 11:51
PROVIDERS: ADMIT Internal Medicine; ATTEND Internal Medicine